=== PATIENT | male | born 1950 | race Caucasian/White ===

== ENCOUNTER → 2019-01-21 | Outpatient (CLI) | payer MEDICARE, BC ==
[~2019-01-21] MED LIST: IBP200T PO; MECL-124 PO; ONDAN4ODT PO; SCOP1PAT TD
--- NOTE | 2019-01-21 10:17 | Diagnostic Imaging Report ---
PROCEDURE: CT chest, abdomen, and pelvis without contrast. TECHNIQUE: Multiple contiguous axial images were obtained through the chest, abdomen, and pelvis without the use of intravenous contrast. Auto Exposure Controls were utilized during the CT exam to meet ALARA standards for radiation dose reduction. INDICATION: Right-sided thoracic pain extending into the right buttock and leg. COMPARISON: Correlation is made with prior CT abdomen and pelvis study from 06/15/2018. No prior CT chest is available for comparison. CT CHEST: No axillary lymphadenopathy is detected. No mediastinal or hilar lymphadenopathy is seen. There are coronary arterial calcifications detected. No pericardial or pleural fluid is detected. There is biapical pleural parenchymal scarring. Left upper lobe does contain a 10 mm slightly irregular density, image #17. No other parenchymal abnormalities are identified. Bony structures appear nonacute. IMPRESSION: 1. Irregular semisolid 10 mm density in the left upper lobe, as described. This is indeterminate. This could represent a small area of scarring or atelectasis but small neoplasm cannot be entirely excluded. Close followup with repeat CT of the chest in 4-6 months recommended to confirm stability. No other significant abnormality in the chest is identified. CT ABDOMEN AND PELVIS: Small low densities within the liver appear to be stable when compared with prior CT and likely cysts. The gallbladder is unremarkable. No biliary duct dilatation is seen. The pancreas and spleen are unremarkable. No adrenal mass is identified. Kidneys contain cortical low densities, similar to prior exam and most consistent with cysts. No calculi are seen. There is no hydronephrosis. The aorta shows some tortuosity but is non-aneurysmal. The small and large bowel loops are normal in caliber. No obstruction is seen. The appendix is visualized in the right lower quadrant and appears unremarkable. There is no ascites. Bladder is unremarkable. Prostate demonstrates some calcifications. Degenerative changes in the lumbar spine are noted. No acute bony abnormality is detected. IMPRESSION: 1. Hepatic and renal cysts. 2. No acute abnormality in the abdomen or pelvis is identified. Dictated by: Dictated on workstation # [id number]
== END ==
LOC: RAD 08:16
PROVIDERS: ATTEND Family Medicine
DX: J98.4 Other disorders of lung (principal); K76.89 Other specified diseases of liver; N28.1 Cyst of kidney, acquired
CPT/HCPCS: 71250; 74176

== ENCOUNTER → 2019-03-12 | Outpatient (CLI) | payer MEDICARE, BC ==
--- NOTE | 2019-03-12 13:15 | Diagnostic Imaging Report ---
INDICATION: Mid back pain. COMPARISON: No prior studies are available for comparison. FINDINGS: There is right convexity scoliotic curvature. There is normal kyphotic curvature. Vertebral body heights are maintained. The marrow signal intensity is unremarkable. No acute compression fracture is detected. No geographic marrow lesion is seen. There is generalized degenerative disc disease with variable disc space narrowing and desiccation. The thoracic cord demonstrates normal signal intensity. No focal disc protrusion is seen. Center canal is patent at all levels. Paraspinous tissues demonstrate a probable cyst in the left kidney measuring 3.0 cm. No other significant abnormality is seen. IMPRESSION: 1. Thoracic scoliosis and spondylosis. No acute compression fracture is detected. No central canal stenosis is identified. 2. Left renal cyst. Dictated by: Dictated on workstation # [id number]
== END ==
LOC: RAD 07:29
PROVIDERS: ATTEND Family Medicine
DX: M41.84 Other forms of scoliosis, thoracic region (principal); M47.814 Spondylosis without myelopathy or radiculopathy, thoracic region; N28.1 Cyst of kidney, acquired
CPT/HCPCS: 72146

== ENCOUNTER → 2021-04-11 | Outpatient (CLI) | payer MEDICARE, OTHER ==
--- NOTE | 2021-04-11 08:47 | Diagnostic Imaging Report ---
PROCEDURE: CT abdomen and pelvis without contrast. TECHNIQUE: Multiple contiguous axial images were obtained through the abdomen and pelvis without the use of intravenous contrast. Auto Exposure Controls were utilized during the CT exam to meet ALARA standards for radiation dose reduction. INDICATION: Hematuria. Comparison is made with prior CT from 01/21/2019. The lung bases are clear. Small low density in the periphery of the right lobe of liver appears stable. There is no biliary duct dilatation. Gallbladder is unremarkable. Pancreas and spleen are unremarkable. No adrenal mass is detected. Cortical low-attenuation lesions in the kidneys bilaterally appear to be fairly stable. There is some questionable increased density in the region of the collecting system of the lower pole of the right kidney, greater density than expected. Possibility of a mass at this location cannot be entirely excluded and correlation with retrograde pyelography or postcontrast CT with delayed imaging would be recommended. No calculi are seen. No hydronephrosis. Aorta is nonaneurysmal. Bowel loops are normal caliber. There is no free fluid or fluid collection. Bladder is unremarkable. Prostate is unremarkable. IMPRESSION: 1. Bilateral renal cysts and hepatic cysts. 2. There is some increased density to the right lower pole calyces and infundibuli, suspicious for a urothelial mass. Correlation with retrograde pyelography or postcontrast delayed imaging would be recommended. No other significant abnormality is detected. Dictated by: Dictated on workstation # [id number]
== END ==
LOC: RAD 08:15
PROVIDERS: ATTEND Urology
DX: N28.1 Cyst of kidney, acquired (principal); K76.89 Other specified diseases of liver
CPT/HCPCS: 74176

== ENCOUNTER 2021-04-25 06:11 | Outpatient (CLI) | payer MEDICARE, OTHER ==
[~2021-04-25] VITALS: Ht 175.3 cm; Wt 75.0 kg
== END 2021-04-25 15:07 | disposition home or self-care (01) ==
LOC: PREOP 06:11
PROVIDERS: ATTEND Urology
DX: Z01.818 Encounter for other preprocedural examination (principal)

== ENCOUNTER 2021-05-02 08:30 | Day surgery (SDC) | payer MEDICARE, OTHER ==
[2021-05-02] VITALS (12 sets, daily range): BP systolic 14–184; BP diastolic 55–105
[~2021-05-02] VITALS: Ht 175 cm; Wt 75.0 kg
--- NOTE | 2021-05-02 07:03 | Progress Note-Pre Operative ---
Pre-Operative Progress Note H&P Reviewed The H&P was reviewed, patient examined and no changes noted. Date Seen by Provider: May 02, 2021 Time Seen by Provider: : Date H&P Reviewed: May 02, 2021 Time H&P Reviewed: : Pre-Operative Diagnosis: GROSS HEMATURIA, RT LOWER CALYCEAL DEFECT AND POSSIBLE BLADDER TUMOR MINI WELLER MD May 02, 2021 07:03
--- NOTE | 2021-05-02 07:03 | Progress Note-Post Operative ---
Post-Operative Progess Note Surgeon (s)/Electrical Integrator (s) Surgeon MINI WELLER MD Electrical Integrator: NONE Pre-Operative Diagnosis GROSS HEMATURIA, RT LOWER CALYCEAL DEFECT AND POSSIBLE BLADDER TUMOR Post-Operative Diagnosis SAME Procedure & Operative Findings Date of Procedure 05/02/21 Procedure Performed/Findings CYSTOSCOPY, RT RETROGRADE UROGRAM AND BARBOTAGE CYTOLOGY Anesthesia Type GENERAL Estimated Blood Loss Estimated blood loss (mL): NONE Specimens/Packing Specimens Removed NONE Packing: NONE MINI WELLER MD May 02, 2021 07:03
--- NOTE | 2021-05-02 07:04 | Discharge Inst-Urology ---
Discharge Inst-Urology Reconcile Patient Problems Problems Reviewed?: Yes Final Diagnosis GROSS HEMATURIA AND RT CALYCEAL FILLING DEFECT ?TCC Patient Instructions/Follow Up Plan/Assessment/Instructions Please make appointment to been seen in office in 2 weeks. Increase oral fluids for 48 hours and then as needed. Diet and Activity as tolerated. If questions or concerns contact your physician Or seek help at emergency department. MINI WELLER MD May 02, 2021 07:04
[2021-05-02] MEDS ORDERED: cefTRIAXone 1,000 MG in WATER (STERILE) FOR INJECTION 10 ML IV ONE (08:45)
[2021-05-02] MEDS: LACTATED RINGERS 1,000 ML IV PRN ×2 (09:08→10:53)
[2021-05-02] MEDS ORDERED: LIDOCAINE PF 2% 5 ML (XYLOCAINE) VIAL ONE (09:45)
[2021-05-02] MEDS ORDERED: MIDAZOLAM 2 MG/2 ML (VERSED) VIAL ONE (09:45)
[2021-05-02] MEDS ORDERED: SEVOFLURANE (ULTANE) 15 ML INHAL SOLN ONE ×2 (09:45→10:59)
[2021-05-02] MEDS ORDERED: proPOfol 200 MG/20 ML (DIPRIVAN) VIAL IV ONE (09:45)
[2021-05-02] MEDS ORDERED: fentaNYL INJ 100 MCG/2 ML AMP ONE (09:45)
[2021-05-02] MEDS ORDERED: ONDANSETRON 4 MG/2 ML (SDV) Z0FRAN ONE (09:46)
[2021-05-02] MEDS ORDERED: GLYCOPYRROLATE 0.2 MG/ML (ROBINUL) 2 ML VIAL ONE (10:48)
[2021-05-02] MEDS ORDERED: ONDANSETRON 4 MG/2 ML (SDV) Z0FRAN IVP PRN (11:15)
[2021-05-02] MEDS ORDERED: morphine INJ 10 MG/ML 1ML (SYR OR VIAL) IVP ONE (11:15)
[2021-05-02] MEDS ORDERED: NITR-65 PO (11:46)
[2021-05-02] MEDS ORDERED: KETOROLAC 30 MG/ML VIAL ONE (12:53)
[2021-05-02] MEDS ORDERED: KETOROLAC 30 MG/ML VIAL IVP ONE (13:00)
--- NOTE | 2021-05-02 13:00 | Diagnostic Imaging Report ---
6 fluoroscopic images were provided for Dr. Hatch. Impression: Fluoroscopic time 41 seconds Dictated by: Dictated on workstation # [id number]
--- NOTE | 2021-05-02 14:36 | Anesthesia-General Post-Op ---
General Patient Condition Mental Status/LOC: Same as Preop Cardiovascular: Satisfactory Nausea/Vomiting: Absent Respiratory: Satisfactory Pain: Controlled Complications: Absent Post Op Complications Complications None Follow Up Care/Instructions Patient Instructions None needed. Anesthesia/Patient Condition Patient Condition Patient was seen after the procedure and he was doing well, no complaints, stable vital signs, no apparent adverse anesthesia problems. FANNY KERN DO May 02, 2021 14:36
--- NOTE | 2021-05-02 17:50 | OPERATIVE REPORT ---
DATE OF SERVICE: 05/02/2021 PREOPERATIVE DIAGNOSES: 1. Gross hematuria. 2. Possible bladder tumor. 3. Right lower calyceal defect, possible transitional cell carcinoma. POSTOPERATIVE DIAGNOSES: 1. Gross hematuria. 2. No bladder tumor. 3. Right lower calyceal defect, possible transitional cell carcinoma. OPERATION PERFORMED: Cystoscopy, right retrograde barbotage cytology and urogram. SURGEON: Jv Weller MD ANESTHESIA: General. COMPLICATIONS: None. DESCRIPTION OF PROCEDURE: Under satisfactory general anesthesia, the patient in lithotomy position, genitalia were prepped and draped in the usual sterile fashion. Storz cystoscope was introduced under vision. The anterior urethra was normal. The prostate revealed some enlargement of the lateral lobe, which was a median bar causing some obstruction. Bladder was entered, revealed some trabeculations. Ureteric orifices normal in shape, size and configuration with clear efflux equal bilaterally. There was no bladder tumor at all also with the right angle lens. Using the foroblique lens, I passed a 6-Maldivian ureteral catheter all the way up to the right renal pelvis guided fluoroscopically. I obtained some barbotage cytology and sent it for cytology examination. Then, I injected contrast and I could see that there was no complete filling of the lower pole bianca with what looks like a filling defect with likelihood of transitional cell carcinoma. The bladder was evacuated and the cystoscope was removed. The patient tolerated the procedure and anesthesia well and was sent to recovery room in stable condition. PLAN: I will await the cytology. I will see him back in 2 weeks, probably send him to for a flexible ureteral pyeloscopy both hopefully a diagnostic as well as therapeutic. Job ID: [id number] DocumentID: [id number] Dictated Date: 05/02/2021 11:33:12 Drill Sharpener Operator Date: 05/02/2021 17:49:38 Dictated By: JV WELLER MD
== END 2021-05-02 13:40 | disposition home or self-care (01) ==
LOC: SDC 08:30
PROVIDERS: ATTEND Urology
DX: N28.89 Other specified disorders of kidney and ureter (principal); R31.0 Gross hematuria; M19.90 Unspecified osteoarthritis, unspecified site; Z87.891 Personal history of nicotine dependence
CPT/HCPCS: 76000; 87081

== ENCOUNTER 2021-05-07 17:26 | Observation (INO) | payer MEDICARE, OTHER ==
[~2021-05-07] VITALS: Ht 175 cm; Wt 65.3 kg
[~2021-05-07 17:26] MED LIST changes: +NITR-65 PO
--- NOTE | 2021-05-07 17:44 | ED Abdominal Pain ---
General Chief Complaint: Back Problems Stated Complaint: ABD / BACK PAIN Nursing Triage Note: ARRIVED VIA AMB TO ROOM 02 WITH COMPLAINTS OF RIGHT FLANK PAIN STARTING THIS AFTERNOON. STATES HE HAS NOT TAKEN ANYTHING FOR PAIN. Source of Information: Patient Exam Limitations: No Limitations (TOÑA FRAZIER MD) History of Present Illness Date Seen by Provider: May 07, 2021 Time Seen by Provider: 17:38 Initial Comments Patient is a 70-year-old male who presents to the emergency department today with a chief complaint of right flank pain and back pain. Onset today. He describes darker than normal urine. He states that he saw Dr. Parikh last week and was told that he had some type of a "gross" on his right kidney. He had a dye study a week ago Friday. He is supposed to follow-up with Dr. Parikh in another week. Patient did have to have a catheter for 24 hours after his dye study secondary to inability to urinate. He is not on any blood thinners. He has never had any abdominal surgeries. He does complain of a little nausea today. Last bowel movement was 2 days ago he thinks. No fevers or chills. No other complaints of illness. All other review of systems reviewed and negative except as stated above. Timing/Duration: 4-6 Hours Severity/Quality: Moderate Location: RUQ, RLQ Radiation: Back Associated Symptoms: Nausea/Vomiting (TOÑA FRAZIER MD) Allergies and Home Medications Allergies Coded Allergies: No Known Drug Allergies (Unverified , 08/18/13) Home Medications No Active Prescriptions or Reported Meds Patient Home Medication List Home Medication List Reviewed: Yes (TOÑA FRAZIER MD) Review of Systems Review of Systems Constitutional: see HPI EENTM: No Symptoms Reported Respiratory: No Symptoms Reported Cardiovascular: No Symptoms Reported Gastrointestinal: Abdominal Pain, Nausea Genitourinary: Hematuria Musculoskeletal: no symptoms reported Skin: no symptoms reported (TOÑA FRAZIER MD) All Other Systems Reviewed Negative Unless Noted: Yes (TOÑA FRAZIER MD) Past Cqzfvjh-Pqbran-Tcodmj Hx Patient Social History Smoking Status: Former Smoker Substance use?: No Alcohol Use?: No (TOÑA FRAZIER MD) Immunizations Up To Date Second COVID19 Vaccination [place]: 02/07 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 (TOÑA FRAZIER MD) Seasonal Allergies Seasonal Allergies: No (TOÑA FRAZIER MD) Past Medical History Surgeries: No (back surgery) Orthopedic Respiratory: No Currently Using CPAP: No Currently Using BIPAP: No Cardiac: No Neurological: No Genitourinary: Yes ("tumor on kidney") Gastrointestinal: No Musculoskeletal: No Endocrine: No HEENT: No Cancer: No Psychosocial: No Integumentary: No Blood Disorders: No (TOÑA FRAZIER MD) Physical Exam Vital Signs Vital Signs - First Documented 05/07/21 17:28 Temp 36.5 Pulse 80 Resp 16 B/P (MAP) 149/94 (112) Pulse Ox 96 O2 Delivery Room Air (ARACELI GALLOWAY MD) Vital Signs Capillary Refill : Less Than 3 Seconds (TOÑA FRAZIER MD) Height/Weight/BMI Height: '" Weight: 170lbs. oz. 77.967702jq; 24.00 BMI Method: General Appearance: WD/WN, no apparent distress Respiratory: lungs clear, normal breath sounds, no respiratory distress, no accessory muscle use Cardiovascular: regular rate, rhythm Gastrointestinal: non tender, soft Extremities: non-tender, normal inspection Back: CVA tenderness (R), CVA tenderness (L) Neurologic/Psychiatric: alert, normal mood/affect, oriented x 3 Skin: normal color, warm/dry (TOÑA FRAZIER MD) Progress/Results/Core Measures Results/Orders Lab Results Laboratory Tests Test 05/07/21 17:35 05/07/21 17:51 Range/Units White Blood Count 8.2 4.3-11.0 10^3/uL Red Blood Count 4.09 L 4.30-5.52 10^6/uL Hemoglobin 13.6 13.3-17.7 g/dL Hematocrit 40 40-54 % Mean Corpuscular Volume 99 80-99 fL Mean Corpuscular Hemoglobin 33 25-34 pg Mean Corpuscular Hemoglobin Concent 34 32-36 g/dL Red Cell Distribution Width 11.9 10.0-14.5 % Platelet Count 190 130-400 10^3/uL Mean Platelet Volume 10.6 9.0-12.2 fL Immature Granulocyte % (Auto) 0 % Neutrophils (%) (Auto) 71 42-75 % Lymphocytes (%) (Auto) 21 12-44 % Monocytes (%) (Auto) 7 0-12 % Eosinophils (%) (Auto) 1 0-10 % Basophils (%) (Auto) 0 0-10 % Neutrophils # (Auto) 5.8 1.8-7.8 10^3/uL Lymphocytes # (Auto) 1.7 1.0-4.0 10^3/uL Monocytes # (Auto) 0.5 0.0-1.0 10^3/uL Eosinophils # (Auto) 0.1 0.0-0.3 10^3/uL Basophils # (Auto) 0.0 0.0-0.1 10^3/uL Immature Granulocyte # (Auto) 0.0 0.0-0.1 10^3/uL Sodium Level 144 135-145 MMOL/L Potassium Level 4.0 3.6-5.0 MMOL/L Chloride Level 105 98-107 MMOL/L Carbon Dioxide Level 26 21-32 MMOL/L Anion Gap 13 5-14 MMOL/L Blood Urea Nitrogen 14 7-18 MG/DL Creatinine 0.96 0.60-1.30 MG/DL Estimat Glomerular Filtration Rate > 60 BUN/Creatinine Ratio 15 Glucose Level 108 H 70-105 MG/DL Calcium Level 9.3 8.5-10.1 MG/DL Corrected Calcium 9.2 8.5-10.1 MG/DL Total Bilirubin 1.3 H 0.1-1.0 MG/DL Aspartate Amino Transf (AST/SGOT) 17 5-34 U/L Alanine Aminotransferase (ALT/SGPT) 18 0-55 U/L Alkaline Phosphatase 56 40-136 U/L Total Protein 7.0 6.4-8.2 GM/DL Albumin 4.1 3.2-4.5 GM/DL Lipase 34 8-78 U/L Urine Color ELLYN H Urine Clarity SL CLOUDY Urine pH 6.0 5-9 Urine Specific [place] >=1.030 1.016-1.022 Urine Protein 2+ H NEGATIVE Urine Glucose (UA) NEGATIVE NEGATIVE Urine Ketones NEGATIVE NEGATIVE Urine Nitrite NEGATIVE NEGATIVE Urine Bilirubin 1+ H NEGATIVE Urine Urobilinogen 0.2 < = 1.0 MG/DL Urine Leukocyte Esterase NEGATIVE NEGATIVE Urine RBC (Auto) 3+ H NEGATIVE Urine RBC >100 H /HPF Urine WBC 5-10 H /HPF Urine Crystals PRESENT H /LPF Urine Amorphous Sediment MOD ALEXIS URATES H /LPF Urine Bacteria TRACE /HPF Urine Casts NONE /LPF Urine Mucus SMALL H /LPF Urine Culture Indicated NO (ARACELI GALLOWAY MD) My Orders Orders - ARACELI GALLOWAY MD Promethazine Injection (Phenergan Injec (05/07/21 18:45) Fentanyl Inj (Sublimaze Injection) (05/07/21 18:45) Bladder Scan (05/07/21 19:24) Ct Abdomen/Pelvis Wo (05/07/21 19:38) Ondansetron Injection (Zofran Injectio (05/07/21 21:00) Protime With Inr (05/07/21 21:10) Partial Thromboplastin Time (05/07/21 21:10) Ceftriaxone (Rocephin) (05/07/21 21:15) Ns Iv 500 Ml (Sodium Chloride 0.9%) (05/07/21 21:15) Hyoscyamine Sl Tablet (Levsin Sl Tablet) (05/07/21 21:15) (ARACELI GALLOWAY MD) Medications Given in ED Current Medications Medications Dose Ordered Sig/Steve Route Start Time Stop Time Status Last Admin Dose Admin Ceftriaxone Sodium 1000 mg/ Sterile Water 10 ml @ 200 mls/hr ONCE ONCE IV 05/07/21 21:15 05/07/21 21:17 DC 05/07/21 21:26 200 MLS/HR Hyoscyamine Sulfate 0.25 mg ONCE ONCE SL 05/07/21 21:15 05/07/21 21:16 DC 05/07/21 21:26 0.25 MG Ondansetron HCl 4 mg ONCE ONCE IVP 05/07/21 21:00 05/07/21 21:01 DC 05/07/21 21:03 4 MG Sodium Chloride 500 ml @ 0 mls/hr Q0M ONCE IV 05/07/21 21:15 05/07/21 21:16 DC 05/07/21 21:26 999 MLS/HR (ARACELI GALLOWAY MD) Vital Signs/I&O 05/07/21 17:28 Temp 36.5 Pulse 80 Resp 16 B/P (MAP) 149/94 (112) Pulse Ox 96 O2 Delivery Room Air (ARACELI GALLOWAY MD) Blood Pressure Mean: 112 Progress Progress Note #1: Time: 19:51 Progress Note I assumed care of this patient from Dr. Frazier at shift change. Patient reported residual nausea and persistent pain. Fentanyl and Phenergan were added to the Zofran already administered. A liter of IV normal saline was infused. I have discussed the situation with Dr. Parikh. He recommended a bladder scan which showed no significant residual urine. Since bladder scan was normal, he suggested repeating a CT abdomen and pelvis without contrast. CT is pending at this time. On repeat examination he had no significant tenderness to palpation in the abdomen. He was feeling groggy from medication effects. Pathology from the urine specimen was reviewed. It showed no high-grade urothelial carcinoma. Low-grade urothelial carcinoma was not excluded. Progress Note #2: Progress Note CT demonstrated ureteral obstruction. Dr. Hatch recommends a dose of Rocephin and aggressive hydration. Patient received 1500 mL in boluses in the ER. IV fluids will be continued on the floor. (ARACELI GALLOWAY MD) Diagnostic Imaging Diagonstic Imaging: CT Plain Films/CT/US/NM/MRI: abdomen, pelvis Comments NAME: [facility] SMITH [facility] REC#: [id number] PT STATUS: REG ER : 1950 PHYSICIAN: ARACELI GALLOWAY MD ADMIT DATE: 05/07/21/ER Draft Date of Exam:05/07/21 CT ABDOMEN/PELVIS WO PROCEDURE: CT abdomen and pelvis without contrast. TECHNIQUE: Multiple contiguous axial images were obtained through the abdomen and pelvis without the use of intravenous contrast. Auto Exposure Controls were utilized during the CT exam to meet ALARA standards for radiation dose reduction. INDICATION: Hematuria COMPARISON: 04/11/2021. FINDINGS: There is new moderate right-sided hydronephrosis. There is an increased density in the lower pole calyx on the right kidney. Benign cysts bilaterally are stable. There is trace hydroureter. No kidney stones are identified. The urinary bladder is unremarkable. There is slight prostate enlargement. The lung bases are clear. The gallbladder, additional solid organs, and bowel are unremarkable. There is no free air or free fluid. Osseous structures are age-appropriate. IMPRESSION: 1. New right-sided hydronephrosis with some increased density in the lower pole calyx of the right kidney. There are subtle areas of increased density in the right ureter, likely hemorrhage. The urinary bladder is unremarkable. Urology consultation recommended. The increased density could be neoplasm. 2. Slight prostate enlargement. 3. Stable benign renal cysts. Dictated on workstation # [id number] Dict: 05/07/212025 Trans: 05/07/212034 [facility] [id number] Interpreted by: HELDER LYNN (ARACELI GALLOWAY MD) Departure Communication (Admissions) Time/Spoke to Admitting Phy: 21:30 Dr. Purvis Time/Spoke to Consulting Phy: 21:10 Dr. Hatch (ARACELI GALLOWAY MD) Impression Primary Impression: Ureteral obstruction, right Additional Impression: Right flank pain Disposition: ADMITTED INPATIENT Condition: Improved Admissions Decision to Admit Reason: Admit from ER (General) Decision to Admit/Date: May 07, 2021 Time/Decision to Admit Time: 21:00 (ARACELI GALLOWAY MD) Departure-Patient Inst. Referrals: NO,LOCAL PHYSICIAN (PCP/Family) Primary Care Physician Scripts No Active Prescriptions or Reported Meds TOÑA FRAZIER MD May 07, 2021 17:44 ARACELI GALLOWAY MD May 07, 2021 19:51
[2021-05-07] MEDS ORDERED: ONDANSETRON 4 MG (ZOFRAN) ORAL DISSOLVE TAB PO ONE (17:45)
[2021-05-07] MEDS ORDERED: NS IV 1000 ML 1,000 ML IV SCH (17:45)
[2021-05-07 17:52] LABS: BASOPHILS % (AUTO) 0 % (0-10); EOSINOPHILS # (AUTO) 0.1 10^3/uL (0.0-0.3); EOSINOPHILS % (AUTO) 1 % (0-10); HEMATOCRIT 40 % (40-54); HEMOGLOBIN 13.6 g/dL (13.3-17.7); LYMPHOCYTES # (AUTO) 1.7 10^3/uL (1.0-4.0); LYMPHOCYTES % (AUTO) 21 % (12-44); MEAN CORPUSCULAR HEMOGLOBIN 33 pg (25-34); MEAN CORPUSCULAR HGB CONC 34 g/dL (32-36); MEAN CORPUSCULAR VOLUME 99 fL (80-99); MEAN PLATELET VOLUME 10.6 fL (9.0-12.2); MONOCYTES # (AUTO) 0.5 10^3/uL (0.0-1.0); MONOCYTES % (AUTO) 7 % (0-12); NEUTROPHILS # (AUTO) 5.8 10^3/uL (1.8-7.8); NEUTROPHILS % (AUTO) 71 % (42-75); PLATELET COUNT 190 10^3/uL (130-400); WHITE BLOOD COUNT 8.2 10^3/uL (4.3-11.0)
[2021-05-07 17:58] LABS: CLARITY,URINE SL CLOUDY; COLOR,URINE AMBER; GLUCOSE, URINE (UA) NEGATIVE (NEGATIVE); KETONES,URINE NEGATIVE (NEGATIVE); LEUKOCYTE ESTERASE ,URINE NEGATIVE (NEGATIVE); NITRITE,URINE NEGATIVE (NEGATIVE); PROTEIN,URINE 2+ (NEGATIVE)
[2021-05-07 18:02] LABS: CHLORIDE 105 MMOL/L (98-107); SODIUM 144 MMOL/L (135-145)
[2021-05-07 18:03] LABS: CALCIUM 9.3 MG/DL (8.5-10.1); GLUCOSE 108 MG/DL (70-105)
[2021-05-07 18:05] LABS: CARBON DIOXIDE 26 MMOL/L (21-32)
[2021-05-07 18:07] LABS: CREATININE SERUM 0.96 MG/DL (0.60-1.30); GFR ESTIMATED > 60
[2021-05-07 18:08] LABS: BUN/CREATININE RATIO 15
[2021-05-07 18:22] LABS: ALBUMIN 4.1 GM/DL (3.2-4.5)
[2021-05-07 18:26] LABS: BILIRUBIN,URINE 1+ (NEGATIVE); RBC,URINE >100 /HPF
[2021-05-07 18:27] LABS: BILIRUBIN,TOTAL 1.3 MG/DL (0.1-1.0)
[2021-05-07 18:28] LABS: ALKALINE PHOSPHATASE 56 U/L (40-136)
[2021-05-07 18:28] LABS: AMORPHOUS SEDIMENT,UR MOD AMOR URATES /LPF; BACTERIA,URINE TRACE /HPF
[2021-05-07 18:31] LABS: ALANINE AMINOTRANSFERASE 18 U/L (0-55); LIPASE 34 U/L (8-78)
[2021-05-07] MEDS ORDERED: PROMETHAZINE INJ 25 MG/ML (PHENERGAN) AMP IVP ONE (18:45)
[2021-05-07] MEDS ORDERED: fentaNYL INJ 100 MCG/2 ML AMP IVP ONE (18:45)
--- NOTE | 2021-05-07 20:36 | Diagnostic Imaging Report ---
PROCEDURE: CT abdomen and pelvis without contrast. TECHNIQUE: Multiple contiguous axial images were obtained through the abdomen and pelvis without the use of intravenous contrast. Auto Exposure Controls were utilized during the CT exam to meet ALARA standards for radiation dose reduction. INDICATION: Hematuria COMPARISON: 04/11/2021. FINDINGS: There is new moderate right-sided hydronephrosis. There is an increased density in the lower pole calyx on the right kidney. Benign cysts bilaterally are stable. There is trace hydroureter. No kidney stones are identified. The urinary bladder is unremarkable. There is slight prostate enlargement. The lung bases are clear. The gallbladder, additional solid organs, and bowel are unremarkable. There is no free air or free fluid. Osseous structures are age-appropriate. IMPRESSION: 1. New right-sided hydronephrosis with some increased density in the lower pole calyx of the right kidney. There are subtle areas of increased density in the right ureter, likely hemorrhage. The urinary bladder is unremarkable. Urology consultation recommended. The increased density could be neoplasm. 2. Slight prostate enlargement. 3. Stable benign renal cysts. Dictated by: Dictated on workstation # [id number]
[2021-05-07] MEDS ORDERED: ONDANSETRON 4 MG/2 ML (SDV) Z0FRAN IVP ONE (21:00)
[2021-05-07] MEDS ORDERED: NS IV 500 ML 500 ML IV ONE (21:15)
[2021-05-07] MEDS ORDERED: cefTRIAXone 1,000 MG in WATER (STERILE) FOR INJECTION 10 ML IV ONE (21:15)
[2021-05-07] MEDS ORDERED: HYOSCYAMINE 0.125 MG (LEVSIN) TAB SL ONE (21:15)
[2021-05-07 22:30] VITALS: BP 179/90
[2021-05-07] MEDS ORDERED: ONDANSETRON 4 MG/2 ML (SDV) Z0FRAN IVP PRN (22:45)
[2021-05-07] MEDS ORDERED: fentaNYL INJ 100 MCG/2 ML AMP IVP PRN (22:45)
[2021-05-07] MEDS ORDERED: PROMETHAZINE INJ 25 MG/ML (PHENERGAN) AMP IVP PRN (22:45)
[2021-05-07] MEDS ORDERED: HYOSCYAMINE 0.125 MG (LEVSIN) TAB SL PRN (22:45)
[2021-05-07] MEDS: LACTATED RINGERS 1,000 ML IV SCH (22:57)
[2021-05-07 23:34] LABS: INR 1.1 (0.8-1.4); PROTHROMBIN TIME PATIENT 14.1 SEC (12.2-14.7)
[2021-05-08 00:25] VITALS: BP 119/69
[2021-05-08 04:34] VITALS: BP 148/71
[2021-05-08 05:25] LABS: BASOPHILS % (AUTO) 0 % (0-10); EOSINOPHILS # (AUTO) 0.1 10^3/uL (0.0-0.3); EOSINOPHILS % (AUTO) 1 % (0-10); HEMATOCRIT 37 % (40-54); HEMOGLOBIN 12.1 g/dL (13.3-17.7); LYMPHOCYTES # (AUTO) 1.4 10^3/uL (1.0-4.0); LYMPHOCYTES % (AUTO) 21 % (12-44); MEAN CORPUSCULAR HEMOGLOBIN 33 pg (25-34); MEAN CORPUSCULAR HGB CONC 33 g/dL (32-36); MEAN CORPUSCULAR VOLUME 100 fL (80-99); MEAN PLATELET VOLUME 11.1 fL (9.0-12.2); MONOCYTES # (AUTO) 0.5 10^3/uL (0.0-1.0); MONOCYTES % (AUTO) 8 % (0-12); NEUTROPHILS # (AUTO) 4.4 10^3/uL (1.8-7.8); NEUTROPHILS % (AUTO) 69 % (42-75); PLATELET COUNT 161 10^3/uL (130-400); WHITE BLOOD COUNT 6.4 10^3/uL (4.3-11.0)
[2021-05-08 05:36] LABS: CHLORIDE 109 MMOL/L (98-107); POTASSIUM 3.7 MMOL/L (3.6-5.0); SODIUM 144 MMOL/L (135-145)
[2021-05-08 05:37] LABS: CALCIUM 8.1 MG/DL (8.5-10.1)
[2021-05-08 05:38] LABS: GLUCOSE 95 MG/DL (70-105)
[2021-05-08 05:39] LABS: CARBON DIOXIDE 27 MMOL/L (21-32)
[2021-05-08 05:42] LABS: CREATININE SERUM 0.81 MG/DL (0.60-1.30); GFR ESTIMATED > 60
[2021-05-08 05:43] LABS: BUN/CREATININE RATIO 12
[2021-05-08] MEDS: LACTATED RINGERS 1,000 ML IV SCH (05:54)
[2021-05-08 08:00] VITALS: BP 161/76
--- NOTE | 2021-05-08 09:49 | CONSULTATION REPORT ---
DATE OF SERVICE: 05/08/2021 ATTENDING PHYSICIAN: Dr. Purvis and Dr. Figueroa. SUMMARY: A 70-year-old white man with a known filling defect in the lower pole bianca of the right kidney, high possibility of transitional cell carcinoma who had a right retrograde urogram and cystoscopy on Friday the . He presented to the emergency room with some discomfort and nausea and vomiting and bladder discomfort. His postvoid residual by bladder scan was negative. I told Dr. Figueroa to go ahead and obtain a noncontrast CT scan of the abdomen and that showed some sloughing of tissues or blood clot into the right ureter causing some blockage. Explaining the problem, I told him to go ahead and admit him for hydration and antibiotic. I saw him this morning and he is totally asymptomatic, no more pain. No more nausea, vomiting, probably washed everything with the IV fluid we gave him overnight. He is hungry and wished to have the food. We will give him regular diet and it is okay from the standpoint to let him go home. Follow up at the office as planned next Friday and we will refer him to [facility] for definitive management of his right kidney. Plan was fully explained to the patient as previously. Job ID: [id number] DocumentID: [id number] Dictated Date: 05/08/2021 09:07:57 Military Cook Date: 05/08/2021 09:47:56 Dictated By: MINI WELLER MD
[2021-05-08 10:32] VITALS: BP 161/76
--- NOTE | 2021-05-08 11:51 | Short Stay Summary ---
Discharge Summary Hospital Course Problems/Dx: (1) Ureteral obstruction, right Status: Acute Final Diagnosis: Right ureteral obstruction Hospital Course Date of Admission: May 07, 2021 at 21:30 Admission Diagnosis : Right ureteral obstruction Family Physician/Provider: [facility] Physician Date of Discharge: 05/08/21 Discharge Diagnosis: Right ureteral obstruction Hospital Course: Miguel Cedillo is a 70-year-old male who presented with suprapubic abdominal pain and right flank pain. He has a known right ureteral lesion. He has been following with Dr. Hatch and had a cystoscopy last week. His urinalysis was negative for UTI. He was given IV fluids. His symptoms improved. He was discharged home in stable condition. He has a follow-up scheduled with Dr. Hatch who plans to refer him to [facility] for further evaluation. Labs and Pending Lab Test: Laboratory Tests 05/07/21 17:35: White Blood Count 8.2, Red Blood Count 4.09L, Hemoglobin 13.6, Hematocrit 40, Mean Corpuscular Volume 99, Mean Corpuscular Hemoglobin 33, Mean Corpuscular Hemoglobin Concent 34, Red Cell Distribution Width 11.9, Platelet Count 190, Mean Platelet Volume 10.6, Immature Granulocyte % (Auto) 0, Neutrophils (%) (Auto) 71, Lymphocytes (%) (Auto) 21, Monocytes (%) (Auto) 7, Eosinophils (%) (Auto) 1, Basophils (%) (Auto) 0, Neutrophils # (Auto) 5.8, Lymphocytes # (Auto) 1.7, Monocytes # (Auto) 0.5, Eosinophils # (Auto) 0.1, Basophils # (Auto) 0.0, Immature Granulocyte # (Auto) 0.0, Sodium Level 144, Potassium Level 4.0, Chloride Level 105, Carbon Dioxide Level 26, Anion Gap 13, Blood Urea Nitrogen 14, Creatinine 0.96, Estimat Glomerular Filtration Rate > 60, BUN/Creatinine Ratio 15, Glucose Level 108H, Calcium Level 9.3, Corrected Calcium 9.2, Total Bilirubin 1.3H, Aspartate Amino Transf (AST/SGOT) 17, Alanine Aminotransferase (ALT/SGPT) 18, Alkaline Phosphatase 56, Total Protein 7.0, Albumin 4.1, Lipase 34 05/07/21 17:51: Urine Color AMBERH, Urine Clarity SL CLOUDY, Urine pH 6.0, Urine Specific [place] >=1.030, Urine Protein 2+H, Urine Glucose (UA) NEGATIVE, Urine Ketones NEGATIVE, Urine Nitrite NEGATIVE, Urine Bilirubin 1+H, Urine Urobilinogen 0.2, Urine Leukocyte Esterase NEGATIVE, Urine RBC (Auto) 3+H, Urine RBC >100H, Urine WBC 5-10H, Urine Crystals PRESENTH, Urine Amorphous Sediment MOD ALEXIS URATESH, Urine Bacteria TRACE, Urine Casts NONE, Urine Mucus SMALLH, Urine Culture Indicated NO 05/07/21 23:15: Prothrombin Time 14.1, INR Comment 1.1, Activated Partial Thromboplast Time 29 05/08/21 05:00: White Blood Count 6.4, Red Blood Count 3.67L, Hemoglobin 12.1L, Hematocrit 37L, Mean Corpuscular Volume 100H, Mean Corpuscular Hemoglobin 33, Mean Corpuscular Hemoglobin Concent 33, Red Cell Distribution Width 11.9, Platelet Count 161, Mean Platelet Volume 11.1, Immature Granulocyte % (Auto) 0, Neutrophils (%) (Auto) 69, Lymphocytes (%) (Auto) 21, Monocytes (%) (Auto) 8, Eosinophils (%) (Auto) 1, Basophils (%) (Auto) 0, Neutrophils # (Auto) 4.4, Lymphocytes # (Auto) 1.4, Monocytes # (Auto) 0.5, Eosinophils # (Auto) 0.1, Basophils # (Auto) 0.0, Immature Granulocyte # (Auto) 0.0, Sodium Level 144, Potassium Level 3.7, Chloride Level 109H, Carbon Dioxide Level 27, Anion Gap 8, Blood Urea Nitrogen 10, Creatinine 0.81, Estimat Glomerular Filtration Rate > 60, BUN/Creatinine Ratio 12, Glucose Level 95, Calcium Level 8.1L Home Meds Active No Active Prescriptions or Reported Medications Assessment/Pt Instructions Take medications as prescribed. Follow-up with urology. Return with worsening symptoms. Discharge Instructions Discharge Diet: No Restrictions Activity as Tolerated: Yes Consultations Urology Discharge Physical Examination General Appearance: Alert, Oriented X3, Cooperative, No Acute Distress HEENT: Atraumatic, EOMI, Mucous Memb Moist/[place] Respiratory: Clear to Auscultation, Normal Air Movement Cardiovascular: Regular Rate, Normal S1, Normal S2, No Murmurs Abdominal: Normal Bowel Sounds, Soft, No Tenderness Extremities: No Edema, No Tenderness/Swelling Skin: No Rashes, No Significant Lesion Neuro: Normal Speech, Normal Tone Psych/Mental Status: Mental Status NL, Mood NL Allergies: Coded Allergies: No Known Drug Allergies (Unverified , 08/18/13) Discharge Summary Date of Admission May 07, 2021 at 21:30 Date of Discharge May 08, 2021 at 10:30 Discharge Date: May 08, 2021 Discharge Time: 10:30 Admission Diagnosis Right ureteral obstruction Consults/Procedures Consulations Urology Discharge Diagnosis (1) Ureteral obstruction, right Status: Acute CHULA LOFTON MD May 08, 2021 11:50
== END 2021-05-08 10:32 | disposition home or self-care (01) ==
LOC: EDUNIT# 17:26 → ER 17:28 → 4TH 21:30 → UNDOADMOB 21:30 → 4TH 22:30 → UNDODISOB 05-08 10:30
PROVIDERS: ADMIT Internal Medicine; ATTEND Internal Medicine
DX: N13.5 Crossing vessel and stricture of ureter without hydronephrosis (principal); Z87.891 Personal history of nicotine dependence
CPT/HCPCS: 74176; 80048; 80053; 81000; 83690; 85025 ×2; 85610; 85730; 99284; G0378; 36415

== ENCOUNTER → 2021-06-22 | Outpatient (CLI) | payer MEDICARE, OTHER | LOC: LABNPT 09:09 | DX: Z20.822 Contact with and (suspected) exposure to COVID-19 (principal) | CPT/HCPCS: 87635 ==

== ENCOUNTER → 2021-07-05 | Outpatient (CLI) | payer MEDICARE, OTHER ==
[~2021-07-05] MED LIST changes: +CATHETER FLUSH 10 ML SYR IV PRN; +HOLD METFORMIN - RECEIVED CONTRAST 20 ML VIAL IV SCH; +IOHEXOL 350 MG/ML 100 ML (OMNIPAQUE 350) VIAL IV ONE; +NS 100 ML (IVPB) BAG IV ONE
[2021-07-05 08:31] LABS: CREATININE SERUM 0.91 MG/DL (0.60-1.30)
--- NOTE | 2021-07-05 10:18 | Diagnostic Imaging Report ---
PROCEDURE: CT abdomen and pelvis with and without contrast. TECHNIQUE: Precontrast acquisitions were acquired through the abdomen and pelvis. Multiple contiguous axial images were obtained through the abdomen and pelvis after the administration of intravenous contrast. Auto Exposure Controls were utilized during the CT exam to meet ALARA standards for radiation dose reduction. INDICATION: A right ureteral carcinoma. Comparison is made with prior CT from 05/07/2021. The lung bases are clear. There are several small low-attenuation lesions within the liver, too small to characterize but most consistent with cysts. Gallbladder is unremarkable. No biliary ductal dilatation. The pancreas and spleen are unremarkable. No adrenal masses detected. There are bilateral renal cysts. A right-sided nephroureteral stent has been placed since prior CT. This extends from the right renal pelvis into the urinary bladder. No definite calculi along the course of the stent are identified. Delayed images demonstrate contrast within both renal collecting systems and ureters. There is contrast in the urinary bladder. No discrete mass is identified. Prostate is mildly enlarged. Aorta is tortuous and calcified but nonaneurysmal. Bowel loops are normal in caliber. No obstruction. No free fluid or fluid collection is detected. No definite abdominal or pelvic lymphadenopathy is identified. Bony structures are nonacute. There is right convexity lumbar scoliotic curvature. IMPRESSION: 1. Hepatic and renal cysts. 2. Placement of right-sided double-J nephroureteral stent. No urinary tract calculi or masses detected. Mild upper pole hydronephrosis on the right is noted, similar to prior study. No other significant abnormality is seen. Dictated by: Dictated on workstation # [id number]
--- NOTE | 2021-07-05 11:08 | Diagnostic Imaging Report ---
PROCEDURE: CT chest with contrast only. TECHNIQUE: Multiple contiguous axial images were obtained through the chest after administration of intravenous contrast. Auto Exposure Controls were utilized during the CT exam to meet ALARA standards for radiation dose reduction. INDICATION: Urethral carcinoma COMPARISON: 01/21/2019 There is mild background centrilobular emphysema. Pleural parenchymal scarring is again noted in the lung apices. 1 cm irregular focus in the left upper lobe at the level of the aortic arch has not appreciably changed. Chronic nature suggests probable fibrosis. Otherwise there is no evidence of new mass or infiltrate in either lung. There is no significant pleural or pericardial fluid. Focal defects within the diaphragm posteriorly are present without evidence of significant hernia. Dominant cyst is seen in the upper pole of left kidney. IMPRESSION: Stable overall appearance of the thorax with areas of presumed fibrosis in the upper lobes. Otherwise, no acute abnormality or convincing evidence of metastatic disease is identified. Dictated by: Dictated on workstation # [id number]
== END ==
LOC: RAD 08:45
PROVIDERS: ATTEND Urology
DX: C66.1 Malignant neoplasm of right ureter (principal); K76.89 Other specified diseases of liver; N28.1 Cyst of kidney, acquired; Z96.0 Presence of urogenital implants
CPT/HCPCS: 36415; 71260; 74178; 82565; 84520

== ENCOUNTER → 2021-11-30 | Outpatient (CLI) | payer MEDICARE, OTHER ==
[~2021-11-30] MED LIST changes: -CATHETER FLUSH 10 ML SYR IV PRN
[2021-11-30 09:42] LABS: BILIRUBIN,TOTAL 1.5 MG/DL (0.1-1.0); CALCIUM 9.1 MG/DL (8.5-10.1); CREATININE SERUM 1.26 MG/DL (0.60-1.30); POTASSIUM 4.1 MMOL/L (3.6-5.0); TOTAL PROTEIN 7.1 GM/DL (6.4-8.2)
--- NOTE | 2021-11-30 11:33 | Diagnostic Imaging Report ---
PROCEDURE: CT abdomen and pelvis with and without contrast. TECHNIQUE: Precontrast acquisitions were acquired through the abdomen and pelvis. Multiple contiguous axial images were obtained through the abdomen and pelvis after the administration of intravenous contrast. Auto Exposure Controls were utilized during the CT exam to meet ALARA standards for radiation dose reduction. DATE: November 30, 2021. COMPARISON: CT abdomen pelvis July 05, 2021. INDICATION: 71-year-old male, history of ureteral malignancy, status post right nephrectomy. FINDINGS: The visualized portions of the lungs are clear. The heart is not enlarged. There is no pericardial effusion. The liver is unremarkable in size and contour. There is a 6 mm low-attenuation lesion in the right lobe of liver on axial image 20 which is too small to characterize. There is a 7 mm low-attenuation lesion in the dome of liver on axial image 10 to small to characterize. These lesions are unchanged since 2020. The main, right, and left portal veins are patent. The gallbladder is unremarkable. There is no intrahepatic or extrahepatic bile duct dilation. The main pancreatic duct is not abnormally dilated. Unremarkable appearance of the pancreatic parenchyma. The spleen is normal in size. The adrenal glands are unremarkable. The right kidney is absent. There is no identified mass in the region of the right renal fossa. There is a low-attenuation left renal lesion measuring 3.6 cm in size with internal attenuation diagnostic for a benign cyst. There is a 5 mm low-attenuation left renal lesion too small to characterize on axial image 30. This is unchanged since the comparison exam. The urinary collecting system is not distended. There is no identified renal or ureteral stone. There are pelvic calcifications compatible with phleboliths. Urinary bladder is unremarkable in appearance. There are no delayed images acquired for assessment of urothelial filling defect. There is a large volume colonic stool. There is no evidence of acute appendicitis. There is no free intraperineal air. There is no drainable fluid collection. There is no free pelvic fluid. There is no identified abnormally enlarged lymph node in the abdomen or pelvis meeting CT size criteria for adenopathy. There are multilevel degenerative changes of the spine. There is no identified acute bony abnormality. There is no identified bone lesion suspicious for a bone metastasis. IMPRESSION: CT ABDOMEN AND PELVIS. 1. No evidence of residual or recurrent malignancy or metastatic disease in the abdomen or pelvis. Dictated by: Dictated on workstation # [id number]
== END ==
LOC: RAD 08:45
PROVIDERS: ATTEND Urology
DX: C66.1 Malignant neoplasm of right ureter (principal); Z90.5 Acquired absence of kidney
CPT/HCPCS: 36415; 74178; 80053

== ENCOUNTER 2022-02-13 05:38 | Outpatient (CLI) | payer MEDICARE, OTHER ==
[~2022-02-13] VITALS: Ht 172 cm; Wt 63.0 kg
[~2022-02-13 05:38] MED LIST changes: -HOLD METFORMIN - RECEIVED CONTRAST 20 ML VIAL IV SCH; -IOHEXOL 350 MG/ML 100 ML (OMNIPAQUE 350) VIAL IV ONE; -NS 100 ML (IVPB) BAG IV ONE
== END 2022-02-27 16:55 | disposition home or self-care (01) ==
LOC: PREOP 05:38
PROVIDERS: ATTEND Specialist
DX: Z01.818 Encounter for other preprocedural examination (principal)

== ENCOUNTER 2022-02-22 07:33 | Day surgery (SDC) | payer MEDICARE, OTHER ==
[~2022-02-22] VITALS: Ht 172 cm; Wt 63.0 kg
--- NOTE | 2022-02-22 07:42 | Ophthalmologist Pre-Op Note ---
Pre-Operative Progress Note H&P Reviewed The H&P was reviewed, patient examined and no changes noted. Date H&P Reviewed: February 22, 2022 Time H&P Reviewed: 07:42 Pre-Op Dx Cataract, Left Eye VONDA ALEGRE MD February 22, 2022 07:42
[2022-02-22] MEDS ORDERED: acetaZOLAMIDE ER 500 MG CAP (DIAMOX SEQUELS) PO ONE (07:45)
[2022-02-22] MEDS ORDERED: MOXIFLOXACIN OPHTH SOLN 5 MG/ML 0.3 ML SYRINGE OP ONE (07:45)
[2022-02-22] MEDS ORDERED: LIDOCAINE PF 1% 2 ML VIAL IR PRN (07:45)
[2022-02-22] MEDS ORDERED: POVIDONE (BETADINE) OPHTH SOLN 5% 30 ML OP ONE (07:45)
[2022-02-22] MEDS ORDERED: TIMOLOL MALEATE 0.5% 5 ML (TIMOPTIC) BTL OU PRN (07:45)
[2022-02-22] MEDS: TETRACAINE 0.5% OPHTH SOLN 4 ML BTL (SINGLE DOSE ONLY) OU PRN ×4 (07:52→08:11)
[2022-02-22] MEDS: TROPICAMIDE 1% OPH SOLN (MYDRIACYL) 15 ML BTL OP SCH ×3 (08:01→08:12)
[2022-02-22] MEDS: PHENYLEPHRINE 10% OPHTH (NEO-SYN) 5 ML BTL OU SCH ×3 (08:01→08:12)
[2022-02-22 08:03] VITALS: BP 186/88
[2022-02-22] MEDS ORDERED: MIDAZOLAM 2 MG/2 ML (VERSED) VIAL ONE (08:37)
--- NOTE | 2022-02-22 08:58 | Ophthalmology Operative Report ---
Cataract removal/placement IOL PREOPERATIVE DIAGNOSIS: Cataract Left Eye POSTOPERATIVE DIAGNOSIS: Cataract Left Eye PROCEDURE: Cataract removal and placement of posterior chamber implant, left eye SURGEON: Nolan Alegre ANESTHESIA: Topical with sedation COMPLICATIONS: None ESTIMATED BLOOD LOSS: Minimal DESCRIPTION OF PROCEDURE: After proper informed consent was obtained, the patient, a 71 male, was taken to the Operating Room and the left eye was anesthetized with tetracaine. The left eye was then prepped and draped in the usual manner. A wire lid speculum was placed. A paracentesis was made at the left hand position. Preservative free lidocaine was injected into the anterior chamber followed by viscoelastic. A clear corneal incision was made in the temporal position. A capsulorrhexis was preformed and the central nuclear and cortical material were removed. The posterior capsule was polished and an Brien 18.5 AU00T0 was placed into the capsular bag. The residual viscoelastic was aspirated and balanced saline solution was injected into the anterior chamber. Moxifloxacin was injected into the anterior chamber. The wound was checked and found to be water tight. The patient tolerated the procedure well without complications. NOLAN ALEGRE MD February 22, 2022 08:58
[2022-02-22 09:10] VITALS: BP 152/67
--- NOTE | 2022-02-22 14:27 | Anesthesia-General Post-Op ---
MAC Patient Condition Mental Status/LOC: Same as Preop Cardiovascular: Satisfactory Nausea/Vomiting: Absent Respiratory: Satisfactory Pain: Controlled Complications: Absent Post Op Complications Complications None Follow Up Care/Instructions Patient Instructions None needed. Anesthesiology Discharge Order Discharge Order Patient is doing well, no complaints, stable vital signs, no apparent adverse anesthesia problems. No complications reported per nursing. KRISTIE LYONS CRNA February 22, 2022 14:27
== END 2022-02-22 09:15 | disposition home or self-care (01) ==
LOC: SDC 07:33
PROVIDERS: ATTEND Specialist
DX: H25.9 Unspecified age-related cataract (principal); Z87.891 Personal history of nicotine dependence
CPT/HCPCS: 66984; V2632

== ENCOUNTER 2022-03-04 06:30 | Day surgery (SDC) | payer MEDICARE, OTHER ==
[~2022-03-04] VITALS: Ht 172 cm; Wt 63.0 kg
[2022-03-04 06:41] VITALS: BP 172/84
[2022-03-04] MEDS ORDERED: MIDAZOLAM 2 MG/2 ML (VERSED) VIAL ONE (06:43)
[2022-03-04] MEDS ORDERED: TIMOLOL MALEATE 0.5% 5 ML (TIMOPTIC) BTL OU PRN (06:45)
[2022-03-04] MEDS ORDERED: POVIDONE (BETADINE) OPHTH SOLN 5% 30 ML OP ONE (06:45)
[2022-03-04] MEDS ORDERED: MOXIFLOXACIN OPHTH SOLN 5 MG/ML 0.3 ML SYRINGE OP ONE (06:45)
[2022-03-04] MEDS ORDERED: LIDOCAINE PF 1% 2 ML VIAL IR PRN (06:45)
--- NOTE | 2022-03-04 07:22 | Ophthalmologist Pre-Op Note ---
Pre-Operative Progress Note H&P Reviewed The H&P was reviewed, patient examined and no changes noted. Date H&P Reviewed: March 04, 2022 Time H&P Reviewed: 07:22 Pre-Op Dx Cataract, Right Eye VONDA ALEGRE MD March 04, 2022 07:22
[2022-03-04] MEDS: TETRACAINE 0.5% OPHTH SOLN 4 ML BTL (SINGLE DOSE ONLY) OU PRN ×4 (07:36→07:52)
[2022-03-04] MEDS: PHENYLEPHRINE 10% OPHTH (NEO-SYN) 5 ML BTL OU SCH ×3 (07:42→07:52)
[2022-03-04] MEDS: TROPICAMIDE 1% OPH SOLN (MYDRIACYL) 15 ML BTL OP SCH ×3 (07:42→07:52)
--- NOTE | 2022-03-04 08:37 | Ophthalmology Operative Report ---
Cataract removal/placement IOL PREOPERATIVE DIAGNOSIS: Cataract Right Eye POSTOPERATIVE DIAGNOSIS: Cataract Right Eye PROCEDURE: Cataract removal and placement of posterior chamber implant, right eye SURGEON: Nolan Alegre ANESTHESIA: Topical with sedation COMPLICATIONS: None ESTIMATED BLOOD LOSS: Minimal DESCRIPTION OF PROCEDURE: After proper informed consent was obtained, the patient, a 71 male, was taken to the Operating Room and the right eye was anesthetized with tetracaine. The right eye was then prepped and draped in the usual manner. A wire lid speculum was placed. A paracentesis was made at the left hand position. Preservative free lidocaine was injected into the anterior chamber followed by viscoelastic. A clear corneal incision was made in the temporal position. A capsulorrhexis was preformed and the central nuclear and cortical material were removed. The posterior capsule was polished and Brien 19.0 AU00T0 IOL was placed into the capsular bag. The residual viscoelastic was aspirated and balanced saline solution was injected into the anterior chamber. Moxifloxacin was injected into the anterior chamber. The wound was checked and found to be water tight. The patient tolerated the procedure well without complications. NOLAN ALEGRE MD March 04, 2022 08:37
[2022-03-04 08:46] VITALS: BP 134/84
[2022-03-04] MEDS ORDERED: acetaZOLAMIDE ER 500 MG CAP (DIAMOX SEQUELS) PO ONE (09:30)
--- NOTE | 2022-03-04 13:36 | Anesthesia-General Post-Op ---
MAC Patient Condition Mental Status/LOC: Same as Preop Cardiovascular: Satisfactory Nausea/Vomiting: Absent Respiratory: Satisfactory Pain: Controlled Complications: Absent Post Op Complications Complications None Follow Up Care/Instructions Patient Instructions None needed. Anesthesiology Discharge Order Discharge Order Patient is doing well, no complaints, stable vital signs, no apparent adverse anesthesia problems. No complications reported per nursing. GAYLE KAUR CRNA March 04, 2022 13:36
== END 2022-03-04 08:49 | disposition home or self-care (01) ==
LOC: SDC 06:30
PROVIDERS: ATTEND Specialist
DX: H25.9 Unspecified age-related cataract (principal); Z87.891 Personal history of nicotine dependence
CPT/HCPCS: 66984; V2632

== ENCOUNTER → 2022-10-31 | Outpatient (CLI) | payer MEDICARE, OTHER ==
[~2022-10-31] MED LIST changes: +HOLD METFORMIN - RECEIVED CONTRAST 20 ML VIAL IV SCH; +IOHEXOL 350 MG/ML 100 ML (OMNIPAQUE 350) VIAL IV ONE; +NS 100 ML (IVPB) BAG IV ONE
[2022-10-31 08:18] LABS: ALANINE AMINOTRANSFERASE 19 U/L (0-55); ALBUMIN 4.6 GM/DL (3.2-4.5); ALKALINE PHOSPHATASE 83 U/L (40-136); BILIRUBIN,TOTAL 1.5 MG/DL (0.1-1.0); BUN/CREATININE RATIO 19; CALCIUM 9.7 MG/DL (8.5-10.1); CARBON DIOXIDE 31 MMOL/L (21-32); CHLORIDE 98 MMOL/L (98-107); CREATININE SERUM 1.29 MG/DL (0.60-1.30); GFR ESTIMATED 58; GLUCOSE 104 MG/DL (70-105); POTASSIUM 3.7 MMOL/L (3.6-5.0); SODIUM 142 MMOL/L (135-145); TOTAL PROTEIN 8.1 GM/DL (6.4-8.2)
--- NOTE | 2022-10-31 10:50 | Diagnostic Imaging Report ---
PROCEDURE: CT abdomen and pelvis with and without contrast. TECHNIQUE: Precontrast acquisitions were acquired through the abdomen and pelvis. Multiple contiguous axial images were obtained through the abdomen and pelvis after the administration of intravenous contrast. Auto Exposure Controls were utilized during the CT exam to meet ALARA standards for radiation dose reduction. INDICATION: History of ureteral malignancy, status post right nephroureterectomy. Correlation is made with prior CT from 11/30/2021. Small semisolid density left lower lobe, 5 mm in size appears stable. Tiny low-attenuation lesion right lobe of the liver is stable. The gallbladder is unremarkable. There is no biliary ductal dilatation. The pancreas and spleen are unremarkable. No adrenal mass is detected. Right kidney surgically absent. Right renal fossa is unremarkable. Left kidney again demonstrates a stable cyst in the upper pole. The left renal collecting system and left ureter are unremarkable. Bladder is grossly unremarkable. Aorta is calcified but nonaneurysmal. There is a large amount of stool throughout the colon. Bowel loops are nonobstructed. There is no ascites. No definite lymphadenopathy is detected. Prostate is unremarkable. IMPRESSION: Stable CT of the abdomen and pelvis with and without contrast when compared with exam from 11/30/2021. Patient is status post right nephrectomy. No residual or recurrent malignancy or evidence of lymphadenopathy is detected. Dictated by: Dictated on workstation # [id number]
== END ==
LOC: RAD 07:44
PROVIDERS: ATTEND Urology
DX: Z90.5 Acquired absence of kidney (principal); Z85.54 Personal history of malignant neoplasm of ureter
CPT/HCPCS: 36415; 74178; 80053

== ENCOUNTER 2022-12-13 10:10 | Inpatient (IN) | payer MEDICARE ==
[~2022-12-13] VITALS: Ht 175.3 cm; Wt 51.2 kg
[~2022-12-13 10:10] MED LIST changes: -HOLD METFORMIN - RECEIVED CONTRAST 20 ML VIAL IV SCH; -IOHEXOL 350 MG/ML 100 ML (OMNIPAQUE 350) VIAL IV ONE; -NS 100 ML (IVPB) BAG IV ONE
--- NOTE | 2022-12-13 10:19 | ED Headache ---
General Chief Complaint: Head/Cervical Problems Stated Complaint: HIGH BLOOD PRESSURE History of Present Illness Date Seen by Provider: Dec 13, 2022 Time Seen by Provider: 10:19 Initial Comments 72-year-old male presents with high blood pressure and pressure in his head. He reports for about 2 weeks he has had what he feels like his pressure in his head. He reports that he only has 1 kidney. That in the past he was told he had high blood pressure but nobody is ever dieting about it or started him on any medications. He denies any chest pain. He does have just some generalized malaise. He denies any fevers chills nausea or vomiting. Allergies and Home Medications Allergies Coded Allergies: No Known Drug Allergies (Unverified , 08/18/13) Patient Home Medication List Home Medication List Reviewed: Yes Review of Systems Review of Systems Constitutional: No chills, No fever Eyes: No Symptoms Reported Ears, Nose, Mouth, Throat: no symptoms reported Respiratory: no symptoms reported Cardiovascular: no symptoms reported Gastrointestinal: no symptoms reported Genitourinary: no symptoms reported Musculoskeletal: no symptoms reported Psychiatric/Neurological: See HPI, Headache Past Relglki-Krrzlc-Hubqlf Hx Seasonal Allergies Seasonal Allergies: No Past Medical History Surgeries: No (back surgery) Orthopedic Respiratory: No Currently Using CPAP: No Currently Using BIPAP: No Cardiac: No Neurological: No Genitourinary: Yes ("tumor on kidney") Gastrointestinal: No Musculoskeletal: No Endocrine: No HEENT: No Cancer: No Psychosocial: No Integumentary: No Blood Disorders: No Physical Exam Vital Signs Vital Signs - First Documented 12/13/22 10:15 Temp 36.6 Pulse 100 Resp 18 B/P (MAP) 193/161 (172) Pulse Ox 99 Capillary Refill : Height, Weight, BMI Height: '" Weight: 170lbs. oz. 77.418685zi; 21.32 BMI Method: General Appearance: WD/WN, no apparent distress Neck: non-tender, full range of motion Cardiovascular: normal peripheral pulses, regular rate, rhythm, no edema Respiratory: lungs clear, normal breath sounds Gastrointestinal: non tender, soft Psychiatric: alert, oriented x 3 Coordination/Gait: normal gait Motor/Sensory: no motor deficit, no sensory deficit, no pronator drift Skin: normal color, warm/dry Progress/Results/Core Measures Results/Orders Lab Results Laboratory Tests Test 12/13/22 10:25 12/13/22 10:53 Range/Units White Blood Count 7.8 4.3-11.0 10^3/uL Red Blood Count 4.43 4.30-5.52 10^6/uL Hemoglobin 14.4 13.3-17.7 g/dL Hematocrit 42 40-54 % Mean Corpuscular Volume 95 80-99 fL Mean Corpuscular Hemoglobin 33 25-34 pg Mean Corpuscular Hemoglobin Concent 34 32-36 g/dL Red Cell Distribution Width 12.9 10.0-14.5 % Platelet Count 228 130-400 10^3/uL Mean Platelet Volume 10.2 9.0-12.2 fL Immature Granulocyte % (Auto) 0 % Neutrophils (%) (Auto) 73 42-75 % Lymphocytes (%) (Auto) 21 12-44 % Monocytes (%) (Auto) 5 0-12 % Eosinophils (%) (Auto) 0 0-10 % Basophils (%) (Auto) 0 0-10 % Neutrophils # (Auto) 5.7 1.8-7.8 10^3/uL Lymphocytes # (Auto) 1.6 1.0-4.0 10^3/uL Monocytes # (Auto) 0.4 0.0-1.0 10^3/uL Eosinophils # (Auto) 0.0 0.0-0.3 10^3/uL Basophils # (Auto) 0.0 0.0-0.1 10^3/uL Immature Granulocyte # (Auto) 0.0 0.0-0.1 10^3/uL Sodium Level 139 135-145 MMOL/L Potassium Level 3.8 3.6-5.0 MMOL/L Chloride Level 97 L 98-107 MMOL/L Carbon Dioxide Level 30 21-32 MMOL/L Anion Gap 12 5-14 MMOL/L Blood Urea Nitrogen 21 H 7-18 MG/DL Creatinine 1.16 0.60-1.30 MG/DL Estimat Glomerular Filtration Rate 66 BUN/Creatinine Ratio 18 Glucose Level 101 70-105 MG/DL Calcium Level 9.3 8.5-10.1 MG/DL Corrected Calcium 9.1 8.5-10.1 MG/DL Magnesium Level 2.3 1.6-2.4 MG/DL Total Bilirubin 1.5 H 0.1-1.0 MG/DL Aspartate Amino Transf (AST/SGOT) 24 5-34 U/L Alanine Aminotransferase (ALT/SGPT) 16 0-55 U/L Alkaline Phosphatase 100 40-136 U/L C-Reactive Protein High Sensitivity 0.21 0.00-0.50 MG/DL Total Protein 8.0 6.4-8.2 GM/DL Albumin 4.2 3.2-4.5 GM/DL Urine Color YELLOW Urine Clarity CLEAR Urine pH 8.0 5-9 Urine Specific [place] 1.020 1.016-1.022 Urine Protein 3+ H NEGATIVE Urine Glucose (UA) NEGATIVE NEGATIVE Urine Ketones NEGATIVE NEGATIVE Urine Nitrite NEGATIVE NEGATIVE Urine Bilirubin NEGATIVE NEGATIVE Urine Urobilinogen 0.2 < = 1.0 MG/DL Urine Leukocyte Esterase NEGATIVE NEGATIVE Urine RBC (Auto) 1+ H NEGATIVE Urine RBC 5-10 H /HPF Urine WBC NONE /HPF Urine Squamous Epithelial Cells NONE /HPF Urine Crystals NONE /LPF Urine Bacteria TRACE /HPF Urine Casts NONE /LPF Urine Mucus NEGATIVE /LPF Urine Culture Indicated NO My Orders Orders - WENDY CELESTE L DO Ct Head Wo (12/13/22 10:19) Cbc With Automated Diff (12/13/22 10:19) Comprehensive Metabolic Panel (12/13/22 10:19) Hs C Reactive Protein (12/13/22 10:19) Magnesium (12/13/22 10:19) Ua Culture If Indicated (12/13/22 10:19) Labetalol Injection (Normodyne Injection (12/13/22 10:45) Ns (Ivpb) (Sodium C... W/Nicardipine Iv (12/13/22 11:15) Ed Admission (Communication) (12/13/22 12:42) Medications Given in ED Current Medications Medications Dose Ordered Sig/Steve Route Start Time Stop Time Status Last Admin Dose Admin Labetalol HCl 20 mg ONCE ONCE IV 12/13/22 10:45 12/13/22 10:46 DC 12/13/22 10:40 20 MG Vital Signs/I&O 12/13/22 12/13/22 10:15 11:32 Temp 36.6 Pulse 100 63 Resp 18 B/P (MAP) 193/161 (172) 207/119 Pulse Ox 99 Progress Progress Note : Progress Note Patient's blood pressure was extremely elevated in the 230s to 240s. We initially treated him with labetalol which she had minimal to no response as far as elevation his blood pressures however he did have a slight reduction in his headache. Upon approximately 30 minutes of no further change start him on a nicardipine drip. Patient had appropriate decrease in his blood pressures into the 170s. He reports that the head pressure got significantly better following that treatment. Patient's head CT was reviewed and shows no acute abnormalities. Patient's labs were reviewed and shows no acute abnormalities. I did discuss with Dr. Valiente. We will admit him for further inpatient management and transition to p.o. medications. Patient was significantly improved upon admission. Initial ECG Impression Date: Dec 13, 2022 Initial ECG Impression Time: 10:27 Initial ECG Rate: 80 Initial ECG Rhythm: Normal Sinus Initial ECG Impression: Nonspecific Changes Comment pvc's, qtc [id number] Diagnostic Imaging Diagonstic Imaging: CT Plain Films/CT/US/NM/MRI: head Comments ate of Exam:12/13/22 CT HEAD WO PROCEDURE: CT head without contrast. TECHNIQUE: Multiple contiguous axial images were obtained through the brain without the use of intravenous contrast. Auto Exposure Controls were utilized during the CT exam to meet ALARA standards for radiation dose reduction. INDICATION: Hypertension, head pressure. CORRELATION: 08/18/2013 FINDINGS: There are diffuse atrophic changes with prominence of the ventricles and sulci. There are scattered areas of decreased attenuation, nonspecific but likely changes of chronic small vessel ischemic disease. There is otherwise normal brunson-white differentiation. No abnormal areas of attenuation to suggest edema from ischemia. There is no midline shift or mass effect. A few faint basal ganglia calcifications. No evidence for acute intracranial hemorrhage or abnormal extra-axial fluid collection. Lucencies within the bony calvarium, unchanged and likely of no significance. Bilateral lens replacement. Paranasal sinuses are clear. Mastoid air cells also appear clear. IMPRESSION: 1. No CT evidence for acute intracranial abnormality. Departure Impression Primary Impression: Severe uncontrolled hypertension Additional Impression: Headache Qualified Codes: R51.9 - Headache, unspecified Disposition: ADMITTED INPATIENT Condition: Stable Admissions Decision to Admit Reason: Admit from ER (General) Decision to Admit/Date: Dec 13, 2022 Time/Decision to Admit Time: 11:42 Departure-Patient Inst. Referrals: NORRIS VALIENTE DO (PCP/Family) Primary Care Physician WENDY CELESTE DO Dec 13, 2022 10:19
[2022-12-13 10:37] LABS: BASOPHILS % (AUTO) 0 % (0-10); EOSINOPHILS % (AUTO) 0 % (0-10); HEMATOCRIT 42 % (40-54); HEMOGLOBIN 14.4 g/dL (13.3-17.7); LYMPHOCYTES # (AUTO) 1.6 10^3/uL (1.0-4.0); LYMPHOCYTES % (AUTO) 21 % (12-44); MEAN CORPUSCULAR HEMOGLOBIN 33 pg (25-34); MEAN CORPUSCULAR HGB CONC 34 g/dL (32-36); MEAN CORPUSCULAR VOLUME 95 fL (80-99); MEAN PLATELET VOLUME 10.2 fL (9.0-12.2); MONOCYTES # (AUTO) 0.4 10^3/uL (0.0-1.0); MONOCYTES % (AUTO) 5 % (0-12); NEUTROPHILS # (AUTO) 5.7 10^3/uL (1.8-7.8); NEUTROPHILS % (AUTO) 73 % (42-75); PLATELET COUNT 228 10^3/uL (130-400); WHITE BLOOD COUNT 7.8 10^3/uL (4.3-11.0)
[2022-12-13] MEDS ORDERED: LABETALOL HCL 20 MG/4 ML VIAL IV ONE (10:45)
[2022-12-13 10:47] LABS: ALBUMIN 4.2 GM/DL (3.2-4.5); POTASSIUM 3.8 MMOL/L (3.6-5.0)
[2022-12-13 10:48] LABS: CALCIUM 9.3 MG/DL (8.5-10.1)
[2022-12-13 10:51] LABS: BILIRUBIN,TOTAL 1.5 MG/DL (0.1-1.0)
[2022-12-13 10:53] LABS: CREATININE SERUM 1.16 MG/DL (0.60-1.30)
[2022-12-13 10:56] LABS: MAGNESIUM 2.3 MG/DL (1.6-2.4)
[2022-12-13 10:59] LABS: BILIRUBIN,URINE NEGATIVE (NEGATIVE); CLARITY,URINE CLEAR; COLOR,URINE YELLOW; GLUCOSE, URINE (UA) NEGATIVE (NEGATIVE); KETONES,URINE NEGATIVE (NEGATIVE); LEUKOCYTE ESTERASE ,URINE NEGATIVE (NEGATIVE); NITRITE,URINE NEGATIVE (NEGATIVE); PROTEIN,URINE 3+ (NEGATIVE)
[2022-12-13 11:06] LABS: BACTERIA,URINE TRACE /HPF
[2022-12-13] MEDS ORDERED: niCARdipine IV (Pyxis drip kit 50 MG in NS (IVPB) 230 ML IV SCH (11:15)
--- NOTE | 2022-12-13 11:31 | Diagnostic Imaging Report ---
PROCEDURE: CT head without contrast. TECHNIQUE: Multiple contiguous axial images were obtained through the brain without the use of intravenous contrast. Auto Exposure Controls were utilized during the CT exam to meet ALARA standards for radiation dose reduction. INDICATION: Hypertension, head pressure. CORRELATION: 08/18/2013 FINDINGS: There are diffuse atrophic changes with prominence of the ventricles and sulci. There are scattered areas of decreased attenuation, nonspecific but likely changes of chronic small vessel ischemic disease. There is otherwise normal brunson-white differentiation. No abnormal areas of attenuation to suggest edema from ischemia. There is no midline shift or mass effect. A few faint basal ganglia calcifications. No evidence for acute intracranial hemorrhage or abnormal extra-axial fluid collection. Lucencies within the bony calvarium, unchanged and likely of no significance. Bilateral lens replacement. Paranasal sinuses are clear. Mastoid air cells also appear clear. IMPRESSION: 1. No CT evidence for acute intracranial abnormality. Dictated by: Dictated on workstation # [id number]
[2022-12-13] MEDS ORDERED: HYDROmorphone 2 MG/ML VIAL (DILAUDID) IV PRN (14:15)
[2022-12-13] MEDS ORDERED: diphenhydrAMINE 50 MG/ML INJ (BENADRYL) IVP PRN (14:15)
[2022-12-13] MEDS ORDERED: BISACODYL 10 MG SUPP (DULCOLAX) PR PRN (14:15)
[2022-12-13] MEDS ORDERED: ANTACID SUSP 30 ML UDC (MYLANTA) PO PRN (14:15)
[2022-12-13] MEDS ORDERED: MILK OF MAGNESIA 400 MG/5 ML 30 ML UDC PO PRN (14:15)
[2022-12-13] MEDS ORDERED: ONDANSETRON 4 MG (ZOFRAN) ORAL DISSOLVE TAB PO PRN (14:15)
[2022-12-13] MEDS ORDERED: polyethylene glycoL POWDER 17 GM (MIRALAX) PACK PO PRN (14:15)
[2022-12-13] MEDS ORDERED: NS IV 500 ML 500 ML IV PRN (14:15)
[2022-12-13] MEDS ORDERED: ONDANSETRON 4 MG/2 ML (SDV) Z0FRAN IV PRN (14:15)
[2022-12-13] MEDS ORDERED: CALCIUM CARBONATE 500 MG (TUMS) TAB.CHEW PO PRN (14:15)
[2022-12-13] MEDS ORDERED: diphenhydrAMINE 25 MG TAB (BENADRYL) PO PRN (14:15)
[2022-12-13] MEDS ORDERED: MELATONIN 3 MG TABLET PO PRN (14:15)
[2022-12-13] MEDS ORDERED: LACTULOSE SYRUP 10GM/15ML (ENULOSE) 30ML UDC PO PRN (14:15)
[2022-12-13] MEDS ORDERED: CYAN500T8 PO (15:01)
[2022-12-13] MEDS ORDERED: ASPI325T32 PO (15:01)
--- NOTE | 2022-12-13 15:27 | Tele-ICU Consult ---
History of Present Illness History of Present Illness Date Seen by Provider: Dec 13, 2022 Time Seen by Provider: 15:22 Date of Admission 12/13/22 History of Present Illness (Tele-ICU Physician , consultation) Available chart/ vitals / labs / Images reviewed H&P is from ER notes Patient's information available about PMH, allergy reviewed in EMR. ROS as per chart and RN report Video assessment done using teleICU camera, rest of exam as per RN Discussed with RN. He is a 72-year-old male with past medical history of right kidney cancer status post right nephro ureterectomy sometime in the last 1 year or so. Reportedly at some point he was told that he had a high blood pressure but he was not on any medications for some reason. Today he presented to the emergency room with a complaint of fall headache which has been labile and increasing for the last 2 weeks. No history of vomiting blurring of vision present. In the emergency room his systolic blood pressure was found to be in the range of 230- 240 mmHg. Initially he was given labetalol but it did not work for him however he had a slight relief in the headache. Subsequently he is started on nicardi pine drip and admitted to the intensive care unit where I have evaluated via video and discussed with the patient and COMMUNITY ADMINISTRATOR. I have reviewed his previous medical records to some extent. He had a CT of the head done which did not show any acute changes. Impression 1. Hypertensive emergency 2. Mild renal insufficiency it is not clear whether it is acute or chronic. Recommendations 1. We will continue nicardipine and wean as tolerated 2. We will start on Coreg and try to wean off IV medications 3. We will get left renal artery duplex to rule out any renal arterial stenosis. Care coordination with bedside consultants and primary care physician Critical care time spent 25 minutes. Allergies and Home Medications Allergies Coded Allergies: No Known Drug Allergies (Unverified , 08/18/13) Home Medications Aspirin 325 Mg Tablet.dr, 325-650 MG PO Q8H PRN for PAIN-MILD (1-4), (Reported) Cyanocobalamin (Vitamin B-12) 500 Mcg Tablet, 500 MCG PO DAILY, (Reported) Past Medical/Social/Family Hx Patient Social History Tobacco Use?: No Smoking Status: Former Smoker Smokeless Tobacco Frequency: Never a User Use of E-Cig and/or Vaping dev: No Substance use?: No Alcohol Use?: No Pt stated abuse/neglect: No Immunizations Up To Date Influenza Vaccine Up-to-Date: Yes; Up-to-Date First/Initial COVID19 Vaccinat: 02/07 Second COVID19 Vaccination [place]: 02/07 Tetanus Booster (TDap): More Than 5 Years Current Status Advance Directives: No Communicates: Verbally Primary Language: Moroccan Preferred Spoken Language: Moroccan Is interpretation needed?: No Sensory deficits: Vision impairment Implanted or Applied Medical D: None Review of Systems Constitutional: see HPI, other (headache) Focused Exam Height, Weight, BMI Height: '" Weight: 170lbs. oz. 77.265506wa; 17.21 BMI Method: Exam Exam Patient acknowledged, consented, and participated in this virtual visit which was conducted using real time audio/video Vital Signs Date Time Temp Pulse Resp B/P (MAP) Pulse Ox O2 Delivery O2 Flow Rate FiO2 12/13/22 15:00 75 153/90 (111) 98 Room Air 12/13/22 14:45 72 159/94 (115) 99 Room Air 12/13/22 14:30 71 170/109 (129) 98 Room Air 12/13/22 14:15 77 6 183/106 (131) 99 Room Air 12/13/22 14:00 69 15 141/80 (100) 97 Room Air 12/13/22 13:48 67 12/13/22 13:45 47 15 119/76 (90) 97 Room Air 12/13/22 12:52 67 16 137/80 97 12/13/22 11:32 63 207/119 12/13/22 10:15 36.6 100 18 193/161 (172) 99 Height & Weight Height: '" Weight: 170lbs. oz. 77.601983jp; 17.21 BMI Method: General Appearance: Anxious Capillary Refill: Less Than 3 Seconds Gastrointestinal: non tender, soft Other comments PE PER RN Results Lab Laboratory Tests 12/13/22 10:25 Assessment/Plan Assessment/Plan ABOVE Critical Care: Critically Ill Patient Time spent with patient (mins): 25 LEXIE JOHNSON MD Dec 13, 2022 15:27
[2022-12-13] MEDS: niCARdipine IV (Pyxis drip kit 50 MG in NS (IVPB) 230 ML IV SCH (15:38)
[2022-12-13] MEDS: ENOXAPARIN INJECTION 30 MG/0.3 ML SYR SC SCH (15:59)
--- NOTE | 2022-12-13 16:00 | Short Stay Summary ---
History of Present Illness History of Present Illness Reason for visit/HPI CC: HTN urgency HPI: This is a 72yoWM clinic patient of mine who has a h/o nephrectomy in remote past from renal cell carcinoma who presented to the ER sent over from for headache and "not feeling well" and was found to have SBP 220 range prompting the initiation of Cardene drip and ICU admit. He feels much better now and his labs were stable and creat stable. Date of Admission Dec 13, 2022 at 13:31 Date of Discharge NA Time Seen by Provider: 13:30 Attending Physician Amber Valiente DO Admitting Physician Admitting Physician: Amber Valiente DO Attending Physician: Amber Valiente DO Consult Allergies and Home Medications Allergies Coded Allergies: No Known Drug Allergies (Unverified , 08/18/13) Patient Home Medication List Home Medication List Reviewed: Yes Aspirin (Aspirin EC) 325 Mg Tablet.dr, 325-650 MG PO Q8H PRN for PAIN-MILD (1- 4), (Reported) Entered as Reported by: ORACIO MORGAN on 12/13/22 1501 Last Action: Reviewed Cyanocobalamin (Vitamin B-12) (Vitamin B-12) 500 Mcg Tablet, 500 MCG PO DAILY, (Reported) Entered as Reported by: ORACIO MORGAN on 12/13/22 1501 Last Action: Reviewed Past Xyfliva-Lonqps-Ruzifc Hx Patient Social History Marrital Status: single Employed/Student: retired Smoking Status: Former Smoker Former Smoker, Quit: Oct 20, 2008 2nd Hand Smoke Exposure: No Recent Hopitalizations: No Have you traveled recently?: No Alcohol Use?: No Pt feels they are or have been: No Immunizations Up To Date Date of Influenza Vaccine: Sep 12, 2022 Seasonal Allergies Seasonal Allergies: No Surgeries No (back surgery) Orthopedic Respiratory No Currently Using CPAP: No Currently Using BIPAP: No Cardiovascular No Neurological No Genitourinary Yes ("tumor on kidney") Gastrointestinal No Musculoskeletal No Endocrine History of Endocrine Disorders: No HEENT History of HEENT Disorders: No Cancer Yes Kidney Type of Treatment: Surgical Intervention Psychosocial History of Psychiatric Problem: No Integumentary History of Skin or Integumenta: No Blood Transfusions History of Blood Disorders: No Review of Systems Constitutional: see HPI, malaise, weakness Psychiatric/Neurological: Headache Physical Exam Vital Signs Vital Signs - First Documented 12/13/22 12/13/22 10:15 13:45 Temp 36.6 Pulse 100 Resp 18 B/P (MAP) 193/161 (172) Pulse Ox 99 O2 Delivery Room Air Capillary Refill : Less Than 3 Seconds Height, Weight, BMI Height: '" Weight: 170lbs. oz. 77.286193fk; 17.21 BMI Method: General Appearance: No Apparent Distress, WD/WN Eyes: Bilateral Eye Normal Inspection, Bilateral Eye PERRL, Bilateral Eye EOMI HEENT: PERRL/EOMI, TMs Normal, Normal ENT Inspection, Pharynx Normal Neck: Full Range of Motion, Normal Inspection, Non Tender, Supple, Carotid Bruit Respiratory: Chest Non Tender, Lungs Clear, Normal Breath Sounds, No Accessory Muscle Use, No Respiratory Distress Cardiovascular: Regular Rate, Rhythm, No Edema, No Gallop, No JVD, No Murmur, Normal Peripheral Pulses Gastrointestinal: Normal Bowel Sounds, No Organomegaly, No Pulsatile Mass, Non Tender, Soft Back: Normal Inspection, No CVA Tenderness, No Vertebral Tenderness Extremity: Normal Capillary Refill, Normal Inspection, Normal Range of Motion, Non Tender, No Calf Tenderness, No Pedal Edema Neurologic/Psychiatric: Alert, Oriented x3, No Motor/Sensory Deficits, Normal Mood/Affect Skin: Normal Color, Warm/Dry Lymphatic: No Adenopathy Clinical Quality Measures AMI/AHF: ASA po Prior to arrival: No Short Stay Diagnosis Discharge Diagnosis-Short Stay Admission Diagnosis: HTN urgency h/o nephrectomy Final Discharge Diagnosis: HTN urgency h/o nephrectomy from renal cell carcinoma Conclusion Labs Laboratory Tests 12/13/22 10:25: White Blood Count 7.8, Red Blood Count 4.43, Hemoglobin 14.4, Hematocrit 42, Mean Corpuscular Volume 95, Mean Corpuscular Hemoglobin 33, Mean Corpuscular Hemoglobin Concent 34, Red Cell Distribution Width 12.9, Platelet Count 228, Mean Platelet Volume 10.2, Immature Granulocyte % (Auto) 0, Neutrophils (%) (Auto) 73, Lymphocytes (%) (Auto) 21, Monocytes (%) (Auto) 5, Eosinophils (%) (Auto) 0, Basophils (%) (Auto) 0, Neutrophils # (Auto) 5.7, Lymphocytes # (Auto) 1.6, Monocytes # (Auto) 0.4, Eosinophils # (Auto) 0.0, Basophils # (Auto) 0.0, Immature Granulocyte # (Auto) 0.0, Sodium Level 139, Potassium Level 3.8, Chloride Level 97L, Carbon Dioxide Level 30, Anion Gap 12, Blood Urea Nitrogen 21H, Creatinine 1.16, Estimat Glomerular Filtration Rate 66, BUN/Creatinine Ratio 18, Glucose Level 101, Calcium Level 9.3, Corrected Calcium 9.1, Magnesium Level 2.3, Total Bilirubin 1.5H, Aspartate Amino Transf (AST/SGOT) 24, Alanine Aminotransferase (ALT/SGPT) 16, Alkaline Phosphatase 100, C-Reactive Protein High Sensitivity 0.21, Total Protein 8.0, Albumin 4.2 12/13/22 10:53: Urine Color YELLOW, Urine Clarity CLEAR, Urine pH 8.0, Urine Specific [place] 1.020, Urine Protein 3+H, Urine Glucose (UA) NEGATIVE, Urine Ketones NEGATIVE, Urine Nitrite NEGATIVE, Urine Bilirubin NEGATIVE, Urine Urobilinogen 0.2, Urine Leukocyte Esterase NEGATIVE, Urine RBC (Auto) 1+H, Urine RBC 5-10H, Urine WBC NONE, Urine Squamous Epithelial Cells NONE, Urine Crystals NONE, Urine Bacteria TRACE, Urine Casts NONE, Urine Mucus NEGATIVE, Urine Culture Indicated NO Conclusion/Plan Monitor [facility] AMBER VALIENTE DO Dec 13, 2022 16:00
[2022-12-13] MEDS: ACETAMINOPHEN 325 MG TABLET PO PRN ×2 (16:52→22:37)
--- NOTE | 2022-12-13 17:04 | Diagnostic Imaging Report ---
PROCEDURE: US Renal/Bladder. TECHNIQUE: Multiple real-time grayscale images were obtained over the kidneys in various projections bilaterally. INDICATION: Uncontrolled hypertension. History of right-sided nephrectomy. COMPARISON: 10/31/2022. FINDINGS: The right kidney is surgically absent. Left: The left kidney measures 11.8 cm in length. Renal cortical thickness and echogenicity are within normal limits. A cyst is seen in the left kidney measuring 3.5 x 3.0 x 3.3 cm. There is no evidence of calculi, solid focal mass or hydronephrosis. No perinephric fluid collections are identified. The peak systolic velocity within the left renal artery measures 86 cm/s. The left renal artery to aorta ratio measures 0.93. The resistive indices within the arcuate arteries on the left range from 0.57 to 0.68. There is no abdominal ascites. The peak systolic velocity within the abdominal aorta measures 92 cm/s. IMPRESSION: 1. No sonographic evidence of renal artery stenosis on the left. 2. No acute sonographic abnormalities in the left kidney. Simple-appearing cortical cyst is seen in the left kidney. 3. Surgically absent right kidney. Dictated by: Dictated on workstation # [id number]
[2022-12-13] MEDS: DOCUSATE SODIUM 100 MG (COLACE) CAP PO SCH (20:37)
[2022-12-13] MEDS: SENNOSIDES 8.6 MG (SENOKOT) TAB PO SCH (20:37)
[2022-12-14] MEDS: niCARdipine IV (Pyxis drip kit 50 MG in NS (IVPB) 230 ML IV SCH ×3 (00:33→20:07)
[2022-12-14 05:28] LABS: BASOPHILS % (AUTO) 1 % (0-10); EOSINOPHILS # (AUTO) 0.1 10^3/uL (0.0-0.3); EOSINOPHILS % (AUTO) 1 % (0-10); HEMATOCRIT 40 % (40-54); HEMOGLOBIN 13.4 g/dL (13.3-17.7); LYMPHOCYTES # (AUTO) 1.3 10^3/uL (1.0-4.0); LYMPHOCYTES % (AUTO) 20 % (12-44); MEAN CORPUSCULAR HEMOGLOBIN 32 pg (25-34); MEAN CORPUSCULAR HGB CONC 34 g/dL (32-36); MEAN CORPUSCULAR VOLUME 95 fL (80-99); MEAN PLATELET VOLUME 10.5 fL (9.0-12.2); MONOCYTES # (AUTO) 0.4 10^3/uL (0.0-1.0); MONOCYTES % (AUTO) 6 % (0-12); NEUTROPHILS # (AUTO) 4.7 10^3/uL (1.8-7.8); NEUTROPHILS % (AUTO) 72 % (42-75); PLATELET COUNT 216 10^3/uL (130-400); WHITE BLOOD COUNT 6.6 10^3/uL (4.3-11.0)
[2022-12-14 05:55] LABS: ALBUMIN 3.8 GM/DL (3.2-4.5); BILIRUBIN,TOTAL 1.8 MG/DL (0.1-1.0); CALCIUM 9.3 MG/DL (8.5-10.1); CREATININE SERUM 1.1 MG/DL (0.60-1.30); MAGNESIUM 2.3 MG/DL (1.6-2.4); PHOSPHORUS 3.1 MG/DL (2.3-4.7); TOTAL PROTEIN 7.3 GM/DL (6.4-8.2)
[2022-12-14] MEDS: MAGNESIUM 1 GM/100 ML IVPB 100 ML IV SCH (06:04)
[2022-12-14] MEDS: POTASSIUM CL 10MEQ/50ML IVPB 50 ML IV SCH ×5 (06:05→13:09)
[2022-12-14] MEDS: KCL 20 MEQ TAB (K-DUR) PO SCH (06:06)
[2022-12-14] MEDS: DOCUSATE SODIUM 100 MG (COLACE) CAP PO SCH ×2 (08:47→20:09)
[2022-12-14] MEDS: SENNOSIDES 8.6 MG (SENOKOT) TAB PO SCH ×2 (08:47→20:09)
[2022-12-14] MEDS ORDERED: amLODIPine 5 MG (NORVASC) TAB PO NR ×2 (11:00→13:15)
--- NOTE | 2022-12-14 12:25 | Consultation-Cardiology ---
HPI-Cardiology Cardiology Consultation: Date of Consultation 12/14/22 Time Seen by a Provider: 11:50 Date of Admission Attending Physician Amber Valiente DO Admitting Physician Admitting Physician: Amber Valiente DO Attending Physician: Amber Valiente DO Consulting Physician LUCY CARRION MD, MA, FACP, FACC, [facility] [place], CCDS Physician requesting consult: Dr Valiente HPI: Chief Complaint: Reason for Card consult: Severe hypertension 72 yo [address] admitted to Dr Valiente on 12/13/[address] Valiente has asked us to see today for uncontrolled hypertension. He says he had gone to Urgent Care for a headache and was found to have a markedly elevated bp and was sent to the ER at this hosp from where he was admitted. He denies any cp or palp or syncope or shortness of breath or swelling. Has chronic, intermittent headaches that are moderate in intensity and responsive to aspirin or Tylenol. He denies any focal weakness or recent vision loss Review of Systems-Cardiology Review of Systems Constitutional: No malaise, No tiredness, No weight loss, No weight gain Eyes: No vision change Ears/Nose/Throat: No ear discharge, No nasal drainage, No recent hearing loss Respiratory: As described under HPI Cardiovascular: As described under HPI Gastrointestinal: No diarrhea, No nausea, No vomiting Genitourinary: No dysuria, No hematuria, No urine frequency changes Musculoskeletal: No back pain, No joint pain Skin: No rash, No ulcerations Psychiatric/Neurological: No seizure, No focal weakness, No syncope Hematologic: No bleeding abnormalities OHR-[id number]-Miiutf Hx Patient Social History Marrital Status: single Employed/Student: retired Smoking Status: Former Smoker 2nd Hand Smoke Exposure: No Have you traveled recently?: No Alcohol Use?: No Pt feels they are or have been: No Immunizations Up To Date Date of Influenza Vaccine: Sep 12, 2022 Past Medical History PMH As described under Assessment. Family Medical History Family Medical History: He reports a h/o heart disease in his mother but is not able to provide any details Allergies and Home Medications Allergies Coded Allergies: No Known Drug Allergies (Unverified , 08/18/13) Patient Home Medication List Home Medication List Reviewed: Yes Aspirin (Aspirin EC) 325 Mg Tablet., 325-650 MG PO Q8H PRN for PAIN-MILD (1- 4), (Reported) Entered as Reported by: ORACIO MORGAN on 12/13/22 1501 Last Action: Reviewed Cyanocobalamin (Vitamin B-12) (Vitamin B-12) 500 Mcg Tablet, 500 MCG PO DAILY, (Reported) Entered as Reported by: ORACIO MORGAN on 12/13/22 1501 Last Action: Reviewed Physical Exam-Cardiology Physical Exam Vital Signs/I&O 12/14/22 12/14/22 12/14/22 12/14/22 00:30 00:33 01:00 01:00 Pulse 63 52 60 B/P (MAP) 97/67 181/100 (127) Pulse Ox 97 98 O2 Delivery Room Air Room Air 12/14/22 12/14/22 12/14/22 12/14/22 02:00 02:54 03:00 03:05 Temp 36.7 Pulse 57 60 72 B/P (MAP) 197/105 (135) 207/114 (145) 203/113 Pulse Ox 98 99 O2 Delivery Room Air Room Air Room Air 12/14/22 12/14/22 12/14/22 12/14/22 04:00 04:02 05:00 06:00 Pulse 70 68 65 B/P (MAP) 139/81 (100) 174/100 (124) 187/92 (123) Pulse Ox 99 96 99 98 O2 Delivery Room Air Room Air Room Air Room Air 12/14/22 12/14/22 12/14/22 12/14/22 07:00 07:00 07:43 08:00 Temp 36.7 Pulse 73 76 74 B/P (MAP) 144/93 (99) 149/81 (112) Pulse Ox 98 99 O2 Delivery Room Air Room Air 12/14/22 12/14/22 12/14/22 12/14/22 08:00 09:00 10:00 11:00 Pulse 72 73 B/P (MAP) 151/88 (108) 152/88 (114) 187/102 (143) Pulse Ox 96 98 99 93 O2 Delivery Room Air Room Air Room Air Room Air 12/14/22 12/14/22 11:38 12:00 Temp 37.2 Pulse 68 B/P (MAP) 180/106 (127) Pulse Ox 98 O2 Delivery Room Air 12/14/22 00:00 Intake Total 240 ml Output Total 850 ml Balance -610 ml Capillary Refill : Less Than 3 Seconds Constitutional: AAO x 3, well-developed, well-nourished, other (thin-appearing) HEENT: PERRL, hearing is well preserved, oral hygience is good Neck: carotid pulses are 2 + bilaterally, with good upstrokes Respiratory: No accessory muscle use; chest expansion is symmetric, chest is bilaterally symmetric, other (good, bilateral air entry) Cardiovascular: regular rate-rhythm, S1 and S2, systolic murmur (soft RAFI at card base) Gastrointestinal: No tender; soft; No guarding, No rebound; audible bowel sounds Extremities: No clubbing, No cyanosis, No significant edema Neurologic/Psychiatric: oriented x 3, other (moves all limbs equally) Skin: normal color, warm/dry; No rash on exposed areas, No ulcerations on exposed areas Data Review Labs Laboratory Tests 12/13/22 17:56: Glucometer 96 12/14/22 05:01: White Blood Count 6.6, Red Blood Count 4.20L, Hemoglobin 13.4, Hematocrit 40, Mean Corpuscular Volume 95, Mean Corpuscular Hemoglobin 32, Mean Corpuscular Hemoglobin Concent 34, Red Cell Distribution Width 12.9, Platelet Count 216, Mean Platelet Volume 10.5, Immature Granulocyte % (Auto) 0, Neutrophils (%) (Auto) 72, Lymphocytes (%) (Auto) 20, Monocytes (%) (Auto) 6, Eosinophils (%) (Auto) 1, Basophils (%) (Auto) 1, Neutrophils # (Auto) 4.7, Lymphocytes # (Auto) 1.3, Monocytes # (Auto) 0.4, Eosinophils # (Auto) 0.1, Basophils # (Auto) 0.0, Immature Granulocyte # (Auto) 0.0, Sodium Level 141, Potassium Level 3.0L, Chloride Level 100, Carbon Dioxide Level 27, Anion Gap 14, Blood Urea Nitrogen 21H, Creatinine 1.10, Estimat Glomerular Filtration Rate 70, BUN/Creatinine Ratio 19, Glucose Level 93, Calcium Level 9.3, Corrected Calcium 9.5, Phosphorus Level 3.1, Magnesium Level 2.3, Total Bilirubin 1.8H, Aspartate Amino Transf (AST/SGOT) 19, Alanine Aminotransferase (ALT/SGPT) 15, Alkaline Phosphatase 86, Total Protein 7.3, Albumin 3.8, Triglycerides Level 65, Cholesterol Level 219H, LDL Cholesterol Direct 152H, VLDL Cholesterol 13, HDL Cholesterol 62H, Thyroid Stimulating Hormone (TSH) 1.86 Laboratory Tests 12/13/22 10:25 12/14/22 05:01 A/P-Cardiology Assessment/Admission Diagnosis Severe hypertension Headache of undetermined etiology - managed by Dr Valiente Quit tobacco in early R nephrectomy in 2020 for renal CA - details unknown to patient - managed by his oncologist at [facility] Discussion and Recomendations * Amlodipine 10 mg daily * Toprol XL 100 mg daily * Cardura 6 mg daily in divided doses (titrate to bp) * Echo * ECG * Replenish lytes. Renal and headache issues managed by the Hospitalist galo Clinical Quality Measures AMI/AHF: ASA po Prior to arrival: LUCY Flores MD FACP [facility] CCDS Dec 14, 2022 12:25
--- NOTE | 2022-12-14 12:31 | Tele-ICU Progress Note ---
Subjective Date Seen by a Provider: Dec 14, 2022 Time Seen by a Provider: 12:25 Subjective/Events-last exam Tele-ICU Physician , consultation) Available chart/ vitals / labs / Images reviewed H&P is from ER notes Patient's information available about PMH, allergy reviewed in EMR. ROS as per chart and RN report Video assessment done using teleICU camera, rest of exam as per RN Discussed with RN. He is a 72-year-old male with past medical history of right kidney cancer status post right nephro ureterectomy sometime in the last 1 year or so. Reportedly at some point he was told that he had a high blood pressure but he was not on any medications for some reason. Today he presented to the emergency room with a complaint of fall headache which has been labile and increasing for the last 2 weeks. No history of vomiting blurring of vision present. In the emergency room his systolic blood pressure was found to be in the range of 230- 240 mmHg. Initially he was given labetalol but it did not work for him however he had a slight relief in the headache. Subsequently he is started on aoplinar rdipine drip and admitted to the intensive care unit where I have evaluated via video and discussed with the patient and [employer] [employer]. I have reviewed his previous medical records to some extent. 12/14/22 .today tolerating pausing nicardapine drip. walked to bath room with out any problems. He had a CT of the head done which did not show any acute changes. Impression 1. Hypertensive emergency 2. Mild renal insufficiency it is not clear whether it is acute or chronic. Recommendations 1. We will continue to wean nicardipine . 2. We will start on amlodipine and see the response 3. Renal artery duplex showed no significant abnormalities. Care coordination with bedside consultants and primary care physician Critical care time spent 15 minutes. Sepsis Event Evaluation Height, Weight, BMI Height: '" Weight: 170lbs. oz. 77.571909vu; 17.05 BMI Method: Exam Exam Patient acknowledged, consented, and participated in this virtual visit which was conducted using real time audio/video Vital Signs Date Time Temp Pulse Resp B/P (MAP) Pulse Ox O2 Delivery O2 Flow Rate FiO2 12/14/22 12:00 68 180/106 (127) 98 Room Air 12/14/22 11:38 37.2 12/14/22 11:00 187/102 (143) 93 Room Air 12/14/22 10:00 73 152/88 (114) 99 Room Air 12/14/22 09:00 72 151/88 (108) 98 Room Air 12/14/22 08:00 96 Room Air 12/14/22 08:00 74 149/81 (112) 99 Room Air 12/14/22 07:43 36.7 12/14/22 07:00 76 12/14/22 07:00 73 144/93 (99) 98 Room Air 12/14/22 06:00 65 187/92 (123) 98 Room Air 12/14/22 05:00 68 174/100 (124) 99 Room Air 12/14/22 04:02 96 Room Air 12/14/22 04:00 70 139/81 (100) 99 Room Air 12/14/22 03:05 72 203/113 12/14/22 03:00 60 207/114 (145) 99 Room Air 12/14/22 02:54 36.7 Room Air 12/14/22 02:00 57 197/105 (135) 98 Room Air 12/14/22 01:00 60 12/14/22 01:00 52 181/100 (127) 98 Room Air 12/14/22 00:33 63 97/67 12/14/22 00:30 97 Room Air 12/14/22 00:00 57 127/90 (102) 97 Room Air 12/13/22 23:10 37.0 Room Air 12/13/22 23:00 63 139/91 (107) 98 Room Air 12/13/22 22:00 65 158/97 (117) 98 Room Air 12/13/22 21:00 64 175/94 (121) 99 Room Air 12/13/22 20:00 99 Room Air 12/13/22 20:00 61 144/89 (107) 98 Room Air 12/13/22 19:35 36.7 12/13/22 19:00 63 12/13/22 19:00 62 132/88 (103) 98 Room Air 12/13/22 19:00 36.6 Room Air 12/13/22 18:00 68 132/81 (98) 96 Room Air 12/13/22 17:00 70 179/103 (128) 98 Room Air 12/13/22 16:30 75 160/98 (118) 99 Room Air 12/13/22 16:15 98 Room Air 12/13/22 16:15 70 115/80 (92) 100 Room Air 12/13/22 16:00 73 97/67 12/13/22 15:18 36.5 12/13/22 15:00 75 153/90 (111) 98 Room Air 12/13/22 14:45 72 159/94 (115) 99 Room Air 12/13/22 14:30 71 170/109 (129) 98 Room Air 12/13/22 14:15 77 6 183/106 (131) 99 Room Air 12/13/22 14:00 69 15 141/80 (100) 97 Room Air 12/13/22 14:00 99 Room Air 12/13/22 13:48 67 12/13/22 13:45 47 15 119/76 (90) 97 Room Air 12/13/22 12:52 67 16 137/80 97 I & O 12/14/22 07:00 Intake Total 480 ml Output Total 1400 ml Balance -920 ml Height & Weight Height: '" Weight: 170lbs. oz. 77.732635yf; 17.05 BMI Method: General Appearance: No Apparent Distress, WD/WN HEENT: PERRL/EOMI, TMs Normal, Normal ENT Inspection, Pharynx Normal Neck: Full Range of Motion, Normal Inspection, Non Tender, Supple, Carotid Bruit Respiratory: Chest Non Tender, Lungs Clear, Normal Breath Sounds, No Accessory Muscle Use, No Respiratory Distress Cardiovascular: Regular Rate, Rhythm, No Edema, No Gallop, No JVD, No Murmur, Normal Peripheral Pulses Capillary Refill: Less Than 3 Seconds Gastrointestinal: non tender, soft Extremity: Normal Capillary Refill, Normal Inspection, Normal Range of Motion, Non Tender, No Calf Tenderness, No Pedal Edema Neurologic/Psychiatric: Alert, Oriented x3, No Motor/Sensory Deficits, Normal Mood/Affect Skin: Normal Color, Warm/Dry Lymphatic: No Adenopathy Results Lab Laboratory Tests 12/13/22 10:25 12/14/22 05:01 Assessment/Plan Assessment/Plan as above Critical Care: Critically Ill Patient Time spent with patient (mins): 15 LEXIE JOHNSON MD Dec 14, 2022 12:31
[2022-12-14] MEDS ORDERED: meTOprolol SUCCINATE 100 MG (TOPROL XL) TAB PO NR (13:15)
[2022-12-14] MEDS ORDERED: doxAzosin 4 MG (CARDURA) TAB PO SCH (14:00)
[2022-12-14] MEDS: doxAzosin 2 MG (CARDURA) TAB PO SCH ×2 (15:39→21:30)
[2022-12-14] MEDS: ENOXAPARIN INJECTION 30 MG/0.3 ML SYR SC SCH (15:44)
[2022-12-15 03:52] LABS: BASOPHILS % (AUTO) 0 % (0-10); EOSINOPHILS # (AUTO) 0.1 10^3/uL (0.0-0.3); EOSINOPHILS % (AUTO) 1 % (0-10); HEMATOCRIT 39 % (40-54); HEMOGLOBIN 12.9 g/dL (13.3-17.7); LYMPHOCYTES # (AUTO) 1.2 10^3/uL (1.0-4.0); LYMPHOCYTES % (AUTO) 15 % (12-44); MEAN CORPUSCULAR HEMOGLOBIN 32 pg (25-34); MEAN CORPUSCULAR HGB CONC 33 g/dL (32-36); MEAN CORPUSCULAR VOLUME 95 fL (80-99); MEAN PLATELET VOLUME 10.6 fL (9.0-12.2); MONOCYTES # (AUTO) 0.4 10^3/uL (0.0-1.0); MONOCYTES % (AUTO) 5 % (0-12); NEUTROPHILS # (AUTO) 6.4 10^3/uL (1.8-7.8); NEUTROPHILS % (AUTO) 79 % (42-75); PLATELET COUNT 197 10^3/uL (130-400); WHITE BLOOD COUNT 8.1 10^3/uL (4.3-11.0)
[2022-12-15 03:57] LABS: ALBUMIN 3.7 GM/DL (3.2-4.5); POTASSIUM 3.7 MMOL/L (3.6-5.0)
[2022-12-15 03:58] LABS: CALCIUM 8.8 MG/DL (8.5-10.1)
[2022-12-15 04:01] LABS: BILIRUBIN,TOTAL 1.3 MG/DL (0.1-1.0)
[2022-12-15 04:03] LABS: CREATININE SERUM 1.03 MG/DL (0.60-1.30); PHOSPHORUS 2.8 MG/DL (2.3-4.7)
[2022-12-15 04:06] LABS: MAGNESIUM 2.3 MG/DL (1.6-2.4)
[2022-12-15] MEDS: POTASSIUM CL 10MEQ/50ML IVPB 50 ML IV SCH (04:51)
[2022-12-15] MEDS: MAGNESIUM 1 GM/100 ML IVPB 100 ML IV SCH (04:51)
[2022-12-15] MEDS: KCL 20 MEQ TAB (K-DUR) PO SCH (04:52)
[2022-12-15] MEDS ORDERED: KCL 20 MEQ TAB (K-DUR) PO ONE (05:00)
[2022-12-15] MEDS: doxAzosin 2 MG (CARDURA) TAB PO SCH ×2 (05:59→14:45)
[2022-12-15] MEDS: niCARdipine IV (Pyxis drip kit 50 MG in NS (IVPB) 230 ML IV SCH (05:59)
--- NOTE | 2022-12-15 06:22 | Progress Note ---
Subjective Date Seen by a Provider: Dec 15, 2022 Time Seen by a Provider: 11:30 Subjective/Events-last exam Improved BP No Cardene has been restarted No pain reported Sister at bedside Review of Systems General: Fatigue, Malaise Objective Exam Last Set of Vital Signs Vital Signs Date Time Temp Pulse Resp B/P (MAP) Pulse Ox O2 Delivery O2 Flow Rate FiO2 12/15/22 05:00 50 6 176/98 (124) 99 Room Air 12/15/22 03:09 36.8 Capillary Refill : Less Than 3 Seconds I&O Intake and Output 12/15/22 00:00 Intake Total 1676 ml Output Total 1625 ml Balance 51 ml Intake Oral 1276 ml IV Total 400 ml Output Urine Total 1625 ml # Voids 1 # Bowel Movements 1 General: Alert, Oriented X3, Cooperative, No Acute Distress Lungs: Clear to Auscultation, Normal Air Movement Heart: Regular Rate, Normal S1, Normal S2, No Murmurs Psych/Mental Status: Mental Status NL, Mood NL Results Lab Laboratory Tests 12/15/22 03:17: White Blood Count 8.1, Red Blood Count 4.08L, Hemoglobin 12.9L, Hematocrit 39L, Mean Corpuscular Volume 95, Mean Corpuscular Hemoglobin 32, Mean Corpuscular Hemoglobin Concent 33, Red Cell Distribution Width 12.9, Platelet Count 197, Mean Platelet Volume 10.6, Immature Granulocyte % (Auto) 0, Neutrophils (%) (Auto) 79H, Lymphocytes (%) (Auto) 15, Monocytes (%) (Auto) 5, Eosinophils (%) (Auto) 1, Basophils (%) (Auto) 0, Neutrophils # (Auto) 6.4, Lymphocytes # (Auto) 1.2, Monocytes # (Auto) 0.4, Eosinophils # (Auto) 0.1, Basophils # (Auto) 0.0, Immature Granulocyte # (Auto) 0.0, Sodium Level 138, Potassium Level 3.7, Chloride Level 102, Carbon Dioxide Level 25, Anion Gap 11, Blood Urea Nitrogen 24H, Creatinine 1.03, Estimat Glomerular Filtration Rate 76, BUN/Creatinine Ratio 23, Glucose Level 95, Calcium Level 8.8, Corrected Calcium 9.0, Phosphorus Level 2.8, Magnesium Level 2.3, Total Bilirubin 1.3H, Aspartate Amino Transf (AST/SGOT) 21, Alanine Aminotransferase (ALT/SGPT) 14, Alkaline Phosphatase 88, Total Protein 7.0, Albumin 3.7 Microbiology 12/13/22 MRSA Screen - Final, Complete MRSA not isolated Assessment/Plan Assessment/Plan Assess & Plan/Chief Complaint Assessment: HTN urgency h/o nephrectomy from renal cell carcinoma Plan: Move to floor Ambulate Add Aldactone Clinical Quality Measures AMI/AHF: ASA po Prior to arrival: NORRIS Okeefe DO Dec 15, 2022 06:22
--- NOTE | 2022-12-15 08:01 | Tele-ICU Progress Note ---
Progress Note video rounds completed 72 y/o male admitted [facility] HOYT and hypertensive urgency Started on cardene drip with improvement Now on PO amlodipine 10mg Cardura 2mg and Metoprolol 100 mg PE: appears comfortable, eating breakfast, sitting up in bed Hr: 60 NSR BP: 162/95 IMP: uncontrolled HTN Improved PLAN: no additional Rx needed Needs buttermaker continuous churn f/u for BP control Dietary modification Time spent in evaulation 10 minutes Focused Exam Height, Weight, BMI Height: '" Weight: 170lbs. oz. 77.950065yy; 17.73 BMI Method: Labs Laboratory Tests 12/15/22 03:17 Results Results/Procedures Labs Laboratory Tests 12/13/22 10:25 12/14/22 05:01 12/15/22 03:17 Patient resulted labs reviewed. Results Labs Labs Laboratory Tests 12/15/22 03:17: White Blood Count 8.1, Red Blood Count 4.08L, Hemoglobin 12.9L, Hematocrit 39L, Mean Corpuscular Volume 95, Mean Corpuscular Hemoglobin 32, Mean Corpuscular Hemoglobin Concent 33, Red Cell Distribution Width 12.9, Platelet Count 197, Mean Platelet Volume 10.6, Immature Granulocyte % (Auto) 0, Neutrophils (%) (Auto) 79H, Lymphocytes (%) (Auto) 15, Monocytes (%) (Auto) 5, Eosinophils (%) (Auto) 1, Basophils (%) (Auto) 0, Neutrophils # (Auto) 6.4, Lymphocytes # (Auto) 1.2, Monocytes # (Auto) 0.4, Eosinophils # (Auto) 0.1, Basophils # (Auto) 0.0, Immature Granulocyte # (Auto) 0.0, Sodium Level 138, Potassium Level 3.7, Chloride Level 102, Carbon Dioxide Level 25, Anion Gap 11, Blood Urea Nitrogen 24H, Creatinine 1.03, Estimat Glomerular Filtration Rate 76, BUN/Creatinine Ratio 23, Glucose Level 95, Calcium Level 8.8, Corrected Calcium 9.0, Phosphorus Level 2.8, Magnesium Level 2.3, Total Bilirubin 1.3H, Aspartate Amino Transf (AST/SGOT) 21, Alanine Aminotransferase (ALT/SGPT) 14, Alkaline Phosphatase 88, Total Protein 7.0, Albumin 3.7 12/15/22 06:44: Microbiology 12/13/22 MRSA Screen - Final, Complete MRSA not isolated JULES GARCIA MD Dec 15, 2022 08:01
[2022-12-15] MEDS: amLODIPine 10 MG (NORVASC) TAB PO SCH (08:34)
[2022-12-15] MEDS: DOCUSATE SODIUM 100 MG (COLACE) CAP PO SCH ×2 (08:37→21:14)
[2022-12-15] MEDS: SENNOSIDES 8.6 MG (SENOKOT) TAB PO SCH ×2 (08:40→21:14)
[2022-12-15] MEDS ORDERED: meTOprolol SUCCINATE 100 MG (TOPROL XL) TAB PO SCH (09:00)
[2022-12-15] MEDS ORDERED: amLODIPine 5 MG (NORVASC) TAB PO SCH ×2 (09:00)
[2022-12-15] MEDS ORDERED: SPIRONOLACTONE 25 MG (ALDACTONE) TAB PO NR (12:00)
[2022-12-15] MEDS ORDERED: ASPIRIN PO PRN (12:00)
[2022-12-15] MEDS ORDERED: ASPIRIN E.C. 81 MG (ECOTRIN) TAB PO PRN (12:30)
[2022-12-15 13:30] VITALS: BP 173/82
[2022-12-15] MEDS: ENOXAPARIN INJECTION 30 MG/0.3 ML SYR SC SCH (14:45)
--- NOTE | 2022-12-15 15:04 | Progress Note - Cardiology ---
Cardiology SOAP Progress Note Subjective: No cp or palp or syncope No headache No n/v/d Gen weakness No focal weakness No shortness of breath Objective: I&O/Vital Signs 12/15/22 12/15/22 12/15/22 12/15/22 03:09 04:00 04:00 05:00 Temp 36.8 Pulse 51 50 Resp 5 6 B/P (MAP) 167/93 (117) 176/98 (124) Pulse Ox 99 98 99 O2 Delivery Room Air Room Air Room Air 12/15/22 12/15/22 12/15/22 12/15/22 06:00 07:00 07:00 07:47 Temp 36.3 Pulse 65 64 60 B/P (MAP) 164/100 (125) 182/94 (128) Pulse Ox 94 98 O2 Delivery Room Air Room Air 12/15/22 12/15/22 12/15/22 12/15/22 08:00 08:00 09:00 10:00 Pulse 58 52 56 B/P (MAP) 148/82 (116) 156/83 (110) 169/95 (135) Pulse Ox 99 99 100 98 O2 Delivery Room Air Room Air Room Air Room Air 12/15/22 12/15/22 12/15/22 12/15/22 11:00 11:14 12:00 12:00 Temp 36.6 Pulse 61 B/P (MAP) 169/91 (103) 141/89 (106) Pulse Ox 99 99 99 O2 Delivery Room Air Room Air Room Air 12/15/22 12/15/22 13:30 13:30 Temp 36.8 36.8 Pulse 51 51 Resp 19 19 B/P (MAP) 173/82 (112) 173/82 (112) Pulse Ox 97 97 O2 Delivery Room Air Room Air 12/15/22 00:00 Intake Total 1086 ml Output Total 1075 ml Balance 11 ml Weight (Pounds): 170 Weight (Calculated Kilograms): 77.193271 Constitutional: AAO x 3, well-developed, well-nourished, other (thin-appearing) Respiratory: No accessory muscle use; chest expansion is symmetric, chest is bilaterally symmetric, other (good, bilateral air entry) Cardiovascular: regular rate-rhythm, S1 and S2, systolic murmur (soft RAFI at card base) Gastrointestional: No tender; soft; No guarding, No rebound; audible bowel sounds Extremities: No clubbing, No cyanosis, No significant edema Neurologic/Psychiatric: oriented x 3, other (moves all limbs equally) Skin: normal color, warm/dry; No rash on exposed areas, No ulcerations on exposed areas Results/Procedures: Labs Laboratory Tests 12/15/22 03:17: White Blood Count 8.1, Red Blood Count 4.08L, Hemoglobin 12.9L, Hematocrit 39L, Mean Corpuscular Volume 95, Mean Corpuscular Hemoglobin 32, Mean Corpuscular Hemoglobin Concent 33, Red Cell Distribution Width 12.9, Platelet Count 197, Mean Platelet Volume 10.6, Immature Granulocyte % (Auto) 0, Neutrophils (%) (Auto) 79H, Lymphocytes (%) (Auto) 15, Monocytes (%) (Auto) 5, Eosinophils (%) (Auto) 1, Basophils (%) (Auto) 0, Neutrophils # (Auto) 6.4, Lymphocytes # (Auto) 1.2, Monocytes # (Auto) 0.4, Eosinophils # (Auto) 0.1, Basophils # (Auto) 0.0, Immature Granulocyte # (Auto) 0.0, Sodium Level 138, Potassium Level 3.7, Chloride Level 102, Carbon Dioxide Level 25, Anion Gap 11, Blood Urea Nitrogen 24H, Creatinine 1.03, Estimat Glomerular Filtration Rate 76, BUN/Creatinine Ratio 23, Glucose Level 95, Calcium Level 8.8, Corrected Calcium 9.0, Phosphorus Level 2.8, Magnesium Level 2.3, Total Bilirubin 1.3H, Aspartate Amino Transf (AST/SGOT) 21, Alanine Aminotransferase (ALT/SGPT) 14, Alkaline Phosphatase 88, Total Protein 7.0, Albumin 3.7 12/15/22 06:44: Microbiology 12/13/22 MRSA Screen - Final, Complete MRSA not isolated Laboratory Tests 12/14/22 05:01 12/15/22 03:17 A/P: Assessment: Severe hypertension - echo of 12/14/22: LVEF 55-60% Headache of undetermined etiology - managed by Dr Valiente Quit tobacco in early R nephrectomy in 2020 for renal CA - details unknown to patient - managed by his oncologist at [facility] Plan: * Continue amlodipine 10 mg daily * Continue Toprol XL 100 mg daily * Increase Cardura to 8 mg daily (in divided doses) * Monitor labs Clinical Quality Measures AMI/AHF: ASA po Prior to arrival: LUCY Flores MD FACP [facility] CCDS Dec 15, 2022 15:04
[2022-12-15 15:47] VITALS: BP 142/65
[2022-12-15 19:15] VITALS: BP 148/53
[2022-12-15] MEDS: doxAzosin 4 MG (CARDURA) TAB PO SCH (21:13)
[2022-12-15 23:41] VITALS: BP 165/95
[2022-12-16] VITALS (7 sets, daily range): BP systolic 75–166; BP diastolic 41–96
[2022-12-16 05:58] LABS: BASOPHILS % (AUTO) 0 % (0-10); EOSINOPHILS # (AUTO) 0.1 10^3/uL (0.0-0.3); EOSINOPHILS % (AUTO) 1 % (0-10); HEMATOCRIT 39 % (40-54); HEMOGLOBIN 13.6 g/dL (13.3-17.7); LYMPHOCYTES # (AUTO) 1.2 10^3/uL (1.0-4.0); LYMPHOCYTES % (AUTO) 16 % (12-44); MEAN CORPUSCULAR HEMOGLOBIN 33 pg (25-34); MEAN CORPUSCULAR HGB CONC 35 g/dL (32-36); MEAN CORPUSCULAR VOLUME 94 fL (80-99); MEAN PLATELET VOLUME 10.8 fL (9.0-12.2); MONOCYTES # (AUTO) 0.4 10^3/uL (0.0-1.0); MONOCYTES % (AUTO) 5 % (0-12); NEUTROPHILS # (AUTO) 5.9 10^3/uL (1.8-7.8); NEUTROPHILS % (AUTO) 78 % (42-75); PLATELET COUNT 202 10^3/uL (130-400); WHITE BLOOD COUNT 7.6 10^3/uL (4.3-11.0)
[2022-12-16] MEDS: CYANOCOBALAMIN 1,000 MCG (VITAMIN B-12) TABLET PO SCH (06:05)
[2022-12-16 06:24] LABS: ALBUMIN 3.5 GM/DL (3.2-4.5); BILIRUBIN,TOTAL 1.3 MG/DL (0.1-1.0); CALCIUM 9.1 MG/DL (8.5-10.1); CREATININE SERUM 0.9 MG/DL (0.60-1.30); POTASSIUM 3.6 MMOL/L (3.6-5.0); TOTAL PROTEIN 6.8 GM/DL (6.4-8.2)
[2022-12-16] MEDS: SENNOSIDES 8.6 MG (SENOKOT) TAB PO SCH ×2 (08:34→20:37)
[2022-12-16] MEDS: doxAzosin 4 MG (CARDURA) TAB PO SCH (08:34)
[2022-12-16] MEDS: DOCUSATE SODIUM 100 MG (COLACE) CAP PO SCH ×2 (08:34→20:37)
[2022-12-16] MEDS: amLODIPine 10 MG (NORVASC) TAB PO SCH (08:34)
[2022-12-16] MEDS ORDERED: NON-FORMULARY MEDICATION 1 EA EA (Cyanocobalamin (Vitamin B-12) (Vitamin B-12) 500 MCG) PO SCH (09:00)
--- NOTE | 2022-12-16 10:39 | Progress Note - Cardiology ---
Cardiology SOAP Progress Note Subjective: Sitting up in recliner at the bedside No c/o CP, palpitations, dyspnea, syncope or near syncope Does reports some dizziness with position changes No c/o n/v/d Objective: I&O/Vital Signs 12/16/22 12/16/22 12/16/22 12/16/22 03:34 07:46 08:00 11:00 Temp 36.2 36.7 Pulse 68 51 53 64 67 Resp 16 18 B/P (MAP) 165/95 (118) 127/80 (96) 134/62 (86) 99/55 (70) 75/41 (52) Supine Pulse Ox 97 98 O2 Delivery Room Air Room Air Room Air 12/16/22 11:46 Temp 36.3 Pulse 59 Resp 18 B/P (MAP) 134/62 (86) Pulse Ox 99 O2 Delivery Room Air 12/15/22 23:59 Intake Total 440 ml Output Total 525 ml Balance -85 ml Weight (Pounds): 170 Weight (Calculated Kilograms): 77.105195 Constitutional: AAO x 3, well-developed, well-nourished, other (thin-appearing) Respiratory: No accessory muscle use; chest expansion is symmetric, chest is bilaterally symmetric, other (good, bilateral air entry) Cardiovascular: regular rate-rhythm, S1 and S2, systolic murmur (soft RAFI at card base) Gastrointestional: No tender; soft; No guarding, No rebound; audible bowel sounds Extremities: No clubbing, No cyanosis, No significant edema Neurologic/Psychiatric: oriented x 3, other (moves all limbs equally) Skin: normal color, warm/dry; No rash on exposed areas, No ulcerations on expo sed areas Results/Procedures: Labs Laboratory Tests 12/16/22 05:17: White Blood Count 7.6, Red Blood Count 4.18L, Hemoglobin 13.6, Hematocrit 39L, Mean Corpuscular Volume 94, Mean Corpuscular Hemoglobin 33, Mean Corpuscular Hemoglobin Concent 35, Red Cell Distribution Width 12.9, Platelet Count 202, Mean Platelet Volume 10.8, Immature Granulocyte % (Auto) 0, Neutrophils (%) (Auto) 78H, Lymphocytes (%) (Auto) 16, Monocytes (%) (Auto) 5, Eosinophils (%) (Auto) 1, Basophils (%) (Auto) 0, Neutrophils # (Auto) 5.9, Lymphocytes # (Auto) 1.2, Monocytes # (Auto) 0.4, Eosinophils # (Auto) 0.1, Basophils # (Auto) 0.0, Immature Granulocyte # (Auto) 0.0, Sodium Level 139, Potassium Level 3.6, Chloride Level 103, Carbon Dioxide Level 26, Anion Gap 10, Blood Urea Nitrogen 19H, Creatinine 0.90, Estimat Glomerular Filtration Rate 90, BUN/Creatinine Ratio 21, Glucose Level 94, Calcium Level 9.1, Corrected Calcium 9.5, Total Bilirubin 1.3H, Aspartate Amino Transf (AST/SGOT) 19, Alanine Aminotransferase (ALT/SGPT) 14, Alkaline Phosphatase 82, Total Protein 6.8, Albumin 3.5 Microbiology 12/13/22 MRSA Screen - Final, Complete MRSA not isolated A/P: Assessment: Severe hypertension - echo of 12/14/22: LVEF 55-60% Headache of undetermined etiology - managed by Dr Valiente Quit tobacco in early R nephrectomy in 2020 for renal CA - details unknown to patient - managed by his oncologist at [facility] Plan: * Orthostatic hypotension * lying 134/62 * sitting 99/55 * standing 75/41 - Reduce antihypertensive regimen * Monitor labs Clinical Quality Measures AMI/AHF: ASA po Prior to arrival: JENNIFER Kwon Dec 16, 2022 10:39
--- NOTE | 2022-12-16 12:39 | Progress Note ---
JORGE CANTRELL 12/16/22 1239: Subjective Date Seen by a Provider: Dec 16, 2022 Time Seen by a Provider: 10:10 Subjective/Events-last exam Mr Rivera is seen at bedside this morning. Denies chest pain, shortness of breath, or headache. Tolerating normal diet and voiding urine and stool without issue. No issues overnight. Patient does complain of some dizziness and feeling "funny" when he stands up to get out of bed. Has been instructed to use call light when getting up due to fall risk, is hesitant to ask for help. Blood pressures are still elevated but improved overall. Hospital course Mamadou Rivera is a 72 M who presented to the ED on 12/13 after going to the urgent care and having significantly elevated pressures. He was advised to go to the ER. HPI from ER "72-year-old male presents with high blood pressure and pressure in his head. He reports for about 2 weeks he has had what he feels like his pressure in his head. He reports that he only has 1 kidney. That in the past he was told he had high blood pressure but nobody is ever dieting about it or started him on any medications. He denies any chest pain. He does have just some generalized malaise. He denies any fevers chills nausea or vomiting." In the ER given labetalol. Minimal response. Nicardipine drip with better response in pressures. EKGs showed some PVCs with no ST changes. Admitted to Dr Atkinson with cardiology consulted. Head CT and Renal Artery US were negative Pressures improved with oral meds. Drip DCed and moved to 4th floor. Renin, Aldosterone, and Renin/aldosterone ratio pending Pt developed orthostasis on 12/16, cardiology will change hypertensive regiment to less aggressive measures. Doxazosin and amlodipine. Metoprolol also if heart rate is high enough. Borderline bradycardia at times throughout hospitalization. Will stay overnight at least until 12/17 to monitor pressures in response to changes in oral medications Can discharge with outpatient follow up when patient is no longer having orthostatic issues. He has likely had elevated pressures for a significant time, antihypertensive treatment makes him prone to orthostasis. Review of Systems General: No Chills, No Night Sweats HEENT: No Head Aches Pulmonary: No Dyspnea, No Cough Cardiovascular: No: Chest Pain, Palpitations, Lt Headedness Gastrointestinal: No: Nausea, Vomiting, Abdominal Pain Genitourinary: No Dysuria, No Hematuria Neurological: No: Confusion Objective Exam Last Set of Vital Signs Vital Signs Date Time Temp Pulse Resp B/P (MAP) Pulse Ox O2 Delivery O2 Flow Rate FiO2 12/16/22 11:46 36.3 59 18 134/62 (86) 99 Room Air Capillary Refill : Less Than 3 Seconds I&O Intake and Output 12/16/22 00:00 Intake Total 1240 ml Output Total 1375 ml Balance -135 ml Intake Oral 1240 ml Output Urine Total 1375 ml General: Alert, Oriented X3, Cooperative HEENT: Atraumatic, EOMI Neck: Supple Lungs: Clear to Auscultation, Normal Air Movement Heart: Regular Rate (borderline bradycardia throughout the day), Normal S1, Normal S2 Abdomen: Soft, No Tenderness Extremities: No Cyanosis, No Edema, Normal Pulses Neuro: Normal Speech Psych/Mental Status: Mental Status NL, Mood NL Results Lab Laboratory Tests 12/16/22 05:17: White Blood Count 7.6, Red Blood Count 4.18L, Hemoglobin 13.6, Hematocrit 39L, Mean Corpuscular Volume 94, Mean Corpuscular Hemoglobin 33, Mean Corpuscular Hemoglobin Concent 35, Red Cell Distribution Width 12.9, Platelet Count 202, Mean Platelet Volume 10.8, Immature Granulocyte % (Auto) 0, Neutrophils (%) (Auto) 78H, Lymphocytes (%) (Auto) 16, Monocytes (%) (Auto) 5, Eosinophils (%) (Auto) 1, Basophils (%) (Auto) 0, Neutrophils # (Auto) 5.9, Lymphocytes # (Auto) 1.2, Monocytes # (Auto) 0.4, Eosinophils # (Auto) 0.1, Basophils # (Auto) 0.0, Immature Granulocyte # (Auto) 0.0, Sodium Level 139, Potassium Level 3.6, Chloride Level 103, Carbon Dioxide Level 26, Anion Gap 10, Blood Urea Nitrogen 19H, Creatinine 0.90, Estimat Glomerular Filtration Rate 90, BUN/Creatinine Ratio 21, Glucose Level 94, Calcium Level 9.1, Corrected Calcium 9.5, Total Bilirubin 1.3H, Aspartate Amino Transf (AST/SGOT) 19, Alanine Aminotransferase (ALT/SGPT) 14, Alkaline Phosphatase 82, Total Protein 6.8, Albumin 3.5 Microbiology 12/13/22 MRSA Screen - Final, Complete MRSA not isolated Assessment/Plan Assessment/Plan Assess & Plan/Chief Complaint Hypertensive Urgency Very elevated blood pressures on admission, systolic readings over 200 and diastolic readings over 120 165/95 this morning Cardiology consulted Continue doxazosin, amlodipine, and metoprolol as tolerated Doses and meds adjusted by cardiology due to orthostasis Renin, aldosterone, and renin/aldosterone ratio pending Orthostatic Hypotension after initiation of HTN treatment 134/62 supine 99/55 sitting 75/41 standing Cardiology adjusting meds continue to monitor vitals patient has likely been hypertensive for quite some time and will require adjustment to new medication regiment Hyperlipidemia elevated total cholesterol and LDL would likely benefit from statin, consider with outpatient follow up S/P nephrectomy Clinical Quality Measures AMI/AHF: ASA po Prior to arrival: AMBER Okeefe DO 12/17/22 0446: Supervisory-Addendum Brief Verification & Attestation Participated in pt care: history, MDM, physical Personally performed: exam, history, MDM, supervision of care Care discussed with: Medical Student Procedures: n/a Results interpretation: Verified all documentation Verification and Attestation of Medical Student E/M Service A medical student performed and documented this service in my presence. I reviewed and verified all information documented by the medical student and made modifications to such information, when appropriate. I personally performed the physical exam and medical decision making. Amber Atkinson, Dec 17, 2022,04:46 JORGE CANTRELL Dec 16, 2022 12:39 AMBER ATKINSON DO Dec 17, 2022 04:46
--- NOTE | 2022-12-16 13:08 | Progress Note - Cardiology ---
Cardiology SOAP Progress Note Subjective: No cp or palp or syncope No shortness of breath at rest Dizziness with posture changes Gen weakness and malaise No focal weakness No n/v/d Objective: I&O/Vital Signs 12/16/22 12/16/22 12/16/22 12/16/22 03:34 07:46 08:00 11:00 Temp 36.2 36.7 Pulse 68 51 53 64 67 Resp 16 18 B/P (MAP) 165/95 (118) 127/80 (96) 134/62 (86) 99/55 (70) 75/41 (52) Supine Pulse Ox 97 98 O2 Delivery Room Air Room Air Room Air 12/16/22 11:46 Temp 36.3 Pulse 59 Resp 18 B/P (MAP) 134/62 (86) Pulse Ox 99 O2 Delivery Room Air 12/15/22 23:59 Intake Total 440 ml Output Total 525 ml Balance -85 ml Weight (Pounds): 170 Weight (Calculated Kilograms): 77.131279 Constitutional: AAO x 3, well-developed, well-nourished, other Respiratory: chest expansion is symmetric, chest is bilaterally symmetric, other Cardiovascular: regular rate-rhythm, S1 and S2, systolic murmur Gastrointestional: soft, audible bowel sounds Extremities: No clubbing, No cyanosis, No significant edema Neurologic/Psychiatric: oriented x 3, other Skin: normal color, warm/dry Results/Procedures: Labs Laboratory Tests 12/16/22 05:17: White Blood Count 7.6, Red Blood Count 4.18L, Hemoglobin 13.6, Hematocrit 39L, Mean Corpuscular Volume 94, Mean Corpuscular Hemoglobin 33, Mean Corpuscular Hemoglobin Concent 35, Red Cell Distribution Width 12.9, Platelet Count 202, Mean Platelet Volume 10.8, Immature Granulocyte % (Auto) 0, Neutrophils (%) (Auto) 78H, Lymphocytes (%) (Auto) 16, Monocytes (%) (Auto) 5, Eosinophils (%) (Auto) 1, Basophils (%) (Auto) 0, Neutrophils # (Auto) 5.9, Lymphocytes # (Auto) 1.2, Monocytes # (Auto) 0.4, Eosinophils # (Auto) 0.1, Basophils # (Auto) 0.0, Immature Granulocyte # (Auto) 0.0, Sodium Level 139, Potassium Level 3.6, Chloride Level 103, Carbon Dioxide Level 26, Anion Gap 10, Blood Urea Nitrogen 19H, Creatinine 0.90, Estimat Glomerular Filtration Rate 90, BUN/Creatinine Ratio 21, Glucose Level 94, Calcium Level 9.1, Corrected Calcium 9.5, Total Bilirubin 1.3H, Aspartate Amino Transf (AST/SGOT) 19, Alanine Aminotransferase (ALT/SGPT) 14, Alkaline Phosphatase 82, Total Protein 6.8, Albumin 3.5 Microbiology 12/13/22 MRSA Screen - Final, Complete MRSA not isolated A/P: Assessment: Severe hypertension - echo of 12/14/22: LVEF 55-60% Dizziness due to postural hypotension on 12/16/22 Headache of undetermined etiology - managed by Dr Valiente Quit tobacco in early R nephrectomy in 2020 for renal CA - details unknown to patient - managed by his oncologist at [facility] Plan: * Orthostatic hypotension * lying 134/62 * sitting 99/55 * standing 75/41 - Reduce antihypertensive regimen * Monitor labs Clinical Quality Measures AMI/AHF: ASA po Prior to arrival: LUCY Flores MD FACP FAC CCDS Dec 16, 2022 13:08
[2022-12-16] MEDS: ACETAMINOPHEN 325 MG TABLET PO PRN (13:55)
[2022-12-16] MEDS: ENOXAPARIN INJECTION 30 MG/0.3 ML SYR SC SCH (13:55)
[2022-12-16] MEDS ORDERED: NS IV 1000 ML 1,000 ML IV SCH (15:45)
[2022-12-16] MEDS ORDERED: NS IV 500 ML 500 ML IV ONE (16:00)
[2022-12-16] MEDS: NS IV 1000 ML 1,000 ML IV SCH (16:05)
[2022-12-16] MEDS: doxAzosin 2 MG (CARDURA) TAB PO SCH (20:37)
[2022-12-17 04:21] VITALS: BP 187/98
[2022-12-17] MEDS: amLODIPine 10 MG (NORVASC) TAB PO SCH (04:35)
[2022-12-17 05:14] LABS: BASOPHILS % (AUTO) 0 % (0-10); EOSINOPHILS # (AUTO) 0.1 10^3/uL (0.0-0.3); EOSINOPHILS % (AUTO) 1 % (0-10); HEMATOCRIT 36 % (40-54); HEMOGLOBIN 12.2 g/dL (13.3-17.7); LYMPHOCYTES # (AUTO) 1.1 10^3/uL (1.0-4.0); LYMPHOCYTES % (AUTO) 16 % (12-44); MEAN CORPUSCULAR HEMOGLOBIN 32 pg (25-34); MEAN CORPUSCULAR HGB CONC 34 g/dL (32-36); MEAN CORPUSCULAR VOLUME 95 fL (80-99); MEAN PLATELET VOLUME 10.6 fL (9.0-12.2); MONOCYTES # (AUTO) 0.4 10^3/uL (0.0-1.0); MONOCYTES % (AUTO) 6 % (0-12); NEUTROPHILS # (AUTO) 5.4 10^3/uL (1.8-7.8); NEUTROPHILS % (AUTO) 77 % (42-75); PLATELET COUNT 178 10^3/uL (130-400); WHITE BLOOD COUNT 7.1 10^3/uL (4.3-11.0)
[2022-12-17 05:31] LABS: ALBUMIN 3.3 GM/DL (3.2-4.5); BILIRUBIN,TOTAL 1.2 MG/DL (0.1-1.0); CALCIUM 8.5 MG/DL (8.5-10.1); CREATININE SERUM 0.87 MG/DL (0.60-1.30); POTASSIUM 3.3 MMOL/L (3.6-5.0); TOTAL PROTEIN 6.4 GM/DL (6.4-8.2)
[2022-12-17] MEDS: CYANOCOBALAMIN 1,000 MCG (VITAMIN B-12) TABLET PO SCH (06:06)
[2022-12-17] MEDS: NS IV 1000 ML 1,000 ML IV SCH (06:06)
[2022-12-17 08:27] VITALS: BP 122/71
[2022-12-17] MEDS ORDERED: meTOproloL SUCCINATE 50 MG (TOPROL XL) TAB PO SCH (09:00)
[2022-12-17] MEDS ORDERED: KCL 20 MEQ TAB (K-DUR) PO NR (10:00)
[2022-12-17] MEDS: DOCUSATE SODIUM 100 MG (COLACE) CAP PO SCH ×2 (10:38→20:53)
[2022-12-17] MEDS: doxAzosin 2 MG (CARDURA) TAB PO SCH ×2 (10:38→20:53)
[2022-12-17] MEDS: SENNOSIDES 8.6 MG (SENOKOT) TAB PO SCH ×2 (10:39→20:53)
[2022-12-17] MEDS: ACETAMINOPHEN 325 MG TABLET PO PRN (10:48)
--- NOTE | 2022-12-17 11:37 | Progress Note - Cardiology ---
Cardiology SOAP Progress Note Subjective: Dizziness has improved No c/o CP, SOB, palpitations, syncope or near syncope No c/o n/v/d Objective: I&O/Vital Signs Weight (Pounds): 170 Weight (Calculated Kilograms): 77.243060 Constitutional: AAO x 3, well-developed, other (thin ) Respiratory: chest expansion is symmetric, chest is bilaterally symmetric Cardiovascular: regular rate-rhythm, S1 and S2, systolic murmur Gastrointestional: soft, audible bowel sounds Extremities: No clubbing, No cyanosis; no lower extremity edema bilateral; No significant edema Neurologic/Psychiatric: oriented x 3, grossly intact (moves all extremities) Skin: normal color, warm/dry; No rash on exposed areas, No ulcerations on exposed areas Results/Procedures: Labs Microbiology 12/13/22 MRSA Screen - Final, Complete MRSA not isolated A/P: Assessment: Severe hypertension - echo of 12/14/22: LVEF 55-60% Dizziness due to postural hypotension on 12/16/22 - resolved Headache of undetermined etiology - managed by Dr Valiente Quit tobacco in early R nephrectomy in 2020 for renal CA - details unknown to patient - managed by his oncologist at [facility] Plan: * Orthostatic hypotension on 12-16-22 - Improved following reduction in antihypertensive regimen and IVF - stop IVF * Monitor labs * Hypokalemia - replace Clinical Quality Measures AMI/AHF: ASA po Prior to arrival: JENNIFER Kwon Dec 17, 2022 11:37
--- NOTE | 2022-12-17 11:59 | Progress Note ---
JORGE CANTRELL 12/17/22 1159: Subjective Date Seen by a Provider: Dec 17, 2022 Time Seen by a Provider: 10:00 Subjective/Events-last exam Mr Cedillo was seen at bedside this morning resting comfortably eating his breakfast. He reports feeling better than he did yesterday. No chest pain or palpitations. Pt experienced orthostatic hypotension yesterday after getting up with nursing staff. Has not had this complain today but has not attempted to get out of bed yet. Cardiology adjusted his hypertension medications and gave fluids. Patient feels fine otherwise. Tolerating normal diet. Voiding urine without issue. Has no BM since Friday but does not complain of abdominal pain. Pt received morning amlodipine early due to elevated BP overnight. Hospital course Mmaadou Rivera is a 72 M who presented to the ED on 12/13 after going to the urgent care and having significantly elevated pressures. He was advised to go to the ER. HPI from ER "72-year-old male presents with high blood pressure and pressure in his head. He reports for about 2 weeks he has had what he feels like his pressure in his head. He reports that he only has 1 kidney. That in the past he was told he had high blood pressure but nobody is ever dieting about it or started him on any medications. He denies any chest pain. He does have just some generalized malaise. He denies any fevers chills nausea or vomiting." In the ER given labetalol. Minimal response. Nicardipine drip with better response in pressures. EKGs showed some PVCs with no ST changes. Admitted to Dr Atkinson with cardiology consulted. Head CT and Renal Artery US were negative Pressures improved with oral meds. Drip DCed and moved to 4th floor. Renin, Aldosterone, and Renin/aldosterone ratio pending Pt developed orthostasis on 12/16, cardiology will change hypertensive regiment to less aggressive measures. Doxazosin and amlodipine. Metoprolol also if heart rate is high enough. Borderline bradycardia at times throughout hospitalization. Will stay overnight at least until 12/17 to monitor pressures in response to changes in oral medications On 12/17 patient feels better with no more episodes of hypotension or near syncope. Received morning amlodipine early due to elevated pressure. Stable pressures throughout the day. Can discharge with outpatient follow up when patient is no longer having ort hostatic issues. He has likely had elevated pressures for a significant time, antihypertensive treatment makes him prone to orthostasis. Review of Systems General: No Chills, No Night Sweats HEENT: No Head Aches Pulmonary: No Dyspnea, No Cough Cardiovascular: No: Chest Pain, Palpitations, Lt Headedness Gastrointestinal: No: Nausea, Vomiting, Abdominal Pain Genitourinary: No Dysuria, No Hematuria Neurological: No: Weakness, Confusion Objective Exam Last Set of Vital Signs Vital Signs Date Time Temp Pulse Resp B/P (MAP) Pulse Ox O2 Delivery O2 Flow Rate FiO2 12/17/22 08:27 36.5 71 18 122/71 (88) 99 Room Air Capillary Refill : Less Than 3 Seconds I&O Intake and Output 12/16/22 23:59 Intake Total 1790 ml Output Total 1950 ml Balance -160 ml Intake Oral 1290 ml IV Total 500 ml Output Urine Total 1950 ml General: Alert, Oriented X3, Cooperative HEENT: Atraumatic, EOMI Neck: Supple Lungs: Clear to Auscultation, Normal Air Movement Heart: Regular Rate, Normal S1, Normal S2 Abdomen: Soft, No Tenderness Extremities: No Cyanosis, No Edema Psych/Mental Status: Mental Status NL, Mood NL Results Lab Laboratory Tests 12/17/22 04:55: White Blood Count 7.1, Red Blood Count 3.81L, Hemoglobin 12.2L, Hematocrit 36L, Mean Corpuscular Volume 95, Mean Corpuscular Hemoglobin 32, Mean Corpuscular Hemoglobin Concent 34, Red Cell Distribution Width 12.9, Platelet Count 178, Mean Platelet Volume 10.6, Immature Granulocyte % (Auto) 0, Neutrophils (%) (Auto) 77H, Lymphocytes (%) (Auto) 16, Monocytes (%) (Auto) 6, Eosinophils (%) (Auto) 1, Basophils (%) (Auto) 0, Neutrophils # (Auto) 5.4, Lymphocytes # (Auto) 1.1, Monocytes # (Auto) 0.4, Eosinophils # (Auto) 0.1, Basophils # (Auto) 0.0, Immature Granulocyte # (Auto) 0.0, Sodium Level 139, Potassium Level 3.3L, Chloride Level 104, Carbon Dioxide Level 25, Anion Gap 10, Blood Urea Nitrogen 17, Creatinine 0.87, Estimat Glomerular Filtration Rate 91, BUN/Creatinine Ratio 20, Glucose Level 103, Calcium Level 8.5, Corrected Calcium 9.1, Total Bilirubin 1.2H, Aspartate Amino Transf (AST/SGOT) 20, Alanine Aminotransferase (ALT/SGPT) 16, Alkaline Phosphatase 73, Total Protein 6.4, Albumin 3.3 Microbiology 12/13/22 MRSA Screen - Final, Complete MRSA not isolated Assessment/Plan Assessment/Plan Assess & Plan/Chief Complaint Hypertensive Urgency Very elevated blood pressures on admission, systolic readings over 200 and diastolic readings over 120 122/71 at last check Cardiology consulted Continue doxazosin, amlodipine Doses and meds adjusted by cardiology due to orthostasis, no more symptoms today, pressures stable Renin, aldosterone, and renin/aldosterone ratio pending Orthostatic Hypotension after initiation of HTN treatment 134/62 supine 99/55 sitting 75/41 standing Cardiology adjusting meds continue to monitor vitals patient has likely been hypertensive for quite some time and will require ad justment to new medication regiment Hyperlipidemia elevated total cholesterol and LDL would likely benefit from statin, consider with outpatient follow up S/P nephrectomy Stable for discharge with outpatient follow up for management of his HTN Clinical Quality Measures AMI/AHF: ASA po Prior to arrival: No AMBER ATKINSON DO 12/18/22 0440: Supervisory-Addendum Brief Verification & Attestation Participated in pt care: history, MDM, physical Personally performed: exam, history, MDM, supervision of care Care discussed with: Medical Student Procedures: n/a Results interpretation: Verified all documentation Verification and Attestation of Medical Student E/M Service A medical student performed and documented this service in my presence. I reviewed and verified all information documented by the medical student and made modifications to such information, when appropriate. I personally performed the physical exam and medical decision making. Amber Atkinson Dec 18, 2022,04:40 JORGE CANTRELL Dec 17, 2022 11:59 AMBER ATKINSON DO Dec 18, 2022 04:40
[2022-12-17 12:43] VITALS: BP 103/63
[2022-12-17 15:42] VITALS: BP 128/73
[2022-12-17] MEDS: ENOXAPARIN INJECTION 30 MG/0.3 ML SYR SC SCH (16:03)
--- NOTE | 2022-12-17 16:32 | Progress Note - Cardiology ---
Cardiology SOAP Progress Note Subjective: No cp or palp or syncope or shortness of breath No n/v/d Dizziness has resolved No focal weakness Objective: I&O/Vital Signs 12/17/22 12/17/22 12/17/22 12/17/22 08:00 08:27 12:43 15:42 Temp 36.5 36.7 36.6 Pulse 71 76 70 Resp 18 18 20 B/P (MAP) 122/71 (88) 103/63 (76) 128/73 (91) Pulse Ox 99 99 99 98 O2 Delivery Room Air Room Air Room Air Room Air 12/17/22 00:00 Intake Total 1590 ml Output Total 1325 ml Balance 265 ml Weight (Pounds): 170 Weight (Calculated Kilograms): 77.874806 Constitutional: AAO x 3, well-developed, other (thin ) Respiratory: chest expansion is symmetric, chest is bilaterally symmetric Cardiovascular: regular rate-rhythm, S1 and S2, systolic murmur Gastrointestional: soft, audible bowel sounds Extremities: No clubbing, No cyanosis; no lower extremity edema bilateral; No significant edema Neurologic/Psychiatric: oriented x 3, other (moves all limbs equally) Skin: normal color, warm/dry; No rash on exposed areas, No ulcerations on exposed areas Results/Procedures: Labs Laboratory Tests 12/17/22 04:55: White Blood Count 7.1, Red Blood Count 3.81L, Hemoglobin 12.2L, Hematocrit 36L, Mean Corpuscular Volume 95, Mean Corpuscular Hemoglobin 32, Mean Corpuscular Hemoglobin Concent 34, Red Cell Distribution Width 12.9, Platelet Count 178, Mean Platelet Volume 10.6, Immature Granulocyte % (Auto) 0, Neutrophils (%) (Auto) 77H, Lymphocytes (%) (Auto) 16, Monocytes (%) (Auto) 6, Eosinophils (%) (Auto) 1, Basophils (%) (Auto) 0, Neutrophils # (Auto) 5.4, Lymphocytes # (Auto) 1.1, Monocytes # (Auto) 0.4, Eosinophils # (Auto) 0.1, Basophils # (Auto) 0.0, Immature Granulocyte # (Auto) 0.0, Sodium Level 139, Potassium Level 3.3L, Chloride Level 104, Carbon Dioxide Level 25, Anion Gap 10, Blood Urea Nitrogen 17, Creatinine 0.87, Estimat Glomerular Filtration Rate 91, BUN/Creatinine Ratio 20, Glucose Level 103, Calcium Level 8.5, Corrected Calcium 9.1, Total Bilirubin 1.2H, Aspartate Amino Transf (AST/SGOT) 20, Alanine Aminotransferase (ALT/SGPT) 16, Alkaline Phosphatase 73, Total Protein 6.4, Albumin 3.3 Microbiology 12/13/22 MRSA Screen - Final, Complete MRSA not isolated Laboratory Tests 12/16/22 05:17 12/17/22 04:55 A/P: Assessment: Severe hypertension - echo of 12/14/22: LVEF 55-60% Dizziness due to postural hypotension on 12/16/22 - resolved Headache of undetermined etiology - managed by Dr Valiente Quit tobacco in early R nephrectomy in 2020 for renal CA - details unknown to patient - managed by his oncologist at [facility] Plan: * Orthostatic hypotension on 12-16-22 - Improved following reduction in antihypertensive regimen and IVF - stop IVF * Monitor labs * Hypokalemia - replace * Ok for d/c tomorrow if bp stable Clinical Quality Measures AMI/AHF: ASA po Prior to arrival: LUCY Flores MD FACP [facility] CCDS Dec 17, 2022 16:32
[2022-12-17 19:47] VITALS: BP 166/85
[2022-12-17] MEDS ORDERED: cloNIDine 0.1 MG (CATAPRES) TAB PO PRN (20:45)
[2022-12-18 00:03] VITALS: BP 182/96
[2022-12-18 03:13] VITALS: BP 143/84
[2022-12-18 05:32] LABS: BASOPHILS % (AUTO) 0 % (0-10); EOSINOPHILS # (AUTO) 0.1 10^3/uL (0.0-0.3); EOSINOPHILS % (AUTO) 1 % (0-10); HEMATOCRIT 34 % (40-54); HEMOGLOBIN 11.7 g/dL (13.3-17.7); LYMPHOCYTES # (AUTO) 1.1 10^3/uL (1.0-4.0); LYMPHOCYTES % (AUTO) 14 % (12-44); MEAN CORPUSCULAR HEMOGLOBIN 32 pg (25-34); MEAN CORPUSCULAR HGB CONC 34 g/dL (32-36); MEAN CORPUSCULAR VOLUME 93 fL (80-99); MEAN PLATELET VOLUME 10.6 fL (9.0-12.2); MONOCYTES # (AUTO) 0.5 10^3/uL (0.0-1.0); MONOCYTES % (AUTO) 6 % (0-12); NEUTROPHILS # (AUTO) 6.2 10^3/uL (1.8-7.8); NEUTROPHILS % (AUTO) 78 % (42-75); PLATELET COUNT 185 10^3/uL (130-400)
[2022-12-18 05:51] LABS: ALBUMIN 3.4 GM/DL (3.2-4.5); BILIRUBIN,TOTAL 1.1 MG/DL (0.1-1.0); CALCIUM 8.8 MG/DL (8.5-10.1); CREATININE SERUM 0.8 MG/DL (0.60-1.30); POTASSIUM 3.2 MMOL/L (3.6-5.0); TOTAL PROTEIN 6.4 GM/DL (6.4-8.2)
[2022-12-18] MEDS: CYANOCOBALAMIN 1,000 MCG (VITAMIN B-12) TABLET PO SCH (05:51)
[2022-12-18 07:35] VITALS: BP 176/89
[2022-12-18] MEDS: SENNOSIDES 8.6 MG (SENOKOT) TAB PO SCH (08:46)
[2022-12-18] MEDS: amLODIPine 10 MG (NORVASC) TAB PO SCH (08:47)
[2022-12-18] MEDS: DOCUSATE SODIUM 100 MG (COLACE) CAP PO SCH (08:47)
[2022-12-18] MEDS: doxAzosin 2 MG (CARDURA) TAB PO SCH (08:50)
--- NOTE | 2022-12-18 09:35 | Progress Note ---
HALIMITA Kaelyn 12/18/22 0935: Progress Note HPI: Patient seen at bedside this AM. He is doing well this morning. He's been eating, drinking, and using the restroom without difficulty and having BMs. He said when he got up around 3 am he felt dizzy while going to the bathroom and around that time his BP was found to be elevated and he was given a PRN by clary melendez. He is hopeful to discharge this afternoon and wondering what medicines he will have after leaving. Hospital course Mamadou Rivera is a 72 M who presented to the ED on 12/13 after going to the urgent care and having significantly elevated pressures. He was advised to go to the ER. HPI from ER "72-year-old male presents with high blood pressure and pressure in his head. He reports for about 2 weeks he has had what he feels like his pressure in his head. He reports that he only has 1 kidney. That in the past he was told he had high blood pressure but nobody is ever dieting about it or started him on any medications. He denies any chest pain. He does have just some generalized malaise. He denies any fevers chills nausea or vomiting." In the ER given labetalol. Minimal response. Nicardipine drip with better response in pressures. EKGs showed some PVCs with no ST changes. Admitted to Dr Atkinson with cardiology consulted. Head CT and Renal Artery US were negative Pressures improved with oral meds. Drip DCed and moved to 4th floor. Renin, Aldosterone, and Renin/aldosterone ratio pending Pt developed orthostasis on 12/16, cardiology will change hypertensive regiment to less aggressive measures. Doxazosin and amlodipine. Metoprolol also if heart rate is high enough. Borderline bradycardia at times throughout hospitalization. Will stay overnight at least until 12/17 to monitor pressures in response to changes in oral medications On 12/17 patient feels better with no more episodes of hypotension or near syncope. Received morning amlodipine early due to elevated pressure. Stable pressures throughout the day. He has likely had elevated pressures for a sign ificant time, antihypertensive treatment makes him prone to orthostasis. On 12/18 patient is feeling better. Brief dizziness overnight when going to restroom and BP was found to be elevated, was given PRNs which improved his BP and he has had no problems since. Pressures somewhat elevated this morning but likely still acclimating to new treatment regimen. Still stable for DC with outpatient FU and management of BP. Review of Systems General: No Chills, No Night Sweats HEENT: No Head Aches Pulmonary: No Dyspnea, No Cough Cardiovascular: No: Chest Pain, Palpitations, Lt Headedness Gastrointestinal: No: Nausea, Vomiting, Abdominal Pain Genitourinary: No Dysuria, No Hematuria Neurological: No: Weakness, Confusion Exam Vitals: T: 36.7, P-76, RR- 18, BP: 176/89, 99% on Room air General: Alert, Oriented X3, Cooperative HEENT: Atraumatic, EOMI Neck: Supple Lungs: Clear to Auscultation, Normal Air Movement Heart: Regular Rate, Normal S1, Normal S2 Abdomen: Soft, No Tenderness Extremities: No Cyanosis, No Edema Psych/Mental Status: Mental Status NL, Mood NL Vital Signs Date Time Temp Pulse Resp B/P (MAP) Pulse Ox O2 Delivery O2 Flow Rate FiO2 12/18/22 07:35 37.0 66 18 176/89 (118) 99 Room Air 12/18/22 03:13 37.1 71 18 143/84 (103) 97 Room Air 12/18/22 00:03 37.2 81 20 182/96 (124) 98 Room Air 12/17/22 20:55 Room Air 12/17/22 19:47 36.7 67 20 166/85 (112) 97 Room Air 12/17/22 15:42 36.6 70 20 128/73 (91) 98 Room Air 12/17/22 12:43 36.7 76 18 103/63 (76) 99 Room Air I & O 12/18/22 07:00 Intake Total 2030 ml Output Total 300 ml Balance 1730 ml Labs: Laboratory Tests 12/18/22 05:18 Assessment and Plan: Mr Cedillo is a 72 y/o male who presented with hypertensive urgency, now on hospital day 4 1) Hypertensive Urgency Orthostatic Hypotension after initiation of HTN treatment Very elevated blood pressures on admission, systolic readings over 200 and diastolic readings over 120; orthostatic after therapy initiation and then somew hat elevated overnight to 170s/80s (12/17). Cardiology consulted; adjusting medications; appreciate recs Continuing doxazosin, amlodipine at this time. Renin, aldosterone, and renin/aldosterone ratio pending 2) Hyperlipidemia elevated total cholesterol and LDL would likely benefit from statin, consider with outpatient follow up 3) S/P nephrectomy for RCC. - Routine follow-up Stable for discharge with outpatient follow up for management of his HTN/HLD NORRIS ATKINSON DO 12/19/22 0436: Supervisory-Addendum Brief Verification & Attestation Participated in pt care: history, MDM, physical Personally performed: exam, history, MDM, supervision of care Care discussed with: Medical Student Procedures: n/a Results interpretation: Verified all documentation Verification and Attestation of Medical Student E/M Service A medical student performed and documented this service in my presence. I reviewed and verified all information documented by the medical student and made modifications to such information, when appropriate. I personally performed the physical exam and medical decision making. Norris Atkinson, Dec 19, 2022,04:36 MITA LAL Dec 18, 2022 09:35 NORRIS ATKINSON DO Dec 19, 2022 04:36
[2022-12-18] MEDS ORDERED: DOXA2TAB2 PO (09:45)
[2022-12-18] MEDS ORDERED: AMLO-251 PO (09:45)
[2022-12-18 11:20] VITALS: BP 135/65
--- NOTE | 2022-12-18 12:36 | Progress Note - Cardiology ---
Cardiology SOAP Progress Note Subjective: Feels better Wishes to go home No n/v/d Dizziness has resolved No cp or pal or syncope or shortness of breath No swelling Objective: I&O/Vital Signs 12/18/22 12/18/22 12/18/22 12/18/22 03:13 07:35 08:00 11:20 Temp 37.1 37.0 36.8 Pulse 71 66 63 Resp 18 18 18 B/P (MAP) 143/84 (103) 176/89 (118) 135/65 (88) Pulse Ox 97 99 98 O2 Delivery Room Air Room Air Room Air Room Air 12/18/22 00:00 Intake Total 1680 ml Balance 1680 ml Weight (Pounds): 170 Weight (Calculated Kilograms): 77.805107 Constitutional: AAO x 3, well-developed, other (thin ) Respiratory: chest expansion is symmetric, chest is bilaterally symmetric Cardiovascular: regular rate-rhythm, S1 and S2, systolic murmur Gastrointestional: soft, audible bowel sounds Extremities: No clubbing, No cyanosis; no lower extremity edema bilateral; No significant edema Neurologic/Psychiatric: oriented x 3, other (moves all limbs equally) Skin: normal color, warm/dry; No rash on exposed areas, No ulcerations on exposed areas Results/Procedures: Labs Laboratory Tests 12/18/22 05:18: White Blood Count 8.0, Red Blood Count 3.66L, Hemoglobin 11.7L, Hematocrit 34L, Mean Corpuscular Volume 93, Mean Corpuscular Hemoglobin 32, Mean Corpuscular Hemoglobin Concent 34, Red Cell Distribution Width 12.9, Platelet Count 185, Mean Platelet Volume 10.6, Immature Granulocyte % (Auto) 0, Neutrophils (%) (Auto) 78H, Lymphocytes (%) (Auto) 14, Monocytes (%) (Auto) 6, Eosinophils (%) (Auto) 1, Basophils (%) (Auto) 0, Neutrophils # (Auto) 6.2, Lymphocytes # (Auto) 1.1, Monocytes # (Auto) 0.5, Eosinophils # (Auto) 0.1, Basophils # (Auto) 0.0, Immature Granulocyte # (Auto) 0.0, Sodium Level 139, Potassium Level 3.2L, Chloride Level 104, Carbon Dioxide Level 26, Anion Gap 9, Blood Urea Nitrogen 18, Creatinine 0.80, Estimat Glomerular Filtration Rate 93, BUN/Creatinine Ratio 23, Glucose Level 90, Calcium Level 8.8, Corrected Calcium 9.3, Total Bilirubin 1.1H, Aspartate Amino Transf (AST/SGOT) 21, Alanine Aminotransferase (ALT/SGPT) 15, Alkaline Phosphatase 81, Total Protein 6.4, Albumin 3.4 Microbiology 12/13/22 MRSA Screen - Final, Complete MRSA not isolated A/P: Assessment: Severe hypertension - echo of 12/14/22: LVEF 55-60% Dizziness due to postural hypotension on 12/16/22 - resolved Headache of undetermined etiology - managed by Dr Valiente Quit tobacco in early R nephrectomy in 2020 for renal CA - details unknown to patient - managed by his oncologist at [facility] Plan: * Replenish K * Continue amlodipine and doxazosin * Advised outpt cardiac f/u * Ok to d/c from cardiac standpoint Clinical Quality Measures AMI/AHF: ASA po Prior to arrival: LUCY Flores MD FACP [facility] CCDS Dec 18, 2022 12:36
[2022-12-18] MEDS ORDERED: KCL 20 MEQ TAB (K-DUR) PO NR (13:00)
[2022-12-18] MEDS ORDERED: CLN.1T PO (13:30)
--- NOTE | 2022-12-18 13:31 | Discharge Summary ---
Diagnosis/Chief Complaint Date of Admission Dec 14, 2022 at 11:10 Date of Discharge Discharge Date: Dec 18, 2022 Discharge Diagnosis HTN urgency h/o nephrectomy due to renal cell cancer Reason Hospital Visit CC: HTN urgency HPI: This is a 72yoWM clinic patient of mine who has a h/o nephrectomy in remote past from renal cell carcinoma who presented to the ER sent over from for headache and "not feeling well" and was found to have SBP 220 range prompting the initiation of Cardene drip and ICU admit. He feels much better now and his labs were stable and creat stable. Discharge Summary Discharge Physical Examination Allergies: Coded Allergies: No Known Drug Allergies (Unverified , 08/18/13) Vitals & I&Os Vital Signs Date Time Temp Pulse Resp B/P (MAP) Pulse Ox O2 Delivery O2 Flow Rate FiO2 12/18/22 13:58 12/18/22 11:20 36.8 63 18 98 Room Air General Appearance: Alert, Oriented X3, Cooperative Respiratory: Clear to Auscultation Cardiovascular: Regular Rate Psych/Mental Status: Mental Status NL Hospital Course Was the Problem List Reviewed?: Yes Hospital course Mamadou Rivera is a 72 M who presented to the ED on 12/13 after going to the urgent care and having significantly elevated pressures. He was advised to go to the ER. HPI from ER "72-year-old male presents with high blood pressure and pressure in his head. He reports for about 2 weeks he has had what he feels like his pressure in his head. He reports that he only has 1 kidney. That in the past he was told he had high blood pressure but nobody is ever dieting about it or started him on any medications. He denies any chest pain. He does have just some generalized malaise. He denies any fevers chills nausea or vomiting." In the ER given labetalol. Minimal response. Nicardipine drip with better response in pressures. EKGs showed some PVCs with no ST changes. Admitted to Dr Valiente with cardiology consulted. Head CT and Renal Artery US were negative Pressures improved with oral meds. Drip DCed and moved to 4th floor. Renin, Aldosterone, and Renin/aldosterone ratio pending Pt developed orthostasis on 12/16, cardiology will change hypertensive regiment to less aggressive measures. Doxazosin and amlodipine. Metoprolol also if heart rate is high enough. Borderline bradycardia at times throughout hospitalization. Will stay overnight at least until 12/17 to monitor pressures in response to changes in oral medications On 12/17 patient feels better with no more episodes of hypotension or near syncope. Received morning amlodipine early due to elevated pressure. Stable pressures throughout the day. He has likely had elevated pressures for a significant time, antihypertensive treatment makes him prone to orthostasis. On 12/18 patient is feeling better. Brief dizziness overnight when going to restroom and BP was found to be elevated, was given PRNs which improved his BP and he has had no problems since. Pressures somewhat elevated this morning but likely still acclimating to new treatment regimen. Still stable for DC with outpatient FU and management of BP. Labs (last 24 hrs) Laboratory Tests 12/13/22 10:25: White Blood Count 7.8, Red Blood Count 4.43, Hemoglobin 14.4, Hematocrit 42, Mean Corpuscular Volume 95, Mean Corpuscular Hemoglobin 33, Mean Corpuscular Hemoglobin Concent 34, Red Cell Distribution Width 12.9, Platelet Count 228, Mean Platelet Volume 10.2, Immature Granulocyte % (Auto) 0, Neutrophils (%) (Auto) 73, Lymphocytes (%) (Auto) 21, Monocytes (%) (Auto) 5, Eosinophils (%) (Auto) 0, Basophils (%) (Auto) 0, Neutrophils # (Auto) 5.7, Lymphocytes # (Auto) 1.6, Monocytes # (Auto) 0.4, Eosinophils # (Auto) 0.0, Basophils # (Auto) 0.0, Immature Granulocyte # (Auto) 0.0, Sodium Level 139, Potassium Level 3.8, Chloride Level 97L, Carbon Dioxide Level 30, Anion Gap 12, Blood Urea Nitrogen 21H, Creatinine 1.16, Estimat Glomerular Filtration Rate 66, BUN/Creatinine Ratio 18, Glucose Level 101, Calcium Level 9.3, Corrected Calcium 9.1, Magnesium Level 2.3, Total Bilirubin 1.5H, Aspartate Amino Transf (AST/SGOT) 24, Alanine Aminotransferase (ALT/SGPT) 16, Alkaline Phosphatase 100, C-Reactive Protein High Sensitivity 0.21, Total Protein 8.0, Albumin 4.2 12/13/22 10:53: Urine Color YELLOW, Urine Clarity CLEAR, Urine pH 8.0, Urine Specific [place] 1.020, Urine Protein 3+H, Urine Glucose (UA) NEGATIVE, Urine Ketones NEGATIVE, Urine Nitrite NEGATIVE, Urine Bilirubin NEGATIVE, Urine Urobilinogen 0.2, Urine Leukocyte Esterase NEGATIVE, Urine RBC (Auto) 1+H, Urine RBC 5-10H, Urine WBC NONE, Urine Squamous Epithelial Cells NONE, Urine Crystals NONE, Urine Bacteria TRACE, Urine Casts NONE, Urine Mucus NEGATIVE, Urine Culture Indicated NO 12/13/22 17:56: Glucometer 96 12/14/22 05:01: White Blood Count 6.6, Red Blood Count 4.20L, Hemoglobin 13.4, Hematocrit 40, Mean Corpuscular Volume 95, Mean Corpuscular Hemoglobin 32, Mean Corpuscular Hemoglobin Concent 34, Red Cell Distribution Width 12.9, Platelet Count 216, Mean Platelet Volume 10.5, Immature Granulocyte % (Auto) 0, Neutrophils (%) (Auto) 72, Lymphocytes (%) (Auto) 20, Monocytes (%) (Auto) 6, Eosinophils (%) (Auto) 1, Basophils (%) (Auto) 1, Neutrophils # (Auto) 4.7, Lymphocytes # (Auto) 1.3, Monocytes # (Auto) 0.4, Eosinophils # (Auto) 0.1, Basophils # (Auto) 0.0, Immature Granulocyte # (Auto) 0.0, Sodium Level 141, Potassium Level 3.0L, Chloride Level 100, Carbon Dioxide Level 27, Anion Gap 14, Blood Urea Nitrogen 21H, Creatinine 1.10, Estimat Glomerular Filtration Rate 70, BUN/Creatinine Ratio 19, Glucose Level 93, Calcium Level 9.3, Corrected Calcium 9.5, Magnesium Level 2.3, Total Bilirubin 1.8H, Aspartate Amino Transf (AST/SGOT) 19, Alanine Aminotransferase (ALT/SGPT) 15, Alkaline Phosphatase 86, Total Protein 7.3, Albumin 3.8, Phosphorus Level 3.1, Triglycerides Level 65, Cholesterol Level 219H, LDL Cholesterol Direct 152H, VLDL Cholesterol 13, HDL Cholesterol 62H, Thyroid Stimulating Hormone (TSH) 1.86 12/15/22 03:17: White Blood Count 8.1, Red Blood Count 4.08L, Hemoglobin 12.9L, Hematocrit 39L, Mean Corpuscular Volume 95, Mean Corpuscular Hemoglobin 32, Mean Corpuscular Hemoglobin Concent 33, Red Cell Distribution Width 12.9, Platelet Count 197, Mean Platelet Volume 10.6, Immature Granulocyte % (Auto) 0, Neutrophils (%) (Auto) 79H, Lymphocytes (%) (Auto) 15, Monocytes (%) (Auto) 5, Eosinophils (%) (Auto) 1, Basophils (%) (Auto) 0, Neutrophils # (Auto) 6.4, Lymphocytes # (Auto) 1.2, Monocytes # (Auto) 0.4, Eosinophils # (Auto) 0.1, Basophils # (Auto) 0.0, Immature Granulocyte # (Auto) 0.0, Sodium Level 138, Potassium Level 3.7, Chloride Level 102, Carbon Dioxide Level 25, Anion Gap 11, Blood Urea Nitrogen 24H, Creatinine 1.03, Estimat Glomerular Filtration Rate 76, BUN/Creatinine Ratio 23, Glucose Level 95, Calcium Level 8.8, Corrected Calcium 9.0, Phosphorus Level 2.8, Magnesium Level 2.3, Total Bilirubin 1.3H, Aspartate Amino Transf (AST/SGOT) 21, Alanine Aminotransferase (ALT/SGPT) 14, Alkaline Phosphatase 88, Total Protein 7.0, Albumin 3.7 12/15/22 06:44: 12/16/22 05:17: White Blood Count 7.6, Red Blood Count 4.18L, Hemoglobin 13.6, Hematocrit 39L, Mean Corpuscular Volume 94, Mean Corpuscular Hemoglobin 33, Mean Corpuscular Hemoglobin Concent 35, Red Cell Distribution Width 12.9, Platelet Count 202, Mean Platelet Volume 10.8, Immature Granulocyte % (Auto) 0, Neutrophils (%) (Auto) 78H, Lymphocytes (%) (Auto) 16, Monocytes (%) (Auto) 5, Eosinophils (%) (Auto) 1, Basophils (%) (Auto) 0, Neutrophils # (Auto) 5.9, Lymphocytes # (Auto) 1.2, Monocytes # (Auto) 0.4, Eosinophils # (Auto) 0.1, Basophils # (Auto) 0.0, Immature Granulocyte # (Auto) 0.0, Sodium Level 139, Potassium Level 3.6, Chloride Level 103, Carbon Dioxide Level 26, Anion Gap 10, Blood Urea Nitrogen 19H, Creatinine 0.90, Estimat Glomerular Filtration Rate 90, BUN/Creatinine Ratio 21, Glucose Level 94, Calcium Level 9.1, Corrected Calcium 9.5, Total Bilirubin 1.3H, Aspartate Amino Transf (AST/SGOT) 19, Alanine Aminotransferase (ALT/SGPT) 14, Alkaline Phosphatase 82, Total Protein 6.8, Albumin 3.5 12/17/22 04:55: White Blood Count 7.1, Red Blood Count 3.81L, Hemoglobin 12.2L, Hematocrit 36L, Mean Corpuscular Volume 95, Mean Corpuscular Hemoglobin 32, Mean Corpuscular Hemoglobin Concent 34, Red Cell Distribution Width 12.9, Platelet Count 178, Mean Platelet Volume 10.6, Immature Granulocyte % (Auto) 0, Neutrophils (%) (Auto) 77H, Lymphocytes (%) (Auto) 16, Monocytes (%) (Auto) 6, Eosinophils (%) (Auto) 1, Basophils (%) (Auto) 0, Neutrophils # (Auto) 5.4, Lymphocytes # (Auto) 1.1, Monocytes # (Auto) 0.4, Eosinophils # (Auto) 0.1, Basophils # (Auto) 0.0, Immature Granulocyte # (Auto) 0.0, Sodium Level 139, Potassium Level 3.3L, Chloride Level 104, Carbon Dioxide Level 25, Anion Gap 10, Blood Urea Nitrogen 17, Creatinine 0.87, Estimat Glomerular Filtration Rate 91, BUN/Creatinine Ratio 20, Glucose Level 103, Calcium Level 8.5, Corrected Calcium 9.1, Total Bilirubin 1.2H, Aspartate Amino Transf (AST/SGOT) 20, Alanine Aminotransferase (ALT/SGPT) 16, Alkaline Phosphatase 73, Total Protein 6.4, Albumin 3.3 12/18/22 05:18: White Blood Count 8.0, Red Blood Count 3.66L, Hemoglobin 11.7L, Hematocrit 34L, Mean Corpuscular Volume 93, Mean Corpuscular Hemoglobin 32, Mean Corpuscular Hemoglobin Concent 34, Red Cell Distribution Width 12.9, Platelet Count 185, Mean Platelet Volume 10.6, Immature Granulocyte % (Auto) 0, Neutrophils (%) (Auto) 78H, Lymphocytes (%) (Auto) 14, Monocytes (%) (Auto) 6, Eosinophils (%) (Auto) 1, Basophils (%) (Auto) 0, Neutrophils # (Auto) 6.2, Lymphocytes # (Auto) 1.1, Monocytes # (Auto) 0.5, Eosinophils # (Auto) 0.1, Basophils # (Auto) 0.0, Immature Granulocyte # (Auto) 0.0, Sodium Level 139, Potassium Level 3.2L, Chloride Level 104, Carbon Dioxide Level 26, Anion Gap 9, Blood Urea Nitrogen 18, Creatinine 0.80, Estimat Glomerular Filtration Rate 93, BUN/Creatinine Ratio 23, Glucose Level 90, Calcium Level 8.8, Corrected Calcium 9.3, Total Bilirubin 1.1H, Aspartate Amino Transf (AST/SGOT) 21, Alanine Aminotransferase (ALT/SGPT) 15, Alkaline Phosphatase 81, Total Protein 6.4, Albumin 3.4 Microbiology 12/13/22 MRSA Screen - Final, Complete MRSA not isolated Pending Labs Microbiology Date/Time Source Procedure Growth Status 12/13/22 17:15 Other MRSA Screen - Final MRSA not isolated Complete Laboratory Tests 12/13/22 10:25: White Blood Count 7.8, Red Blood Count 4.43, Hemoglobin 14.4, Hematocrit 42, Mean Corpuscular Volume 95, Mean Corpuscular Hemoglobin 33, Mean Corpuscular Hemoglobin Concent 34, Red Cell Distribution Width 12.9, Platelet Count 228, Mean Platelet Volume 10.2, Immature Granulocyte % (Auto) 0, Neutrophils (%) (Auto) 73, Lymphocytes (%) (Auto) 21, Monocytes (%) (Auto) 5, Eosinophils (%) (Auto) 0, Basophils (%) (Auto) 0, Neutrophils # (Auto) 5.7, Lymphocytes # (Auto) 1.6, Monocytes # (Auto) 0.4, Eosinophils # (Auto) 0.0, Basophils # (Auto) 0.0, Immature Granulocyte # (Auto) 0.0, Sodium Level 139, Potassium Level 3.8, Chloride Level 97, Carbon Dioxide Level 30, Anion Gap 12, Blood Urea Nitrogen 21, Creatinine 1.16, Estimat Glomerular Filtration Rate 66, BUN/Creatinine Ratio 18, Glucose Level 101, Calcium Level 9.3, Corrected Calcium 9.1, Magnesium Level 2.3, Total Bilirubin 1.5, Aspartate Amino Transf (AST/SGOT) 24, Alanine Aminotransferase (ALT/SGPT) 16, Alkaline Phosphatase 100, C-Reactive Protein High Sensitivity 0.21, Total Protein 8.0, Albumin 4.2 12/13/22 10:53: Urine Color YELLOW, Urine Clarity CLEAR, Urine pH 8.0, Urine Specific [place] 1.020, Urine Protein 3+, Urine Glucose (UA) NEGATIVE, Urine Ketones NEGATIVE, Urine Nitrite NEGATIVE, Urine Bilirubin NEGATIVE, Urine Urobilinogen 0.2, Urine Leukocyte Esterase NEGATIVE, Urine RBC (Auto) 1+, Urine RBC 5-10, Urine WBC NONE, Urine Squamous Epithelial Cells NONE, Urine Crystals NONE, Urine Bacteria TRACE, Urine Casts NONE, Urine Mucus NEGATIVE, Urine Culture Indicated NO 12/13/22 17:56: Glucometer 96 12/14/22 05:01: White Blood Count 6.6, Red Blood Count 4.20, Hemoglobin 13.4, Hematocrit 40, Mean Corpuscular Volume 95, Mean Corpuscular Hemoglobin 32, Mean Corpuscular Hemoglobin Concent 34, Red Cell Distribution Width 12.9, Platelet Count 216, Mean Platelet Volume 10.5, Immature Granulocyte % (Auto) 0, Neutrophils (%) (Auto) 72, Lymphocytes (%) (Auto) 20, Monocytes (%) (Auto) 6, Eosinophils (%) (A uto) 1, Basophils (%) (Auto) 1, Neutrophils # (Auto) 4.7, Lymphocytes # (Auto) 1.3, Monocytes # (Auto) 0.4, Eosinophils # (Auto) 0.1, Basophils # (Auto) 0.0, Immature Granulocyte # (Auto) 0.0, Sodium Level 141, Potassium Level 3.0, Chloride Level 100, Carbon Dioxide Level 27, Anion Gap 14, Blood Urea Nitrogen 21, Creatinine 1.10, Estimat Glomerular Filtration Rate 70, BUN/Creatinine Ratio 19, Glucose Level 93, Calcium Level 9.3, Corrected Calcium 9.5, Magnesium Level 2.3, Total Bilirubin 1.8, Aspartate Amino Transf (AST/SGOT) 19, Alanine Aminotransferase (ALT/SGPT) 15, Alkaline Phosphatase 86, Total Protein 7.3, Albumin 3.8, Phosphorus Level 3.1, Triglycerides Level 65, Cholesterol Level 219, LDL Cholesterol Direct 152, VLDL Cholesterol 13, HDL Cholesterol 62, Thyroid Stimulating Hormone (TSH) 1.86 12/15/22 03:17: White Blood Count 8.1, Red Blood Count 4.08, Hemoglobin 12.9, Hematocrit 39, Mean Corpuscular Volume 95, Mean Corpuscular Hemoglobin 32, Mean Corpuscular Hemoglobin Concent 33, Red Cell Distribution Width 12.9, Platelet Count 197, Mean Platelet Volume 10.6, Immature Granulocyte % (Auto) 0, Neutrophils (%) (Auto) 79, Lymphocytes (%) (Auto) 15, Monocytes (%) (Auto) 5, Eosinophils (%) (Auto) 1, Basophils (%) (Auto) 0, Neutrophils # (Auto) 6.4, Lymphocytes # (Auto) 1.2, Monocytes # (Auto) 0.4, Eosinophils # (Auto) 0.1, Basophils # (Auto) 0.0, Immature Granulocyte # (Auto) 0.0, Sodium Level 138, Potassium Level 3.7, Chloride Level 102, Carbon Dioxide Level 25, Anion Gap 11, Blood Urea Nitrogen 24, Creatinine 1.03, Estimat Glomerular Filtration Rate 76, BUN/Creatinine Ratio 23, Glucose Level 95, Calcium Level 8.8, Corrected Calcium 9.0, Phosphorus Level 2.8, Magnesium Level 2.3, Total Bilirubin 1.3, Aspartate Amino Transf (AST/SGOT) 21, Alanine Aminotransferase (ALT/SGPT) 14, Alkaline Phosphatase 88, Total Protein 7.0, Albumin 3.7 12/15/22 06:44: Renin Activity [Pending], Aldosterone [Pending], Aldosterone/Renin Ratio [Pending] 12/16/22 05:17: White Blood Count 7.6, Red Blood Count 4.18, Hemoglobin 13.6, Hematocrit 39, Mean Corpuscular Volume 94, Mean Corpuscular Hemoglobin 33, Mean Corpuscular Hemoglobin Concent 35, Red Cell Distribution Width 12.9, Platelet Count 202, Mean Platelet Volume 10.8, Immature Granulocyte % (Auto) 0, Neutrophils (%) (Auto) 78, Lymphocytes (%) (Auto) 16, Monocytes (%) (Auto) 5, Eosinophils (%) (A uto) 1, Basophils (%) (Auto) 0, Neutrophils # (Auto) 5.9, Lymphocytes # (Auto) 1.2, Monocytes # (Auto) 0.4, Eosinophils # (Auto) 0.1, Basophils # (Auto) 0.0, Immature Granulocyte # (Auto) 0.0, Sodium Level 139, Potassium Level 3.6, Chloride Level 103, Carbon Dioxide Level 26, Anion Gap 10, Blood Urea Nitrogen 19, Creatinine 0.90, Estimat Glomerular Filtration Rate 90, BUN/Creatinine Ratio 21, Glucose Level 94, Calcium Level 9.1, Corrected Calcium 9.5, Total Bilirubin 1.3, Aspartate Amino Transf (AST/SGOT) 19, Alanine Aminotransferase (ALT/SGPT) 14, Alkaline Phosphatase 82, Total Protein 6.8, Albumin 3.5 12/17/22 04:55: White Blood Count 7.1, Red Blood Count 3.81, Hemoglobin 12.2, Hematocrit 36, Mean Corpuscular Volume 95, Mean Corpuscular Hemoglobin 32, Mean Corpuscular Hemoglobin Concent 34, Red Cell Distribution Width 12.9, Platelet Count 178, Mean Platelet Volume 10.6, Immature Granulocyte % (Auto) 0, Neutrophils (%) (Auto) 77, Lymphocytes (%) (Auto) 16, Monocytes (%) (Auto) 6, Eosinophils (%) (Auto) 1, Basophils (%) (Auto) 0, Neutrophils # (Auto) 5.4, Lymphocytes # (Auto) 1.1, Monocytes # (Auto) 0.4, Eosinophils # (Auto) 0.1, Basophils # (Auto) 0.0, Immature Granulocyte # (Auto) 0.0, Sodium Level 139, Potassium Level 3.3, Chloride Level 104, Carbon Dioxide Level 25, Anion Gap 10, Blood Urea Nitrogen 17, Creatinine 0.87, Estimat Glomerular Filtration Rate 91, BUN/Creatinine Ratio 20, Glucose Level 103, Calcium Level 8.5, Corrected Calcium 9.1, Total Bilirubin 1.2, Aspartate Amino Transf (AST/SGOT) 20, Alanine Aminotransferase (ALT/SGPT) 16, Alkaline Phosphatase 73, Total Protein 6.4, Albumin 3.3 12/18/22 05:18: White Blood Count 8.0, Red Blood Count 3.66, Hemoglobin 11.7, Hematocrit 34, Mean Corpuscular Volume 93, Mean Corpuscular Hemoglobin 32, Mean Corpuscular Hemoglobin Concent 34, Red Cell Distribution Width 12.9, Platelet Count 185, Mean Platelet Volume 10.6, Immature Granulocyte % (Auto) 0, Neutrophils (%) (Auto) 78, Lymphocytes (%) (Auto) 14, Monocytes (%) (Auto) 6, Eosinophils (%) (Auto) 1, Basophils (%) (Auto) 0, Neutrophils # (Auto) 6.2, Lymphocytes # (Auto) 1.1, Monocytes # (Auto) 0.5, Eosinophils # (Auto) 0.1, Basophils # (Auto) 0.0, Immature Granulocyte # (Auto) 0.0, Sodium Level 139, Potassium Level 3.2, Ch loride Level 104, Carbon Dioxide Level 26, Anion Gap 9, Blood Urea Nitrogen 18, Creatinine 0.80, Estimat Glomerular Filtration Rate 93, BUN/Creatinine Ratio 23, Glucose Level 90, Calcium Level 8.8, Corrected Calcium 9.3, Total Bilirubin 1.1, Aspartate Amino Transf (AST/SGOT) 21, Alanine Aminotransferase (ALT/SGPT) 15, Alkaline Phosphatase 81, Total Protein 6.4, Albumin 3.4 Discharge Home Medications: Active Scripts Active Clonidine HCl 0.1 Mg Tablet 0.1 Mg PO Q4H PRN Amlodipine Besylate 10 Mg Tablet 10 Mg PO DAILY Doxazosin Mesylate 2 Mg Tablet 2 Mg PO BID Reported Aspirin EC (Aspirin) 325 Mg Tablet.dr 325-650 Mg PO Q8H PRN Vitamin B-12 (Cyanocobalamin (Vitamin B-12)) 500 Mcg Tablet 500 Mcg PO DAILY Instructions to patient/family Please see electronic discharge instructions given to patient. Clinical Quality Measures AMI/AHF: ASA po Prior to arrival: NORRIS Okeefe DO Dec 18, 2022 13:31
== END 2022-12-18 13:59 | disposition home or self-care (01) | DRG 305 ==
LOC: EDUNIT# 10:10 → ER 10:12 → ICU 13:31 → OBSVTOIN 12-14 11:10 → 4TH 12-15 12:56
PROVIDERS: ADMIT Internal Medicine; ATTEND Internal Medicine
DX: I16.0 Hypertensive urgency (principal); Z90.5 Acquired absence of kidney; Z85.528 Personal history of other malignant neoplasm of kidney; I95.1 Orthostatic hypotension; E78.5 Hyperlipidemia, unspecified; N28.9 Disorder of kidney and ureter, unspecified; Z87.891 Personal history of nicotine dependence; E87.6 Hypokalemia; Z79.82 Long term (current) use of aspirin; Z79.899 Other long term (current) drug therapy
CPT/HCPCS: 36415; 70450; 76775; 80053; 80061; 81000; 82088; 82947; 83735; 84100; 84244; 84443; 85025; 86141; 87081; 93005; 93306; 93976; 99282; G0378

== ENCOUNTER 2023-01-04 09:08 | Inpatient (IN) | payer MEDICARE, OTHER ==
[~2023-01-04] VITALS: Ht 175.3 cm; Wt 56.6 kg
[~2023-01-04 09:08] MED LIST changes: +AMLO-251 PO; +ASPI325T32 PO; +CLN.1T PO; +CYAN500T8 PO; +DOXA2TAB2 PO
--- NOTE | 2023-01-04 09:39 | ED Syncope ---
General Chief Complaint: Trauma-Non Activation Stated Complaint: FALL/DIZZY Source of Information: Patient History of Present Illness Date Seen by Provider: Jan 04, 2023 Time Seen by Provider: 09:22 Initial Comments PT ARRIVES VIA POV FROM HOME WITH PT STATES AROUND 0630 THIS AM, HE WAS IN THE KITCHEN AND BECAME DIZZY AND PASSED OUT AND WOKE UP ON THE FLOOR HIT HIS HEAD / LEFT BROW AREA STATES HE FEELS FINE NOW NO VISION CHANGES NO HEADACHE NO NECK OR NEW BACK PAIN ( HAS CHRONIC BACK PAIN) NO CHEST PAIN NO PALPITATIONS NO SHORTNESS OF BREATH NO SWEATS NO NAUSEA/VOMITING/DIARRHEA NO ABDOMINAL PAIN NO PARESTHESIAS OR MOTOR DEFICITS NO FEVER OR RECENT ILLNESS STATES HE HAS FEEL "WOOZY" THE LAST FEW DAYS, ESPECIALLY ON STANDING. STATES HE FEELS BETTER WHEN HE LAYS OR SITS DOWN. NO HISTORY OF SIMILAR PT HAS HISTORY OF HTN, RENAL CANCER--S/P RIGHT NEPHRECTOMY 2 YEARS AGO. HE DID NOT RECEIVE CHEMO OR RADIATION. HE HAD A ROUTINE FOLLOW UP AT IN OCTOBER HE IS ON ASPIRIN, BUT NO OTHER BLOOD THINNERS. HIS ONLY ROUTINE MEDICATION IS FOR HIGH BLOOD PRESSURE HE DENIES ANY HISTORY OF HEART PROBLEMS OR STROKE. HE WAS ADMITTED 12/13/22-12/18/22 FOR HEADACHE AND SEVERE HTN--BP WAS 220'S SYSTOLIC AND WAS PLACED IN ICU ON CARDENE DRIP HE HAD NOT BEEN ON BLOOD PRESSURE MEDICATION PRIOR TO THAT HE IS NOW ON: CLONIDINE PRN, AMLODIPINE DAILY, DOXAZOSIN BID. HE HAS NOT TAKEN HIS MORNING MEDICATIONS YET HE STATES HIS BLOOD PRESSURES HAVE BEEN LOW AT HOME, IN THE LOW 100'S LAST TETANUS--YEARS AGO PCP: DR. ATKINSON LEAD COATER: DR. CARRION--PT STATES HE DOES NOT KNOW WHY HE SEES HIM, DENIES HEART PROBLEMS GOES TO FOR RENAL CANCER Allergies and Home Medications Allergies Coded Allergies: No Known Drug Allergies (Unverified , 08/18/13) Patient Home Medication List Home Medication List Reviewed: Yes Amlodipine Besylate (Amlodipine Besylate) 10 Mg Tablet, 10 MG PO DAILY Prescribed by: JENNIFER CHAUDHRY on 12/18/22 0945 Aspirin (Aspirin EC) 325 Mg Tablet.dr 325-650 MG PO Q8H PRN for PAIN-MILD (1- 4), (Reported) Entered as Reported by: ORACIO MORGAN on 12/13/22 1501 Clonidine HCl (Clonidine HCl) 0.1 Mg Tablet, 0.1 MG PO Q4H PRN for sbp>180 Prescribed by: NORRIS ATKINSON on 12/18/22 1330 Cyanocobalamin (Vitamin B-12) (Vitamin B-12) 500 Mcg Tablet, 500 MCG PO DAILY, (Reported) Entered as Reported by: ORACIO MORGAN on 12/13/22 1501 Doxazosin Mesylate (Doxazosin Mesylate) 2 Mg Tablet, 2 MG PO BID Prescribed by: JENNIFER CHAUDHRY on 12/18/22 0945 Review of Systems Constitutional: see HPI; No chills, No diaphoresis; dizziness; No fever, No malaise, No weakness EENTM: no symptoms reported Respiratory: no symptoms reported Cardiovascular: see HPI; No chest pain, No edema, No palpitations; syncope; No vascular heart diseas Gastrointestinal: no symptoms reported; No abdominal pain, No diarrhea, No nausea, No vomiting Genitourinary: no symptoms reported Musculoskeletal: no symptoms reported; No neck pain Skin: no symptoms reported Psychiatric/Neurological: See HPI; Denies Headache, Denies Numbness, Denies Paresthesia, Denies Seizure, Denies Tingling, Denies Weakness Past Rotugrh-Csohso-Bsbljm Hx Patient Social History Tobacco Use?: Yes Tobacco type used: Cigarettes Smoking Status: Former Smoker Use of E-Cig and/or Vaping dev: No Substance use?: Yes Substance type: Marijuana Alcohol Use?: Yes Alcohol type: Beer Pt feels they are or have been: No Immunizations Up To Date First/Initial COVID19 Vaccinat: 02/07 Second COVID19 Vaccination [place]: 02/07 Third COVID19 Vaccination Date: 02/07 Seasonal Allergies Seasonal Allergies: No Past Medical History Surgery/Hospitalization HX: R KIDNEY REMOVED, BACK SURGERY, Surgeries: Yes Eye Surgery, Nephrectomy, Orthopedic, Renal Respiratory: No Currently Using CPAP: No Currently Using BIPAP: No Cardiac: Yes Hypertension Neurological: No Genitourinary: Yes (RENAL CANCER, S/P RIGHT NEPHRECTOMY) Gastrointestinal: No Musculoskeletal: Yes (BACK SURGERY) Chronic Back Pain Endocrine: No HEENT: No Cancer: Yes Kidney Did You Recieve Any Treatments: Yes What Type of Treatment Did You: Surgical Intervention RIGHT NEPHRECTOMY 2020 NO CHEMO OR RADIATION Psychosocial: No Integumentary: No Blood Disorders: No Family Medical History SOCIAL HISTORY: -SMOKED 1 PPD, QUIT 2008 -ETOH --HISTORY OF ABUSE/HEAVY USE--OVER A 6 PACK/DAY--WILL NOT ELABORATE ON HOW MUCH HE USED TO DRINK. STATES HE NO LONGER DRINKS, PER PT ON 01/04/23 -DRUGS--THC IN PAST PAST SURGICAL HISTORY: -RIGHT NEPHRECTOMY 2000 FOR RENAL CANCER -CYSTOSCOPIES -BACK SURGERY -BILATERAL CATARACTS 02/2022 Physical Exam Vital Signs Vital Signs - First Documented 01/04/23 09:21 Temp 35.4 Pulse 63 Resp 17 B/P (MAP) 172/98 (122) Pulse Ox 98 O2 Delivery Room Air Capillary Refill : Height, Weight, BMI Height: '" Weight: 170lbs. oz. 77.265595dk; 16.66 BMI Method: General Appearance: No Apparent Distress, WD/WN, Cachetic, Other (DOES NTO APPEAR TO BE IN ANY DISCOMFORT OR DISTRESS) HEENT: PERRL/EOMI, TMs Normal, Normal ENT Inspection, Pharynx Normal, Other (KS NOR ABRASION, SLIGHT HEMATOMA TO LEFT LATERAL BROW AREA) Neck: Full Range of Motion, Normal Inspection, Non Tender, Supple Cardiovascular: No Edema, No Gallop, No JVD, No Murmur, Normal Peripheral Pulses, Irregularly Irregular Respiratory: Chest Non Tender, Normal Breath Sounds, No Accessory Muscle Use, No Respiratory Distress Gastrointestinal: Normal Bowel Sounds, No Organomegaly, No Pulsatile Mass, Non Tender, Soft Back: Normal Inspection, No CVA Tenderness, No Vertebral Tenderness Extremities: Normal Capillary Refill, Normal Inspection, Normal Range of Motion, Non Tender, No Calf Tenderness, No Pedal Edema Neurologic/Psychiatric: Alert, Oriented x3, No Motor/Sensory Deficits, Normal Mood/Affect, paedodontist II-XII Norm as Tested Cranial Nerves: Normal Hearing, Normal Speech, PERRL Coordination/Gait: Normal Gait Motor/Sensory: No Motor Deficit, No Sensory Deficit Skin: Normal Color, Warm/Dry Progress/Results/Core Measures Results/Orders Lab Results Laboratory Tests Test 01/04/23 09:40 Range/Units White Blood Count 7.1 4.3-11.0 10^3/uL Red Blood Count 4.03 L 4.30-5.52 10^6/uL Hemoglobin 13.1 L 13.3-17.7 g/dL Hematocrit 38 L 40-54 % Mean Corpuscular Volume 93 80-99 fL Mean Corpuscular Hemoglobin 33 25-34 pg Mean Corpuscular Hemoglobin Concent 35 32-36 g/dL Red Cell Distribution Width 12.5 10.0-14.5 % Platelet Count 236 130-400 10^3/uL Mean Platelet Volume 10.0 9.0-12.2 fL Immature Granulocyte % (Auto) 0 % Neutrophils (%) (Auto) 80 H 42-75 % Lymphocytes (%) (Auto) 14 12-44 % Monocytes (%) (Auto) 5 0-12 % Eosinophils (%) (Auto) 0 0-10 % Basophils (%) (Auto) 0 0-10 % Neutrophils # (Auto) 5.6 1.8-7.8 10^3/uL Lymphocytes # (Auto) 1.0 1.0-4.0 10^3/uL Monocytes # (Auto) 0.4 0.0-1.0 10^3/uL Eosinophils # (Auto) 0.0 0.0-0.3 10^3/uL Basophils # (Auto) 0.0 0.0-0.1 10^3/uL Immature Granulocyte # (Auto) 0.0 0.0-0.1 10^3/uL Prothrombin Time 13.6 12.2-14.7 SEC INR Comment 1.0 0.8-1.4 Activated Partial Thromboplast Time 30 24-35 SEC Sodium Level 139 135-145 MMOL/L Potassium Level 3.7 3.6-5.0 MMOL/L Chloride Level 97 L 98-107 MMOL/L Carbon Dioxide Level 28 21-32 MMOL/L Anion Gap 14 5-14 MMOL/L Blood Urea Nitrogen 18 7-18 MG/DL Creatinine 1.35 H 0.60-1.30 MG/DL Estimat Glomerular Filtration Rate 55 BUN/Creatinine Ratio 13 Glucose Level 96 70-105 MG/DL Calcium Level 9.3 8.5-10.1 MG/DL Corrected Calcium 9.2 8.5-10.1 MG/DL Magnesium Level 2.1 1.6-2.4 MG/DL Total Bilirubin 1.8 H 0.1-1.0 MG/DL Aspartate Amino Transf (AST/SGOT) 15 5-34 U/L Alanine Aminotransferase (ALT/SGPT) 16 0-55 U/L Alkaline Phosphatase 88 40-136 U/L Total Creatine Kinase 53 30-200 U/L Creatine Kinase MB 1.0 <6.6 NG/ML Myoglobin 94.3 H 10.0-92.0 NG/ML Troponin I < 0.028 <0.028 NG/ML Total Protein 7.5 6.4-8.2 GM/DL Albumin 4.1 3.2-4.5 GM/DL My Orders Orders - GERRY GRANT DO Ed Iv/Invasive Line Start (01/04/23 09:21) Ekg Tracing (01/04/23:21) Monitor-Rhythm Ecg Trace Only (01/04/23:21) Cbc With Automated Diff (01/04/23:) Comprehensive Metabolic Panel (01/04/23:) Creatine Kinase (01/04/23:21) Creatine Kinase Mb (01/04/23:) Magnesium (01/04/23:21) Protime With Inr (01/04/23:) Partial Thromboplastin Time (01/04/23:21) Troponin I [place] (01/04/23 09:21) Ua Culture If Indicated (01/04/23 09:21) Myoglobin Serum (01/04/23 09:21) Chest 1 View, Ap/Pa Only (01/04/23 09:21) Ct Head/Face/Cervical Wo (01/04/23 09:32) Dipht,Pertuss(Acell),Tet Adult (Boostrix (01/04/23 09:45) Orthostatic Vital Signs (Adult (01/04/23 09:51) Ed Iv/Invasive Line Start (01/04/23 10:33) Lactated Ringers (Lr 1000 Ml Iv Solution (01/04/23 10:45) Ed Admission (Communication) (01/04/23 10:41) Medications Given in ED Current Medications Medications Dose Ordered Sig/Steve Route Start Time Stop Time Status Last Admin Dose Admin Diphtheria/ Tetanus/Acell Pertussis 0.5 ml ONCE ONCE IM 01/04/23 09:45 01/04/23 09:46 DC 01/04/23 10:46 0.5 ML Lactated Ringer's 1,000 ml @ 0 mls/hr Q0M ONCE IV 01/04/23 10:45 01/04/23 10:46 DC 01/04/23 10:47 0 MLS/HR Vital Signs/I&O 01/04/23 01/04/23 09:21 10:21 Temp 35.4 Pulse 63 56 64 70 Resp 17 B/P (MAP) 172/98 (122) 167/103 (124) 164/87 (112) 89/49 (62) Pulse Ox 98 O2 Delivery Room Air Progress Progress Note : Progress Note PLACED ON MONITOR. HEART RATE IS UNDERLYING SINUS RHYTHM, WITH VERY FREQUENT PVC'S. BP IS 178/90, HR IN 60'S. O2 SAT 98% ON ROOM AIR. BP UP TO 180'S/90'S, HR IN 60'S WHILE LYING DOWN ORTHOSTATICS--BP DROPS TO 80'S/60'S, HR UP TO 90 ON STANDING. PT IS VERY SYMPTOMATIC ON STANDING BP DOES QUICKLY RECOVER WHEN HE LAYS BACK DOWN, AND QUICKLY TRENDS BACK UP TO THE 180'S-190'S'S/90'S, HR BACK DOWN TO 57-60'S GIVEN IV FLUIDS DISCUSSED TEST RESULTS, NEED FOR ADMIT, AND PT AGREES WITH PLAN OF CARE REVIEWED PRIOR RECORDS INCLUDING ER VISITS, ADMITS, H&P'S, CONSULTS, TESTS/PROCEDURES AND DISCHARGE SUMMARIES. Initial ECG Impression Date: Jan 04, 2023 Initial ECG Impression Time: 09:34 Initial ECG Rate: 66 Initial ECG Rhythm: Normal Sinus (WITH PVC'S) Initial ECG Intervals [place] 148 QRS 89 QT/QTC 408/421 P-R-T AXES -11/02/- Comment INTERPRETED BY ME Diagnostic Imaging Comments CXR--PER RADIOLOGIST REPORT AT 1007 FINDINGS: The heart size, mediastinal configuration, and pulmonary vascularity are within normal limits. There is no pleural effusion, pneumothorax, or pneumonia. The osseous structures are unremarkable. IMPRESSION: No acute cardiopulmonary abnormality. CT HEAD/MAXILLOFACIALS/CERVICAL SPINE--PER RADIOLOGIST REPORT AT 1013 COMPARISON: CT from 12/13/2022 FINDINGS: CT HEAD: The ventricles and cortical sulci are mildly prominent, likely from generalized parenchymal volume loss. There is no midline shift or mass effect. No acute intracranial hemorrhage is seen. There is no CT evidence of acute territorial ischemia. The calvarium appears intact. CT FACE: The pterygoid plates are intact. The zygomatic arches are intact. The mandible is normal in alignment and appears intact. The maxilla appears intact. There is mild deformity of the nasal bones which is favored to be chronic. The orbits appear intact. The globes are intact. Lens implants are noted bilaterally. There are soft tissue calcifications noted on the skin. There are multiple dental caries. CT CERVICAL SPINE: Alignment of the cervical spine appears to have trace anterolisthesis at C2-C3 but is otherwise normal. There are mild degenerative changes at C2-C3, C3-C4 and C4-C5. There is facet arthropathy bilaterally. No acute fracture is seen. No bony fragments or hyperdense fluid collections are seen in the spinal canal. Surrounding soft tissues demonstrate no acute abnormality. There is scarring in the lung apices. IMPRESSION: 1. No acute intracranial hemorrhage or calvarium fracture. 2. 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 Otherwise, no acute fracture is seen in the face. 3. Degenerative changes in the cervical spine with no acute fracture seen. Reviewed: Reviewed by Ut Departure Communication (Admissions) 1034--SPOKE WITH DR. LOFTON, HOSPITALIST, ACCEPTS PT FOR ADMIT. HE WILL DO ADMIT ORDERS Impression Primary Impression: Episode of syncope Additional Impressions: HEAD/FACIAL CONTUSION AND ABRASION HTN (hypertension) Orthostatic hypotension Eebbxffbwe-lfpecfkfj-dcjnfhn (DPT) vaccination administered at current visit HX OF RENAL CANCER Disposition: ADMITTED INPATIENT Condition: Stable Admissions Decision to Admit Reason: Admit from ER (General) Decision to Admit/Date: Jan 04, 2023 Time/Decision to Admit Time: 10:35 Departure-Patient Inst. Referrals: NORRIS ATKINSON DO (PCP/Family) Primary Care Physician GERRY GRANT DO Jan 04, 2023 09:39
[2023-01-04] MEDS ORDERED: TETANUS,DIPTH,PERTUSS P/F (BOOSTRIX) 0.5 ML VIAL IM ONE (09:45)
[2023-01-04 09:47] LABS: BASOPHILS % (AUTO) 0 % (0-10); EOSINOPHILS % (AUTO) 0 % (0-10); HEMATOCRIT 38 % (40-54); HEMOGLOBIN 13.1 g/dL (13.3-17.7); LYMPHOCYTES % (AUTO) 14 % (12-44); MEAN CORPUSCULAR HEMOGLOBIN 33 pg (25-34); MEAN CORPUSCULAR HGB CONC 35 g/dL (32-36); MEAN CORPUSCULAR VOLUME 93 fL (80-99); MONOCYTES # (AUTO) 0.4 10^3/uL (0.0-1.0); MONOCYTES % (AUTO) 5 % (0-12); NEUTROPHILS # (AUTO) 5.6 10^3/uL (1.8-7.8); NEUTROPHILS % (AUTO) 80 % (42-75); PLATELET COUNT 236 10^3/uL (130-400); WHITE BLOOD COUNT 7.1 10^3/uL (4.3-11.0)
--- NOTE | 2023-01-04 09:59 | Diagnostic Imaging Report ---
INDICATION: Dizziness. COMPARISON is made with prior exam of 08/18/2013. FINDINGS: The heart size, mediastinal configuration, and pulmonary vascularity are within normal limits. There is no pleural effusion, pneumothorax, or pneumonia. The osseous structures are unremarkable. IMPRESSION: No acute cardiopulmonary abnormality. Dictated by: Dictated on workstation # [id number]
--- NOTE | 2023-01-04 10:09 | Diagnostic Imaging Report ---
PROCEDURE: CT head, face, and cervical spine without contrast. TECHNIQUE: Multiple contiguous axial images were obtained through the head, neck, and facial bones without the use of intravenous contrast. Sagittal and coronal reformations through the cervical spine and facial bones were also performed. Auto Exposure Controls were utilized during the CT exam to meet ALARA standards for radiation dose reduction. INDICATION: Injury, head, face, and neck pain. COMPARISON: CT from 12/13/2022 FINDINGS: CT HEAD: The ventricles and cortical sulci are mildly prominent, likely from generalized parenchymal volume loss. There is no midline shift or mass effect. No acute intracranial hemorrhage is seen. There is no CT evidence of acute territorial ischemia. The calvarium appears intact. CT FACE: The pterygoid plates are intact. The zygomatic arches are intact. The mandible is normal in alignment and appears intact. The maxilla appears intact. There is mild deformity of the nasal bones which is favored to be chronic. The orbits appear intact. The globes are intact. Lens implants are noted bilaterally. There are soft tissue calcifications noted on the skin. There are multiple dental caries. CT CERVICAL SPINE: Alignment of the cervical spine appears to have trace anterolisthesis at C2-C3 but is otherwise normal. There are mild degenerative changes at C2-C3, C3-C4 and C4-C5. There is facet arthropathy bilaterally. No acute fracture is seen. No bony fragments or hyperdense fluid collections are seen in the spinal canal. Surrounding soft tissues demonstrate no acute abnormality. There is scarring in the lung apices. IMPRESSION: 1. No acute intracranial hemorrhage or calvarium fracture. 2. 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 Otherwise, no acute fracture is seen in the face. 3. Degenerative changes in the cervical spine with no acute fracture seen. Dictated by: Dictated on workstation # [id number]
[2023-01-04 10:10] LABS: ALBUMIN 4.1 GM/DL (3.2-4.5)
[2023-01-04 10:11] LABS: CHLORIDE 97 MMOL/L (98-107); POTASSIUM 3.7 MMOL/L (3.6-5.0); SODIUM 139 MMOL/L (135-145)
[2023-01-04 10:12] LABS: CALCIUM 9.3 MG/DL (8.5-10.1)
[2023-01-04 10:13] LABS: GLUCOSE 96 MG/DL (70-105); TOTAL PROTEIN 7.5 GM/DL (6.4-8.2)
[2023-01-04 10:14] LABS: CARBON DIOXIDE 28 MMOL/L (21-32)
[2023-01-04 10:15] LABS: BILIRUBIN,TOTAL 1.8 MG/DL (0.1-1.0)
[2023-01-04 10:16] LABS: ALKALINE PHOSPHATASE 88 U/L (40-136); CREATININE SERUM 1.35 MG/DL (0.60-1.30); GFR ESTIMATED 55
[2023-01-04 10:17] LABS: BUN/CREATININE RATIO 13
[2023-01-04 10:19] LABS: ALANINE AMINOTRANSFERASE 16 U/L (0-55); MAGNESIUM 2.1 MG/DL (1.6-2.4)
[2023-01-04 10:20] LABS: CREATINE KINASE 53 U/L (30-200); PROTHROMBIN TIME PATIENT 13.6 SEC (12.2-14.7)
[2023-01-04 10:21] VITALS: BP_SYST 164; BP_SYST 167; BP_SYST 89; BP_DIAS 103; BP_DIAS 49; BP_DIAS 87
[2023-01-04] MEDS ORDERED: LACTATED RINGERS 1,000 ML IV ONE (10:45)
[2023-01-04 11:17] LABS: BILIRUBIN,URINE NEGATIVE (NEGATIVE); CLARITY,URINE CLEAR; COLOR,URINE YELLOW; GLUCOSE, URINE (UA) NEGATIVE (NEGATIVE); KETONES,URINE NEGATIVE (NEGATIVE); LEUKOCYTE ESTERASE ,URINE NEGATIVE (NEGATIVE); NITRITE,URINE NEGATIVE (NEGATIVE); PH,URINE 6.5 (5-9); PROTEIN,URINE 1+ (NEGATIVE)
[2023-01-04 11:45] VITALS: BP 192/89
[2023-01-04 11:51] LABS: BACTERIA,URINE NEGATIVE /HPF; SQUAMOUS EPITHELIAL CELL,UR RARE /HPF
[2023-01-04] MEDS ORDERED: ONDANSETRON 4 MG/2 ML (SDV) Z0FRAN IV PRN (12:00)
[2023-01-04] MEDS ORDERED: CALCIUM CARBONATE 500 MG (TUMS) TAB.CHEW PO PRN (12:00)
[2023-01-04] MEDS ORDERED: polyethylene glycoL POWDER 17 GM (MIRALAX) PACK PO PRN (12:00)
[2023-01-04] MEDS ORDERED: BISACODYL 10 MG SUPP (DULCOLAX) PR PRN (12:00)
[2023-01-04] MEDS ORDERED: ANTACID SUSP 30 ML UDC (MYLANTA) PO PRN (12:00)
[2023-01-04] MEDS ORDERED: MELATONIN 3 MG TABLET PO PRN (12:00)
[2023-01-04] MEDS ORDERED: MILK OF MAGNESIA 400 MG/5 ML 30 ML UDC PO PRN (12:00)
[2023-01-04] MEDS ORDERED: LACTULOSE SYRUP 10GM/15ML (ENULOSE) 30ML UDC PO PRN (12:00)
[2023-01-04] MEDS ORDERED: ONDANSETRON 4 MG (ZOFRAN) ORAL DISSOLVE TAB PO PRN (12:00)
[2023-01-04] MEDS: ENOXAPARIN 40 MG/0.4 ML (LOVENOX) SYR SC SCH (12:40)
[2023-01-04] MEDS: hydrALAZINE (APESOLINE) 20 MG/ML VIAL IV PRN (12:53)
[2023-01-04 15:21] VITALS: BP 123/70
[2023-01-04] MEDS ORDERED: NS IV 500 ML 500 ML IV PRN (18:45)
--- NOTE | 2023-01-04 18:45 | History & Physical-Hospitalist ---
History of Present Illness HPI/Chief Complaint Miguel Cedillo is a 72 year old male with PMH HTN, renal cell carcinoma s/p nephrectomy, who presented after a fall. He has been lightheaded and dizzy. He is unable to stand up without feeling dizzy. He denies chest pain. He denies shortness of breath. He has otherwise been in his normal state of health. Source: patient Exam Limitations: no limitations Date Seen 01/04/23 Time Seen by a Provider: 11:40 Attending Physician Amber Valiente DO PCP Admitting Physician: Chula Henderson MD Attending Physician: Chula Henderson MD Referring Physician Date of Admission Jan 04, 2023 at 11:09 Home Medications & Allergies Home Medications Reviewed patient Home Medication Reconciliation performed by pharmacy medication reconciliations animal technician and/or nursing. Patients Allergies have been reviewed. Allergies Allergies Coded Allergies No Known Drug Allergies (Rgvrgdowvw76/30/13) Past Hfsgxrw-Ybkiqq-Txwmif Hx Patient Social History Tobacco Use?: No Tobacco type used: Cigarettes Smoking Status: Former Smoker Use of E-Cig and/or Vaping dev: No Substance use?: No Substance type: Marijuana Alcohol Use?: No Alcohol type: Beer Pt feels they are or have been: No Immunizations Up To Date Date of Influenza Vaccine: Sep 12, 2022 First/Initial COVID19 Vaccinat: 02/07 Second COVID19 Vaccination [place]: 02/07 Tetanus Booster (TDap): More Than 5 Years Hepatitis A: No Hepatitis B: No Seasonal Allergies Seasonal Allergies: No Current Status Advance Directives: No Communicates: Verbally Primary Language: [place]ican Preferred Spoken Language: [place]ican Is interpretation needed?: No Sensory deficits: Vision impairment Implanted or Applied Medical D: None Past Medical History Surgeries: Eye Surgery, Nephrectomy, Orthopedic, Renal Currently Using CPAP: No Currently Using BIPAP: No Hypertension Chronic Back Pain Kidney Did You Recieve Any Treatments: Yes What Type of Treatment Did You: Surgical Intervention RIGHT NEPHRECTOMY 2020 NO CHEMO OR RADIATION Blood Disorders: No Family Medical History No Pertinent Family Hx SOCIAL HISTORY: -SMOKED 1 PPD, QUIT 2008 -ETOH --HISTORY OF ABUSE/HEAVY USE--OVER A 6 PACK/DAY--WILL NOT ELABORATE ON HOW MUCH HE USED TO DRINK. STATES HE NO LONGER DRINKS, PER PT ON 01/04/23 -DRUGS--THC IN PAST PAST SURGICAL HISTORY: -RIGHT NEPHRECTOMY 2000 FOR RENAL CANCER -CYSTOSCOPIES -BACK SURGERY -BILATERAL CATARACTS 02/2022 Review of Systems Constitutional: dizziness, weakness Respiratory: no symptoms reported Cardiovascular: no symptoms reported Gastrointestinal: no symptoms reported Genitourinary: no symptoms reported Physical Exam Physical Exam Vital Signs Vital Signs - First Documented 01/04/23 09:21 Temp 35.4 Pulse 63 Resp 17 B/P (MAP) 172/98 (122) Pulse Ox 98 O2 Delivery Room Air Capillary Refill : Less Than 3 Seconds Height, Weight, BMI Height: '" Weight: 170lbs. oz. 77.206014wn; 18.41 BMI Method: General Appearance: No Apparent Distress, Thin HEENT: PERRL/EOMI, Pharynx Normal Neck: Normal Inspection, Supple Respiratory: Lungs Clear, No Respiratory Distress Cardiovascular: Regular Rate, Rhythm, No Murmur Gastrointestinal: Normal Bowel Sounds, Soft Extremity: Normal Inspection, No Pedal Edema Neurologic/Psychiatric: Alert, Oriented x3, No Motor/Sensory Deficits Skin: Normal Color, Warm/Dry Results Results/Procedures Labs Laboratory Tests 01/04/23 09:40 Patient resulted labs reviewed. Imaging: Reviewed Imaging Report Assessment/Plan Admission Diagnosis Orthostatic hypotension Admission Status: Observation Assessment and Plan Orthostatic hypotension HTN LAUREN Hold Doxazosin Continue Amlodipine Hydralazine as needed IV fluids Diagnosis/Problems Diagnosis/Problems (1) Orthostatic hypotension Status: Acute (2) HTN (hypertension) Status: Acute (3) LAUREN (acute kidney injury) Status: Acute (4) History of renal cell carcinoma Status: Chronic (5) S/p nephrectomy Status: Chronic (6) Low BMI Status: Chronic CHULA HENDERSON MD Jan 04, 2023 18:45
[2023-01-04 19:30] VITALS: BP 137/73
[2023-01-04] MEDS: SENNOSIDES 8.6 MG (SENOKOT) TAB PO SCH (19:37)
[2023-01-04] MEDS: DOCUSATE SODIUM 100 MG (COLACE) CAP PO SCH (19:37)
[2023-01-04] MEDS: LACTATED RINGERS 1,000 ML IV SCH (19:38)
[2023-01-04] MEDS: ACETAMINOPHEN 325 MG TABLET PO PRN (23:18)
[2023-01-04 23:33] VITALS: BP_SYST 169; BP_SYST 180; BP_DIAS 89; BP_DIAS 90
[2023-01-05] VITALS (8 sets, daily range): BP systolic 87–191; BP diastolic 50–92
[2023-01-05] MEDS: hydrALAZINE (APESOLINE) 20 MG/ML VIAL IV PRN (03:50)
[2023-01-05] MEDS: LACTATED RINGERS 1,000 ML IV SCH ×2 (05:56→16:20)
[2023-01-05 06:09] LABS: BASOPHILS % (AUTO) 0 % (0-10); EOSINOPHILS # (AUTO) 0.1 10^3/uL (0.0-0.3); EOSINOPHILS % (AUTO) 1 % (0-10); HEMATOCRIT 36 % (40-54); HEMOGLOBIN 12.6 g/dL (13.3-17.7); LYMPHOCYTES # (AUTO) 1.3 10^3/uL (1.0-4.0); LYMPHOCYTES % (AUTO) 20 % (12-44); MEAN CORPUSCULAR HEMOGLOBIN 33 pg (25-34); MEAN CORPUSCULAR HGB CONC 35 g/dL (32-36); MEAN CORPUSCULAR VOLUME 93 fL (80-99); MEAN PLATELET VOLUME 10.6 fL (9.0-12.2); MONOCYTES # (AUTO) 0.4 10^3/uL (0.0-1.0); MONOCYTES % (AUTO) 5 % (0-12); NEUTROPHILS # (AUTO) 4.9 10^3/uL (1.8-7.8); NEUTROPHILS % (AUTO) 73 % (42-75); PLATELET COUNT 229 10^3/uL (130-400); WHITE BLOOD COUNT 6.7 10^3/uL (4.3-11.0)
[2023-01-05 06:36] LABS: CALCIUM 9.1 MG/DL (8.5-10.1); CREATININE SERUM 1.01 MG/DL (0.60-1.30); MAGNESIUM 1.9 MG/DL (1.6-2.4); POTASSIUM 2.8 MMOL/L (3.6-5.0)
[2023-01-05] MEDS: KCL 20 MEQ TAB (K-DUR) PO SCH (06:39)
[2023-01-05] MEDS: MAGNESIUM 1 GM/100 ML IVPB 100 ML IV SCH ×3 (06:40→08:08)
[2023-01-05] MEDS: POTASSIUM BICARB 20 MEQ (EFFER-K) TABLET PO SCH (06:40)
[2023-01-05] MEDS: POTASSIUM CL 10MEQ/50ML IVPB 50 ML IV SCH ×4 (06:41→11:17)
[2023-01-05] MEDS: amLODIPine 10 MG (NORVASC) TAB PO SCH (08:04)
[2023-01-05] MEDS: ACETAMINOPHEN 325 MG TABLET PO PRN (08:05)
[2023-01-05] MEDS: SENNOSIDES 8.6 MG (SENOKOT) TAB PO SCH ×2 (08:05→19:37)
[2023-01-05] MEDS: DOCUSATE SODIUM 100 MG (COLACE) CAP PO SCH ×2 (08:05→19:37)
[2023-01-05] MEDS ORDERED: POTASSIUM CL 10MEQ/50ML IVPB 50 ML IV ONE ×7 (08:30→14:30)
[2023-01-05] MEDS ORDERED: KCL 20 MEQ TAB (K-DUR) PO ONE ×2 (10:45→13:00)
[2023-01-05] MEDS: ENOXAPARIN 40 MG/0.4 ML (LOVENOX) SYR SC SCH (11:18)
--- NOTE | 2023-01-05 15:21 | Progress Note - Hospitalist ---
Subjective HPI/CC On Admission Date Seen by Provider: Jan 05, 2023 Time Seen by Provider: 10:15 Miguel Cedillo is a 72 year old male with PMH HTN, renal cell carcinoma s/p nephrectomy, who presented after a fall. He has been lightheaded and dizzy. He is unable to stand up without feeling dizzy. He denies chest pain. He denies shortness of breath. He has otherwise been in his normal state of health. Subjective/Events-last exam He is feeling better. He was not lightheaded when he stood up today. He has been able to eat and drink. He has no complaints. Objective Exam Vital Signs Vital Signs Date Time Temp Pulse Resp B/P (MAP) Pulse Ox O2 Delivery O2 Flow Rate FiO2 01/05/23 12:52 60 01/05/23 11:36 37.0 18 153/74 (100) 100 Room Air Capillary Refill : Less Than 3 Seconds General Appearance: No Apparent Distress, Thin Respiratory: Lungs Clear, No Respiratory Distress Cardiovascular: Regular Rate, Rhythm, No Murmur Gastrointestinal: Normal Bowel Sounds, Soft Extremity: Normal Inspection, No Pedal Edema Neurologic/Psychiatric: Alert, No Motor/Sensory Deficits, Normal Mood/Affect Skin: Normal Color, Warm/Dry Results/Procedures Lab Laboratory Tests 01/05/23 05:20 Patient resulted labs reviewed. Imaging: Reviewed Imaging Report Assessment/Plan Assessment and Plan Assess & Plan/Chief Complaint Orthostatic hypotension HTN LAUREN Remains orthostatic, SBP dropped >100 from laying to standing Holding Doxazosin Continue Amlodipine Hydralazine as needed Continue IV fluids Renal function improving Monitor orthostatic vitals May need fludrocortisone Diagnosis/Problems Diagnosis/Problems (1) Orthostatic hypotension Status: Acute (2) HTN (hypertension) Status: Acute (3) LAUREN (acute kidney injury) Status: Acute (4) History of renal cell carcinoma Status: Chronic (5) S/p nephrectomy Status: Chronic (6) Low BMI Status: Chronic CHULA LOFTON MD Jan 05, 2023 15:21
[2023-01-06] MEDS: hydrALAZINE (APESOLINE) 20 MG/ML VIAL IV PRN (03:19)
[2023-01-06 03:36] VITALS: BP 188/89
[2023-01-06] MEDS: LACTATED RINGERS 1,000 ML IV SCH ×2 (05:37→18:18)
[2023-01-06 06:01] LABS: BASOPHILS % (AUTO) 0 % (0-10); EOSINOPHILS # (AUTO) 0.1 10^3/uL (0.0-0.3); EOSINOPHILS % (AUTO) 1 % (0-10); HEMATOCRIT 38 % (40-54); LYMPHOCYTES # (AUTO) 1.2 10^3/uL (1.0-4.0); LYMPHOCYTES % (AUTO) 17 % (12-44); MEAN CORPUSCULAR HEMOGLOBIN 32 pg (25-34); MEAN CORPUSCULAR HGB CONC 34 g/dL (32-36); MEAN CORPUSCULAR VOLUME 94 fL (80-99); MEAN PLATELET VOLUME 10.3 fL (9.0-12.2); MONOCYTES # (AUTO) 0.4 10^3/uL (0.0-1.0); MONOCYTES % (AUTO) 5 % (0-12); NEUTROPHILS # (AUTO) 5.5 10^3/uL (1.8-7.8); NEUTROPHILS % (AUTO) 76 % (42-75); PLATELET COUNT 231 10^3/uL (130-400); WHITE BLOOD COUNT 7.2 10^3/uL (4.3-11.0)
[2023-01-06] MEDS: POTASSIUM CL 10MEQ/50ML IVPB 50 ML IV SCH (06:03)
[2023-01-06] MEDS: POTASSIUM BICARB 20 MEQ (EFFER-K) TABLET PO SCH (06:03)
[2023-01-06 06:18] LABS: ALBUMIN 3.7 GM/DL (3.2-4.5); BILIRUBIN,TOTAL 1.5 MG/DL (0.1-1.0); CALCIUM 9.1 MG/DL (8.5-10.1); CREATININE SERUM 0.88 MG/DL (0.60-1.30); POTASSIUM 3.3 MMOL/L (3.6-5.0); TOTAL PROTEIN 7.2 GM/DL (6.4-8.2)
[2023-01-06] MEDS: MAGNESIUM 1 GM/100 ML IVPB 100 ML IV SCH (06:23)
[2023-01-06] MEDS: KCL 20 MEQ TAB (K-DUR) PO SCH (06:26)
[2023-01-06] MEDS: ACETAMINOPHEN 325 MG TABLET PO PRN (06:40)
[2023-01-06 08:00] VITALS: BP_SYST 100; BP_SYST 118; BP_SYST 135; BP_DIAS 54; BP_DIAS 65; BP_DIAS 75
[2023-01-06 08:14] VITALS: BP 135/75
[2023-01-06] MEDS ORDERED: CLN.1T PO (08:33)
[2023-01-06] MEDS ORDERED: DOXA2TAB2 PO (08:33)
[2023-01-06] MEDS ORDERED: ACET325T38 PO (08:33)
[2023-01-06] MEDS ORDERED: AMLO-251 PO (08:33)
[2023-01-06] MEDS: DOCUSATE SODIUM 100 MG (COLACE) CAP PO SCH ×2 (08:56→19:58)
[2023-01-06] MEDS: SENNOSIDES 8.6 MG (SENOKOT) TAB PO SCH ×2 (08:56→19:58)
[2023-01-06] MEDS ORDERED: KCL 20 MEQ TAB (K-DUR) PO ONE ×2 (09:00→13:00)
[2023-01-06] MEDS: amLODIPine 10 MG (NORVASC) TAB PO SCH (09:14)
--- NOTE | 2023-01-06 09:26 | Consultation-Cardiology ---
HPI-Cardiology Cardiology Consultation: Date of Consultation 01/06/23 Time Seen by a Provider: 09:24 Date of Admission 01-04-23 Attending Physician Amber Atkinson DO Admitting Physician Admitting Physician: Arleen Henderson MD Attending Physician: Amber Atkinson DO Consulting Physician Bruce Anderson MD HPI: Chief Complaint: Syncope Mr. Smith is a 72 yr old male admitted to 414 from the ED with a report of syncope. He states on Friday morning he was up in the kitchen at his home. He states he began to feel very dizzy and lightheaded. He reports he began to see black spots in his vision and he remembers falling. He states he cam to when he hit the floor/wall. He reports he feels dizzy most mornings, but typically it passes. He states this morning when standing up at the bedside he began to feel dizzy. He denies any c/o CP, palpitations. No c/o LE swelling. He reports poor appetite. He reports occ feeling of nausea, but no emesis or diarrhea. Review of Systems-Cardiology Review of Systems Constitutional: As described under HPI; No chills, No fever Eyes: As described under HPI; No vision change Ears/Nose/Throat: No epistaxis, No recent hearing loss Respiratory: As described under HPI Cardiovascular: As described under HPI Gastrointestinal: As described under HPI Genitourinary: No dysuria, No hematuria Musculoskeletal: no symptoms reported Skin: No rash on exposed areas, No ulcerations on exposed areas Psychiatric/Neurological: As described under HPI; No anxiety, No depression, No seizure Hematologic: No bleeding abnormalities HSE-Zclpms-Qksdfr Hx Patient Social History Smoking Status: Former Smoker 2nd Hand Smoke Exposure: No Have you traveled recently?: No Alcohol Use?: No Substance type: Marijuana Pt feels they are or have been: No Tobacco type used: Cigarettes Immunizations Up To Date Date of Influenza Vaccine: Sep 12, 2022 Past Medical History PMH As described under Assessment. Family Medical History Family Medical History: He reports a h/o heart disease in his mother but is not able to provide any details Allergies and Home Medications Allergies Coded Allergies: No Known Drug Allergies (Unverified , 08/18/13) Patient Home Medication List Acetaminophen (Tylenol) 325 Mg Tablet, 650 MG PO Q6H PRN for PAIN-MILD (1-4), (Reported) Entered as Reported by: JEMAL NICHOLAS on 01/06/23832 Last Action: Reviewed Amlodipine Besylate (Amlodipine Besylate) 10 Mg Tablet, 5 MG PO DAILY, (Reported) Entered as Reported by: JEMAL NICHOLAS on 01/06/23832 Last Action: Reviewed Cyanocobalamin (Vitamin B-12) (Vitamin B-12) 500 Mcg Tablet, 500 MCG PO DAILY, (Reported) Entered as Reported by: ORACIO MORGAN on 12/13/22 150 Last Action: Reviewed Doxazosin Mesylate (Doxazosin Mesylate) 2 Mg Tablet, 2 MG PO BID, (Reported) Entered as Reported by: JEMAL NICHOLAS on 01/06/23832 Last Action: Reviewed Discontinued Medications Amlodipine Besylate (Amlodipine Besylate) 10 Mg Tablet, 10 MG PO DAILY Discontinued Reason: Duplicate Order Prescribed by: JENNIFER CHAUDHRY on 12/18/22944 Last Action: Discontinued Aspirin (Aspirin EC) 325 Mg Tablet.dr, 325-650 MG PO Q8H PRN for PAIN-MILD (1- 4), (Reported) Discontinued Reason: Duplicate Order Entered as Reported by: ORACIO MORGAN on 12/13/22 150 Last Action: Discontinued Clonidine HCl (Clonidine HCl) 0.1 Mg Tablet, 0.1 MG PO Q4H PRN for sbp>180 Discontinued Reason: Duplicate Order Prescribed by: AMBER ATKINSON on 12/18/22 1330 Last Action: Discontinued Clonidine HCl (Clonidine HCl) 0.1 Mg Tablet, 0.1 MG PO BID PRN for BLOOD PRESS URE, (Reported) Discontinued Reason: No Longer Taking Entered as Reported by: JEMAL NICHOLAS on 01/06/23832 Last Action: Discontinued Doxazosin Mesylate (Doxazosin Mesylate) 2 Mg Tablet, 2 MG PO BID Discontinued Reason: Duplicate Order Prescribed by: JENNIFER CHAUDHRY on 12/18/22944 Last Action: Discontinued Physical Exam-Cardiology Physical Exam Vital Signs/I&O 01/06/23 01/06/23 01/06/23 01/06/23 07:00 08:00 08:00 08:14 Temp 36.7 Pulse 72 74 74 84 72 Resp 18 B/P (MAP) 135/75 (95) 135/75 (95) 118/65 (82) 100/54 (69) Pulse Ox 97 97 O2 Delivery Room Air Room Air 01/06/23 01/06/23 12:01 12:35 Temp 37.4 Pulse 62 59 Resp 18 B/P (MAP) 159/84 (109) Pulse Ox 99 O2 Delivery Room Air 01/06/23 00:00 Intake Total 1260 ml Output Total 1880 ml Balance -620 ml Capillary Refill : Less Than 3 Seconds Constitutional: AAO x 3, other (thin) HEENT: hearing is well preserved, oral hygience is good Neck: No carotid bruit; carotid pulses are 2 + bilaterally Respiratory: No accessory muscle use, No respiratory distress; chest expansion is symmetric, chest is bilaterally symmetric, lungs clear to auscultation Cardiovascular: regular rate-rhythm; No JVD; S1 and S2 Gastrointestinal: soft; No guarding; audible bowel sounds Extremities: no lower extremity edema bilateral Neurologic/Psychiatric: grossly intact (moves all extremities) Skin: No rash on exposed areas, No ulcerations on exposed areas Data Review Labs Laboratory Tests 01/06/23 05:35: White Blood Count 7.2, Red Blood Count 4.07L, Hemoglobin 13.0L, Hematocrit 38L, Mean Corpuscular Volume 94, Mean Corpuscular Hemoglobin 32, Mean Corpuscular Hemoglobin Concent 34, Red Cell Distribution Width 12.5, Platelet Count 231, Mean Platelet Volume 10.3, Immature Granulocyte % (Auto) 0, Neutrophils (%) (Auto) 76H, Lymphocytes (%) (Auto) 17, Monocytes (%) (Auto) 5, Eosinophils (%) (Auto) 1, Basophils (%) (Auto) 0, Neutrophils # (Auto) 5.5, Lymphocytes # (Auto) 1.2, Monocytes # (Auto) 0.4, Eosinophils # (Auto) 0.1, Basophils # (Auto) 0.0, Immature Granulocyte # (Auto) 0.0, Sodium Level 138, Potassium Level 3.3L, Chloride Level 100, Carbon Dioxide Level 25, Anion Gap 13, Blood Urea Nitrogen 14, Creatinine 0.88, Estimat Glomerular Filtration Rate 90, BUN/Creatinine Ratio 16, Glucose Level 86, Calcium Level 9.1, Corrected Calcium 9.3, Magnesium Level 2.0, Total Bilirubin 1.5H, Aspartate Amino Transf (AST/SGOT) 17, Alanine Aminotransferase (ALT/SGPT) 11, Alkaline Phosphatase 81, Total Protein 7.2, Albumin 3.7 Radiology NAME: BENY SMITH [facility] REC#: [id number] PT STATUS: ADM Gabriele : 1950 PHYSICIAN: GERRY GRANT DO ADMIT DATE: 01/04/23 Signed Date of Exam:01/04/23 CHEST 1 VIEW, AP/PA ONLY INDICATION: Dizziness. COMPARISON is made with prior exam of 08/18/2013. FINDINGS: The heart size, mediastinal configuration, and pulmonary vascularity are within normal limits. There is no pleural effusion, pneumothorax, or pneumonia. The osseous structures are unremarkable. IMPRESSION: No acute cardiopulmonary abnormality. Dictated by: Dictated on workstation # [id number] Dict: 01/04/23 0957 Trans: 01/04/23 1154 [facility] [id number] Interpreted by: KIM FIGUEROA MD Electronically signed by: KIM FIGUEROA MD 01/04/23 1154 NAME: BENY SMITH [facility] REC#: [id number] PT STATUS: ADM Gabriele : 1950 PHYSICIAN: GERRY GRANT DO ADMIT DATE: 01/04/23 Signed Date of Exam:01/04/23 CT HEAD/FACE/CERVICAL WO PROCEDURE: CT head, face, and cervical spine without contrast. TECHNIQUE: Multiple contiguous axial images were obtained through the head, neck, and facial bones without the use of intravenous contrast. Sagittal and coronal reformations through the cervical spine and facial bones were also performed. Auto Exposure Controls were utilized during the CT exam to meet ALARA standards for radiation dose reduction. INDICATION: Injury, head, face, and neck pain. COMPARISON: CT from 12/13/2022 FINDINGS: CT HEAD: The ventricles and cortical sulci are mildly prominent, likely from generalized parenchymal volume loss. There is no midline shift or mass effect. No acute intracranial hemorrhage is seen. There is no CT evidence of acute territorial ischemia. The calvarium appears intact. CT FACE: The pterygoid plates are intact. The zygomatic arches are intact. The mandible is normal in alignment and appears intact. The maxilla appears intact. There is mild deformity of the nasal bones which is favored to be chronic. The orbits appear intact. The globes are intact. Lens implants are noted bilaterally. There are soft tissue calcifications noted on the skin. There are multiple dental caries. CT CERVICAL SPINE: Alignment of the cervical spine appears to have trace anterolisthesis at C2-C3 but is otherwise normal. There are mild degenerative changes at C2-C3, C3-C4 and C4-C5. There is facet arthropathy bilaterally. No acute fracture is seen. No bony fragments or hyperdense fluid collections are seen in the spinal canal. Surrounding soft tissues demonstrate no acute abnormality. There is scarring in the lung apices. IMPRESSION: 1. No acute intracranial hemorrhage or calvarium fracture. 2. 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 Otherwise, no acute fracture is seen in the face. 3. Degenerative changes in the cervical spine with no acute fracture seen. Dictated by: Dictated on workstation # [id number] Dict: 01/04/23 0958 Trans: 01/04/23 1111 [facility] [id number] Interpreted by: NAYANA MORA MD Electronically signed by: NAYANA MORA MD 01/04/23 1111 A/P-Cardiology Assessment/Admission Diagnosis Syncopal episode - likely d/t orthostatic hypotension Orthostatic hypotension - 01-06-23: lying 135/74 sitting 118/65 standing 83/52 Severe hypertension - echo of 12/14/22: LVEF 55-60% - Renal artery duplex on 12-13-22: No sonographic evidence of renal artery stenosis on the left. No acute sonographic abnormalities in the left kidney. Simple-appearing cortical cyst is seen in the left kidney. Surgically absent right kidney. H/O Dizziness due to postural hypotension during hospitalization of 12/16/22 which had resolved following reduction in antihypertensive regimen Headache of undetermined etiology - managed by Dr Atkinson Quit tobacco in early R nephrectomy in 2020 for renal CA - details unknown to patient - managed by his oncologist at [facility] Discussion and Recomendations Syncope - likely d/t postural hypotension - continue tele to eval for possible jose g-arrhythmia Complex management d/t labile hypertension - d/t recurrent orthostatic hypotension we will reduce his antihypertensive regimen - give IVF Hypokalemia - undetermined etiology - replace Monitor lab closely Further recs will be based on his hospital course We would like to thank medical services for this consult JENNIFER CHAUDHRY 20, 2023 09:26
--- NOTE | 2023-01-06 09:52 | Physical Therapy Evaluation ---
PT Evaluation-General Medical Diagnosis Admission Date Jan 05, 2023 at 10:13 Medical Diagnosis: orthostatic hypotension Onset Date: Jan 05, 2023 Therapy Diagnosis Therapy Diagnosis: debility Height/Weight Weight (Pounds): 170 Precautions Precautions/Isolations: Standard Precautions Referral Physician: Santiago Reason for Referral: Evaluation/Treatment Medical History Pertinent Medical History: HTN Additional Medical History renal cancer Current History ER secondary to dizziness resulting in a fall Social History Home: Single Level Current Living Status: Other Family Entry Into Home: Ramp Prior Prior Level of Function SCALE: Activities may be completed with or without assistive devices. 6-Mksqjnsbnp-dtqrxfy completes the activity by him/herself with no assistance from a helper. 5-Set-up or Clean-up Assistance-helper sets up or cleans up; patient completes activity. Sigurd assists only prior to or following the activity. 4-Supervision or Touching Assistance-helper provides verbal cues and/or touching/steadying and/or contact guard assistance as patient completes activity. Assistance may be provided throughout the activity or intermittently. 3-Partial/Moderate Assistance-helper does LESS THAN HALF the effort. Sigurd lifts, holds or supports trunk or limbs, but provides less than half the effort. 2-Substantial/Maximal Assistance-helper does MORE THAN HALF the effort. Sigurd lifts or holds trunk or limbs and provides more than half the effort. 7-Xrnnjomnu-qkijsx does ALL the effort. Patient does none of the effort to complete the activity. Or, the assistance of 2 or more helpers is required for the patient to complete the activity. If activity was not attempted, code reason: 7-Patient Refused. 9-Not Applicable-not attempted and the patient did not perform the activity before the current illness, exacerbation or injury. 10-Not Attempted due to Environmental Limitations-(lack of equipment, weather restraints, etc.). 88-Not Attempted due to Medical Conditions or Safety Concerns. Bed Mobility: 6 Transfers (B,C,W/C): 6 Gait: 6 Indoor Mobility (Ambulation): Independent Prior Devices Use: None PT Evaluation-Current Subjective Patient agrees to PT. Objective Patient Orientation: Normal For Age Attachments: IV ROM/Strength ROM Lower Extremities bilateral LE WFL Strength Lower Extremities 4/5 grossly bilateral LE all planes Integumentary/Posture Integumentary refer to nursing notes Bowel Incontinence: No Bladder Incontinence: No Posture WFL Neuromuscular (Tone, Coordination, Reflexes) grossly intact Sensory Vision: Functional Hearing: Functional Transfers Sit to Lying (QC): 6 Lying to Sitting/Side of Bed(Q: 6 Sit to Stand (QC): 6 Gait Mode of Locomotion: Walk Anticipated Mode of Locomotion: Walk Walk 10 feet (QC): 88 Walk 50 ft with 2 Turns(QC): 88 Walk 150 ft (QC): 88 Comments/Gait Description NT due to low BP taken by RN Balance Sitting Static: Normal Sitting Dynamic: Normal Standing Static: Normal Standing Dynamic: Normal Assessment/Needs Patient will be seen x 1 more session to assess ambulation due to patient had orthostatic hypotension during session in standing position. (refer to nursing assessment for BP details.) Rehab Potential: Fair PT Short Term Goals Short Term Goals Time Frame: Jan 07, 2023 Roll Left & Right: 6 Sit to lyin Lying to sitting on side of be: 6 Sit to stand: 6 Chair/gfd-ry-oidsq transfer: 6 Toilet transfer: 6 Walk 10 feet: 6 Walk 50 feet with two turns: 6 Walk 150 feet: 6 PT Plan Treatment/Plan Treatment Plan: Continue Plan of Care Treatment Plan: Functional Activity Merna, Gait, Safety Treatment Duration: Jan 07, 2023 Frequency: 2 times per week Estimated Hrs Per Day: .25 hour per day Patient and/or Family Agrees t: Yes Time Time In: 830 Time Out: 840 DATE: Jan 06, 2023 Total Billed Treatment Time: 10 Total Billed Treatment 1 visit EVModC 10 min DARA MOHAMUD PT Jan 06, 2023 09:52
[2023-01-06] MEDS: FLUDROCORTISONE 0.1 MG (FLORINEF) TAB PO SCH (11:34)
[2023-01-06] MEDS: ENOXAPARIN INJECTION 30 MG/0.3 ML SYR SC SCH (11:34)
[2023-01-06 12:01] VITALS: BP 159/84
--- NOTE | 2023-01-06 13:07 | Progress Note ---
MITA LAL 01/06/23 1307: Subjective Date Seen by a Provider: Jan 06, 2023 Time Seen by a Provider: 09:10 Subjective/Events-last exam Pt is sitting up in bed. Doing well. Ate breakfast. Urinating without issue, no BM today yet. He says he tried to get out of bed with PT but got very dizzy aga in this morning. He is otherwise asymptomatic and has no complaints. Objective Exam Last Set of Vital Signs Vital Signs Date Time Temp Pulse Resp B/P (MAP) Pulse Ox O2 Delivery O2 Flow Rate FiO2 01/06/23 12:35 59 01/06/23 12:01 37.4 18 159/84 (109) 99 Room Air Capillary Refill : Less Than 3 Seconds I&O Intake and Output 01/06/23 00:00 Intake Total 2360 ml Output Total 2205 ml Balance 155 ml Intake Oral 1360 ml IV Total 1000 ml Output Urine Total 2205 ml # Voids 5 General: Alert, Oriented X3 HEENT: Atraumatic, PERRLA Lungs: Clear to Auscultation, Normal Air Movement Heart: Regular Rate, Normal S1, Normal S2 Abdomen: Normal Bowel Sounds, Soft Extremities: No Edema, Normal Pulses Psych/Mental Status: Mental Status NL, Mood NL Results Lab Laboratory Tests 01/06/23 05:35: White Blood Count 7.2, Red Blood Count 4.07L, Hemoglobin 13.0L, Hematocrit 38L, Mean Corpuscular Volume 94, Mean Corpuscular Hemoglobin 32, Mean Corpuscular Hemoglobin Concent 34, Red Cell Distribution Width 12.5, Platelet Count 231, Mean Platelet Volume 10.3, Immature Granulocyte % (Auto) 0, Neutrophils (%) (Auto) 76H, Lymphocytes (%) (Auto) 17, Monocytes (%) (Auto) 5, Eosinophils (%) (Auto) 1, Basophils (%) (Auto) 0, Neutrophils # (Auto) 5.5, Lymphocytes # (Auto) 1.2, Monocytes # (Auto) 0.4, Eosinophils # (Auto) 0.1, Basophils # (Auto) 0.0, Immature Granulocyte # (Auto) 0.0, Sodium Level 138, Potassium Level 3.3L, Chloride Level 100, Carbon Dioxide Level 25, Anion Gap 13, Blood Urea Nitrogen 14, Creatinine 0.88, Estimat Glomerular Filtration Rate 90, BUN/Creatinine Ratio 16, Glucose Level 86, Calcium Level 9.1, Corrected Calcium 9.3, Magnesium Level 2.0, Total Bilirubin 1.5H, Aspartate Amino Transf (AST/SGOT) 17, Alanine Aminotransferase (ALT/SGPT) 11, Alkaline Phosphatase 81, Total Protein 7.2, Albumin 3.7 Radiology NAME: BENY SMITH REC#: [id number] PT STATUS: ADM Gabriele : 1950 PHYSICIAN: GERRY GRANT DO ADMIT DATE: 01/04/23 Signed Date of Exam:01/04/23 CT HEAD/FACE/CERVICAL WO PROCEDURE: CT head, face, and cervical spine without contrast. TECHNIQUE: Multiple contiguous axial images were obtained through the head, neck, and facial bones without the use of intravenous contrast. Sagittal and coronal reformations through the cervical spine and facial bones were also performed. Auto Exposure Controls were utilized during the CT exam to meet ALARA standards for radiation dose reduction. INDICATION: Injury, head, face, and neck pain. COMPARISON: CT from 12/13/2022 FINDINGS: CT HEAD: The ventricles and cortical sulci are mildly prominent, likely from generalized parenchymal volume loss. There is no midline shift or mass effect. No acute intracranial hemorrhage is seen. There is no CT evidence of acute territorial ischemia. The calvarium appears intact. CT FACE: The pterygoid plates are intact. The zygomatic arches are intact. The mandible is normal in alignment and appears intact. The maxilla appears intact. There is mild deformity of the nasal bones which is favored to be chronic. The orbits appear intact. The globes are intact. Lens implants are noted bilaterally. There are soft tissue calcifications noted on the skin. There are multiple dental caries. CT CERVICAL SPINE: Alignment of the cervical spine appears to have trace anterolisthesis at C2-C3 but is otherwise normal. There are mild degenerative changes at C2-C3, C3-C4 and C4-C5. There is facet arthropathy bilaterally. No acute fracture is seen. No bony fragments or hyperdense fluid collections are seen in the spinal canal. Surrounding soft tissues demonstrate no acute abnormality. There is scarring in the lung apices. IMPRESSION: 1. No acute intracranial hemorrhage or calvarium fracture. 2. 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 Otherwise, no acute fracture is seen in the face. 3. Degenerative changes in the cervical spine with no acute fracture seen. Dictated by: Dictated on workstation # [id number] Dict: 01/04/23 0958 Trans: 01/04/23 1111 [facility] [id number] Interpreted by: NAYANA MORA MD Electronically signed by: NAYANA MORA MD 01/04/23 1111 Assessment/Plan Assessment/Plan Assess & Plan/Chief Complaint Assessment: This is a 72 y/o male who presented after an episode of syncope 2/2 orthostatic hypotension Syncope Orthostasis Hypertension Secondary Hyperaldosteronism -Patient dizzy again this AM, still orthostatic -BPs ranging 140-180s systolic, 70-90s diastolic -Renin elevated at 13.62 from previous visit, aldosterone activity 41 with hypokalemia c/w secondary hyperaldosteronism -Will add fludrocortisone, spironolactone given new findings -LR at 75 ml/hr; pt has good appetite and intake -Continue norvasc 10mg -Consult cardiology to follow -Will continue to monitor inpatient -echo on 12/14/22: LVEF 55-60% Hx RCC s/p right nephrectomy -Cr 0.88, BUN 14 today -Renal artery duplex on 12-13-22: No sonographic evidence of renal artery claudia nosis on the left. No acute sonographic abnormalities in the left kidney. Simple-appearing cortical cyst is seen in the left kidney. Surgically absent right kidney. AMBER ATKINSON DO 01/08/23 0523: Supervisory-Addendum Brief Verification & Attestation Participated in pt care: history, MDM, physical Personally performed: exam, history, MDM, supervision of care Care discussed with: Medical Student Procedures: n/a Results interpretation: Verified all documentation Verification and Attestation of Medical Student E/M Service A medical student performed and documented this service in my presence. I reviewed and verified all information documented by the medical student and made modifications to such information, when appropriate. I personally performed the physical exam and medical decision making. Amber Atkinson Jan 08, 2023,05:23 MITA LAL Jan 06, 2023 13:07 AMBER ATKINSON DO Jan 08, 2023 05:23
--- NOTE | 2023-01-06 15:51 | Occupational Therapy Eval ---
OT Evaluation-General/PLF Medical Diagnosis Admission Date Jan 05, 2023 at 10:13 Medical Diagnosis: orthostatic hypotension Onset Date: Jan 05, 2023 Therapy Diagnosis Therapy Diagnosis: dizziness Height/Weight Weight (Pounds): 170 Precautions Precautions/Isolations: Standard Precautions Referral Physician: Santiago Referral Reason: Evaluation/Treatment Medical History Pertinent Medical History: HTN Current History c/c of dizziness w/ leaning over, standing and loss of balance Social History Home: Single Level Current Living Status: Other Family Entry Into Home: Ramp ADL-Prior Level of Function SCALE: Activities may be completed with or without assistive devices. 3-[id number]-nnjejkd completes the activity by him/herself with no assistance from a helper. 5-Set-up or Clean-up Assistance-helper sets up or cleans up; patient completes activity. Bee assists only prior to or following the activity. 4-Supervision or Touching Assistance-helper provides verbal cues and/or touching/steadying and/or contact guard assistance as patient completes activity. Assistance may be provided throughout the activity or intermittently. 3-Partial/Moderate Assistance-helper does LESS THAN HALF the effort. Bee lifts, holds or supports trunk or limbs, but provides less than half the effort. 2-Substantial/Maximal Assistance-helper does MORE THAN HALF the effort. Bee lifts or holds trunk or limbs and provides more than half the effort. 3-Gvepomqdy-bbmukc does ALL the effort. Patient does none of the effort to complete the activity. Or, the assistance of 2 or more helpers is required for the patient to complete the activity. If activity was not attempted, code reason: 7-Patient Refused. 9-Not Applicable-not attempted and the patient did not perform the activity before the current illness, exacerbation or injury. 10-Not Attempted due to Environmental Limitations-(lack of equipment, weather restraints, etc.). 88-Not Attempted due to Medical Conditions or Safety Concerns. Self Care: Independent Functional Cognition: Independent OT Current Status Subjective Reclined in bed agreeable to OT, clarified w/ RN and will work bedside w/ patient Mental Status/Objective Patient Orientation: Person, Place, Time, Situation Attachments: IV Current Glasses/Contacts: Yes Upper Extremity ROM BUE ROM WFLS Upper Extremity Strength BUE Strength WFLS ADL-Treatment Eating (QC): 6 Oral Hygiene (QC): 6 Shower/Bathe Self (QC): 6 Upper Body Dressing (QC): 6 Lower Body Dressing (QC): 6 On/Off Footwear (QC): 6 Toileting Hygiene (QC): 6 Education OT Patient Education: Energy conservation, Safety issues Teaching Recipient: Patient Teaching Methods: Demonstration, Discussion Response to Teaching: Return Demonstration OT Correction Goals Apartment Locator Goals 1=Demonstrate adherence to instructed precautions during ADL tasks. 2=Patient will verbalize/demonstrate understanding of assistive devices/modifications for ADL. 3=Patient will improve strength/tolerance for activity to enable patient to perform ADL's. OT Education/Plan Problem List/Assessment Assessment: No Skilled OT Needs ID'd Discharge Recommendations Plan/Recommendations: Discontinue OT Treatment Plan/Plan of Care Patient would benefit from OT for education, treatment and training to promote independence in ADL's, mobility, safety and/or upper extremity function for ADL's. Plan of Care: OTHER (EVAL ONLY) Treatment Duration: Jan 06, 2023 Frequency: 1 time per week Estimated Hrs Per Day: .25 hour per day Agreement: Yes Rehab Potential: Good OT report to RN completion of EVAL , no LOB or dizziness Time Start Time: 13:55 Stop Time: 14:05 DATE: Jan 06, 2023 Total Time Billed (hr/min): 10 Billed Treatment Time EVL 10 min JESIKA MCKEON OT Jan 06, 2023 15:51
--- NOTE | 2023-01-06 16:31 | Consultation-Cardiology ---
HPI-Cardiology Cardiology Consultation: Date of Consultation 01/06/23 Time Seen by a Provider: 13:30 Date of Admission Attending Physician Amber Atkinson DO Admitting Physician Admitting Physician: Arleen Henderson MD Attending Physician: Amber Atkinson DO Consulting Physician LUCY CARRINO MD, MA, FACP, FACC, [facility], CCDS HPI: Chief Complaint: Syncope Mr. Cedillo is a 72 yr old male admitted to [facility] from the ED with a report of syncope. He states on Friday morning he was up in the kitchen at his home. He states he began to feel very dizzy and lightheaded. He reports he began to see black spots in his vision and he remembers falling. He states he cam to when he hit the floor/wall. He reports he feels dizzy most mornings, but typically it passes. He states this morning when standing up at the bedside he began to feel dizzy. He denies any c/o CP, palpitations. No c/o LE swelling. He reports poor appetite. He reports occ feeling of nausea, but no emesis or diarrhea. Review of Systems-Cardiology Review of Systems Constitutional: As described under HPI; No chills, No fever Eyes: As described under HPI; No vision change Ears/Nose/Throat: No epistaxis, No recent hearing loss Respiratory: As described under HPI Cardiovascular: As described under HPI Gastrointestinal: As described under HPI Genitourinary: No dysuria, No hematuria Musculoskeletal: no symptoms reported Skin: No rash on exposed areas, No ulcerations on exposed areas Psychiatric/Neurological: As described under HPI; No anxiety, No depression, No seizure Hematologic: No bleeding abnormalities NMJ-Hivnqh-Tciack Hx Patient Social History Smoking Status: Former Smoker 2nd Hand Smoke Exposure: No Have you traveled recently?: No Alcohol Use?: No Substance type: Marijuana Pt feels they are or have been: No Tobacco type used: Cigarettes Immunizations Up To Date Date of Influenza Vaccine: Sep 12, 2022 Past Medical History PMH As described under Assessment. Family Medical History Family Medical History: He reports a h/o heart disease in his mother but is not able to provide any details Allergies and Home Medications Allergies Coded Allergies: No Known Drug Allergies (Unverified , 08/18/13) Patient Home Medication List Home Medication List Reviewed: Yes Acetaminophen (Tylenol) 325 Mg Tablet, 650 MG PO Q6H PRN for PAIN-MILD (1-4), (Reported) Entered as Reported by: JEMAL NICHOLAS on 01/06/23832 Last Action: Reviewed Amlodipine Besylate (Amlodipine Besylate) 10 Mg Tablet, 5 MG PO DAILY, (Reported) Entered as Reported by: JEMAL NICHOLAS on 01/06/23832 Last Action: Reviewed Cyanocobalamin (Vitamin B-12) (Vitamin B-12) 500 Mcg Tablet, 500 MCG PO DAILY, (Reported) Entered as Reported by: ORACIO MORGAN on 12/13/22 150 Last Action: Reviewed Doxazosin Mesylate (Doxazosin Mesylate) 2 Mg Tablet, 2 MG PO BID, (Reported) Entered as Reported by: JEMAL NICHOLAS on 01/06/23832 Last Action: Reviewed Discontinued Medications Amlodipine Besylate (Amlodipine Besylate) 10 Mg Tablet, 10 MG PO DAILY Discontinued Reason: Duplicate Order Prescribed by: JENNIFER CHAUDHRY on 12/18/22944 Last Action: Discontinued Aspirin (Aspirin EC) 325 Mg Tablet.dr, 325-650 MG PO Q8H PRN for PAIN-MILD (1- 4), (Reported) Discontinued Reason: Duplicate Order Entered as Reported by: ORACIO MORGAN on 12/13/221500 Last Action: Discontinued Clonidine HCl (Clonidine HCl) 0.1 Mg Tablet, 0.1 MG PO Q4H PRN for sbp>180 Discontinued Reason: Duplicate Order Prescribed by: AMBER ATKINSON on 12/18/22 1330 Last Action: Discontinued Clonidine HCl (Clonidine HCl) 0.1 Mg Tablet, 0.1 MG PO BID PRN for BLOOD PRESSURE, (Reported) Discontinued Reason: No Longer Taking Entered as Reported by: JEMAL NICHOLAS on 01/06/23832 Last Action: Discontinued Doxazosin Mesylate (Doxazosin Mesylate) 2 Mg Tablet, 2 MG PO BID Discontinued Reason: Duplicate Order Prescribed by: JENNIFER CHAUDHRY on 12/18/22944 Last Action: Discontinued Physical Exam-Cardiology Physical Exam Vital Signs/I&O 01/06/23 01/06/23 01/06/23 01/06/23 07:00 08:00 08:00 08:14 Temp 36.7 Pulse 72 74 74 84 72 Resp 18 B/P (MAP) 135/75 (95) 135/75 (95) 118/65 (82) 100/54 (69) Pulse Ox 97 97 O2 Delivery Room Air Room Air 01/06/23 01/06/23 12:01 12:35 Temp 37.4 Pulse 62 59 Resp 18 B/P (MAP) 159/84 (109) Pulse Ox 99 O2 Delivery Room Air 01/06/23 00:00 Intake Total 1260 ml Output Total 1880 ml Balance -620 ml Capillary Refill : Less Than 3 Seconds Constitutional: AAO x 3, other (thin) HEENT: hearing is well preserved, oral hygience is good Neck: No carotid bruit; carotid pulses are 2 + bilaterally Respiratory: No accessory muscle use, No respiratory distress; chest expansion is symmetric, chest is bilaterally symmetric, lungs clear to auscultation Cardiovascular: regular rate-rhythm; No JVD; S1 and S2 Gastrointestinal: soft; No guarding; audible bowel sounds Extremities: no lower extremity edema bilateral Neurologic/Psychiatric: grossly intact (moves all extremities) Skin: No rash on exposed areas, No ulcerations on exposed areas Data Review Labs Laboratory Tests 01/06/23 05:35: White Blood Count 7.2, Red Blood Count 4.07L, Hemoglobin 13.0L, Hematocrit 38L, Mean Corpuscular Volume 94, Mean Corpuscular Hemoglobin 32, Mean Corpuscular Hemoglobin Concent 34, Red Cell Distribution Width 12.5, Platelet Count 231, Mean Platelet Volume 10.3, Immature Granulocyte % (Auto) 0, Neutrophils (%) (Auto) 76H, Lymphocytes (%) (Auto) 17, Monocytes (%) (Auto) 5, Eosinophils (%) (Auto) 1, Basophils (%) (Auto) 0, Neutrophils # (Auto) 5.5, Lymphocytes # (Auto) 1.2, Monocytes # (Auto) 0.4, Eosinophils # (Auto) 0.1, Basophils # (Auto) 0.0, Immature Granulocyte # (Auto) 0.0, Sodium Level 138, Potassium Level 3.3L, Chloride Level 100, Carbon Dioxide Level 25, Anion Gap 13, Blood Urea Nitrogen 14, Creatinine 0.88, Estimat Glomerular Filtration Rate 90, BUN/Creatinine Ratio 16, Glucose Level 86, Calcium Level 9.1, Corrected Calcium 9.3, Magnesium Level 2.0, Total Bilirubin 1.5H, Aspartate Amino Transf (AST/SGOT) 17, Alanine Aminotransferase (ALT/SGPT) 11, Alkaline Phosphatase 81, Total Protein 7.2, Albumin 3.7 A/P-Cardiology Assessment/Admission Diagnosis Syncopal episode - likely d/t orthostatic hypotension Orthostatic hypotension - H/o dizziness due to postural hypotension during hospitalization of 12/16/22 which had resolved following reduction in antihypertensive regimen - 01-06-23: lying 135/74 sitting 118/65 standing 83/52 Severe hypertension - echo of 12/14/22: LVEF 55-60% - Renal artery duplex on 12-13-22: No sonographic evidence of renal artery stenosis on the left. No acute sonographic abnormalities in the left kidney. Simple-appearing cortical cyst is seen in the left kidney. Surgically absent right kidney. Headache of undetermined etiology - managed by Dr Atkinson Quit tobacco in early R nephrectomy in 2020 for renal CA - details unknown to patient - managed by his oncologist at [facility] Discussion and Recomendations * Syncope is likely d/t postural hypotension, but continue tele to eval for possible jose g-arrhythmia * Complex management d/t labile hypertension and episodes of symptomatic hy potension. Recommend reduction in antihypertensive regimen * Frequent bp checks during the hospitalization leading to frequent admin to antihypertensives that then result in symptomatic hypotension. Change to less frequent bp checks and prn hypotensives only in case of extreme hypertension * Give IVF * Replenish electrolytes and monitor lab closely * We would like to thank Medical services for this consult LUCY CARRION MD FACP FAC CCDS Jan 06, 2023 16:31
[2023-01-06 19:28] VITALS: BP 149/76
[2023-01-07 05:45] LABS: BASOPHILS % (AUTO) 0 % (0-10); EOSINOPHILS # (AUTO) 0.1 10^3/uL (0.0-0.3); EOSINOPHILS % (AUTO) 1 % (0-10); HEMATOCRIT 36 % (40-54); HEMOGLOBIN 12.4 g/dL (13.3-17.7); LYMPHOCYTES # (AUTO) 1.1 10^3/uL (1.0-4.0); LYMPHOCYTES % (AUTO) 16 % (12-44); MEAN CORPUSCULAR HEMOGLOBIN 32 pg (25-34); MEAN CORPUSCULAR HGB CONC 34 g/dL (32-36); MEAN CORPUSCULAR VOLUME 94 fL (80-99); MEAN PLATELET VOLUME 10.5 fL (9.0-12.2); MONOCYTES # (AUTO) 0.4 10^3/uL (0.0-1.0); MONOCYTES % (AUTO) 6 % (0-12); NEUTROPHILS # (AUTO) 5.1 10^3/uL (1.8-7.8); NEUTROPHILS % (AUTO) 76 % (42-75); PLATELET COUNT 223 10^3/uL (130-400); WHITE BLOOD COUNT 6.7 10^3/uL (4.3-11.0)
[2023-01-07 06:02] LABS: ALBUMIN 3.6 GM/DL (3.2-4.5); POTASSIUM 3.2 MMOL/L (3.6-5.0)
[2023-01-07 06:03] LABS: CALCIUM 8.9 MG/DL (8.5-10.1)
[2023-01-07 06:05] LABS: TOTAL PROTEIN 6.8 GM/DL (6.4-8.2)
[2023-01-07 06:07] LABS: BILIRUBIN,TOTAL 1.6 MG/DL (0.1-1.0)
[2023-01-07 06:08] LABS: CREATININE SERUM 0.92 MG/DL (0.60-1.30)
[2023-01-07] MEDS: POTASSIUM CL 10MEQ/50ML IVPB 50 ML IV SCH (06:08)
[2023-01-07] MEDS: POTASSIUM BICARB 20 MEQ (EFFER-K) TABLET PO SCH (06:08)
[2023-01-07 06:11] LABS: MAGNESIUM 1.9 MG/DL (1.6-2.4)
[2023-01-07] MEDS: KCL 20 MEQ TAB (K-DUR) PO SCH (06:16)
[2023-01-07] MEDS: MAGNESIUM 1 GM/100 ML IVPB 100 ML IV SCH ×3 (06:18→07:54)
[2023-01-07] MEDS: LACTATED RINGERS 1,000 ML IV SCH (06:23)
[2023-01-07 07:40] VITALS: BP 200/100
[2023-01-07] MEDS: amLODIPine 5 MG (NORVASC) TAB PO SCH (08:23)
[2023-01-07] MEDS: SENNOSIDES 8.6 MG (SENOKOT) TAB PO SCH ×2 (08:23→20:20)
[2023-01-07] MEDS: FLUDROCORTISONE 0.1 MG (FLORINEF) TAB PO SCH (08:23)
[2023-01-07] MEDS: DOCUSATE SODIUM 100 MG (COLACE) CAP PO SCH ×2 (08:23→20:20)
[2023-01-07 09:00] VITALS: BP 154/74
[2023-01-07] MEDS ORDERED: KCL 20 MEQ TAB (K-DUR) PO ONE ×2 (09:00→13:00)
--- NOTE | 2023-01-07 10:50 | Progress Note - Cardiology ---
Cardiology SOAP Progress Note Subjective: Sitting up on the side of the bed Denies any further dizziness at this time No c/o CP or palpitations No c/o n/v/d Objective: I&O/Vital Signs 01/07/23 01/07/23 01/07/23 01/07/23 07:05 07:40 08:00 09:00 Temp 37.2 Pulse 60 64 61 Resp 20 B/P (MAP) 200/100 (133) 154/74 (100) Pulse Ox 99 96 O2 Delivery Room Air Room Air 01/07/23 01/07/23 01/07/23 12:30 13:07 16:30 Temp 36.5 35.3 Pulse 52 74 59 Resp 18 16 B/P (MAP) 146/68 (94) 186/86 (119) Pulse Ox 98 99 O2 Delivery Room Air Room Air 01/07/23 00:00 Intake Total 2224 ml Output Total 620 ml Balance 1604 ml Weight (Pounds): 170 Weight (Calculated Kilograms): 77.484999 Constitutional: AAO x 3, other (thin) Respiratory: No accessory muscle use, No respiratory distress; chest expansion is symmetric, chest is bilaterally symmetric, lungs clear to auscultation Cardiovascular: regular rate-rhythm; No JVD; S1 and S2 Gastrointestional: soft; No guarding; audible bowel sounds Extremities: no lower extremity edema bilateral Neurologic/Psychiatric: grossly intact (moves all extremities) Skin: No rash on exposed areas, No ulcerations on exposed areas Results/Procedures: Labs Laboratory Tests 01/07/23 05:10: White Blood Count 6.7, Red Blood Count 3.86L, Hemoglobin 12.4L, Hematocrit 36L, Mean Corpuscular Volume 94, Mean Corpuscular Hemoglobin 32, Mean Corpuscular Hemoglobin Concent 34, Red Cell Distribution Width 12.6, Platelet Count 223, Mean Platelet Volume 10.5, Immature Granulocyte % (Auto) 0, Neutrophils (%) (Auto) 76H, Lymphocytes (%) (Auto) 16, Monocytes (%) (Auto) 6, Eosinophils (%) (Auto) 1, Basophils (%) (Auto) 0, Neutrophils # (Auto) 5.1, Lymphocytes # (Auto) 1.1, Monocytes # (Auto) 0.4, Eosinophils # (Auto) 0.1, Basophils # (Auto) 0.0, Immature Granulocyte # (Auto) 0.0, Sodium Level 138, Potassium Level 3.2L, Chloride Level 100, Carbon Dioxide Level 27, Anion Gap 11, Blood Urea Nitrogen 14, Creatinine 0.92, Estimat Glomerular Filtration Rate 87, BUN/Creatinine Ratio 15, Glucose Level 85, Calcium Level 8.9, Corrected Calcium 9.2, Magnesium Level 1.9, Total Bilirubin 1.6H, Aspartate Amino Transf (AST/SGOT) 13, Alanine Aminotransferase (ALT/SGPT) 13, Alkaline Phosphatase 84, Total Protein 6.8, Albumin 3.6 A/P: Assessment: Syncopal episode - likely d/t orthostatic hypotension Orthostatic hypotension - H/o dizziness due to postural hypotension during hospitalization of 12/16/22 which had resolved following reduction in antihypertensive regimen - 01-06-23: lying 135/74 sitting 118/65 standing 83/52 Severe hypertension - echo of 12/14/22: LVEF 55-60% - Renal artery duplex on 12-13-22: No sonographic evidence of renal artery stenosis on the left. No acute sonographic abnormalities in the left kidney. Simple-appearing cortical cyst is seen in the left kidney. Surgically absent right kidney. Hypokalemia - undetermined etiology - management per medical services Headache of undetermined etiology - managed by Dr Valiente Quit tobacco in early R nephrectomy in 2020 for renal CA - details unknown to patient - managed by his oncologist at [facility] Plan: * Syncope is likely d/t postural hypotension, but continue tele to eval for possible jose g-arrhythmia * Complex management d/t labile hypertension and episodes of symptomatic hypotension. * Thus far our treatment strategy seem to bee working for symptomatic postural hypotension. We are going to continue our current treatment plan * Reduce IVF * Replenish electrolytes and monitor lab closely - management of hypokalemia is per medical services * We would like to thank Medical services for this consult JENNIFER CHAUDHRY Jan 07, 2023 10:50
[2023-01-07] MEDS ORDERED: FLDR.1T PO (10:53)
--- NOTE | 2023-01-07 10:56 | Discharge Summary ---
Diagnosis/Chief Complaint Date of Admission Jan 05, 2023 at 10:13 Date of Discharge Discharge Date: Jan 07, 2023 Discharge Summary Discharge Physical Examination Allergies: Coded Allergies: No Known Drug Allergies (Unverified , 08/18/13) Vitals & I&Os Vital Signs Date Time Temp Pulse Resp B/P (MAP) Pulse Ox O2 Delivery O2 Flow Rate FiO2 01/08/23 03:35 36.8 69 18 187/101 (129) 97 Room Air Hospital Course Labs (last 24 hrs) Laboratory Tests 01/04/23 09:40: White Blood Count 7.1, Red Blood Count 4.03L, Hemoglobin 13.1L, Hematocrit 38L, Mean Corpuscular Volume 93, Mean Corpuscular Hemoglobin 33, Mean Corpuscular Hemoglobin Concent 35, Red Cell Distribution Width 12.5, Platelet Count 236, Mean Platelet Volume 10.0, Immature Granulocyte % (Auto) 0, Neutrophils (%) (Auto) 80H, Lymphocytes (%) (Auto) 14, Monocytes (%) (Auto) 5, Eosinophils (%) (Auto) 0, Basophils (%) (Auto) 0, Neutrophils # (Auto) 5.6, Lymphocytes # (Auto) 1.0, Monocytes # (Auto) 0.4, Eosinophils # (Auto) 0.0, Basophils # (Auto) 0.0, Immature Granulocyte # (Auto) 0.0, Prothrombin Time 13.6, INR Comment 1.0, Activated Partial Thromboplast Time 30, Sodium Level 139, Potassium Level 3.7, Chloride Level 97L, Carbon Dioxide Level 28, Anion Gap 14, Blood Urea Nitrogen 18, Creatinine 1.35H, Estimat Glomerular Filtration Rate 55, BUN/Creatinine Ratio 13, Glucose Level 96, Calcium Level 9.3, Corrected Calcium 9.2, Magnesium Level 2.1, Total Bilirubin 1.8H, Aspartate Amino Transf (AST/SGOT) 15, Alanine Aminotransferase (ALT/SGPT) 16, Alkaline Phosphatase 88, Total Creatine Kinase 53, Creatine Kinase MB 1.0, Myoglobin 94.3H, Troponin I < 0.028, Total Protein 7.5, Albumin 4.1 01/04/23 11:11: Urine Color YELLOW, Urine Clarity CLEAR, Urine pH 6.5, Urine Specific [place] 1.015L, Urine Protein 1+H, Urine Glucose (UA) NEGATIVE, Urine Ketones NEGATIVE, Urine Nitrite NEGATIVE, Urine Bilirubin NEGATIVE, Urine Urobilinogen 1.0, Urine Leukocyte Esterase NEGATIVE, Urine RBC (Auto) NEGATIVE, Urine RBC NONE, Urine WBC NONE, Urine Squamous Epithelial Cells RARE, Urine Crystals NONE, Urine Bacteria NEGATIVE, Urine Casts PRESENT, Urine Hyaline Casts 10-25H, Urine Mucus NEGATIVE, Urine Culture Indicated NO 01/05/23 05:20: White Blood Count 6.7, Red Blood Count 3.85L, Hemoglobin 12.6L, Hematocrit 36L, Mean Corpuscular Volume 93, Mean Corpuscular Hemoglobin 33, Mean Corpuscular Hemoglobin Concent 35, Red Cell Distribution Width 12.4, Platelet Count 229, Mean Platelet Volume 10.6, Immature Granulocyte % (Auto) 0, Neutrophils (%) (Auto) 73, Lymphocytes (%) (Auto) 20, Monocytes (%) (Auto) 5, Eosinophils (%) (Auto) 1, Basophils (%) (Auto) 0, Neutrophils # (Auto) 4.9, Lymphocytes # (Auto) 1.3, Monocytes # (Auto) 0.4, Eosinophils # (Auto) 0.1, Basophils # (Auto) 0.0, Immature Granulocyte # (Auto) 0.0, Sodium Level 139, Potassium Level 2.8L, Chloride Level 100, Carbon Dioxide Level 28, Anion Gap 11, Blood Urea Nitrogen 17, Creatinine 1.01, Estimat Glomerular Filtration Rate 78, BUN/Creatinine Ratio 17, Glucose Level 86, Calcium Level 9.1, Magnesium Level 1.9 01/06/23 05:35: White Blood Count 7.2, Red Blood Count 4.07L, Hemoglobin 13.0L, Hematocrit 38L, Mean Corpuscular Volume 94, Mean Corpuscular Hemoglobin 32, Mean Corpuscular Hemoglobin Concent 34, Red Cell Distribution Width 12.5, Platelet Count 231, Mean Platelet Volume 10.3, Immature Granulocyte % (Auto) 0, Neutrophils (%) (Auto) 76H, Lymphocytes (%) (Auto) 17, Monocytes (%) (Auto) 5, Eosinophils (%) (Auto) 1, Basophils (%) (Auto) 0, Neutrophils # (Auto) 5.5, Lymphocytes # (Auto) 1.2, Monocytes # (Auto) 0.4, Eosinophils # (Auto) 0.1, Basophils # (Auto) 0.0, Immature Granulocyte # (Auto) 0.0, Sodium Level 138, Potassium Level 3.3L, Chloride Level 100, Carbon Dioxide Level 25, Anion Gap 13, Blood Urea Nitrogen 14, Creatinine 0.88, Estimat Glomerular Filtration Rate 90, BUN/Creatinine Ratio 16, Glucose Level 86, Calcium Level 9.1, Corrected Calcium 9.3, Magnesium Level 2.0, Total Bilirubin 1.5H, Aspartate Amino Transf (AST/SGOT) 17, Alanine Aminotransferase (ALT/SGPT) 11, Alkaline Phosphatase 81, Total Protein 7.2, Albumin 3.7 01/07/23 05:10: White Blood Count 6.7, Red Blood Count 3.86L, Hemoglobin 12.4L, Hematocrit 36L, Mean Corpuscular Volume 94, Mean Corpuscular Hemoglobin 32, Mean Corpuscular Hemoglobin Concent 34, Red Cell Distribution Width 12.6, Platelet Count 223, Mean Platelet Volume 10.5, Immature Granulocyte % (Auto) 0, Neutrophils (%) (Auto) 76H, Lymphocytes (%) (Auto) 16, Monocytes (%) (Auto) 6, Eosinophils (%) (Auto) 1, Basophils (%) (Auto) 0, Neutrophils # (Auto) 5.1, Lymphocytes # (Auto) 1.1, Monocytes # (Auto) 0.4, Eosinophils # (Auto) 0.1, Basophils # (Auto) 0.0, Immature Granulocyte # (Auto) 0.0, Sodium Level 138, Potassium Level 3.2L, Chloride Level 100, Carbon Dioxide Level 27, Anion Gap 11, Blood Urea Nitrogen 14, Creatinine 0.92, Estimat Glomerular Filtration Rate 87, BUN/Creatinine Ratio 15, Glucose Level 85, Calcium Level 8.9, Corrected Calcium 9.2, Magnesium Level 1.9, Total Bilirubin 1.6H, Aspartate Amino Transf (AST/SGOT) 13, Alanine Aminotransferase (ALT/SGPT) 13, Alkaline Phosphatase 84, Total Protein 6.8, Albumin 3.6 Pending Labs Laboratory Tests 01/04/23 09:40: White Blood Count 7.1, Red Blood Count 4.03, Hemoglobin 13.1, Hematocrit 38, Mean Corpuscular Volume 93, Mean Corpuscular Hemoglobin 33, Mean Corpuscular Hemoglobin Concent 35, Red Cell Distribution Width 12.5, Platelet Count 236, Mean Platelet Volume 10.0, Immature Granulocyte % (Auto) 0, Neutrophils (%) (Auto) 80, Lymphocytes (%) (Auto) 14, Monocytes (%) (Auto) 5, Eosinophils (%) (Auto) 0, Basophils (%) (Auto) 0, Neutrophils # (Auto) 5.6, Lymphocytes # (Auto) 1.0, Monocytes # (Auto) 0.4, Eosinophils # (Auto) 0.0, Basophils # (Auto) 0.0, Immature Granulocyte # (Auto) 0.0, Prothrombin Time 13.6, INR Comment 1.0, Activated Partial Thromboplast Time 30, Sodium Level 139, Potassium Level 3.7, Chloride Level 97, Carbon Dioxide Level 28, Anion Gap 14, Blood Urea Nitrogen 18, Creatinine 1.35, Estimat Glomerular Filtration Rate 55, BUN/Creatinine Ratio 13, Glucose Level 96, Calcium Level 9.3, Corrected Calcium 9.2, Magnesium Level 2.1, Total Bilirubin 1.8, Aspartate Amino Transf (AST/SGOT) 15, Alanine Aminotransferase (ALT/SGPT) 16, Alkaline Phosphatase 88, Total Creatine Kinase 53, Creatine Kinase MB 1.0, Myoglobin 94.3, Troponin I < 0.028, Total Protein 7.5, Albumin 4.1 01/04/23 11:11: Urine Color YELLOW, Urine Clarity CLEAR, Urine pH 6.5, Urine Specific [place] 1.015, Urine Protein 1+, Urine Glucose (UA) NEGATIVE, Urine Ketones NEGATIVE, Urine Nitrite NEGATIVE, Urine Bilirubin NEGATIVE, Urine Urobilinogen 1.0, Urine Leukocyte Esterase NEGATIVE, Urine RBC (Auto) NEGATIVE, Urine RBC NONE, Urine WBC NONE, Urine Squamous Epithelial Cells RARE, Urine Crystals NONE, Urine Bacteria NEGATIVE, Urine Casts PRESENT, Urine Hyaline Casts 10-25, Urine Mucus NEGATIVE, Urine Culture Indicated NO 01/05/23 05:20: White Blood Count 6.7, Red Blood Count 3.85, Hemoglobin 12.6, Hematocrit 36, Mean Corpuscular Volume 93, Mean Corpuscular Hemoglobin 33, Mean Corpuscular Hemoglobin Concent 35, Red Cell Distribution Width 12.4, Platelet Count 229, Mean Platelet Volume 10.6, Immature Granulocyte % (Auto) 0, Neutrophils (%) (Auto) 73, Lymphocytes (%) (Auto) 20, Monocytes (%) (Auto) 5, Eosinophils (%) (Auto) 1, Basophils (%) (Auto) 0, Neutrophils # (Auto) 4.9, Lymphocytes # (Auto) 1.3, Monocytes # (Auto) 0.4, Eosinophils # (Auto) 0.1, Basophils # (Auto) 0.0, Immature Granulocyte # (Auto) 0.0, Sodium Level 139, Potassium Level 2.8, Chloride Level 100, Carbon Dioxide Level 28, Anion Gap 11, Blood Urea Nitrogen 17, Creatinine 1.01, Estimat Glomerular Filtration Rate 78, BUN/Creatinine Ratio 17, Glucose Level 86, Calcium Level 9.1, Magnesium Level 1.9 01/06/23 05:35: White Blood Count 7.2, Red Blood Count 4.07, Hemoglobin 13.0, Hematocrit 38, Mean Corpuscular Volume 94, Mean Corpuscular Hemoglobin 32, Mean Corpuscular Hemoglobin Concent 34, Red Cell Distribution Width 12.5, Platelet Count 231, Mean Platelet Volume 10.3, Immature Granulocyte % (Auto) 0, Neutrophils (%) (Auto) 76, Lymphocytes (%) (Auto) 17, Monocytes (%) (Auto) 5, Eosinophils (%) (Auto) 1, Basophils (%) (Auto) 0, Neutrophils # (Auto) 5.5, Lymphocytes # (Auto) 1.2, Monocytes # (Auto) 0.4, Eosinophils # (Auto) 0.1, Basophils # (Auto) 0.0, Immature Granulocyte # (Auto) 0.0, Sodium Level 138, Potassium Level 3.3, Chloride Level 100, Carbon Dioxide Level 25, Anion Gap 13, Blood Urea Nitrogen 14, Creatinine 0.88, Estimat Glomerular Filtration Rate 90, BUN/Creatinine Ratio 16, Glucose Level 86, Calcium Level 9.1, Corrected Calcium 9.3, Magnesium Level 2.0, Total Bilirubin 1.5, Aspartate Amino Transf (AST/SGOT) 17, Alanine Aminotransferase (ALT/SGPT) 11, Alkaline Phosphatase 81, Total Protein 7.2, Albumin 3.7 01/07/23 05:10: White Blood Count 6.7, Red Blood Count 3.86, Hemoglobin 12.4, Hematocrit 36, Mean Corpuscular Volume 94, Mean Corpuscular Hemoglobin 32, Mean Corpuscular Hemoglobin Concent 34, Red Cell Distribution Width 12.6, Platelet Count 223, Mean Platelet Volume 10.5, Immature Granulocyte % (Auto) 0, Neutrophils (%) (Auto) 76, Lymphocytes (%) (Auto) 16, Monocytes (%) (Auto) 6, Eosinophils (%) (Auto) 1, Basophils (%) (Auto) 0, Neutrophils # (Auto) 5.1, Lymphocytes # (Auto) 1.1, Monocytes # (Auto) 0.4, Eosinophils # (Auto) 0.1, Basophils # (Auto) 0.0, Immature Granulocyte # (Auto) 0.0, Sodium Level 138, Potassium Level 3.2, Chloride Level 100, Carbon Dioxide Level 27, Anion Gap 11, Blood Urea Nitrogen 14, Creatinine 0.92, Estimat Glomerular Filtration Rate 87, BUN/Creatinine Ratio 15, Glucose Level 85, Calcium Level 8.9, Corrected Calcium 9.2, Magnesium Level 1.9, Total Bilirubin 1.6, Aspartate Amino Transf (AST/SGOT) 13, Alanine Aminotransferase (ALT/SGPT) 13, Alkaline Phosphatase 84, Total Protein 6.8, Albumin 3.6 Discharge Home Medications: Active Scripts Active Fludrocortisone Acetate 0.1 Mg Tab 0.1 Mg PO DAILY Reported Tylenol (Acetaminophen) 325 Mg Tablet 650 Mg PO Q6H PRN Doxazosin Mesylate 2 Mg Tablet 2 Mg PO BID Amlodipine Besylate 10 Mg Tablet 5 Mg PO DAILY TAKES OF A (10MG) TABLET Vitamin B-12 (Cyanocobalamin (Vitamin B-12)) 500 Mcg Tablet 500 Mcg PO DAILY Instructions to patient/family Please see electronic discharge instructions given to patient. NORRIS ATKINSON DO Jan 07, 2023 10:56
--- NOTE | 2023-01-07 11:09 | Progress Note ---
MITA LAL 01/07/23 1108: Progress Note Subjective: Hospital Course: This is a 72 y/o male who presented to the ED after a syncopal episode and found to have orthostatic hypotension. He was recently admitted for the same diagnosis. He has a history of RCC with nephrectomy. He takes amlodipine 10mg daily at home and has extremely labile BPs. Upon admission he continued to have orthostatic hypotension and felt dizzy with walking to the restroom. It was noted that Renin and aldosterone labs from previous visit were significantly elevated. Fludrocortisone was added to patient regimen with IV fluids and the patient improved to where he was not dizzy upon standing. Cardiology was also consulted for medication management. His amlodipine was also reduced to 5mg daily as cardiology favored treating PRN severe hypertension vs orthostasis from higher doses. On HD#3 he was feeling well enough and had been without dizziness overnight and desired discharge with close outpatient follow- up. Interval Progress: Pt is sitting up in bed this AM. He feels a bit sick to his stomach but was able to eat without issue. He has been up to the bathroom with some help and did not feel dizzy. He's frustrated that he has to go to the bathroom with assistance due to his fall risk status. He otherwise has no complaints. Passing gas but no BM, though feels like he could go. Has some urinary hesitancy since he has to have assistance in the bathroom while inpatient. Objective: Vital Signs Date Time Temp Pulse Resp B/P (MAP) Pulse Ox O2 Delivery O2 Flow Rate FiO2 01/07/23 09:00 61 154/74 (100) 01/07/23 08:00 96 Room Air 01/07/23 07:40 37.2 64 20 200/100 (133) 99 Room Air 01/07/23 07:05 60 01/07/23 01:00 69 01/06/23 19:55 Room Air 01/06/23 19:28 37.0 60 18 149/76 (100) 97 Room Air 01/06/23 19:00 64 01/06/23 12:35 59 01/06/23 12:01 37.4 62 18 159/84 (109) 99 Room Air I & O 01/07/23 07:00 Intake Total 3424 ml Output Total 1020 ml Balance 2404 ml General: Alert, Oriented X3 HEENT: Atraumatic, PERRLA Lungs: Clear to Auscultation, Normal Air Movement Heart: Regular Rate, Normal S1, Normal S2 Abdomen: Normal Bowel Sounds, Soft Extremities: No Edema, Normal Pulses Psych/Mental Status: Mental Status NL, Mood NL Laboratory Tests 01/06/23 05:35 01/07/23 05:10 Radiology NAME: BENY SMITH REC#: [id number] PT STATUS: ADM Gabriele : 1950 PHYSICIAN: GERRY GRANT DO ADMIT DATE: 01/04/23 Signed Date of Exam:01/04/23 CT HEAD/FACE/CERVICAL WO PROCEDURE: CT head, face, and cervical spine without contrast. TECHNIQUE: Multiple contiguous axial images were obtained through the head, neck, and facial bones without the use of intravenous contrast. Sagittal and coronal reformations through the cervical spine and facial bones were also performed. Auto Exposure Controls were utilized during the CT exam to meet ALARA standards for radiation dose reduction. INDICATION: Injury, head, face, and neck pain. COMPARISON: CT from 12/13/2022 FINDINGS: CT HEAD: The ventricles and cortical sulci are mildly prominent, likely from generalized parenchymal volume loss. There is no midline shift or mass effect. No acute intracranial hemorrhage is seen. There is no CT evidence of acute territorial ischemia. The calvarium appears intact. CT FACE: The pterygoid plates are intact. The zygomatic arches are intact. The mandible is normal in alignment and appears intact. The maxilla appears intact. There is mild deformity of the nasal bones which is favored to be chronic. The orbits appear intact. The globes are intact. Lens implants are noted bilaterally. There are soft tissue calcifications noted on the skin. There are multiple dental caries. CT CERVICAL SPINE: Alignment of the cervical spine appears to have trace anterolisthesis at C2-C3 but is otherwise normal. There are mild degenerative changes at C2-C3, C3-C4 and C4-C5. There is facet arthropathy bilaterally. No acute fracture is seen. No bony fragments or hyperdense fluid collections are seen in the spinal canal. Surrounding soft tissues demonstrate no acute abnormality. There is scarring in the lung apices. IMPRESSION: 1. No acute intracranial hemorrhage or calvarium fracture. 2. 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 Otherwise, no acute fracture is seen in the face. 3. Degenerative changes in the cervical spine with no acute fracture seen. Dictated by: Dictated on workstation # [id number] Dict: 01/04/23 0958 Trans: 01/04/23 1111 [facility] [id number] Interpreted by: NAYANA MORA MD Electronically signed by: NAYANA MORA MD 01/04/23 1111 Assessment/Plan Assessment/Plan Assess & Plan/Chief Complaint Assessment: This is a 72 y/o male who presented after an episode of syncope 2/2 orthostatic hypotension now HD#3 Syncope Orthostasis Hypertension Secondary Hyperaldosteronism -Patient improved this AM, no dizziness since yesterday morning (01/07) -BPs ranging 140-180s systolic, 70-90s diastolic -Renin elevated at 13.62 from previous visit, aldosterone activity 41 with h ypokalemia c/w secondary hyperaldosteronism -Added fludrocortisone, reduced amlodipine to 5mg -LR at 75 ml/hr; pt has good appetite and intake -Continue norvasc 10mg -Consult cardiology to follow; appreciate recs -Will continue to monitor inpatient -echo on 12/14/22: LVEF 55-60% Hx RCC s/p right nephrectomy -Cr 0.92, BUN 14 today -Renal artery duplex on 12-13-22: No sonographic evidence of renal artery stenosis on the left. No acute sonographic abnormalities in the left kidney. Simple-appearing cortical cyst is seen in the left kidney. Surgically absent right kidney. FEN/GI -On 50 ml/hr LR; can DC -Replacing K+ -Regular Diet -Bowel regimen, PPI ordered DVT ppx: Lovenox, SCDs. NORRIS ATKINSON DO 01/08/23 0517: Supervisory-Addendum Brief Verification & Attestation Participated in pt care: history, MDM, physical Personally performed: exam, history, MDM, supervision of care Care discussed with: Medical Student Procedures: n/a Results interpretation: Verified all documentation Verification and Attestation of Medical Student E/M Service A medical student performed and documented this service in my presence. I reviewed and verified all information documented by the medical student and made modifications to such information, when appropriate. I personally performed the physical exam and medical decision making. Kerrie Grissom 22, 2023,05:17 IMTA LAL Jan 07, 2023 11:08 NORRIS ATKINSON DO Jan 08, 2023 05:17
--- NOTE | 2023-01-07 11:49 | Physical Therapy Daily Note ---
PT Daily Note-Current Subjective Patient reports he is feeling better today. Agrees to PT. Pain Section J - Health Conditions 1. Rarely or not at all 2. Occasionally 3. Frequently 4. Almost constantly 8. Unable to answer Pain Effect on Sleep: 1 Pain Interference with Therapy: 1 Pain Interference w/Day-to-Day: 1 Mental Status Patient Orientation: Normal For Age Attachments: IV Transfers SCALE: Activities may be completed with or without assistive devices. 0-Bpihvaxghl-kqlaufe completes the activity by him/herself with no assistance from a helper. 5-Set-up or Clean-up Assistance-helper sets up or cleans up; patient completes activity. [place] assists only prior to or following the activity. 4-Supervision or Touching Assistance-helper provides verbal cues and/or touching/steadying and/or contact guard assistance as patient completes activity. Assistance may be provided throughout the activity or intermittently. 3-Partial/Moderate Assistance-helper does LESS THAN HALF the effort. [place] lifts, holds or supports trunk or limbs, but provides less than half the effort. 2-Substantial/Maximal Assistance-helper does MORE THAN HALF the effort. [place] lifts or holds trunk or limbs and provides more than half the effort. 1-Sreffwfvu-utljlr does ALL the effort. Patient does none of the effort to complete the activity. Or, the assistance of 2 or more helpers is required for the patient to complete the activity. If activity was not attempted, code reason: 7-Patient Refused. 9-Not Applicable-not attempted and the patient did not perform the activity bef ore the current illness, exacerbation or injury. 10-Not Attempted due to Environmental Limitations-(lack of equipment, weather r estraints, etc.). 88-Not Attempted due to Medical Conditions or Safety Concerns. Lying to Sitting/Side of Bed(Q: 6 Sit to Stand (QC): 6 Chair/Edh-hh-Dffey Xfer(QC): 6 Gait Training Distance: 300' Walk 10 feet (QC): 6 Walk 50 ft with 2 Turns(QC): 6 Walk 150 ft (QC): 6 Gait Assistive Device: None safe and functional with no deviation Assessment Patient is currently at independent PLOF with all gross motor skills safely and no longer requires skilled PT. PT to dismiss patient from services at this time. PT Short Term Goals Short Term Goals Time Frame: Jan 07, 2023 Roll Left & Right: 6 Sit to lyin Lying to sitting on side of be: 6 Sit to stand: 6 Chair/htp-dw-syhji transfer: 6 Toilet transfer: 6 Walk 10 feet: 6 Walk 50 feet with two turns: 6 Walk 150 feet: 6 PT Plan Treatment/Plan Treatment Plan: Discontinue PT, goals met Treatment Plan: Functional Activity Merna, Gait, Safety Treatment Duration: Jan 07, 2023 Frequency: 2 times per week Estimated Hrs Per Day: .25 hour per day Patient and/or Family Agrees t: Yes Time Time In: 1101 Time Out: 1109 DATE: Jan 07, 2023 Total Billed Treatment Time: 8 Total Billed Treatment 1 visit FA 8 min DARA MOHAMUD PT Jan 07, 2023 11:49
[2023-01-07 12:30] VITALS: BP 146/68
[2023-01-07] MEDS: ENOXAPARIN INJECTION 30 MG/0.3 ML SYR SC SCH (13:01)
--- NOTE | 2023-01-07 13:29 | Progress Note - Cardiology ---
Cardiology SOAP Progress Note Subjective: No cp or palp or syncope or shortness of breath Gen malaise No n/v/d Objective: I&O/Vital Signs 01/07/23 01/07/23 01/07/23 01/07/23 07:05 07:40 08:00 09:00 Temp 37.2 Pulse 60 64 61 Resp 20 B/P (MAP) 200/100 (133) 154/74 (100) Pulse Ox 99 96 O2 Delivery Room Air Room Air 01/07/23 00:00 Intake Total 2224 ml Output Total 620 ml Balance 1604 ml Weight (Pounds): 170 Weight (Calculated Kilograms): 77.623666 Constitutional: AAO x 3, other (thin) Respiratory: No accessory muscle use, No respiratory distress; chest expansion is symmetric, chest is bilaterally symmetric, lungs clear to auscultation Cardiovascular: regular rate-rhythm; No JVD; S1 and S2 Gastrointestional: soft; No guarding; audible bowel sounds Extremities: no lower extremity edema bilateral Neurologic/Psychiatric: grossly intact (moves all extremities) Skin: No rash on exposed areas, No ulcerations on exposed areas Results/Procedures: Labs Laboratory Tests 01/07/23 05:10: White Blood Count 6.7, Red Blood Count 3.86L, Hemoglobin 12.4L, Hematocrit 36L, Mean Corpuscular Volume 94, Mean Corpuscular Hemoglobin 32, Mean Corpuscular Hemoglobin Concent 34, Red Cell Distribution Width 12.6, Platelet Count 223, Mean Platelet Volume 10.5, Immature Granulocyte % (Auto) 0, Neutrophils (%) (Auto) 76H, Lymphocytes (%) (Auto) 16, Monocytes (%) (Auto) 6, Eosinophils (%) (Auto) 1, Basophils (%) (Auto) 0, Neutrophils # (Auto) 5.1, Lymphocytes # (Auto) 1.1, Monocytes # (Auto) 0.4, Eosinophils # (Auto) 0.1, Basophils # (Auto) 0.0, Immature Granulocyte # (Auto) 0.0, Sodium Level 138, Potassium Level 3.2L, Chloride Level 100, Carbon Dioxide Level 27, Anion Gap 11, Blood Urea Nitrogen 14, Creatinine 0.92, Estimat Glomerular Filtration Rate 87, BUN/Creatinine Ratio 15, Glucose Level 85, Calcium Level 8.9, Corrected Calcium 9.2, Magnesium Level 1.9, Total Bilirubin 1.6H, Aspartate Amino Transf (AST/SGOT) 13, Alanine Aminotransferase (ALT/SGPT) 13, Alkaline Phosphatase 84, Total Protein 6.8, Albumin 3.6 Laboratory Tests 01/06/23 05:35 01/07/23 05:10 A/P: Assessment: Syncopal episode - likely d/t orthostatic hypotension Orthostatic hypotension - H/o dizziness due to postural hypotension during hospitalization of 12/16/22 which had resolved following reduction in antihypertensive regimen - 01-06-23: lying 135/74 sitting 118/65 standing 83/52 Severe hypertension - echo of 12/14/22: LVEF 55-60% - Renal artery duplex on 12-13-22: No sonographic evidence of renal artery stenosis on the left. No acute sonographic abnormalities in the left kidney. Simple-appearing cortical cyst is seen in the left kidney. Surgically absent right kidney. 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 * Thus far our treatment strategy seem to bee working for symptomatic postural hypotension. We are going to continue our current treatment plan * Reduce IVF * Replenish electrolytes and monitor lab closely - management of hypokalemia is per medical services LUCY CARRION MD FACP [facility] Jan 07, 2023 13:29
[2023-01-07 16:30] VITALS: BP 186/86
[2023-01-07 17:53] VITALS: BP 162/80
[2023-01-07 19:51] VITALS: BP 128/66
[2023-01-08] VITALS: BP 181/89
[2023-01-08 03:35] VITALS: BP 187/101
[2023-01-08] MEDS: LACTATED RINGERS 1,000 ML IV SCH (03:35)
[2023-01-08 05:49] LABS: BASOPHILS % (AUTO) 0 % (0-10); EOSINOPHILS # (AUTO) 0.1 10^3/uL (0.0-0.3); EOSINOPHILS % (AUTO) 1 % (0-10); HEMATOCRIT 38 % (40-54); HEMOGLOBIN 13.2 g/dL (13.3-17.7); LYMPHOCYTES # (AUTO) 1.2 10^3/uL (1.0-4.0); LYMPHOCYTES % (AUTO) 17 % (12-44); MEAN CORPUSCULAR HEMOGLOBIN 32 pg (25-34); MEAN CORPUSCULAR HGB CONC 35 g/dL (32-36); MEAN CORPUSCULAR VOLUME 93 fL (80-99); MEAN PLATELET VOLUME 10.5 fL (9.0-12.2); MONOCYTES # (AUTO) 0.4 10^3/uL (0.0-1.0); MONOCYTES % (AUTO) 6 % (0-12); NEUTROPHILS # (AUTO) 5.4 10^3/uL (1.8-7.8); NEUTROPHILS % (AUTO) 76 % (42-75); PLATELET COUNT 224 10^3/uL (130-400); WHITE BLOOD COUNT 7.1 10^3/uL (4.3-11.0)
[2023-01-08 06:01] LABS: ALBUMIN 3.8 GM/DL (3.2-4.5); POTASSIUM 3.3 MMOL/L (3.6-5.0)
[2023-01-08 06:02] LABS: CALCIUM 8.8 MG/DL (8.5-10.1)
[2023-01-08] MEDS: POTASSIUM BICARB 20 MEQ (EFFER-K) TABLET PO SCH (06:03)
[2023-01-08] MEDS: POTASSIUM CL 10MEQ/50ML IVPB 50 ML IV SCH (06:03)
[2023-01-08 06:04] LABS: TOTAL PROTEIN 7.1 GM/DL (6.4-8.2)
[2023-01-08] MEDS: KCL 20 MEQ TAB (K-DUR) PO SCH (06:04)
[2023-01-08 06:05] LABS: BILIRUBIN,TOTAL 1.4 MG/DL (0.1-1.0)
[2023-01-08 06:07] LABS: CREATININE SERUM 0.96 MG/DL (0.60-1.30)
[2023-01-08 06:10] LABS: MAGNESIUM 2.1 MG/DL (1.6-2.4)
[2023-01-08] MEDS: MAGNESIUM 1 GM/100 ML IVPB 100 ML IV SCH (06:19)
[2023-01-08 08:02] VITALS: BP 120/75
[2023-01-08] MEDS: amLODIPine 5 MG (NORVASC) TAB PO SCH (08:37)
[2023-01-08] MEDS: SENNOSIDES 8.6 MG (SENOKOT) TAB PO SCH (08:37)
[2023-01-08] MEDS: DOCUSATE SODIUM 100 MG (COLACE) CAP PO SCH (08:38)
[2023-01-08] MEDS: FLUDROCORTISONE 0.1 MG (FLORINEF) TAB PO SCH (08:38)
[2023-01-08] MEDS ORDERED: KCL 20 MEQ TAB (K-DUR) PO ONE ×2 (09:00→13:00)
--- NOTE | 2023-01-08 09:09 | Progress Note - Cardiology ---
Cardiology SOAP Progress Note Subjective: Sitting up in recliner at the bedside No c/o dizziness or lightheadedness No c/o CP, palpitations, dyspnea, syncope or near syncope No c/o n/v/d Objective: I&O/Vital Signs 01/08/23 01/08/23 01/08/23 01/08/23 00:00 01:00 03:35 07:00 Temp 37.0 36.8 Pulse 62 69 69 66 Resp 18 18 B/P (MAP) 181/89 (119) 187/101 (129) Pulse Ox 99 97 O2 Delivery Room Air Room Air 01/08/23 08:02 Temp 36.6 Pulse 79 Resp 16 B/P (MAP) 120/75 (90) Pulse Ox 99 O2 Delivery Room Air 01/08/23 00:00 Intake Total 1310 ml Output Total 700 ml Balance 610 ml Weight (Pounds): 170 Weight (Calculated Kilograms): 77.135968 Constitutional: AAO x 3, other (thin) Respiratory: No accessory muscle use, No respiratory distress; chest expansion is symmetric, chest is bilaterally symmetric, lungs clear to auscultation Cardiovascular: regular rate-rhythm; No JVD; S1 and S2 Gastrointestional: soft; No guarding; audible bowel sounds Extremities: no lower extremity edema bilateral Neurologic/Psychiatric: grossly intact (moves all extremities) Skin: No rash on exposed areas, No ulcerations on exposed areas Results/Procedures: Labs Laboratory Tests 01/08/23 05:12: White Blood Count 7.1, Red Blood Count 4.08L, Hemoglobin 13.2L, Hematocrit 38L, Mean Corpuscular Volume 93, Mean Corpuscular Hemoglobin 32, Mean Corpuscular Hemoglobin Concent 35, Red Cell Distribution Width 12.6, Platelet Count 224, Mean Platelet Volume 10.5, Immature Granulocyte % (Auto) 0, Neutrophils (%) (Auto) 76H, Lymphocytes (%) (Auto) 17, Monocytes (%) (Auto) 6, Eosinophils (%) (Auto) 1, Basophils (%) (Auto) 0, Neutrophils # (Auto) 5.4, Lymphocytes # (Auto) 1.2, Monocytes # (Auto) 0.4, Eosinophils # (Auto) 0.1, Basophils # (Auto) 0.0, Immature Granulocyte # (Auto) 0.0, Sodium Level 140, Potassium Level 3.3L, Chloride Level 101, Carbon Dioxide Level 26, Anion Gap 13, Blood Urea Nitrogen 16, Creatinine 0.96, Estimat Glomerular Filtration Rate 83, BUN/Creatinine Ratio 17, Glucose Level 87, Calcium Level 8.8, Corrected Calcium 9.0, Magnesium Level 2.1, Total Bilirubin 1.4H, Aspartate Amino Transf (AST/SGOT) 17, Alanine Aminotransferase (ALT/SGPT) 17, Alkaline Phosphatase 94, Total Protein 7.1, Albumin 3.8 Laboratory Tests 01/07/23 05:10 01/08/23 05:12 A/P: Assessment: Syncopal episode - likely d/t orthostatic hypotension - no further episodes Orthostatic hypotension - H/o dizziness due to postural hypotension during hospitalization of 12/16/22 which had resolved following reduction in antihypertensive regimen - 01-06-23: lying 135/74 sitting 118/65 standing 83/52 Severe hypertension - echo of 12/14/22: LVEF 55-60% - Renal artery duplex on 12-13-22: No sonographic evidence of renal artery stenosis on the left. No acute sonographic abnormalities in the left kidney. Simple-appearing cortical cyst is seen in the left kidney. Surgically absent right kidney. Hypokalemia - undetermined etiology - management by Dr Valiente Headache of undetermined etiology - managed by Dr Valiente Quit tobacco in early R nephrectomy in 2020 for renal CA - details unknown to patient - managed by his oncologist at [facility] Plan: * Complex management d/t labile hypertension and episodes of symptomatic hypotension. * Thus far our treatment strategy seems to be working for symptomatic postural hypotension. We are going to continue our current treatment plan * Replenish electrolytes and monitor lab closely - management of hypokalemia is per medical services - continued hypokalemia despite replacement JENNIFER CHAUDHRY Jan 08, 2023 09:09
[2023-01-08] MEDS ORDERED: AMLO2.5T2 PO (09:34)
[2023-01-08] MEDS ORDERED: POTA10CA44 PO (09:34)
[2023-01-08] MEDS ORDERED: AMLO5TAB4 PO (09:34)
--- NOTE | 2023-01-08 11:19 | Discharge Summary ---
Diagnosis/Chief Complaint Date of Admission Jan 05, 2023 at 10:13 Date of Discharge Discharge Date: Jan 08, 2023 Discharge Diagnosis Assessment: This is a 72 y/o male who presented after an episode of syncope 2/2 orthostatic hypotension now HD#3 Syncope Orthostasis Hypertension Secondary Hyperaldosteronism -Patient improved this AM, no dizziness since yesterday morning (01/07) -BPs ranging 140-180s systolic, 70-90s diastolic -Renin elevated at 13.62 from previous visit, aldosterone activity 41 with hypokalemia c/w secondary hyperaldosteronism -Added fludrocortisone, reduced amlodipine to 5mg -LR at 75 ml/hr; pt has good appetite and intake -Continue norvasc 10mg -Consult cardiology to follow; appreciate recs -Will continue to monitor inpatient -echo on 12/14/22: LVEF 55-60% Hx RCC s/p right nephrectomy -Cr 0.92, BUN 14 today -Renal artery duplex on 12-13-22: No sonographic evidence of renal artery stenosis on the left. No acute sonographic abnormalities in the left kidney. Simple-appearing cortical cyst is seen in the left kidney. Surgically absent right kidney. FEN/GI -On 50 ml/hr LR; can DC -Replacing K+ -Regular Diet -Bowel regimen, PPI ordered DVT ppx: Lovenox, SCDs. Discharge Summary Discharge Physical Examination Allergies: Coded Allergies: No Known Drug Allergies (Unverified , 08/18/13) Vitals & I&Os Vital Signs Date Time Temp Pulse Resp B/P (MAP) Pulse Ox O2 Delivery O2 Flow Rate FiO2 01/08/23 11:25 36.5 61 18 163/79 100 Room Air General Appearance: Alert Respiratory: Clear to Auscultation Cardiovascular: Regular Rate Psych/Mental Status: Mental Status NL Hospital Course Was the Problem List Reviewed?: Yes Hospital Course: This is a 72 y/o male who presented to the ED after a syncopal episode and found to have orthostatic hypotension. He was recently admitted for the same diagnosis. He has a history of RCC with nephrectomy. He takes amlodip ine 10mg daily at home and has extremely labile BPs. Upon admission he continued to have orthostatic hypotension and felt dizzy with walking to the restroom. It was noted that Renin and aldosterone labs from previous visit were significantly elevated. Fludrocortisone was added to patient regimen with IV fluids and the patient improved to where he was not dizzy upon standing. Cardiology was also consulted for medication management. His amlodipine was also reduced to 5mg daily as cardiology favored treating PRN severe hypertension vs orthostasis from higher doses. On HD#3 he was feeling well enough and had been without dizziness overnight and desired discharge with close outpatient follow-up. Labs (last 24 hrs) Laboratory Tests 01/04/23 09:40: White Blood Count 7.1, Red Blood Count 4.03L, Hemoglobin 13.1L, Hematocrit 38L, Mean Corpuscular Volume 93, Mean Corpuscular Hemoglobin 33, Mean Corpuscular Hemoglobin Concent 35, Red Cell Distribution Width 12.5, Platelet Count 236, Mean Platelet Volume 10.0, Immature Granulocyte % (Auto) 0, Neutrophils (%) (Auto) 80H, Lymphocytes (%) (Auto) 14, Monocytes (%) (Auto) 5, Eosinophils (%) (Auto) 0, Basophils (%) (Auto) 0, Neutrophils # (Auto) 5.6, Lymphocytes # (Auto) 1.0, Monocytes # (Auto) 0.4, Eosinophils # (Auto) 0.0, Basophils # (Auto) 0.0, Immature Granulocyte # (Auto) 0.0, Prothrombin Time 13.6, INR Comment 1.0, Activated Partial Thromboplast Time 30, Sodium Level 139, Potassium Level 3.7, Chloride Level 97L, Carbon Dioxide Level 28, Anion Gap 14, Blood Urea Nitrogen 18, Creatinine 1.35H, Estimat Glomerular Filtration Rate 55, BUN/Creatinine Ratio 13, Glucose Level 96, Calcium Level 9.3, Corrected Calcium 9.2, Magnesium Level 2.1, Total Bilirubin 1.8H, Aspartate Amino Transf (AST/SGOT) 15, Alanine Aminotransferase (ALT/SGPT) 16, Alkaline Phosphatase 88, Total Creatine Kinase 53, Creatine Kinase MB 1.0, Myoglobin 94.3H, Troponin I < 0.028, Total Protein 7.5, Albumin 4.1 01/04/23 11:11: Urine Color YELLOW, Urine Clarity CLEAR, Urine pH 6.5, Urine Specific [place] 1.015L, Urine Protein 1+H, Urine Glucose (UA) NEGATIVE, Urine Ketones NEGATIVE, Urine Nitrite NEGATIVE, Urine Bilirubin NEGATIVE, Urine Urobilinogen 1.0, Urine Leukocyte Esterase NEGATIVE, Urine RBC (Auto) NEGATIVE, Urine RBC NONE, Urine WBC NONE, Urine Squamous Epithelial Cells RARE, Urine Crystals NONE, Urine Bacteria NEGATIVE, Urine Casts PRESENT, Urine Hyaline Casts 10-25H, Urine Mucus NEGATIVE, Urine Culture Indicated NO 01/05/23 05:20: White Blood Count 6.7, Red Blood Count 3.85L, Hemoglobin 12.6L, Hematocrit 36L, Mean Corpuscular Volume 93, Mean Corpuscular Hemoglobin 33, Mean Corpuscular Hemoglobin Concent 35, Red Cell Distribution Width 12.4, Platelet Count 229, Mean Platelet Volume 10.6, Immature Granulocyte % (Auto) 0, Neutrophils (%) (Auto) 73, Lymphocytes (%) (Auto) 20, Monocytes (%) (Auto) 5, Eosinophils (%) (Auto) 1, Basophils (%) (Auto) 0, Neutrophils # (Auto) 4.9, Lymphocytes # (Auto) 1.3, Monocytes # (Auto) 0.4, Eosinophils # (Auto) 0.1, Basophils # (Auto) 0.0, Immature Granulocyte # (Auto) 0.0, Sodium Level 139, Potassium Level 2.8L, Chloride Level 100, Carbon Dioxide Level 28, Anion Gap 11, Blood Urea Nitrogen 17, Creatinine 1.01, Estimat Glomerular Filtration Rate 78, BUN/Creatinine Ratio 17, Glucose Level 86, Calcium Level 9.1, Magnesium Level 1.9 01/06/23 05:35: White Blood Count 7.2, Red Blood Count 4.07L, Hemoglobin 13.0L, Hematocrit 38L, Mean Corpuscular Volume 94, Mean Corpuscular Hemoglobin 32, Mean Corpuscular Hemoglobin Concent 34, Red Cell Distribution Width 12.5, Platelet Count 231, Mean Platelet Volume 10.3, Immature Granulocyte % (Auto) 0, Neutrophils (%) (Auto) 76H, Lymphocytes (%) (Auto) 17, Monocytes (%) (Auto) 5, Eosinophils (%) (Auto) 1, Basophils (%) (Auto) 0, Neutrophils # (Auto) 5.5, Lymphocytes # (Auto) 1.2, Monocytes # (Auto) 0.4, Eosinophils # (Auto) 0.1, Basophils # (Auto) 0.0, Immature Granulocyte # (Auto) 0.0, Sodium Level 138, Potassium Level 3.3L, Chloride Level 100, Carbon Dioxide Level 25, Anion Gap 13, Blood Urea Nitrogen 14, Creatinine 0.88, Estimat Glomerular Filtration Rate 90, BUN/Creatinine Ratio 16, Glucose Level 86, Calcium Level 9.1, Corrected Calcium 9.3, Magnesium Level 2.0, Total Bilirubin 1.5H, Aspartate Amino Transf (AST/SGOT) 17, Alanine Aminotransferase (ALT/SGPT) 11, Alkaline Phosphatase 81, Total Protein 7.2, Albumin 3.7 01/07/23 05:10: White Blood Count 6.7, Red Blood Count 3.86L, Hemoglobin 12.4L, Hematocrit 36L, Mean Corpuscular Volume 94, Mean Corpuscular Hemoglobin 32, Mean Corpuscular Hemoglobin Concent 34, Red Cell Distribution Width 12.6, Platelet Count 223, Mean Platelet Volume 10.5, Immature Granulocyte % (Auto) 0, Neutrophils (%) (Auto) 76H, Lymphocytes (%) (Auto) 16, Monocytes (%) (Auto) 6, Eosinophils (%) (Auto) 1, Basophils (%) (Auto) 0, Neutrophils # (Auto) 5.1, Lymphocytes # (Auto) 1.1, Monocytes # (Auto) 0.4, Eosinophils # (Auto) 0.1, Basophils # (Auto) 0.0, Immature Granulocyte # (Auto) 0.0, Sodium Level 138, Potassium Level 3.2L, Chloride Level 100, Carbon Dioxide Level 27, Anion Gap 11, Blood Urea Nitrogen 14, Creatinine 0.92, Estimat Glomerular Filtration Rate 87, BUN/Creatinine Ratio 15, Glucose Level 85, Calcium Level 8.9, Corrected Calcium 9.2, Magnesium Level 1.9, Total Bilirubin 1.6H, Aspartate Amino Transf (AST/SGOT) 13, Alanine Aminotransferase (ALT/SGPT) 13, Alkaline Phosphatase 84, Total Protein 6.8, Albumin 3.6 01/08/23 05:12: White Blood Count 7.1, Red Blood Count 4.08L, Hemoglobin 13.2L, Hematocrit 38L, Mean Corpuscular Volume 93, Mean Corpuscular Hemoglobin 32, Mean Corpuscular Hemoglobin Concent 35, Red Cell Distribution Width 12.6, Platelet Count 224, Mean Platelet Volume 10.5, Immature Granulocyte % (Auto) 0, Neutrophils (%) (Auto) 76H, Lymphocytes (%) (Auto) 17, Monocytes (%) (Auto) 6, Eosinophils (%) (Auto) 1, Basophils (%) (Auto) 0, Neutrophils # (Auto) 5.4, Lymphocytes # (Auto) 1.2, Monocytes # (Auto) 0.4, Eosinophils # (Auto) 0.1, Basophils # (Auto) 0.0, Immature Granulocyte # (Auto) 0.0, Sodium Level 140, Potassium Level 3.3L, Chloride Level 101, Carbon Dioxide Level 26, Anion Gap 13, Blood Urea Nitrogen 16, Creatinine 0.96, Estimat Glomerular Filtration Rate 83, BUN/Creatinine Ratio 17, Glucose Level 87, Calcium Level 8.8, Corrected Calcium 9.0, Magnesium Level 2.1, Total Bilirubin 1.4H, Aspartate Amino Transf (AST/SGOT) 17, Alanine Aminotransferase (ALT/SGPT) 17, Alkaline Phosphatase 94, Total Protein 7.1, Albumin 3.8 Pending Labs Laboratory Tests 01/04/23 09:40: White Blood Count 7.1, Red Blood Count 4.03, Hemoglobin 13.1, Hematocrit 38, Mean Corpuscular Volume 93, Mean Corpuscular Hemoglobin 33, Mean Corpuscular Hemoglobin Concent 35, Red Cell Distribution Width 12.5, Platelet Count 236, Mean Platelet Volume 10.0, Immature Granulocyte % (Auto) 0, Neutrophils (%) (Auto) 80, Lymphocytes (%) (Auto) 14, Monocytes (%) (Auto) 5, Eosinophils (%) (Auto) 0, Basophils (%) (Auto) 0, Neutrophils # (Auto) 5.6, Lymphocytes # (Auto) 1.0, Monocytes # (Auto) 0.4, Eosinophils # (Auto) 0.0, Basophils # (Auto) 0.0, Immature Granulocyte # (Auto) 0.0, Prothrombin Time 13.6, INR Comment 1.0, Activated Partial Thromboplast Time 30, Sodium Level 139, Potassium Level 3.7, Chloride Level 97, Carbon Dioxide Level 28, Anion Gap 14, Blood Urea Nitrogen 18, Creatinine 1.35, Estimat Glomerular Filtration Rate 55, BUN/Creatinine Ratio 13, Glucose Level 96, Calcium Level 9.3, Corrected Calcium 9.2, Magnesium Level 2.1, Total Bilirubin 1.8, Aspartate Amino Transf (AST/SGOT) 15, Alanine Aminotransferase (ALT/SGPT) 16, Alkaline Phosphatase 88, Total Creatine Kinase 53, Creatine Kinase MB 1.0, Myoglobin 94.3, Troponin I < 0.028, Total Protein 7.5, Albumin 4.1 01/04/23 11:11: Urine Color YELLOW, Urine Clarity CLEAR, Urine pH 6.5, Urine Specific [place] 1.015, Urine Protein 1+, Urine Glucose (UA) NEGATIVE, Urine Ketones NEGATIVE, Urine Nitrite NEGATIVE, Urine Bilirubin NEGATIVE, Urine Urobilinogen 1.0, Urine Leukocyte Esterase NEGATIVE, Urine RBC (Auto) NEGATIVE, Urine RBC NONE, Urine WBC NONE, Urine Squamous Epithelial Cells RARE, Urine Crystals NONE, Urine Bacteria NEGATIVE, Urine Casts PRESENT, Urine Hyaline Casts 10-25, Urine Mucus NEGATIVE, Urine Culture Indicated NO 01/05/23 05:20: White Blood Count 6.7, Red Blood Count 3.85, Hemoglobin 12.6, Hematocrit 36, Mean Corpuscular Volume 93, Mean Corpuscular Hemoglobin 33, Mean Corpuscular Hemoglobin Concent 35, Red Cell Distribution Width 12.4, Platelet Count 229, Mean Platelet Volume 10.6, Immature Granulocyte % (Auto) 0, Neutrophils (%) (Auto) 73, Lymphocytes (%) (Auto) 20, Monocytes (%) (Auto) 5, Eosinophils (%) (Auto) 1, Basophils (%) (Auto) 0, Neutrophils # (Auto) 4.9, Lymphocytes # (Auto) 1.3, Monocytes # (Auto) 0.4, Eosinophils # (Auto) 0.1, Basophils # (Auto) 0.0, Immature Granulocyte # (Auto) 0.0, Sodium Level 139, Potassium Level 2.8, Chloride Level 100, Carbon Dioxide Level 28, Anion Gap 11, Blood Urea Nitrogen 17, Creatinine 1.01, Estimat Glomerular Filtration Rate 78, BUN/Creatinine Ratio 17, Glucose Level 86, Calcium Level 9.1, Magnesium Level 1.9 01/06/23 05:35: White Blood Count 7.2, Red Blood Count 4.07, Hemoglobin 13.0, Hematocrit 38, Mean Corpuscular Volume 94, Mean Corpuscular Hemoglobin 32, Mean Corpuscular Hemoglobin Concent 34, Red Cell Distribution Width 12.5, Platelet Count 231, Mean Platelet Volume 10.3, Immature Granulocyte % (Auto) 0, Neutrophils (%) (Auto) 76, Lymphocytes (%) (Auto) 17, Monocytes (%) (Auto) 5, Eosinophils (%) (Auto) 1, Basophils (%) (Auto) 0, Neutrophils # (Auto) 5.5, Lymphocytes # (Auto) 1.2, Monocytes # (Auto) 0.4, Eosinophils # (Auto) 0.1, Basophils # (Auto) 0.0, Immature Granulocyte # (Auto) 0.0, Sodium Level 138, Potassium Level 3.3, Chlori de Level 100, Carbon Dioxide Level 25, Anion Gap 13, Blood Urea Nitrogen 14, Creatinine 0.88, Estimat Glomerular Filtration Rate 90, BUN/Creatinine Ratio 16, Glucose Level 86, Calcium Level 9.1, Corrected Calcium 9.3, Magnesium Level 2.0, Total Bilirubin 1.5, Aspartate Amino Transf (AST/SGOT) 17, Alanine Aminotransferase (ALT/SGPT) 11, Alkaline Phosphatase 81, Total Protein 7.2, Al bumin 3.7 01/07/23 05:10: White Blood Count 6.7, Red Blood Count 3.86, Hemoglobin 12.4, Hematocrit 36, Mean Corpuscular Volume 94, Mean Corpuscular Hemoglobin 32, Mean Corpuscular Hemoglobin Concent 34, Red Cell Distribution Width 12.6, Platelet Count 223, Mean Platelet Volume 10.5, Immature Granulocyte % (Auto) 0, Neutrophils (%) (Auto) 76, Lymphocytes (%) (Auto) 16, Monocytes (%) (Auto) 6, Eosinophils (%) (Auto) 1, Basophils (%) (Auto) 0, Neutrophils # (Auto) 5.1, Lymphocytes # (Auto) 1.1, Monocytes # (Auto) 0.4, Eosinophils # (Auto) 0.1, Basophils # (Auto) 0.0, Immature Granulocyte # (Auto) 0.0, Sodium Level 138, Potassium Level 3.2, Chloride Level 100, Carbon Dioxide Level 27, Anion Gap 11, Blood Urea Nitrogen 14, Creatinine 0.92, Estimat Glomerular Filtration Rate 87, BUN/Creatinine Ratio 15, Glucose Level 85, Calcium Level 8.9, Corrected Calcium 9.2, Magnesium Level 1.9, Total Bilirubin 1.6, Aspartate Amino Transf (AST/SGOT) 13, Alanine Aminotransferase (ALT/SGPT) 13, Alkaline Phosphatase 84, Total Protein 6.8, Albumin 3.6 01/08/23 05:12: White Blood Count 7.1, Red Blood Count 4.08, Hemoglobin 13.2, Hematocrit 38, Mean Corpuscular Volume 93, Mean Corpuscular Hemoglobin 32, Mean Corpuscular Hemoglobin Concent 35, Red Cell Distribution Width 12.6, Platelet Count 224, Mean Platelet Volume 10.5, Immature Granulocyte % (Auto) 0, Neutrophils (%) (Auto) 76, Lymphocytes (%) (Auto) 17, Monocytes (%) (Auto) 6, Eosinophils (%) (Auto) 1, Basophils (%) (Auto) 0, Neutrophils # (Auto) 5.4, Lymphocytes # (Auto) 1.2, Monocytes # (Auto) 0.4, Eosinophils # (Auto) 0.1, Basophils # (Auto) 0.0, Immature Granulocyte # (Auto) 0.0, Sodium Level 140, Potassium Level 3.3, Chloride Level 101, Carbon Dioxide Level 26, Anion Gap 13, Blood Urea Nitrogen 16, Creatinine 0.96, Estimat Glomerular Filtration Rate 83, BUN/Creatinine Ratio 17, Glucose Level 87, Calcium Level 8.8, Corrected Calcium 9.0, Magnesium Level 2.1, Total Bilirubin 1.4, Aspartate Amino Transf (AST/SGOT) 17, Alanine Aminotransferase (ALT/SGPT) 17, Alkaline Phosphatase 94, Total Protein 7.1, Albumin 3.8 Discharge Home Medications: Active Scripts Active Potassium Chloride 10 Meq Capsule.er 10 Meq PO DAILY Norvasc (Amlodipine Besylate) 2.5 Mg Tablet 2.5 Mg PO HS Norvasc (Amlodipine Besylate) 5 Mg Tablet 5 Mg PO DAILY Fludrocortisone Acetate 0.1 Mg Tab 0.1 Mg PO DAILY Reported Tylenol (Acetaminophen) 325 Mg Tablet 650 Mg PO Q6H PRN Vitamin B-12 (Cyanocobalamin (Vitamin B-12)) 500 Mcg Tablet 500 Mcg PO DAILY Instructions to patient/family Please see electronic discharge instructions given to patient. NORRIS ATKINSON DO Jan 08, 2023 11:19
[2023-01-08 11:23] VITALS: BP 163/79
[2023-01-08 11:25] VITALS: BP 163/79
--- NOTE | 2023-01-08 15:10 | Progress Note - Cardiology ---
Cardiology SOAP Progress Note Subjective: Gen weakness and malaise is improved No postural symptoms at this time No shortness of breath No n/v/d No cp No palp or syncope Objective: I&O/Vital Signs 01/08/23 01/08/23 01/08/23 01/08/23 03:35 07:00 08:00 08:02 Temp 36.8 36.6 Pulse 69 66 79 Resp 18 16 B/P (MAP) 187/101 (129) 120/75 (90) Pulse Ox 97 99 99 O2 Delivery Room Air Room Air Room Air 01/08/23 01/08/23 11:23 11:25 Temp 36.5 36.5 Pulse 61 61 Resp 18 18 B/P (MAP) 163/79 (107) 163/79 Pulse Ox 100 100 O2 Delivery Room Air Room Air 01/07/23 23:59 Intake Total 1310 ml Output Total 700 ml Balance 610 ml Weight (Pounds): 170 Weight (Calculated Kilograms): 77.221214 Constitutional: AAO x 3, other (thin) Respiratory: No accessory muscle use, No respiratory distress; chest expansion is symmetric, chest is bilaterally symmetric, lungs clear to auscultation Cardiovascular: regular rate-rhythm; No JVD; S1 and S2 Gastrointestional: soft; No guarding; audible bowel sounds Extremities: no lower extremity edema bilateral Neurologic/Psychiatric: grossly intact (moves all extremities) Skin: No rash on exposed areas, No ulcerations on exposed areas Results/Procedures: Labs Laboratory Tests 01/08/23 05:12: White Blood Count 7.1, Red Blood Count 4.08L, Hemoglobin 13.2L, Hematocrit 38L, Mean Corpuscular Volume 93, Mean Corpuscular Hemoglobin 32, Mean Corpuscular Hemoglobin Concent 35, Red Cell Distribution Width 12.6, Platelet Count 224, Mean Platelet Volume 10.5, Immature Granulocyte % (Auto) 0, Neutrophils (%) (Auto) 76H, Lymphocytes (%) (Auto) 17, Monocytes (%) (Auto) 6, Eosinophils (%) (Auto) 1, Basophils (%) (Auto) 0, Neutrophils # (Auto) 5.4, Lymphocytes # (Auto) 1.2, Monocytes # (Auto) 0.4, Eosinophils # (Auto) 0.1, Basophils # (Auto) 0.0, Immature Granulocyte # (Auto) 0.0, Sodium Level 140, Potassium Level 3.3L, Chloride Level 101, Carbon Dioxide Level 26, Anion Gap 13, Blood Urea Nitrogen 16, Creatinine 0.96, Estimat Glomerular Filtration Rate 83, BUN/Creatinine Ratio 17, Glucose Level 87, Calcium Level 8.8, Corrected Calcium 9.0, Magnesium Level 2.1, Total Bilirubin 1.4H, Aspartate Amino Transf (AST/SGOT) 17, Alanine Aminotransferase (ALT/SGPT) 17, Alkaline Phosphatase 94, Total Protein 7.1, Albumin 3.8 A/P: Assessment: Syncopal episode - likely d/t orthostatic hypotension - no further episodes Orthostatic hypotension - H/o dizziness due to postural hypotension during hospitalization of 12/16/22 which had resolved following reduction in antihypertensive regimen - 01-06-23: lying 135/74 sitting 118/65 standing 83/52 Severe hypertension - echo of 12/14/22: LVEF 55-60% - Renal artery duplex on 12-13-22: No sonographic evidence of renal artery stenosis on the left. No acute sonographic abnormalities in the left kidney. Simple-appearing cortical cyst is seen in the left kidney. Surgically absent right kidney. Hypokalemia - undetermined etiology - management by Dr Valiente Headache of undetermined etiology - managed by Dr Valiente Quit tobacco in early R nephrectomy in 2020 for renal CA - details unknown to patient - managed by his oncologist at [facility] Plan: * Complex management d/t labile hypertension and episodes of symptomatic hypotension. * Thus far our treatment strategy seems to be working for symptomatic postural hypotension. Ok to d/c on amlodipine 5 mg po q am. Has been needing some nightly med, too. Will add amlodipine 2.5 mg po q pm * Replenish electrolytes and monitor lab closely - management of hypokalemia is per medical services - continued hypokalemia despite replacement. We recommend continuing supple K and pcp to f/u on labs next week * I spoke with the patient and answered his CV-related questions LUCY CARRION MD FACP FAC CCDS Jan 08, 2023 15:10
== END 2023-01-08 12:15 | disposition home or self-care (01) | DRG 312 ==
LOC: EDUNIT# 09:08 → ER 09:09 → 4TH 11:09 → OBSVTOIN 01-05 10:13
PROVIDERS: ADMIT Internal Medicine; ATTEND Internal Medicine
DX: I95.1 Orthostatic hypotension (principal); N17.9 Acute kidney failure, unspecified; Z68.1 Body mass index [BMI] 19.9 or less, adult; E26.1 Secondary hyperaldosteronism; E87.6 Hypokalemia; I10 Essential (primary) hypertension; S00.83XA Contusion of other part of head, initial encounter; I49.3 Ventricular premature depolarization; M54.9 Dorsalgia, unspecified; H54.7 Unspecified visual loss; Z87.891 Personal history of nicotine dependence; Z85.528 Personal history of other malignant neoplasm of kidney; Z90.5 Acquired absence of kidney; Z79.01 Long term (current) use of anticoagulants; Z79.82 Long term (current) use of aspirin; Z23 Encounter for immunization; W18.30XA Fall on same level, unspecified, initial encounter
CPT/HCPCS: 36415; 70450; 70486; 71045; 72125; 80048; 80053; 81000; 82550; 82553; 83735; 83874; 84484; 85025; 85610; 85730; 90715; 93005; 93041; G0378

== ENCOUNTER → 2023-01-21 | Outpatient (CLI) | payer MEDICARE, OTHER ==
[~2023-01-21] VITALS: Ht 175 cm; Wt 68.0 kg
[~2023-01-21] MED LIST changes: +ACET325T38 PO; +AMLO2.5T2 PO; +AMLO5TAB4 PO; +CATHETER FLUSH 10 ML SYR IVP PRN; +FLDR.1T PO; +POTA10CA44 PO; +REGADENOSON 0.4 MG/5 ML SYR (LEXISCAN) IV ONE
[2023-01-21 08:57] VITALS: BP 207/96
--- NOTE | 2023-01-22 13:04 | STRESS TEST ---
DATE OF SERVICE: 01/21/2023 RESTING AND POST REGADENOSON TECHNETIUM-99M TETROFOSMIN SPECT CT IMAGING ORDERING PHYSICIAN: Serina Longo APRN. PRIMARY PHYSICIAN: Dr. Valiente. CLINICAL DIAGNOSIS: Hypertension. Baseline images were carried out after injection of 10.69 mCi of technetium-99m tetrofosmin. This was followed by 0.4 mg regadenoson and 29.9 mCi of technetium-99m tetrofosmin for stress imaging. The electrocardiogram showed sinus rhythm. Isolated premature ventricular contractions were seen during the study. The patient tolerated the procedure well. The electrocardiogram did not change significantly with the regadenoson infusion. Review of images at rest and following stress does not indicate any distinct perfusion defects consistent with significant myocardial ischemia or infarction. Gated images show normal global left ventricular systolic function with normal regional wall motion. Left ventricular ejection fraction is calculated to be 54%. CONCLUSIONS: 1. No evidence of any significant myocardial ischemia or infarction on this study. 2. Normal regional wall motion. 3. Normal global left ventricular systolic function with a calculated ejection fraction of 54%. Job ID: [id number] DocumentID: [id number] Dictated Date: 01/22/2023 10:00:08 Gymnastic Coach Date: 01/22/2023 13:02:00 Dictated By: LUCY CARRION MD; JAZLYN; FACP; FACC;
== END ==
LOC: CARD 07:28
PROVIDERS: ATTEND Nurse Practitioner Family
DX: I10 Essential (primary) hypertension (principal)
CPT/HCPCS: 78452; 93017; A9502

== ENCOUNTER 2023-02-05 11:24 | Observation (INO) | payer MEDICARE, OTHER ==
[~2023-02-05] VITALS: Ht 175 cm; Wt 50.6 kg
[~2023-02-05 11:24] MED LIST changes: -CATHETER FLUSH 10 ML SYR IVP PRN; -REGADENOSON 0.4 MG/5 ML SYR (LEXISCAN) IV ONE
[2023-02-05] MEDS ORDERED: NS IV 1000 ML 1,000 ML IV STA (11:51)
--- NOTE | 2023-02-05 12:04 | ED General ---
General Chief Complaint: Dizziness/Syncope Stated Complaint: LIGHTHEADED | DIZZY | NAUSEA Source of Information: Patient Exam Limitations: No Limitations History of Present Illness Date Seen by Provider: Feb 05, 2023 Time Seen by Provider: 11:54 Initial Comments Patient is a 72-year-old male who presents the ED with dizziness. Dizziness over the past 3 months. Patient states dizziness that typically occurs when he stands. Dizziness has been intermittent more notable over the past few days. States when he gets up he feels lightheaded and dizzy. Improvement when he sits down. Denies the room spinning. He feels nauseous. Patient has a history of right nephrectomy in 2020 secondary to cancer. He is not currently participating in any chemotherapy or radiation at this time. He states he had a stress test performed a few weeks ago which was unremarkable. He states he was seen in the past for this dizziness and thought it was secondary to his blood pressure. He is currently on blood pressure medication that he cannot recall. He does report some lower back pain and pelvis pain that is intermittent. Denies of any fall. States he has decreased appetite and has had notable weight loss. Denies of any chest pain, cough, shortness of breath, visual changes, unilateral muscle weakness or sensory changes, head pain, Allergies and Home Medications Allergies Coded Allergies: No Known Drug Allergies (Unverified , 02/05/23) Patient Home Medication List Home Medication List Reviewed: Yes Acetaminophen (Tylenol) 325 Mg Tablet, 650 MG PO Q6H PRN for PAIN-MILD (1-4), (Reported) Entered as Reported by: JEMAL NICHOLAS on 01/06/23 0833 Amlodipine Besylate (Norvasc) 5 Mg Tablet, 5 MG PO DAILY Prescribed by: JENNIFER CHAUDHRY on 01/08/23 0934 Amlodipine Besylate (Norvasc) 2.5 Mg Tablet, 2.5 MG PO HS Prescribed by: JENNIFER CHAUDHRY on 01/08/23 0934 Cyanocobalamin (Vitamin B-12) (Vitamin B-12) 500 Mcg Tablet, 500 MCG PO DAILY, (Reported) Entered as Reported by: ORACIO MORGAN on 12/13/22 1501 Fludrocortisone Acetate (Fludrocortisone Acetate) 0.1 Mg Tab, 0.1 MG PO DAILY Prescribed by: NORRIS ATKINSON on 01/07/23 1053 Potassium Chloride (Potassium Chloride) 10 Meq Capsule.er, 10 MEQ PO DAILY Prescribed by: JENNIFER CHAUDHRY on 01/08/23 0934 Review of Systems Review of Systems Constitutional: No chills, No diaphoresis, No fever, No malaise, No weakness EENTM: No ear pain, No blurred vision, No double vision, No tearing, No vision loss, No mouth pain, No mouth swelling, No throat swelling Respiratory: No cough, No short of breath Cardiovascular: No chest pain Gastrointestinal: No abdominal pain, No diarrhea; nausea; No vomiting Musculoskeletal: back pain, joint pain Psychiatric/Neurological: Other (Dizziness) All Other Systems Reviewed Negative Unless Noted: Yes Past Pguuzkb-Kbjsmy-Njmiwr Hx Patient Social History Tobacco Use?: No Use of E-Cig and/or Vaping dev: No Substance use?: No Alcohol Use?: No Immunizations Up To Date Influenza Vaccine Up-to-Date: Yes; Up-to-Date First/Initial COVID19 Vaccinat: "2 shots" Second COVID19 Vaccination [place]: 02/07 Third COVID19 Vaccination Date: 02/07 Seasonal Allergies Seasonal Allergies: No Past Medical History Surgery/Hospitalization HX: htn Surgeries: Yes Eye Surgery, Nephrectomy, Orthopedic, Renal Respiratory: No Currently Using CPAP: No Currently Using BIPAP: No Cardiac: Yes Hypertension Neurological: No Genitourinary: Yes (RENAL CANCER, S/P RIGHT NEPHRECTOMY) Gastrointestinal: No Musculoskeletal: Yes (BACK SURGERY) Chronic Back Pain Endocrine: No HEENT: No Cancer: Yes Kidney Did You Recieve Any Treatments: Yes What Type of Treatment Did You: Surgical Intervention Psychosocial: No Integumentary: No Blood Disorders: No Family Medical History No Pertinent Family Hx SOCIAL HISTORY: -SMOKED 1 PPD, QUIT 2008 -ETOH --HISTORY OF ABUSE/HEAVY USE--OVER A 6 PACK/DAY--WILL NOT ELABORATE ON HOW MUCH HE USED TO DRINK. STATES HE NO LONGER DRINKS, PER PT ON 01/04/23 -DRUGS--THC IN PAST PAST SURGICAL HISTORY: -RIGHT NEPHRECTOMY 2000 FOR RENAL CANCER -CYSTOSCOPIES -BACK SURGERY -BILATERAL CATARACTS 02/2022 Physical Exam Vital Signs Vital Signs - First Documented 02/05/23 11:40 Temp 36.0 Pulse 68 Resp 18 B/P (MAP) 141/97 (112) Pulse Ox 99 O2 Delivery Room Air Capillary Refill : Height, Weight, BMI Height: '" Weight: 170lbs. oz. [id number]; 22.20 BMI Method: General Appearance: No Apparent Distress, WD/WN Eyes: Bilateral Eye Normal Inspection, Bilateral Eye PERRL, Bilateral Eye EOMI HEENT: PERRL/EOMI, TMs Normal, Normal ENT Inspection, Pharynx Normal Neck: Full Range of Motion, Normal Inspection, Non Tender, Supple Respiratory: Chest Non Tender, Lungs Clear, Normal Breath Sounds, No Accessory Muscle Use, No Respiratory Distress Cardiovascular: Regular Rate, Rhythm, No Edema, No Gallop, No JVD Gastrointestinal: Normal Bowel Sounds, No Organomegaly, No Pulsatile Mass, Non Tender, Soft Genital/Rectal: Other (Lumbar midline tenderness., Left pelvic tenderness) Extremity: Normal Capillary Refill, Normal Inspection, Normal Range of Motion, Non Tender Neurologic/Psychiatric: Alert, Oriented x3, No Motor/Sensory Deficits, Normal 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/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, 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 Norm as Tested Skin: Normal Color, Warm/Dry Progress/Results/Core Measures Suspected Sepsis SIRS Temperature: Pulse: Respiratory Rate: Laboratory Tests 02/05/23 12:07: White Blood Count 6.8 Blood Pressure / Mean: Laboratory Tests 02/05/23 12:07: Creatinine 1.28, Platelet Count 244, Total Bilirubin 1.3H Results/Orders Lab Results Laboratory Tests Test 02/05/23 12:07 02/05/23 13:22 Range/Units White Blood Count 6.8 4.3-11.0 10^3/uL Red Blood Count 3.99 L 4.30-5.52 10^6/uL Hemoglobin 13.0 L 13.3-17.7 g/dL Hematocrit 37 L 40-54 % Mean Corpuscular Volume 93 80-99 fL Mean Corpuscular Hemoglobin 33 25-34 pg Mean Corpuscular Hemoglobin Concent 35 32-36 g/dL Red Cell Distribution Width 12.1 10.0-14.5 % Platelet Count 244 130-400 10^3/uL Mean Platelet Volume 9.7 9.0-12.2 fL Immature Granulocyte % (Auto) 0 % Neutrophils (%) (Auto) 77 H 42-75 % Lymphocytes (%) (Auto) 17 12-44 % Monocytes (%) (Auto) 5 0-12 % Eosinophils (%) (Auto) 0 0-10 % Basophils (%) (Auto) 0 0-10 % Neutrophils # (Auto) 5.3 1.8-7.8 10^3/uL Lymphocytes # (Auto) 1.1 1.0-4.0 10^3/uL Monocytes # (Auto) 0.4 0.0-1.0 10^3/uL Eosinophils # (Auto) 0.0 0.0-0.3 10^3/uL Basophils # (Auto) 0.0 0.0-0.1 10^3/uL Immature Granulocyte # (Auto) 0.0 0.0-0.1 10^3/uL Sodium Level 135 135-145 MMOL/L Potassium Level 3.9 3.6-5.0 MMOL/L Chloride Level 95 L 98-107 MMOL/L Carbon Dioxide Level 28 21-32 MMOL/L Anion Gap 12 5-14 MMOL/L Blood Urea Nitrogen 19 H 7-18 MG/DL Creatinine 1.28 0.60-1.30 MG/DL Estimat Glomerular Filtration Rate 59 BUN/Creatinine Ratio 15 Glucose Level 102 70-105 MG/DL Calcium Level 9.1 8.5-10.1 MG/DL Corrected Calcium 9.2 8.5-10.1 MG/DL Magnesium Level 2.1 1.6-2.4 MG/DL Total Bilirubin 1.3 H 0.1-1.0 MG/DL Aspartate Amino Transf (AST/SGOT) 13 5-34 U/L Alanine Aminotransferase (ALT/SGPT) 13 0-55 U/L Alkaline Phosphatase 85 40-136 U/L Total Protein 7.1 6.4-8.2 GM/DL Albumin 3.9 3.2-4.5 GM/DL Urine Color YELLOW Urine Clarity CLEAR Urine pH 7.5 5-9 Urine Specific [place] 1.015 L 1.016-1.022 Urine Protein 1+ H NEGATIVE Urine Glucose (UA) NEGATIVE NEGATIVE Urine Ketones NEGATIVE NEGATIVE Urine Nitrite NEGATIVE NEGATIVE Urine Bilirubin NEGATIVE NEGATIVE Urine Urobilinogen 0.2 < = 1.0 MG/DL Urine Leukocyte Esterase NEGATIVE NEGATIVE Urine RBC (Auto) TRACE-I H NEGATIVE Urine RBC NONE /HPF Urine WBC RARE /HPF Urine Crystals NONE /LPF Urine Bacteria NEGATIVE /HPF Urine Casts NONE /LPF Urine Mucus NEGATIVE /LPF Urine Other FEW SPERM H /HPF Urine Culture Indicated NO My Orders Orders - JOHANN MIRANDA Ct Head Wo (02/05/23 11:51) Ct Lumbar Spine Wo (02/05/23 11:51) Cbc With Automated Diff (02/05/23 11:51) Comprehensive Metabolic Panel (02/05/23 11:51) Urinalysis (02/05/23 11:51) Orthostatic Vital Signs (Adult (02/05/23 11:51) Magnesium (02/05/23 11:51) Ns Iv 1000 Ml (Sodium Chloride 0.9%) (02/05/23 11:51) Ekg Tracing (02/05/23 11:51) Ct Pelvis Wo (02/05/23 11:51) Vital Signs/I&O 02/05/23 02/05/23 02/05/23 02/05/23 11:40 13:46 13:48 13:50 Temp 36.0 Pulse 68 66 70 85 Resp 18 B/P (MAP) 141/97 (112) 157/93 (114) 152/95 (114) 102/77 (85) Pulse Ox 99 O2 Delivery Room Air Capillary Refill : ECG Comment Sinus rhythm, 61 bpm, QRS duration 94 MS, QTc 444 MS Departure Communication (PCP) Patient with a history of kidney cancer had a right nephrectomy performed 2020. Patient has had this intermittent dizziness over the past 2 to 3 months. Worse last night specially with standing. Lightheadedness. Denies room spinning. No evidence of nystagmus. No focal neural deficits. Currently asymptomatic while sitting down. He is reports some lower back and bilateral pelvic discomfort over the past few months as well. Decreased appetite. Patient with thin habitus. Not currently in chemotherapy or radiation. Urination normal without pain or discomfort. No chest pain, cough, shortness of breath or abdominal pain, vomiting or diarrhea. Due to current presentation CBC, CMP, orthostatics, CT scan of the head, lumbar spine and pelvis, urinalysis was ordered. CBC and CMP grossly unremarkable besides chloride of 95. Was given a liter of fluid. He states the dizziness improved after the fluid. Was slightly slightly dehydrated. He was not orthostatic hypotensive. CT scan of the head unremarkable. CT scan of the pelvis shows arthritic changes. CT lumbar spine concerning for metastatic cancer with a lytic lesion at L2 vertebra. EKG normal sinus rhythm. Had a cardiac stress test performed January 22 that was unremarkable. Ejection fraction 54%. Patient was discussed with Dr. Atkinson patient's primary care physician regarding the lytic lesion. Dr. Atkinson saw patient here in the ER. Recommends admission observation for dehydration. Likely benefit with a bone scan. Discussed patient with Dr. Pastor radiologist and he states that due to location of this lytic lesion unlikely he would be able to biopsy. Concerning for metastatic cancer Impression Primary Impression: Dehydration Disposition: ADMITTED INPATIENT Condition: Stable Admissions Decision to Admit Reason: Admit from ER (General) Decision to Admit/Date: Feb 05, 2023 Time/Decision to Admit Time: 13:58 Departure-Patient Inst. Referrals: NORRIS ATKINSON DO (PCP/Family) Primary Care Physician JOHANN MIRANDA Feb 05, 2023 12:04
[2023-02-05 12:14] LABS: BASOPHILS % (AUTO) 0 % (0-10); EOSINOPHILS % (AUTO) 0 % (0-10); HEMATOCRIT 37 % (40-54); LYMPHOCYTES # (AUTO) 1.1 10^3/uL (1.0-4.0); LYMPHOCYTES % (AUTO) 17 % (12-44); MEAN CORPUSCULAR HEMOGLOBIN 33 pg (25-34); MEAN CORPUSCULAR HGB CONC 35 g/dL (32-36); MEAN CORPUSCULAR VOLUME 93 fL (80-99); MEAN PLATELET VOLUME 9.7 fL (9.0-12.2); MONOCYTES # (AUTO) 0.4 10^3/uL (0.0-1.0); MONOCYTES % (AUTO) 5 % (0-12); NEUTROPHILS # (AUTO) 5.3 10^3/uL (1.8-7.8); NEUTROPHILS % (AUTO) 77 % (42-75); PLATELET COUNT 244 10^3/uL (130-400); WHITE BLOOD COUNT 6.8 10^3/uL (4.3-11.0)
[2023-02-05 12:24] LABS: ALBUMIN 3.9 GM/DL (3.2-4.5); POTASSIUM 3.9 MMOL/L (3.6-5.0)
[2023-02-05 12:25] LABS: CALCIUM 9.1 MG/DL (8.5-10.1)
[2023-02-05 12:27] LABS: TOTAL PROTEIN 7.1 GM/DL (6.4-8.2)
[2023-02-05 12:28] LABS: BILIRUBIN,TOTAL 1.3 MG/DL (0.1-1.0)
[2023-02-05 12:30] LABS: CREATININE SERUM 1.28 MG/DL (0.60-1.30)
[2023-02-05 12:33] LABS: MAGNESIUM 2.1 MG/DL (1.6-2.4)
--- NOTE | 2023-02-05 12:49 | Diagnostic Imaging Report ---
Clinical indication: Patient with dizziness when patient stands. Exam: Axial CT scan of the brain without IV contrast with coronal and sagittal reformatted images. Auto Exposure Controls were utilized during the CT exam to meet ALARA standards for radiation dose reduction. Comparison: CT scan of the head, face and cervical spine without contrast dated 01/04/2023. Findings: There is no evidence of acute cerebral infarct, intracranial hemorrhage, or gross mass effect. The brain parenchymal volume appears appropriate for patient's age. There are subtle patchy areas of low-attenuation white matter changes involving both cerebral hemispheres, likely representing chronic small vessel ischemic disease. There is normal brunson-white matter distinction. There is no significant midline shift or herniation. There is no evidence of hydrocephalus. The basal cisterns are unremarkable. The skull, extracranial soft tissue, and orbits are unremarkable. The paranasal sinuses are unremarkable. Temporal bones show no significant abnormality. Impression: There is no evidence of acute intracranial process. Dictated by: Dictated on workstation # [id number]
--- NOTE | 2023-02-05 12:53 | Diagnostic Imaging Report ---
PROCEDURE: CT pelvis without contrast. TECHNIQUE: Multiple contiguous axial images were obtained through the pelvis without the use of intravenous contrast. Sagittal and coronal reformations were performed. Auto Exposure Controls were utilized during the CT exam to meet ALARA standards for radiation dose reduction. INDICATION: Left hip pain. COMPARISON: None available. FINDINGS: No acute or healing fracture within the pelvis or proximal femurs. Severe degenerative arthritis of both hips. No features of avascular necrosis in the femoral heads. Degenerative disc disease is noted lumbar spine and detailed on the separate CT lumbar spine report. No free pelvic fluid. No appreciable hip effusion. Musculature about the hip is normal in bulk. IMPRESSION: 1. No acute fracture in the pelvis or proximal femurs. 2. Severe osteoarthritis of both hips. Dictated by: Dictated on workstation # [id number]
--- NOTE | 2023-02-05 13:03 | Diagnostic Imaging Report ---
CLINICAL INDICATIONS: Patient with syncope and chronic low back pain. EXAM: Axial CT scan of the lumbar spine without contrast. Sagittal and coronal reformatted images. Auto Exposure Controls were utilized during the CT exam to meet ALARA standards for radiation dose reduction. COMPARISON: CT scan of the abdomen and pelvis with and without contrast dated 10/31/2022. FINDINGS: There is interval development of a lytic destructive process involving the anterior aspect of the L2 vertebra which measures 1.3 cm x 2.4 cm x 2.6 cm. There are also subtle lucent areas throughout the lumbar spine. There is no acute lumbar spine fracture or dislocation. There are also lucent areas involving the iliac bone. There are hypertrophic spurs throughout the lumbar spine and facet arthropathy. Visualized lower lobes cardoza are clear. There is no significant paraspinal soft tissue abnormality. There is straightening of the lumbar spine posture again noted. L1-L2: There is diffuse as well as bilateral facet arthropathy. There is mild to moderate left neural foramen narrowing. There is no significant bony central canal or right neural foramen narrowing. L2-L3: There is a diffuse disk bulge with bilateral facet arthropathy/hypertrophy. There is no significant right neural foramen narrowing. There is at least mild central canal narrowing. There is grossly moderate left neural foramen narrowing. There is no significant right neural foramen narrowing. L3-L4: There is diffuse disk bulge and mild loss of disk space height. There is bilateral facet arthropathy. There is no significant bony central canal narrowing. There is no significant right bony neural foramen narrowing. There is roughly mild left neural foramen narrowing. L4-L5: There is diffuse disk bulge with hypertrophic far lateral disk spurs. There is mild to moderate bilateral facet arthropathy. There is no significant central canal narrowing. There is moderate to severe right neural foramen narrowing and at least mild left neural foramen narrowing. L5-S1: There is diffuse disk bulge with moderate loss of disk space height. There is severe left facet arthropathy/hypertrophy and moderate right facet arthropathy. There is no significant bony central canal narrowing. There is mild to moderate right neural foramen narrowing and mild left neural foramen narrowing. IMPRESSION: 1: There is interval development of a lytic lesion involving the L2 vertebra concerning for metastatic disease or myeloma. There are other subtle lucent areas involving the visualized axial skeleton which may also be related to metastatic disease or multiple myeloma. MRI of the lumbar spine with and without contrast would better evaluate. If patient has known metastatic disease or myeloma, then nuclear medicine whole-body bone scan may help better evaluate. 2: There is no acute lumbar spine fracture. 3: There is severe multilevel lumbar spine degenerative disease. Dictated by: Dictated on workstation # [id number]
[2023-02-05 13:30] LABS: BILIRUBIN,URINE NEGATIVE (NEGATIVE); CLARITY,URINE CLEAR; COLOR,URINE YELLOW; GLUCOSE, URINE (UA) NEGATIVE (NEGATIVE); KETONES,URINE NEGATIVE (NEGATIVE); LEUKOCYTE ESTERASE ,URINE NEGATIVE (NEGATIVE); NITRITE,URINE NEGATIVE (NEGATIVE); PH,URINE 7.5 (5-9); PROTEIN,URINE 1+ (NEGATIVE)
[2023-02-05 13:45] LABS: BACTERIA,URINE NEGATIVE /HPF; URINE OTHER FEW SPERM /HPF; WBC,URINE RARE /HPF
[2023-02-05 13:46] VITALS: BP 157/93
[2023-02-05 13:48] VITALS: BP 152/95
[2023-02-05 13:50] VITALS: BP 102/77
--- NOTE | 2023-02-05 14:44 | History & Physical ---
History of Present Illness HPI/Chief Complaint CC: Weakness with dehydration and spine lesions HPI: This is a 72yoWM clinic patient of mine who has a PMH of renal cell carcinoma managed at s/p nephrectomy who has a recent onset of HTN malignant type with multiple hospital stays and recent establishment of Cardiology and Nephrology specialty care who presented to the ER with weakness and back pain and found to have osteolytic lesions in his lower spine suspicious for renal cell carcinoma mets. He will be admitted for IVF and pain control and bone scan will be obtained tomorrow. I did update him and his sister on the suspicious lesions and then plan. Weight loss noted since last seen a few weeks ago and his appetite has decreased significantly. Source: patient, family Exam Limitations: no limitations Date Seen 02/05/23 Time Seen by a Provider: 14:00 Attending Physician Amber Valiente DO PCP Admitting Physician: Attending Physician: Referring Physician Date of Admission Home Medications & Allergies Home Medications Reviewed patient Home Medication Reconciliation performed by pharmacy medication reconciliations server support technician and/or nursing. Patients Allergies have been reviewed. Allergies Allergies Coded Allergies No Known Drug Allergies (Unverified02/05/23) Past Neosiwc-Eqteyt-Psrypa Hx Past Med/Social Hx: Reviewed Nursing Past Med/Soc Hx, Reviewed and Corrections made Patient Social History Marrital Status: single Employed/Student: retired Alcohol Use: Denies Use Smoking Status: Never a Smoker Former Smoker, Quit: Oct 20, 2008 Type Used: Cigarettes 2nd Hand Smoke Exposure: No Recent Hopitalizations: No Immunizations Up To Date Date of Influenza Vaccine: Sep 12, 2022 Seasonal Allergies Seasonal Allergies: No Past Medical History Surgeries: Eye Surgery, Nephrectomy, Orthopedic, Renal Currently Using CPAP: No Currently Using BIPAP: No Cardiac: Hypertension Musculoskeletal: Chronic Back Pain Cancer: Kidney Did You Recieve Any Treatments: Yes What Type of Treatment Did You: Surgical Intervention History of Blood Disorders: No Family History No Pertinent Family Hx SOCIAL HISTORY: -SMOKED 1 PPD, QUIT 2008 -ETOH --HISTORY OF ABUSE/HEAVY USE--OVER A 6 PACK/DAY--WILL NOT ELABORATE ON HOW MUCH HE USED TO DRINK. STATES HE NO LONGER DRINKS, PER PT ON 01/04/23 -DRUGS--THC IN PAST PAST SURGICAL HISTORY: -RIGHT NEPHRECTOMY 2000 FOR RENAL CANCER -CYSTOSCOPIES -BACK SURGERY -BILATERAL CATARACTS 02/2022 Review of Systems Constitutional: see HPI, malaise, weakness Physical Exam Physical Exam Vital Signs Vital Signs - First Documented 02/05/23 02/05/23 11:40 15:51 Temp 36.0 Pulse 68 Resp 18 B/P (MAP) 141/97 (112) Pulse Ox 99 O2 Delivery Room Air FiO2 21 Capillary Refill : Less Than 3 Seconds Height, Weight, BMI Height: '" Weight: 170lbs. oz. 77.769595gy; 22.00 BMI Method: General Appearance: No Apparent Distress, WD/WN, Chronically ill, Thin Eyes: Bilateral Eye Normal Inspection, Bilateral Eye PERRL, Bilateral Eye EOMI HEENT: PERRL/EOMI, Normal ENT Inspection, Pharynx Normal Neck: Full Range of Motion, Normal Inspection, Non Tender, Supple Respiratory: Chest Non Tender, Lungs Clear, Normal Breath Sounds, No Accessory Muscle Use, No Respiratory Distress Cardiovascular: Regular Rate, Rhythm, No Edema, No Gallop, No JVD Gastrointestinal: Normal Bowel Sounds, No Organomegaly, No Pulsatile Mass, Non Tender, Soft Genital/Rectal: Other (Lumbar midline tenderness., Left pelvic tenderness) Extremity: Normal Capillary Refill, Normal Inspection, Normal Range of Motion, Non Tender Neurologic/Psychiatric: Alert, Oriented x3, No Motor/Sensory Deficits, Normal Mood/Affect, 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 Assessment/Plan Admission Diagnosis Assessment: Weakness Dehydration Back pain with spine lesions suspicious for renal cell carcinoma mets HTN hx Plan: Bone scan Pain control IVF Admission Status: Observation Diagnosis/Problems Diagnosis/Problems (1) Dehydration Status: Acute (2) History of renal cell carcinoma Status: Chronic AMBER VALIENTE DO Feb 05, 2023 14:44
[2023-02-05] MEDS ORDERED: MELATONIN 3 MG TABLET PO PRN (15:45)
[2023-02-05] MEDS ORDERED: MILK OF MAGNESIA 400 MG/5 ML 30 ML UDC PO PRN (15:45)
[2023-02-05] MEDS ORDERED: ANTACID SUSP 30 ML UDC (MYLANTA) PO PRN (15:45)
[2023-02-05] MEDS ORDERED: CALCIUM CARBONATE 500 MG (TUMS) TAB.CHEW PO PRN (15:45)
[2023-02-05] MEDS ORDERED: LACTULOSE SYRUP 10GM/15ML (ENULOSE) 30ML UDC PO PRN (15:45)
[2023-02-05] MEDS ORDERED: ONDANSETRON 4 MG/2 ML (SDV) Z0FRAN IV PRN (15:45)
[2023-02-05] MEDS ORDERED: polyethylene glycoL POWDER 17 GM (MIRALAX) PACK PO PRN (15:45)
[2023-02-05] MEDS ORDERED: HYDROmorphone 2 MG/ML VIAL (DILAUDID) IV PRN (15:45)
[2023-02-05] MEDS ORDERED: ACETAMINOPHEN 325 MG TABLET PO PRN (15:45)
[2023-02-05] MEDS ORDERED: BISACODYL 10 MG SUPP (DULCOLAX) PR PRN (15:45)
[2023-02-05] MEDS ORDERED: diphenhydrAMINE 50 MG/ML INJ (BENADRYL) IVP PRN (15:45)
[2023-02-05] MEDS ORDERED: ONDANSETRON 4 MG (ZOFRAN) ORAL DISSOLVE TAB PO PRN (15:45)
[2023-02-05] MEDS ORDERED: ENOXAPARIN 40 MG/0.4 ML (LOVENOX) SYR SC SCH (15:45)
[2023-02-05] MEDS ORDERED: diphenhydrAMINE 25 MG TAB (BENADRYL) PO PRN (15:45)
[2023-02-05 15:46] VITALS: BP 130/76
[2023-02-05] MEDS: NS IV 1000 ML 1,000 ML IV SCH (15:48)
[2023-02-05 15:51] VITALS: BP 141/97
[2023-02-05] MEDS ORDERED: ENOXAPARIN INJECTION 30 MG/0.3 ML SYR SC SCH (16:00)
[2023-02-05] MEDS ORDERED: RT-ALBUTEROL/IPRATROPIUM 3 ML (DUONEB) VIAL INH PRN ×2 (16:00→22:45)
[2023-02-05 19:32] VITALS: BP 144/80
[2023-02-05] MEDS ORDERED: RT-ALBUTEROL/IPRATROPIUM 3 ML (DUONEB) VIAL INH SCH (21:00)
[2023-02-05] MEDS: SENNOSIDES 8.6 MG (SENOKOT) TAB PO SCH (21:14)
[2023-02-05] MEDS: DOCUSATE SODIUM 100 MG (COLACE) CAP PO SCH (21:14)
[2023-02-05 21:21] LABS: RETICULOCYTE % 0.94 % (0.50-2.40)
[2023-02-05 21:22] LABS: ABSOLUTE RETIC # 38 10e9/uL (24-90)
[2023-02-05 21:42] LABS: ANISOCYTOSIS SLIGHT; LYMPHOCYTES % (MANUAL) 23 %; MONOCYTES % (MANUAL) 4 %; NEUTROPHILS % (MANUAL) 73 %
[2023-02-06 00:31] VITALS: BP 146/73
[2023-02-06 04:00] VITALS: BP 127/80
[2023-02-06] MEDS: NS IV 1000 ML 1,000 ML IV SCH ×2 (05:14→10:29)
[2023-02-06 05:20] LABS: BASOPHILS % (AUTO) 1 % (0-10); EOSINOPHILS # (AUTO) 0.1 10^3/uL (0.0-0.3); EOSINOPHILS % (AUTO) 1 % (0-10); HEMATOCRIT 38 % (40-54); HEMOGLOBIN 13.2 g/dL (13.3-17.7); LYMPHOCYTES # (AUTO) 1.2 10^3/uL (1.0-4.0); LYMPHOCYTES % (AUTO) 17 % (12-44); MEAN CORPUSCULAR HEMOGLOBIN 32 pg (25-34); MEAN CORPUSCULAR HGB CONC 35 g/dL (32-36); MEAN CORPUSCULAR VOLUME 93 fL (80-99); MONOCYTES # (AUTO) 0.4 10^3/uL (0.0-1.0); MONOCYTES % (AUTO) 6 % (0-12); NEUTROPHILS # (AUTO) 5.6 10^3/uL (1.8-7.8); NEUTROPHILS % (AUTO) 76 % (42-75); PLATELET COUNT 259 10^3/uL (130-400); WHITE BLOOD COUNT 7.3 10^3/uL (4.3-11.0)
[2023-02-06 05:28] LABS: ALBUMIN 3.9 GM/DL (3.2-4.5)
[2023-02-06 05:29] LABS: POTASSIUM 3.3 MMOL/L (3.6-5.0)
[2023-02-06 05:31] LABS: TOTAL PROTEIN 7.2 GM/DL (6.4-8.2)
[2023-02-06 05:33] LABS: BILIRUBIN,TOTAL 1.1 MG/DL (0.1-1.0)
[2023-02-06 05:35] LABS: CREATININE SERUM 0.99 MG/DL (0.60-1.30)
[2023-02-06 07:23] VITALS: BP 153/89
[2023-02-06] MEDS: SENNOSIDES 8.6 MG (SENOKOT) TAB PO SCH (07:48)
[2023-02-06] MEDS: DOCUSATE SODIUM 100 MG (COLACE) CAP PO SCH (07:48)
[2023-02-06] MEDS ORDERED: TRAM50TA3 PO (10:28)
[2023-02-06] MEDS ORDERED: AMLO2.5T4 PO (10:28)
[2023-02-06] MEDS ORDERED: AMLO-250 PO (10:28)
[2023-02-06] MEDS ORDERED: POTA-177 PO (10:28)
[2023-02-06] MEDS ORDERED: FLDR.1T PO (10:28)
[2023-02-06 11:16] VITALS: BP 132/80
--- NOTE | 2023-02-06 11:38 | Diagnostic Imaging Report ---
INDICATION: Renal cell carcinoma. TECHNIQUE: Patient was administered 27.0 mCi technetium-99m MDP intravenously, and whole-body imaging was performed after a three-hour delay. No prior bone scans are available for comparison. FINDINGS: There is normal uptake of activity by the axial and appendicular skeleton. There is uptake by the left kidney with excretion into the urinary bladder. Right kidney is surgically absent. There is abnormal uptake involving approximately L2 vertebral body, corresponding to the lytic lesion noted on a recent CT of the lumbar spine. There is a small focus along the inferior aspect of the sternum, which is indeterminate. No other suspicious foci are identified. IMPRESSION: Abnormal uptake at the level of approximately L2 as well as the inferior sternum. Uptake at L2 corresponds to the lytic destructive lesion noted on recent CT and again remains suspicious for a metastatic lesion. Dictated by: Dictated on workstation # [id number]
--- NOTE | 2023-02-06 11:55 | Progress Note ---
MIHAELA TSAI 02/06/23 1155: Subjective Date Seen by a Provider: Feb 06, 2023 Time Seen by a Provider: 08:15 Subjective/Events-last exam f/u on dehydration and lytic lesion on imaging Today patient reports that his dizziness has improved and that it is only occuring when he moves around. Pt reports that he is still having back pain especially when laying in bed. Pt has bone scan scheduled for today. Denies any CP, SOB, new or worsening sx. Hospital Course: Mr. Cedillo is a 72 yo male who presented to the ED with dizziness and dizziness over the past 3 months. During ED he reported some back pain and pelvis pain that has been intermittent and reported decreased appetite and notable unintentional weight loss. Workup in the ED revealed orthostatic hypotension and CT scan of head was unremarkable. CT scan of pelvis showed arthritic changes. CT lumbar spine was concerning for metastatic cancer with a lytic lesion at L2 vertebra. Patient admitted for observation for dehydration and bone scan. During admission patient reports that he still had back pain but was stable throughout. Patient received fluids for dehydration and bone scan showed abnormal uptake at the level of approximately L2 as well as the inferior sternum. Uptake at L2 corresponds to the lytic destructive lesion noted on recent CT and again remains suspicious for a metastatic lesion. Disposition is home and upon discharge follow up with primary care and referral to oncology. Overall patients course throughout hospital stay was stable. Review of Systems General: No Chills, No Night Sweats, No Fatigue HEENT: No Head Aches Pulmonary: No Dyspnea, No Cough Cardiovascular: No: Chest Pain Gastrointestinal: Nausea; No: Vomiting Musculoskeletal: back pain Neurological: No: Weakness, Numbness Objective Exam Last Set of Vital Signs Vital Signs Date Time Temp Pulse Resp B/P (MAP) Pulse Ox O2 Delivery O2 Flow Rate FiO2 02/06/23 11:16 37.0 65 20 132/80 (97) 98 Room Air 02/06/23 09:01 0.00 02/05/23 15:51 21 Capillary Refill : Less Than 3 Seconds I&O Intake and Output 02/06/23 00:00 Intake Total 1600 ml Balance 1600 ml Intake Oral 600 ml IV Total 1000 ml # Voids 3 Daily Weight Change Yes, Greater than 33 lbs General: Alert, Oriented X3 HEENT: EOMI Lungs: Clear to Auscultation, Normal Air Movement Heart: Regular Rate Extremities: No Edema Neuro: Normal Speech Psych/Mental Status: Mental Status NL Results Lab Laboratory Tests 02/05/23 12:05: 02/05/23 12:07: White Blood Count 6.8, Red Blood Count 3.99L, Hemoglobin 13.0L, Hematocrit 37L, Mean Corpuscular Volume 93, Mean Corpuscular Hemoglobin 33, Mean Corpuscular Hemoglobin Concent 35, Red Cell Distribution Width 12.1, Platelet Count 244, Mean Platelet Volume 9.7, Immature Granulocyte % (Auto) 0, Neutrophils (%) (Auto) 77H, Lymphocytes (%) (Auto) 17, Monocytes (%) (Auto) 5, Eosinophils (%) (Auto) 0, Basophils (%) (Auto) 0, Neutrophils # (Auto) 5.3, Lymphocytes # (Auto) 1.1, Monocytes # (Auto) 0.4, Eosinophils # (Auto) 0.0, Basophils # (Auto) 0.0, Immature Granulocyte # (Auto) 0.0, Neutrophils % (Manual) 73, Lymphocytes % (Manual) 23, Monocytes % (Manual) 4, Band Neutrophils , Percent Immature Platelet Fraction 3.7, Anisocytosis SLIGHT, Absolute Reticulocyte Count 38, Percent Reticulocyte Count 0.94, Sodium Level 135, Potassium Level 3.9, Chloride Level 95L, Carbon Dioxide Level 28, Anion Gap 12, Blood Urea Nitrogen 19H, Crea tinine 1.28, Estimat Glomerular Filtration Rate 59, BUN/Creatinine Ratio 15, Glucose Level 102, Calcium Level 9.1, Corrected Calcium 9.2, Magnesium Level 2.1, Total Bilirubin 1.3H, Aspartate Amino Transf (AST/SGOT) 13, Alanine Aminotransferase (ALT/SGPT) 13, Alkaline Phosphatase 85, Total Protein 7.1, Albumin 3.9 02/05/23 13:22: Urine Color YELLOW, Urine Clarity CLEAR, Urine pH 7.5, Urine Specific [place] 1.015L, Urine Protein 1+H, Urine Glucose (UA) NEGATIVE, Urine Ketones NEGATIVE, Urine Nitrite NEGATIVE, Urine Bilirubin NEGATIVE, Urine Urobilinogen 0.2, Urine Leukocyte Esterase NEGATIVE, Urine RBC (Auto) TRACE-IH, Urine RBC NONE, Urine WBC RARE, Urine Crystals NONE, Urine Bacteria NEGATIVE, Urine Casts NONE, Urine Mucus NEGATIVE, Urine Other FEW SPERMH, Urine Culture Indicated NO 02/06/23 05:00: White Blood Count 7.3, Red Blood Count 4.10L, Hemoglobin 13.2L, Hematocrit 38L, Mean Corpuscular Volume 93, Mean Corpuscular Hemoglobin 32, Mean Corpuscular Hemoglobin Concent 35, Red Cell Distribution Width 12.2, Platelet Count 259, Mean Platelet Volume 10.0, Immature Granulocyte % (Auto) 0, Neutrophils (%) (Auto) 76H, Lymphocytes (%) (Auto) 17, Monocytes (%) (Auto) 6, Eosinophils (%) (Auto) 1, Basophils (%) (Auto) 1, Neutrophils # (Auto) 5.6, Lymphocytes # (Auto) 1.2, Monocytes # (Auto) 0.4, Eosinophils # (Auto) 0.1, Basophils # (Auto) 0.0, Immature Granulocyte # (Auto) 0.0, Sodium Level 138, Potassium Level 3.3L, Chloride Level 98, Carbon Dioxide Level 27, Anion Gap 13, Blood Urea Nitrogen 16, Creatinine 0.99, Estimat Glomerular Filtration Rate 80, BUN/Creatinine Ratio 16, Glucose Level 92, Calcium Level 9.0, Corrected Calcium 9.1, Total Bilirubin 1.1H, Aspartate Amino Transf (AST/SGOT) 16, Alanine Aminotransferase (ALT/SGPT) 15, Alkaline Phosphatase 87, Total Protein 7.2, Albumin 3.9 Assessment/Plan Assessment/Plan Assess & Plan/Chief Complaint Assessment: Weakness Dehydration Back pain with spine lesions suspicious for renal cell carcinoma mets HTN hx Plan: Bone scan Pain control IVF Consult Heme/onc Diet: Regular Code status: DNR DVT Prophylaxis: Lovenox Dispositon: likely home pending status AMBER VALIENTE DO 02/07/23 0444: Supervisory-Addendum Brief Verification & Attestation Participated in pt care: history, MDM, physical Personally performed: exam, history, MDM, supervision of care Care discussed with: Medical Student Procedures: n/a Results interpretation: Verified all documentation Verification and Attestation of Medical Student E/M Service A medical student performed and documented this service in my presence. I reviewed and verified all information documented by the medical student and made modifications to such information, when appropriate. I personally performed the physical exam and medical decision making. Amber Valiente Feb 07, 2023,04:44 MIHAELA TSAI Feb 06, 2023 11:55 AMBER VALIENTE DO Feb 07, 2023 04:44
--- NOTE | 2023-02-06 12:39 | Discharge Summary ---
Diagnosis/Chief Complaint Date of Admission Feb 05, 2023 at 15:09 Date of Discharge Discharge Date: Feb 06, 2023 Discharge Diagnosis Assessment: Weakness Dehydration Back pain with spine lesions suspicious for renal cell carcinoma mets HTN hx Discharge Summary Discharge Physical Examination Allergies: Coded Allergies: No Known Drug Allergies (Unverified , 02/05/23) Vitals & I&Os Vital Signs Date Time Temp Pulse Resp B/P (MAP) Pulse Ox O2 Delivery O2 Flow Rate FiO2 02/06/23 13:31 37.0 65 20 132/80 98 Room Air 0.00 02/05/23 15:51 21 General Appearance: Alert, Oriented X3, Cooperative Respiratory: Clear to Auscultation Cardiovascular: Regular Rate Psych/Mental Status: Mental Status NL Hospital Course Was the Problem List Reviewed?: Yes Hospital Course: Mr. Cedillo is a 72 yo male who presented to the ED with dizziness and dizziness over the past 3 months. During ED he reported some back pain and pelvis pain that has been intermittent and reported decreased appetite and notable unintentional weight loss. Workup in the ED revealed orthostatic hypotension and CT scan of head was unremarkable. CT scan of pelvis showed arthritic changes. CT lumbar spine was concerning for metastatic cancer with a lytic lesion at L2 vertebra. Patient admitted for observation for dehydration and bone scan. During admission patient reports that he still had back pain but was stable throughout. Patient received fluids for dehydration and bone scan showed abnormal uptake at the level of approximately L2 as well as the inferior sternum. Uptake at L2 corresponds to the lytic destructive lesion noted on recent CT and again remains suspicious for a metastatic lesion. Disposition is home and upon discharge follow up with primary care and referral to oncology. Overall patients course throughout hospital stay was stable. Labs (last 24 hrs) Laboratory Tests 02/05/23 12:05: Urine Total Protein Timed 8 02/05/23 12:07: White Blood Count 6.8, Red Blood Count 3.99L, Hemoglobin 13.0L, Hematocrit 37L, Mean Corpuscular Volume 93, Mean Corpuscular Hemoglobin 33, Mean Corpuscular Hemoglobin Concent 35, Red Cell Distribution Width 12.1, Platelet Count 244, Mean Platelet Volume 9.7, Immature Granulocyte % (Auto) 0, Neutrophils (%) (Auto) 77H, Lymphocytes (%) (Auto) 17, Monocytes (%) (Auto) 5, Eosinophils (%) (Auto) 0, Basophils (%) (Auto) 0, Neutrophils # (Auto) 5.3, Lymphocytes # (Auto) 1.1, Monocytes # (Auto) 0.4, Eosinophils # (Auto) 0.0, Basophils # (Auto) 0.0, Immature Granulocyte # (Auto) 0.0, Neutrophils % (Manual) 73, Lymphocytes % (Manual) 23, Monocytes % (Manual) 4, Band Neutrophils , Percent Immature Platelet Fraction 3.7, Anisocytosis SLIGHT, Absolute Reticulocyte Count 38, Percent Reticulocyte Count 0.94, Sodium Level 135, Potassium Level 3.9, Chloride Level 95L, Carbon Dioxide Level 28, Anion Gap 12, Blood Urea Nitrogen 19H, Creatinine 1.28, Estimat Glomerular Filtration Rate 59, BUN/Creatinine Ratio 15, Glucose Level 102, Calcium Level 9.1, Corrected Calcium 9.2, Magnesium Level 2.1, Total Bilirubin 1.3H, Aspartate Amino Transf (AST/SGOT) 13, Alanine Logan otransferase (ALT/SGPT) 13, Alkaline Phosphatase 85, Total Protein 7.1, Albumin 3.9 02/05/23 13:22: Urine Color YELLOW, Urine Clarity CLEAR, Urine pH 7.5, Urine Specific [place] 1.015L, Urine Protein 1+H, Urine Glucose (UA) NEGATIVE, Urine Ketones NEGATIVE, Urine Nitrite NEGATIVE, Urine Bilirubin NEGATIVE, Urine Urobilinogen 0.2, Urine Leukocyte Esterase NEGATIVE, Urine RBC (Auto) TRACE-IH, Urine RBC NONE, Urine WBC RARE, Urine Crystals NONE, Urine Bacteria NEGATIVE, Urine Casts NONE, Urine Mucus NEGATIVE, Urine Other FEW SPERMH, Urine Culture Indicated NO 02/06/23 05:00: White Blood Count 7.3, Red Blood Count 4.10L, Hemoglobin 13.2L, Hematocrit 38L, Mean Corpuscular Volume 93, Mean Corpuscular Hemoglobin 32, Mean Corpuscular Hemoglobin Concent 35, Red Cell Distribution Width 12.2, Platelet Count 259, Mean Platelet Volume 10.0, Immature Granulocyte % (Auto) 0, Neutrophils (%) (Auto) 76H, Lymphocytes (%) (Auto) 17, Monocytes (%) (Auto) 6, Eosinophils (%) (Auto) 1, Basophils (%) (Auto) 1, Neutrophils # (Auto) 5.6, Lymphocytes # (Auto) 1.2, Monocytes # (Auto) 0.4, Eosinophils # (Auto) 0.1, Basophils # (Auto) 0.0, Immature Granulocyte # (Auto) 0.0, Sodium Level 138, Potassium Level 3.3L, Chloride Level 98, Carbon Dioxide Level 27, Anion Gap 13, Blood Urea Nitrogen 16, Creatinine 0.99, Estimat Glomerular Filtration Rate 80, BUN/Creatinine Ratio 16, Glucose Level 92, Calcium Level 9.0, Corrected Calcium 9.1, Total Bilirubin 1.1H, Aspartate Amino Transf (AST/SGOT) 16, Alanine Aminotransferase (ALT/SGPT) 15, Alkaline Phosphatase 87, Total Protein 7.2, Albumin 3.9 Pending Labs Laboratory Tests 02/05/23 12:05: Urine Total Protein Timed 8, Free Laird Light Chains, Quant [Pending], Free Lambda Light Chains, Quant [Pending], Free Laird/Lambda Light Chain Ratio [Pending] 02/05/23 12:07: White Blood Count 6.8, Red Blood Count 3.99, Hemoglobin 13.0, Hematocrit 37, Mean Corpuscular Volume 93, Mean Corpuscular Hemoglobin 33, Mean Corpuscular Hemoglobin Concent 35, Red Cell Distribution Width 12.1, Platelet Count 244, Mean Platelet Volume 9.7, Immature Granulocyte % (Auto) 0, Neutrophils (%) (Auto) 77, Lymphocytes (%) (Auto) 17, Monocytes (%) (Auto) 5, Eosinophils (%) (Auto) 0, Basophils (%) (Auto) 0, Neutrophils # (Auto) 5.3, Lymphocytes # (Auto) 1.1, Monocytes # (Auto) 0.4, Eosinophils # (Auto) 0.0, Basophils # (Auto) 0.0, Immature Granulocyte # (Auto) 0.0, Neutrophils % (Manual) 73, Lymphocytes % (Manual) 23, Monocytes % (Manual) 4, Band Neutrophils , Percent Immature Mimi telet Fraction 3.7, Anisocytosis SLIGHT, Absolute Reticulocyte Count 38, Percent Reticulocyte Count 0.94, Sodium Level 135, Potassium Level 3.9, Chloride Level 95, Carbon Dioxide Level 28, Anion Gap 12, Blood Urea Nitrogen 19, Creatinine 1.28, Estimat Glomerular Filtration Rate 59, BUN/Creatinine Ratio 15, Glucose Level 102, Calcium Level 9.1, Corrected Calcium 9.2, Magnesium Level 2.1, Total Bilirubin 1.3, Aspartate Amino Transf (AST/SGOT) 13, Alanine Aminotransferase (ALT/SGPT) 13, Alkaline Phosphatase 85, Total Protein 7.1, Albumin 3.9 02/05/23 13:22: Urine Color YELLOW, Urine Clarity CLEAR, Urine pH 7.5, Urine Specific [place] 1.015, Urine Protein 1+, Urine Glucose (UA) NEGATIVE, Urine Ketones NEGATIVE, Urine Nitrite NEGATIVE, Urine Bilirubin NEGATIVE, Urine Urobilinogen 0.2, Urine Leukocyte Esterase NEGATIVE, Urine RBC (Auto) TRACE-I, Urine RBC NONE, Urine WBC RARE, Urine Crystals NONE, Urine Bacteria NEGATIVE, Urine Casts NONE, Urine Mucus NEGATIVE, Urine Other FEW SPERM, Urine Culture Indicated NO 02/06/23 05:00: White Blood Count 7.3, Red Blood Count 4.10, Hemoglobin 13.2, Hematocrit 38, Mean Corpuscular Volume 93, Mean Corpuscular Hemoglobin 32, Mean Corpuscular Hemoglobin Concent 35, Red Cell Distribution Width 12.2, Platelet Count 259, Mean Platelet Volume 10.0, Immature Granulocyte % (Auto) 0, Neutrophils (%) (Auto) 76, Lymphocytes (%) (Auto) 17, Monocytes (%) (Auto) 6, Eosinophils (%) (Auto) 1, Basophils (%) (Auto) 1, Neutrophils # (Auto) 5.6, Lymphocytes # (Auto) 1.2, Monocytes # (Auto) 0.4, Eosinophils # (Auto) 0.1, Basophils # (Auto) 0.0, Immature Granulocyte # (Auto) 0.0, Sodium Level 138, Potassium Level 3.3, Chloride Level 98, Carbon Dioxide Level 27, Anion Gap 13, Blood Urea Nitrogen 16, Creatinine 0.99, Estimat Glomerular Filtration Rate 80, BUN/Creatinine Ratio 16, Glucose Level 92, Calcium Level 9.0, Corrected Calcium 9.1, Total Bilirubin 1.1, Aspartate Amino Transf (AST/SGOT) 16, Alanine Aminotransferase (ALT/SGPT) 15, Alkaline Phosphatase 87, Total Protein 7.2, Albumin 3.9 Discharge Home Medications: Active Scripts Active Reported Fludrocortisone Acetate 0.1 Mg Tab 0.1 Mg PO DAILY Amlodipine Besylate 2.5 Mg Tablet 2.5 Mg PO HS Potassium Chloride 10 Meq Tab.er.prt 10 Meq PO DAILY Tramadol HCl 50 Mg Tablet 50 Mg PO BID PRN Tylenol (Acetaminophen) 325 Mg Tablet 650 Mg PO Q6H PRN Vitamin B-12 (Cyanocobalamin (Vitamin B-12)) 500 Mcg Tablet 500 Mcg PO DAILY Instructions to patient/family Please see electronic discharge instructions given to patient. Diagnosis/Problems Diagnosis/Problems (1) Dehydration Status: Acute (2) History of renal cell carcinoma Status: Chronic NORRIS ATKINSON DO Feb 06, 2023 12:39
[2023-02-06 13:31] VITALS: BP 132/80
[2023-02-06] MEDS ORDERED: amLODIPine 2.5MG (NORVASC) TAB PO SCH (21:00)
[2023-02-07] MEDS ORDERED: CYANOCOBALAMIN 1,000 MCG (VITAMIN B-12) TABLET PO SCH (07:00)
[2023-02-07] MEDS ORDERED: FLUDROCORTISONE 0.1 MG (FLORINEF) TAB PO SCH (09:00)
[2023-02-07] MEDS ORDERED: KCL 10 MEQ TAB (MICRO K) PO SCH (09:00)
== END 2023-02-06 13:31 | disposition home or self-care (01) ==
LOC: EDUNIT# 11:24 → ER 11:26 → 4TH 15:09
PROVIDERS: ADMIT Internal Medicine; ATTEND Internal Medicine
DX: R53.1 Weakness (principal); E86.0 Dehydration; M54.9 Dorsalgia, unspecified; M48.8X6 Other specified spondylopathies, lumbar region; I10 Essential (primary) hypertension; Z90.5 Acquired absence of kidney; Z85.528 Personal history of other malignant neoplasm of kidney
CPT/HCPCS: 70450; 72131; 72192; 78306; 80053 ×2; 81000; 83735; 83883; 84166; 85007; 85025 ×2; 85045; 85055; 93005; 94760; 99284; A9503; 36415; 96372

== ENCOUNTER 2023-02-14 09:44 | Outpatient (RCR) | payer MEDICARE, OTHER ==
[~2023-02-14 09:44] MED LIST changes: +AMLO-250 PO; +AMLO2.5T4 PO; +POTA-177 PO; +TRAM50TA3 PO
== END 2023-02-16 ==
LOC: ONC 09:44
PROVIDERS: ATTEND Internal Medicine Hematology & Oncology
DX: C68.0 Malignant neoplasm of urethra (principal); C79.51 Secondary malignant neoplasm of bone; I10 Essential (primary) hypertension; I65.23 Occlusion and stenosis of bilateral carotid arteries

== ENCOUNTER → 2023-02-24 | Outpatient (CLI) | payer MEDICARE, OTHER ==
--- NOTE | 2023-02-24 12:16 | Diagnostic Imaging Report ---
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 After intravenous administration of 10.8 mCi F-18 fluorodeoxyglucose into the left antecubital fossa, patient underwent 1 hour activation. PET/CT imaging performed from head to upper thighs. There are numerous scattered hypermetabolic lesions. There are numerous musculoskeletal foci with involvement of left humerus in both scapula. Activity in right scapular body lesion reaches maximum standard uptake value of 12. Several hypermetabolic lesions involve the right ribs and there is sternal involvement. There is also small nodular focus in the anterior mediastinum with maximum standard uptake value of 7.7. Below the diaphragm, there is hypermetabolism along the superior aspect of right nephrectomy bed. This could represent adrenal gland tissue or residual versus recurrent right renal neoplasm. Maximum standard uptake value reaches approximately 7 at the site. There is also hypermetabolism in the region of the left adrenal gland with maximum standard uptake value of 9. Soft tissue nodule in the retroumbilical region demonstrates maximum standard uptake value of 9.6. There is hypermetabolism within lytic L2 lesion with standard uptake value reaching 16. Additional small hypermetabolic foci are seen elsewhere in the lumbar spine as well as within right iliac bone and left ischium and left greater trochanter. Small hypermetabolic right inguinal lymph node is noted. Activity is excreted from the left kidney with accumulation in the bladder. IMPRESSION: Findings indicate widespread metastatic disease involving musculoskeletal system to greatest extent. Dominant lytic lesion at L2 is markedly hypermetabolic with anterior abdominal adenopathy also demonstrating marked hypermetabolism. Dictated by: Dictated on workstation # [id number]
== END ==
LOC: RAD 09:35
PROVIDERS: ATTEND Internal Medicine Hematology & Oncology
DX: C64.9 Malignant neoplasm of unspecified kidney, except renal pelvis (principal); C79.51 Secondary malignant neoplasm of bone
CPT/HCPCS: 78815; 82947; A9552

== ENCOUNTER 2023-02-28 09:36 | Outpatient (RCR) | payer MEDICARE, OTHER ==
[2023-02-28 09:54] LABS: BASOPHILS % (AUTO) 0 % (0-10); EOSINOPHILS % (AUTO) 0 % (0-10); HEMATOCRIT 41 % (40-54); HEMOGLOBIN 14.2 g/dL (13.3-17.7); LYMPHOCYTES # (AUTO) 1.3 10^3/uL (1.0-4.0); LYMPHOCYTES % (AUTO) 20 % (12-44); MEAN CORPUSCULAR HEMOGLOBIN 32 pg (25-34); MEAN CORPUSCULAR HGB CONC 35 g/dL (32-36); MEAN CORPUSCULAR VOLUME 93 fL (80-99); MEAN PLATELET VOLUME 9.8 fL (9.0-12.2); MONOCYTES # (AUTO) 0.4 10^3/uL (0.0-1.0); MONOCYTES % (AUTO) 6 % (0-12); NEUTROPHILS % (AUTO) 74 % (42-75); PLATELET COUNT 272 10^3/uL (130-400); WHITE BLOOD COUNT 6.8 10^3/uL (4.3-11.0)
[2023-02-28 10:12] LABS: ALBUMIN 4.2 GM/DL (3.2-4.5); BILIRUBIN,TOTAL 1.7 MG/DL (0.1-1.0); CALCIUM 9.5 MG/DL (8.5-10.1); CREATININE SERUM 1.43 MG/DL (0.60-1.30); POTASSIUM 3.9 MMOL/L (3.6-5.0); TOTAL PROTEIN 7.8 GM/DL (6.4-8.2)
[2023-03-19] MEDS ORDERED: FLDR.1T PO ×2 (09:11)
[2023-03-27] MEDS ORDERED: ONDA4TAB11 PO ×2 (05:12)
[2023-03-27] MEDS ORDERED: LACT20SO2 PO ×2 (05:12)
[2023-03-27] MEDS ORDERED: SENN-271 PO ×2 (05:12)
[2023-03-27] MEDS ORDERED: POTA20TA28 PO ×2 (05:12)
[2023-03-27] MEDS ORDERED: TRAM50TA3 PO ×2 (05:12)
[2023-03-27] MEDS ORDERED: HYDR-3922 PO ×2 (05:12)
[2023-03-27] MEDS ORDERED: OXC5T PO ×2 (05:12)
[2023-03-27] MEDS ORDERED: METO5TAB2 PO ×2 (05:12)
== END 2023-03-19 | disposition home or self-care (01) ==
LOC: ONC 09:36
PROVIDERS: ATTEND Internal Medicine Hematology & Oncology
DX: C68.0 Malignant neoplasm of urethra (principal); C79.51 Secondary malignant neoplasm of bone; I10 Essential (primary) hypertension; Z90.5 Acquired absence of kidney
CPT/HCPCS: 36415; 80053; 85025

== ENCOUNTER 2023-03-12 10:02 | Outpatient (CLI) | payer MEDICARE, OTHER ==
[2023-03-12] VITALS (12 sets, daily range): BP systolic 150–206; BP diastolic 112–141
[~2023-03-12] VITALS: Ht 175.3 cm; Wt 47.2 kg
[2023-03-12] MEDS ORDERED: NS IV 1000 ML 1,000 ML IV STA (10:04)
[2023-03-12] MEDS ORDERED: LIDOCAINE 1% INJ 10 ML VIAL INJ ONE (10:15)
[2023-03-12] MEDS ORDERED: fentaNYL INJ 100 MCG/2 ML AMP IVP ONE (10:15)
[2023-03-12] MEDS ORDERED: MIDAZOLAM 2 MG/2 ML (VERSED) VIAL IVP ONE ×2 (10:15→12:18)
[2023-03-12 10:33] LABS: HEMATOCRIT 42 % (40-54); HEMOGLOBIN 15.2 g/dL (13.3-17.7); MEAN CORPUSCULAR HEMOGLOBIN 33 pg (25-34); MEAN CORPUSCULAR HGB CONC 36 g/dL (32-36); MEAN CORPUSCULAR VOLUME 91 fL (80-99); MEAN PLATELET VOLUME 9.9 fL (9.0-12.2); PLATELET COUNT 275 10^3/uL (130-400); WHITE BLOOD COUNT 10.1 10^3/uL (4.3-11.0)
[2023-03-12 10:42] LABS: PROTHROMBIN TIME PATIENT 13.2 SEC (12.2-14.7)
--- NOTE | 2023-03-12 13:01 | Pre-Op Note & Conscious Sedat ---
Pre-Operative Progress Note Date of Available H&P: March 12, 2023 Date H&P Reviewed: March 12, 2023 Time H&P Reviewed: 10:00 Pre-Op Diagnosis: bone lesion Moderate Sedation PreProcedure Time 10:00 ASA Score 2 Airway Lungs Heart ASA score ASA 1: a normal healthy patient ASA 2: a patient with a mild systemic disease (mid diabetes, controlled hypertension, obesity ASA 3: a patient with a severe systemic disease that limits activity (angina, COPD, prior Myocardial infarction) ASA 4: a patient with an incapacitating disease that is a constant threat to life (CHF, renal failure) ASA 5: a moribund patient not expected to survive 24 hrs. (ruptured aneurysm) ASA 6: a declared brain- patient whose organs are being harvested. For emergent operations, add the letter E after the classification Mallampati Classification Grade 2 Sedation Plan Analgesia, Amnesia, Plan communicated to team members, Discussed options with patient/fam, Discussed risks with patient/fam The patient is an appropriate candidate to undergo the planned procedure, sedation, and anesthesia. The patient immediately re-assessed prior to indication. YANY RODRIGUEZ MD March 12, 2023 13:01
--- NOTE | 2023-03-12 13:35 | Diagnostic Imaging Report ---
INDICATION: Right iliac bone lesion. Patient presents for CT-guided biopsy. TECHNIQUE: All CT scans use one or more of the following dose optimizing techniques: Automated exposure control, MA and/or KvP adjustment based on patient size and exam type or iterative reconstruction. The patient was brought to the CT suite and placed on table in the supine position. Axial imaging through the pelvis was performed to evaluate appropriate entry site. The study was performed utilizing conscious sedation with radiology nursing in constant patient monitoring. Patient was given 50 mcg of fentanyl intravenously and 0.5 mg of Versed intravenously. Total procedure time was approximately 12 minutes. Right pelvis was prepped and draped in the usual sterile fashion. A small amount of 1% lidocaine was utilized for local anesthesia. Bone marrow biopsy needle was advanced and placed with its tip along the anterior aspect of the right iliac bone. The needle was advanced through the cortex utilizing the bone marrow drill. Next, bone marrow drill was utilized to obtain a core sample of the right iliac lytic lesion. A total of two passes were made with the bone marrow biopsy kit. Needle was removed, and hemostasis was obtained. Patient tolerated the procedure well and left the department in stable condition. IMPRESSION: Successful CT-guided right iliac lytic bone lesion core biopsy, utilizing conscious sedation. Pathology results are currently pending. Dictated by: Dictated on workstation # [id number]
== END 2023-03-12 15:10 ==
LOC: SDC 10:02
PROVIDERS: ATTEND Internal Medicine Hematology & Oncology
DX: M89.9 Disorder of bone, unspecified (principal); C68.0 Malignant neoplasm of urethra; C79.51 Secondary malignant neoplasm of bone; C61 Malignant neoplasm of prostate
CPT/HCPCS: 36415; 77012; 85027; 85610; 85730; 99156

== ENCOUNTER 2023-03-18 15:09 | Observation (INO) | payer MEDICARE, OTHER ==
[~2023-03-18] VITALS: Ht 175 cm; Wt 45.7 kg
[2023-03-18] MEDS ORDERED: CALCIUM CARBONATE 500 MG (TUMS) TAB.CHEW PO PRN (15:45)
[2023-03-18] MEDS ORDERED: HYDROmorphone 2 MG/ML VIAL (DILAUDID) IV PRN (15:45)
[2023-03-18] MEDS ORDERED: MELATONIN 3 MG TABLET PO PRN (15:45)
[2023-03-18] MEDS ORDERED: ONDANSETRON 4 MG (ZOFRAN) ORAL DISSOLVE TAB PO PRN (15:45)
[2023-03-18] MEDS ORDERED: diphenhydrAMINE 25 MG TAB (BENADRYL) PO PRN (15:45)
[2023-03-18] MEDS ORDERED: MILK OF MAGNESIA 400 MG/5 ML 30 ML UDC PO PRN (15:45)
[2023-03-18] MEDS ORDERED: polyethylene glycoL POWDER 17 GM (MIRALAX) PACK PO PRN (15:45)
[2023-03-18] MEDS ORDERED: diphenhydrAMINE 50 MG/ML INJ (BENADRYL) IVP PRN (15:45)
[2023-03-18] MEDS ORDERED: LACTULOSE SYRUP 10GM/15ML (ENULOSE) 30ML UDC PO PRN (15:45)
[2023-03-18] MEDS ORDERED: BISACODYL 10 MG SUPP (DULCOLAX) PR PRN (15:45)
[2023-03-18] MEDS ORDERED: ANTACID SUSP 30 ML UDC (MYLANTA) PO PRN (15:45)
[2023-03-18] MEDS ORDERED: ONDANSETRON 4 MG/2 ML (SDV) Z0FRAN IV PRN (15:45)
[2023-03-18] MEDS ORDERED: ACETAMINOPHEN 325 MG TABLET PO PRN (15:45)
[2023-03-18] MEDS ORDERED: hydrALAZINE (APESOLINE) 20 MG/ML VIAL IV PRN (15:45)
[2023-03-18] MEDS: NS IV 1000 ML 1,000 ML IV SCH (16:11)
[2023-03-18 16:19] LABS: BASOPHILS % (AUTO) 0 % (0-10); EOSINOPHILS % (AUTO) 0 % (0-10); HEMATOCRIT 38 % (40-54); HEMOGLOBIN 13.5 g/dL (13.3-17.7); LYMPHOCYTES # (AUTO) 0.8 10^3/uL (1.0-4.0); LYMPHOCYTES % (AUTO) 12 % (12-44); MEAN CORPUSCULAR HEMOGLOBIN 32 pg (25-34); MEAN CORPUSCULAR HGB CONC 35 g/dL (32-36); MEAN CORPUSCULAR VOLUME 92 fL (80-99); MEAN PLATELET VOLUME 9.7 fL (9.0-12.2); MONOCYTES # (AUTO) 0.3 10^3/uL (0.0-1.0); MONOCYTES % (AUTO) 5 % (0-12); NEUTROPHILS # (AUTO) 5.8 10^3/uL (1.8-7.8); NEUTROPHILS % (AUTO) 83 % (42-75); PLATELET COUNT 250 10^3/uL (130-400)
[2023-03-18 16:27] LABS: ALBUMIN 3.8 GM/DL (3.2-4.5); POTASSIUM 3.1 MMOL/L (3.6-5.0)
[2023-03-18 16:28] LABS: CALCIUM 9.3 MG/DL (8.5-10.1)
[2023-03-18 16:30] LABS: TOTAL PROTEIN 6.8 GM/DL (6.4-8.2)
[2023-03-18 16:31] LABS: BILIRUBIN,TOTAL 1.8 MG/DL (0.1-1.0)
[2023-03-18 16:33] LABS: CREATININE SERUM 1.5 MG/DL (0.60-1.30)
--- NOTE | 2023-03-18 17:02 | Diagnostic Imaging Report ---
INDICATION: Constipation. TIME OF EXAM: 4:32 p.m. FINDINGS: There is S-shaped thoracolumbar scoliotic curvature. Bowel gas pattern is nonobstructed. No significant stool load is identified. There is some small amount of stool in the right colon. No free air is seen. No pathologic calcifications are identified. IMPRESSION: No acute abnormality is identified. Dictated by: Dictated on workstation # [id number]
[2023-03-18] MEDS ORDERED: ENOXAPARIN INJECTION 30 MG/0.3 ML SYR SC SCH (18:00)
[2023-03-18] MEDS ORDERED: KCL 20 MEQ TAB (K-DUR) PO ONE (18:30)
[2023-03-18 19:33] VITALS: BP 171/88
[2023-03-18] MEDS: SENNOSIDES 8.6 MG (SENOKOT) TAB PO SCH (19:44)
[2023-03-18] MEDS: DOCUSATE SODIUM 100 MG (COLACE) CAP PO SCH (19:44)
[2023-03-18] MEDS: SENNA W/DOCUSATE (SENOKOT S) TABLET PO SCH (19:44)
[2023-03-18] MEDS: LACTULOSE SYRUP 10GM/15ML (ENULOSE) 30ML UDC PO SCH (19:45)
[2023-03-18 20:04] VITALS: BP 171/88
[2023-03-18] MEDS ORDERED: KCL 10 MEQ TAB (MICRO K) PO SCH (21:00)
[2023-03-18 21:01] LABS: BILIRUBIN,URINE NEGATIVE (NEGATIVE); CLARITY,URINE CLEAR; COLOR,URINE YELLOW; GLUCOSE, URINE (UA) NEGATIVE (NEGATIVE); KETONES,URINE NEGATIVE (NEGATIVE); LEUKOCYTE ESTERASE ,URINE NEGATIVE (NEGATIVE); NITRITE,URINE NEGATIVE (NEGATIVE); PH,URINE 6.5 (5-9); PROTEIN,URINE 1+ (NEGATIVE)
[2023-03-18 21:12] LABS: AMORPHOUS SEDIMENT,UR RARE AMOR URATES /LPF; BACTERIA,URINE NEGATIVE /HPF; RBC,URINE 0-2 /HPF; SQUAMOUS EPITHELIAL CELL,UR RARE /HPF
[2023-03-18 23:44] VITALS: BP 169/74
[2023-03-19 03:23] VITALS: BP 163/92
[2023-03-19] MEDS: NS IV 1000 ML 1,000 ML IV SCH (05:07)
--- NOTE | 2023-03-19 05:58 | History & Physical ---
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 His cousin is now his DURABLE POWER OF BAND SPLITTER. She lives in [place]. He has had multiple falls. Bone biopsy was assessed with pathology and that was updated to Dr. 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 Dr. Murphy will confer with him regarding cancer treatment. Patient was found to be dehydrated with acute kidney injury and having labile blood pressure. Source: patient, family Exam Limitations: no limitations Date Seen 03/19/23 Time Seen by a Provider: 11:00 Attending Physician Amber Valiente DO PCP Admitting Physician: Amber Valiente DO Attending Physician: Amber Valiente DO Referring Physician Date of Admission March 18, 2023 at 15:33 Home Medications & Allergies Home Medications Reviewed patient Home Medication Reconciliation performed by pharmacy medication reconciliations distance learning technician and/or nursing. Patients Allergies have been reviewed. Allergies Allergies Coded Allergies No Known Drug Allergies (Unverified02/05/23) Past Zrqtbky-Uflzhw-Ohnlot Hx Past Med/Social Hx: Reviewed Nursing Past Med/Soc Hx, Reviewed and Corrections made Patient Social History Marrital Status: single Employed/Student: retired Alcohol Use: Denies Use Smoking Status: Former Smoker Former Smoker, Quit: Oct 20, 2008 Type Used: Cigarettes 2nd Hand Smoke Exposure: No Recent Hopitalizations: No Immunizations Up To Date Date of Influenza Vaccine: Sep 12, 2022 Seasonal Allergies Seasonal Allergies: No Past Medical History Surgeries: Eye Surgery, Nephrectomy, Orthopedic, Renal Currently Using CPAP: No Currently Using BIPAP: No Cardiac: Hypertension Musculoskeletal: Chronic Back Pain Cancer: Kidney Did You Recieve Any Treatments: Yes What Type of Treatment Did You: Surgical Intervention History of Blood Disorders: No Family History No Pertinent Family Hx SOCIAL HISTORY: -SMOKED 1 PPD, QUIT 2008 -ETOH --HISTORY OF ABUSE/HEAVY USE--OVER A 6 PACK/DAY--WILL NOT ELABORATE ON HOW MUCH HE USED TO DRINK. STATES HE NO LONGER DRINKS, PER PT ON 01/04/23 -DRUGS--THC IN PAST PAST SURGICAL HISTORY: -RIGHT NEPHRECTOMY 2000 FOR RENAL CANCER -CYSTOSCOPIES -BACK SURGERY -BILATERAL CATARACTS 02/2022 Review of Systems Constitutional: see HPI, dizziness, malaise, weakness Physical Exam Physical Exam Vital Signs Vital Signs - First Documented 03/18/23 03/18/23 03/18/23 03/18/23 18:06 19:00 19:33 20:04 Temp 36.4 Pulse 74 Resp 18 B/P (MAP) 171/88 (115) Pulse Ox 99 O2 Delivery Room Air FiO2 21 Capillary Refill : Height, Weight, BMI Height: '" Weight: 170lbs. oz. 77.143796ob; 14.92 BMI Method: General Appearance: WD/WN, Anxious, Chronically ill, Cachetic, Mild Distress, Thin Eyes: Bilateral Eye Normal Inspection, Bilateral Eye PERRL HEENT: PERRL/EOMI, Normal ENT Inspection, Pharynx Normal Neck: Full Range of Motion, Normal Inspection, Non Tender, Supple, Carotid Bruit Respiratory: Chest Non Tender, Lungs Clear, Normal Breath Sounds, No Accessory Muscle Use, No Respiratory Distress Cardiovascular: Regular Rate, Rhythm, No Edema, No Gallop, No JVD, No Murmur, Normal Peripheral Pulses Gastrointestinal: Normal Bowel Sounds, No Organomegaly, No Pulsatile Mass, Non Tender, Soft Back: Normal Inspection, No CVA Tenderness, No Vertebral Tenderness Extremity: Normal Capillary Refill, Normal Inspection, Normal Range of Motion, Non Tender, No Calf Tenderness, No Pedal Edema Neurologic/Psychiatric: Alert, Oriented x3, No Motor/Sensory Deficits, Normal Mood/Affect Skin: Normal Color, Warm/Dry Lymphatic: No Adenopathy Results Results/Procedures Labs Laboratory Tests 03/18/23 16:04 03/19/23 05:13 Patient resulted labs reviewed. Assessment/Plan Admission Diagnosis Assessment: Severe weakness with falls Dehydration causing acute kidney injury 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 Severe constipation Plan: IV fluids Septic work-up Supportive care Pain control Bowel regimen Admission Status: Observation AMBER VALIENTE DO March 19, 2023 05:58
[2023-03-19 06:03] LABS: BASOPHILS % (AUTO) 0 % (0-10); EOSINOPHILS % (AUTO) 0 % (0-10); HEMATOCRIT 37 % (40-54); HEMOGLOBIN 13.1 g/dL (13.3-17.7); LYMPHOCYTES % (AUTO) 13 % (12-44); MEAN CORPUSCULAR HEMOGLOBIN 32 pg (25-34); MEAN CORPUSCULAR HGB CONC 35 g/dL (32-36); MEAN CORPUSCULAR VOLUME 93 fL (80-99); MEAN PLATELET VOLUME 10.2 fL (9.0-12.2); MONOCYTES # (AUTO) 0.4 10^3/uL (0.0-1.0); MONOCYTES % (AUTO) 5 % (0-12); NEUTROPHILS # (AUTO) 6.8 10^3/uL (1.8-7.8); NEUTROPHILS % (AUTO) 82 % (42-75); PLATELET COUNT 252 10^3/uL (130-400); WHITE BLOOD COUNT 8.3 10^3/uL (4.3-11.0)
[2023-03-19 06:14] LABS: ALBUMIN 3.7 GM/DL (3.2-4.5); BILIRUBIN,TOTAL 1.9 MG/DL (0.1-1.0); CALCIUM 8.9 MG/DL (8.5-10.1); CREATININE SERUM 1.12 MG/DL (0.60-1.30); POTASSIUM 2.9 MMOL/L (3.6-5.0); TOTAL PROTEIN 6.7 GM/DL (6.4-8.2)
[2023-03-19 07:24] VITALS: BP 198/119
[2023-03-19] MEDS: DOCUSATE SODIUM 100 MG (COLACE) CAP PO SCH (08:26)
[2023-03-19] MEDS: SENNOSIDES 8.6 MG (SENOKOT) TAB PO SCH (08:26)
[2023-03-19] MEDS: KCL 10 MEQ TAB (MICRO K) PO SCH ×2 (08:26→13:28)
[2023-03-19] MEDS: SENNA W/DOCUSATE (SENOKOT S) TABLET PO SCH (08:26)
[2023-03-19] MEDS: LACTULOSE SYRUP 10GM/15ML (ENULOSE) 30ML UDC PO SCH ×2 (08:27→13:28)
[2023-03-19] MEDS ORDERED: FLDR.1T PO (09:11)
[2023-03-19 09:25] VITALS: BP 147/94
[2023-03-19 11:21] VITALS: BP 191/114
--- NOTE | 2023-03-19 12:15 | Discharge Summary ---
Diagnosis/Chief Complaint Date of Admission March 18, 2023 at 15:33 Date of Discharge Discharge Date: March 19, 2023 Discharge Diagnosis Dehydration Weakness Acute kidney injury Ureteral carcinoma with bony metastasis Profound weight loss Labile and malignant hypertension Discharge Summary Discharge Physical Examination Allergies: Coded Allergies: No Known Drug Allergies (Unverified , 02/05/23) Vitals & I&Os Vital Signs Date Time Temp Pulse Resp B/P (MAP) Pulse Ox O2 Delivery O2 Flow Rate FiO2 03/19/23 13:26 66 03/19/23 11:21 36.3 18 191/114 (139) 97 Room Air 03/18/23 20:04 21 Hospital Course Was the Problem List Reviewed?: Yes Short course after admitted from my office as a direct admission for acute kidney injury with dehydration weakness and multiple falls. I did confirm with pathology Dr. Garcia who evaluated his records from which I sent her and it appears that the slides are consistent with ureteral carcinoma. Patient will be sent to inpatient rehab to [facility]. Labs (last 24 hrs) Laboratory Tests 03/18/23 16:04: White Blood Count 7.0, Red Blood Count 4.17L, Hemoglobin 13.5, Hematocrit 38L, Mean Corpuscular Volume 92, Mean Corpuscular Hemoglobin 32, Mean Corpuscular Hemoglobin Concent 35, Red Cell Distribution Width 13.0, Platelet Count 250, Mean Platelet Volume 9.7, Immature Granulocyte % (Auto) 0, Neutrophils (%) (Auto) 83H, Lymphocytes (%) (Auto) 12, Monocytes (%) (Auto) 5, Eosinophils (%) (Auto) 0, Basophils (%) (Auto) 0, Neutrophils # (Auto) 5.8, Lymphocytes # (Auto) 0.8L, Monocytes # (Auto) 0.3, Eosinophils # (Auto) 0.0, Basophils # (Auto) 0.0, Immature Granulocyte # (Auto) 0.0, Sodium Level 132L, Potassium Level 3.1L, Chloride Level 88L, Carbon Dioxide Level 30, Anion Gap 14, Blood Urea Nitrogen 22H, Creatinine 1.50H, Estimat Glomerular Filtration Rate 49, BUN/Creatinine Ratio 15, Glucose Level 111H, Calcium Level 9.3, Corrected Calcium 9.5, Magnesium Level 2.0, Total Bilirubin 1.8H, Aspartate Amino Transf (AST/SGOT) 16, Alanine Aminotransferase (ALT/SGPT) 12, Alkaline Phosphatase 109, Total Protein 6.8, Albumin 3.8, Thyroid Stimulating Hormone (TSH) 1.86 03/18/23 20:30: Urine Color YELLOW, Urine Clarity CLEAR, Urine pH 6.5, Urine Specific [place] 1.010L, Urine Protein 1+H, Urine Glucose (UA) NEGATIVE, Urine Ketones NEGATIVE, Urine Nitrite NEGATIVE, Urine Bilirubin NEGATIVE, Urine Urobilinogen 2.0, Urine Leukocyte Esterase NEGATIVE, Urine RBC (Auto) TRACE-IH, Urine RBC 0-2, Urine WBC NONE, Urine Squamous Epithelial Cells RARE, Urine Crystals PRESENTH, Urine Amorphous Sediment RARE ALEXIS URATESH, Urine Bacteria NEGATIVE, Urine Casts NONE, Urine Mucus NEGATIVE, Urine Culture Indicated NO 03/19/23 05:13: White Blood Count 8.3, Red Blood Count 4.04L, Hemoglobin 13.1L, Hematocrit 37L, Mean Corpuscular Volume 93, Mean Corpuscular Hemoglobin 32, Mean Corpuscular Hemoglobin Concent 35, Red Cell Distribution Width 12.9, Platelet Count 252, Mean Platelet Volume 10.2, Immature Granulocyte % (Auto) 0, Neutrophils (%) (Auto) 82H, Lymphocytes (%) (Auto) 13, Monocytes (%) (Auto) 5, Eosinophils (%) (Auto) 0, Basophils (%) (Auto) 0, Neutrophils # (Auto) 6.8, Lymphocytes # (Auto) 1.0, Monocytes # (Auto) 0.4, Eosinophils # (Auto) 0.0, Basophils # (Auto) 0.0, Immature Granulocyte # (Auto) 0.0, Sodium Level 136, Potassium Level 2.9L, Chloride Level 94L, Carbon Dioxide Level 30, Anion Gap 12, Blood Urea Nitrogen 17, Creatinine 1.12, Estimat Glomerular Filtration Rate 69, BUN/Creatinine Ratio 15, Glucose Level 83, Calcium Level 8.9, Corrected Calcium 9.1, Total Bilirubin 1.9H, Aspartate Amino Transf (AST/SGOT) 16, Alanine Aminotransferase (ALT/SGPT) 8, Alkaline Phosphatase 115, Total Protein 6.7, Albumin 3.7 Pending Labs Laboratory Tests 03/18/23 16:04: White Blood Count 7.0, Red Blood Count 4.17, Hemoglobin 13.5, Hematocrit 38, Mean Corpuscular Volume 92, Mean Corpuscular Hemoglobin 32, Mean Corpuscular Hemoglobin Concent 35, Red Cell Distribution Width 13.0, Platelet Count 250, Mean Platelet Volume 9.7, Immature Granulocyte % (Auto) 0, Neutrophils (%) (Auto) 83, Lymphocytes (%) (Auto) 12, Monocytes (%) (Auto) 5, Eosinophils (%) (Auto) 0, Basophils (%) (Auto) 0, Neutrophils # (Auto) 5.8, Lymphocytes # (Auto) 0.8, Monocytes # (Auto) 0.3, Eosinophils # (Auto) 0.0, Basophils # (Auto) 0.0, Immature Granulocyte # (Auto) 0.0, Sodium Level 132, Potassium Level 3.1, Chloride Level 88, Carbon Dioxide Level 30, Anion Gap 14, Blood Urea Nitrogen 2 2, Creatinine 1.50, Estimat Glomerular Filtration Rate 49, BUN/Creatinine Ratio 15, Glucose Level 111, Calcium Level 9.3, Corrected Calcium 9.5, Magnesium Level 2.0, Total Bilirubin 1.8, Aspartate Amino Transf (AST/SGOT) 16, Alanine Aminotransferase (ALT/SGPT) 12, Alkaline Phosphatase 109, Total Protein 6.8, Albumin 3.8, Prostate Specific Antigen [Pending], Thyroid Stimulating Hormone (TSH) 1.86 03/18/23 20:30: Urine Color YELLOW, Urine Clarity CLEAR, Urine pH 6.5, Urine Specific [place] 1.010, Urine Protein 1+, Urine Glucose (UA) NEGATIVE, Urine Ketones NEGATIVE, Urine Nitrite NEGATIVE, Urine Bilirubin NEGATIVE, Urine Urobilinogen 2.0, Urine Leukocyte Esterase NEGATIVE, Urine RBC (Auto) TRACE-I, Urine RBC 0-2, Urine WBC NONE, Urine Squamous Epithelial Cells RARE, Urine Crystals PRESENT, Urine Amorphous Sediment RARE ALEXIS URATES, Urine Bacteria NEGATIVE, Urine Casts NONE, Urine Mucus NEGATIVE, Urine Culture Indicated NO 03/19/23 05:13: White Blood Count 8.3, Red Blood Count 4.04, Hemoglobin 13.1, Hematocrit 37, Mean Corpuscular Volume 93, Mean Corpuscular Hemoglobin 32, Mean Corpuscular Hemoglobin Concent 35, Red Cell Distribution Width 12.9, Platelet Count 252, Mean Platelet Volume 10.2, Immature Granulocyte % (Auto) 0, Neutrophils (%) (Auto) 82, Lymphocytes (%) (Auto) 13, Monocytes (%) (Auto) 5, Eosinophils (%) (Auto) 0, Basophils (%) (Auto) 0, Neutrophils # (Auto) 6.8, Lymphocytes # (Auto) 1.0, Monocytes # (Auto) 0.4, Eosinophils # (Auto) 0.0, Basophils # (Auto) 0.0, Immature Granulocyte # (Auto) 0.0, Sodium Level 136, Potassium Level 2.9, Chloride Level 94, Carbon Dioxide Level 30, Anion Gap 12, Blood Urea Nitrogen 17, Creatinine 1.12, Estimat Glomerular Filtration Rate 69, BUN/Creatinine Ratio 15, Glucose Level 83, Calcium Level 8.9, Corrected Calcium 9.1, Total Bilirubin 1.9, Aspartate Amino Transf (AST/SGOT) 16, Alanine Aminotransferase (ALT/SGPT) 8, Alkaline Phosphatase 115, Total Protein 6.7, Albumin 3.7 Discharge Home Medications: Active Scripts Active Reported Fludrocortisone Acetate 0.1 Mg Tab 0.05 Mg PO Q48H ALTERNATES 0.1MG AND 0.05MG DAILY Fludrocortisone Acetate 0.1 Mg Tab 0.1 Mg PO Q48H ALTERNATES 0.1MG AND 0.05MG DAILY Amlodipine Besylate 2.5 Mg Tablet 2.5 Mg PO HS Potassium Chloride 10 Meq Tab.er.prt 10 Meq PO DAILY Tramadol HCl 50 Mg Tablet 50 Mg PO BID PRN Tylenol (Acetaminophen) 325 Mg Tablet 650 Mg PO TID Vitamin B-12 (Cyanocobalamin (Vitamin B-12)) 500 Mcg Tablet 500 Mcg PO DAILY Instructions to patient/family Please see electronic discharge instructions given to patient. NORRIS ATKINSON DO March 19, 2023 12:15
== END 2023-03-19 12:12 ==
LOC: 4TH 15:33 → UNDOADMOB 15:33 → 4TH 16:52 → UNDODISOB 03-19 14:05
PROVIDERS: ADMIT Internal Medicine; ATTEND Internal Medicine
DX: E86.0 Dehydration (principal); N17.9 Acute kidney failure, unspecified; R53.1 Weakness; C66.9 Malignant neoplasm of unspecified ureter; C79.51 Secondary malignant neoplasm of bone; R63.4 Abnormal weight loss; I10 Essential (primary) hypertension; K59.00 Constipation, unspecified; R29.6 Repeated falls; Z87.891 Personal history of nicotine dependence
CPT/HCPCS: 36415; 74018; 80053; 81000; 83735; 84153; 84443; 85025; 96372; 96374; 96375; G0378

== ENCOUNTER 2023-03-19 12:40 | Inpatient (IN) | payer MEDICARE, OTHER ==
[~2023-03-19] VITALS: Ht 175.3 cm; Wt 45.7 kg
[2023-03-19] MEDS ORDERED: MELATONIN 3 MG TABLET PO PRN (12:45)
[2023-03-19] MEDS ORDERED: ALPRAZolam 0.25 MG (XANAX) TAB PO PRN (12:45)
[2023-03-19] MEDS ORDERED: guaiFENesin/CODEINE (ROBITUSSIN AC) 10ML UDC PO PRN (12:45)
[2023-03-19] MEDS ORDERED: CALCIUM CARBONATE 500 MG (TUMS) TAB.CHEW PO PRN (12:45)
[2023-03-19] MEDS ORDERED: LOPERAMIDE 2 MG (IMODIUM) TABLET PO PRN (12:45)
[2023-03-19] MEDS ORDERED: ACETAMINOPHEN 325 MG TABLET PO PRN (12:45)
[2023-03-19] MEDS ORDERED: FLEET ENEMA ADULT 1 EA BTL PR PRN (12:45)
[2023-03-19] MEDS ORDERED: diphenhydrAMINE 25 MG TAB (BENADRYL) PO PRN (12:45)
[2023-03-19] MEDS ORDERED: DOCUSATE SODIUM 100 MG (COLACE) CAP PO PRN (12:45)
--- NOTE | 2023-03-19 12:49 | PM&R Post Admission Assessment ---
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 His cousin is now his DURABLE POWER OF DRUG CLERK. She lives in [place]. He has had multiple falls. Bone biopsy was assessed with pathology and that was updated to Dr. 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 Dr. Murphy will confer with him regarding cancer treatment. Patient was found to be dehydrated with acute kidney injury and having labile blood pressure. Short course after admitted from my office as a direct admission for acute kidn ey injury with dehydration weakness and multiple falls. I did confirm with pathology Dr. Garcia who evaluated his records from which I sent her and it appears that the slides are consistent with ureteral carcinoma. Patient will be sent to inpatient rehab to strengthen. Past Hipfkeh-Jcxifs-Ayqqti Hx Past Med/Social Hx: Reviewed Nursing Past Med/Soc Hx, Reviewed and Corrections made Patient Social History Marrital Status: single Employed/Student: retired Alcohol Use: Denies Use Smoking Status: Former Smoker Former Smoker, Quit: Oct 20, 2008 Type Used: Cigarettes 2nd Hand Smoke Exposure: No Recent Hopitalizations: No Immunizations Up To Date Date of Influenza Vaccine: Sep 12, 2022 Seasonal Allergies Seasonal Allergies: No Past Medical History Surgeries: Eye Surgery, Nephrectomy, Orthopedic, Renal Currently Using CPAP: No Currently Using BIPAP: No Cardiac: Hypertension Musculoskeletal: Chronic Back Pain Cancer: Kidney Did You Recieve Any Treatments: Yes What Type of Treatment Did You: Surgical Intervention History of Blood Disorders: No Family History No Pertinent Family Hx SOCIAL HISTORY: -SMOKED 1 PPD, QUIT 2008 -ETOH --HISTORY OF ABUSE/HEAVY USE--OVER A 6 PACK/DAY--WILL NOT ELABORATE ON HOW MUCH HE USED TO DRINK. STATES HE NO LONGER DRINKS, PER PT ON 01/04/23 -DRUGS--THC IN PAST PAST SURGICAL HISTORY: -RIGHT NEPHRECTOMY 2000 FOR RENAL CANCER -CYSTOSCOPIES -BACK SURGERY -BILATERAL CATARACTS 02/2022 PM&R Allergy/Meds/Data Review Allergies Coded Allergies: No Known Drug Allergies (Unverified , 02/05/23) Home Medications Scheduled Acetaminophen (Tylenol), 650 MG PO TID, (Reported) Amlodipine Besylate (Amlodipine Besylate), 2.5 MG PO HS, (Reported) Cyanocobalamin (Vitamin B-12) (Vitamin B-12), 500 MCG PO DAILY, (Reported) Fludrocortisone Acetate (Fludrocortisone Acetate), 0.1 MG PO Q48H, (Reported) Fludrocortisone Acetate (Fludrocortisone Acetate), 0.05 MG PO Q48H, (Reported) Potassium Chloride (Potassium Chloride), 10 MEQ PO DAILY, (Reported) Scheduled PRN Tramadol HCl (Tramadol HCl), 50 MG PO BID PRN for PAIN-MODERATE (5-7), (Reported) Current Medications Current Medications Reviewed Review of Systems Constitutional: see HPI, dizziness, malaise, weakness, weight loss EENTM: no symptoms reported Respiratory: no symptoms reported Cardiovascular: no symptoms reported Gastrointestinal: constipation Genitourinary: no symptoms reported Musculoskeletal: back pain Skin: no symptoms reported Psychiatric/Neurological: Anxiety, Depressed All Other Systems Reviewed Negative Unless Noted: Yes Physical Exam Physical Exam Vital Signs Capillary Refill : Height, Weight, BMI Height: '" Weight: 170lbs. oz. 77.804520yr; 14.92 BMI Method: General Appearance: No Apparent Distress, WD/WN, Chronically ill, Cachetic, Thin Eyes: Bilateral Eye Normal Inspection, Bilateral Eye PERRL HEENT: PERRL/EOMI, Normal ENT Inspection, Pharynx Normal Neck: Full Range of Motion, Normal Inspection, Non Tender, Supple, Carotid Bruit Respiratory: Chest Non Tender, Lungs Clear, Normal Breath Sounds, No Accessory Muscle Use, No Respiratory Distress Cardiovascular: Regular Rate, Rhythm, No Edema, No Gallop, No JVD, No Murmur, Normal Peripheral Pulses Gastrointestinal: Normal Bowel Sounds, No Organomegaly, No Pulsatile Mass, Non Tender, Soft Back: Normal Inspection, No CVA Tenderness, No Vertebral Tenderness Extremity: Normal Capillary Refill, Normal Inspection, Normal Range of Motion, Non Tender, No Calf Tenderness, No Pedal Edema Neurologic/Psychiatric: Alert, Oriented x3, No Motor/Sensory Deficits, pan shover II- XII Norm as Tested, Abnormal Gait, Depressed Affect, Motor Weakness (generalized) Skin: Normal Color, Warm/Dry Lymphatic: No Adenopathy PM&R Medical Assessment & Plan REHAB/MEDICAL ASSESSMENT AND PLAN: REHAB IMPAIRMENT GROUP: Debility from ureteral carcinoma with bony mets ETIOLOGIC DIAGNOSIS: Debility from ureteral carcinoma with bony mets The comorbidities that impact the patients function and/or functional outcome by: bony mets from ureteral carcinoma, cachexia, falls, labile HTN, hypokalemia REHAB PLAN: The patient is being admitted to our comprehensive inpatient rehabilitation [facility] and can tolerate the intensity of service consisting of at least: 180 minutes of therapy a day, 5 out of 7 days a week Rehab treatment will consist of: PT OT will focus on regaining function with use of AD in order to regain ambulatory stamina and increase independence in ADL's in order to return home to pursue cancer treatment The patient/family has a good understanding of our discharge process and will benefit from an interdisciplinary inpatient rehabilitation program. The patient has potential to make improvement and is in need of at least two of the following multidisciplinary therapies including but not limited to physical, occupational, speech, and prosthetics and orthotics. Additionally the patient will need services from respiratory, nutritional services, wound care, psychology, etc. (Customize this to each patient). Given the patients complex condition and risk of further medical complications, rehabilitation services cannot be safely or effectively provided at a lower level of care such as a fdc facility. BARRIERS TO DISCHARGE: Cancer with mets and cachexia ESTIMATED LOS: 7 days DISPOSITION: Home RELEVANT CHANGES SINCE PREADMISSION SCREENING: I have compared the patients medical and functional status at the time of the preadmission screening and there are: no changes PROGNOSIS: Fair REHABILITATION GOALS: 1. PT OT will focus on regaining function with use of AD in order to regain ambulatory stamina and increase independence in ADL's in order to return home to pursue cancer treatment All the above goals were reviewed with the patient and he/she is in agreement. By signing this document, I acknowledge that I have personally performed a full physical examination on this patient within 24 hours of admission to this inpatient rehabilitation facility and have determined the patient to be able to tolerate the above course of treatment at an intensive level for a reasonable period of time. I will be completing a detailed individualized Plan of Care for this patient by day #4 of the patients stay based upon the Preadmission Screen, the Post-Admission Evaluation, and the therapy evaluations. Admission Dx/Comorbidities: (1) Debility ICD Codes: R53.81 - Other malaise (2) Ureteral carcinoma ICD Codes: C66.9 - Malignant neoplasm of unspecified ureter (3) Metastasis to bone ICD Codes: C79.51 - Secondary malignant neoplasm of bone (4) Cachexia ICD Codes: R64 - Cachexia (5) Orthostatic hypotension Status: Acute ICD Codes: I95.1 - Orthostatic hypotension (6) Hypokalemia ICD Codes: E87.6 - Hypokalemia (7) LAUREN (acute kidney injury) Status: Acute ICD Codes: N17.9 - Acute kidney failure, unspecified (8) S/p nephrectomy Status: Chronic ICD Codes: Z90.5 - Acquired absence of kidney Assessment/Plan Assessment and Plan Assess & Plan/Chief Complaint Assessment: Severe weakness with falls Dehydration causing acute kidney injury 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
[2023-03-19 13:40] VITALS: BP 170/100
--- NOTE | 2023-03-19 13:49 | Occupational Therapy Eval ---
OT Evaluation-General/PLF Medical Diagnosis Admission Date Medical Diagnosis: debility Onset Date: March 18, 2023 Therapy Diagnosis Therapy Diagnosis: decreased ADL status, weakness Height/Weight Weight (Pounds): 170 Referral Physician: Steffanie Referral Reason: Evaluation/Treatment Medical History Pertinent Medical History: HTN Additional Medical History HTN, kidney cancer with R nephrectomy, back sx Current History Admit to acute floor 03/18/23 from PCP. Admit to ARU 03/19/23. Social History Home: Single Level Current Living Status: Other Family (sister, 88 y/o) Entry Into Home: Ramp ADL-Prior Level of Function SCALE: Activities may be completed with or without assistive devices. 6-Xceelnhbts-mhpgbbw completes the activity by him/herself with no assistance from a helper. 5-Set-up or Clean-up Assistance-helper sets up or cleans up; patient completes activity. Wells assists only prior to or following the activity. 4-Supervision or Touching Assistance-helper provides verbal cues and/or touchi ng/steadying and/or contact guard assistance as patient completes activity. Assistance may be provided throughout the activity or intermittently. 3-Partial/Moderate Assistance-helper does LESS THAN HALF the effort. Wells lifts, holds or supports trunk or limbs, but provides less than half the effort. 2-Substantial/Maximal Assistance-helper does MORE THAN HALF the effort. Wells lifts or holds trunk or limbs and provides more than half the effort. 3-Vimlgavmf-xekuby does ALL the effort. Patient does none of the effort to complete the activity. Or, the assistance of 2 or more helpers is required for the patient to complete the activity. If activity was not attempted, code reason: 7-Patient Refused. 9-Not Applicable-not attempted and the patient did not perform the activity before the current illness, exacerbation or injury. 10-Not Attempted due to Environmental Limitations-(lack of equipment, weather restraints, etc.). 88-Not Attempted due to Medical Conditions or Safety Concerns. ADL PLOF Comments Pt was independent with ADLS and functional mobility, no AD. Pt has fallen in the tub last week and has been taking sponge baths since his fall. Self Care: Independent Functional Cognition: Independent DME/Equipment: Tub/Shower (with sliding glass doors) OT Current Status Subjective Pt agreeable to OT evaluation Mental Status/Objective Patient Orientation: Person, Place, Time, Situation Current Glasses/Contacts: Yes (reading) Hearing Aids: No Dentures/Partials: No Hand Dominance: Right Upper Extremity ROM WFL, BUE shoulder flexion to approx 140 degrees. L elbow - unable to fully flex/extend & pronate/supinate due to prior injury as a child, WFL for pt. Upper Extremity Coordination WFL Upper Extremity Sensation "tightness" on posterior aspect of R hand. Upper Extremity Strength Grossly 3+/5 ADL-Treatment Eating (QC): 6 Oral Hygiene (QC): 5 (seated) Shower/Bathe Self (QC): 4 (SBA) Upper Body Dressing (QC): 4 (CGA in stand) Lower Body Dressing (QC): 4 (CGA in stand) On/Off Footwear (QC): 4 (SBA) Toileting Hygiene (QC): 4 (CGA) Other Treatments OT evaluation complete. Pt provided information about PLOF and home set up and participated in UE screen. Pt used FWW to transfer into bathroom and onto toilet, [facility]. Pt completed toileting, then transferred to PR, [facility]. Pt doffed clothes, completed shower, then donned clothes. Increased back pain, 10/10 with activity and no back support during shower. Pt transferred to recliner, [facility], [facility]. After seated rest break in a chair with back support, pt states back pain improved. Pt educated on ARU expectation/process, he indicates no questions/concerns at this time. Pt educated on AROM HEP, completing x10 reps each of the following, BUES: shoulder flexion, bicep curls, ulnar/radial deviation, pronation/supination and finger pumps. Copy of HEP given to pt, 1 copy placed in folder attached to pt's dry erase board, 1 copy placed in pt's paper chart. Post tx, pt in recliner, call light in reach and all needs met. Education OT Patient Education: Correct positioning, Energy conservation, Modified ADL techniques, Progress toward Goal/Update tx plan, Purpose of tx/functional activities, Rehab process Teaching Recipient: Patient Teaching Methods: Discussion Response to Teaching: Verbalize Understanding BIMS CAM BIMS Expression of Ideas and Wants: Without Difficulty Understanding Verbal Content: Understands Brief Interview/Mental Status: Yes IRF NIEVES BIMS: IRF NIEVES BIMS Response (Comments) Value Repitition of Three Words Three 3 Recalls Socks Yes, No Cue Required 2 Recalls Blue Yes, No Cue Required 2 Recalls Bed Yes, No Cue Required 2 Year Correct 3 Month Accurate Within 5 Days 2 Day Correct 1 Total 15 [address] Asses. Mental [address] No CAM Mental Status Change/Baseline: 0 Inattention: 0 Disorganized thinkin Altered level of consciousness: 0 OT Short Term Goals Short Term Goals Time Frame: Mar 26, 2023 Shower/bathe self: 5 Upper body dressin Lower body dressin Putting on/taking off footwear: 5 OT Live Truck Operator Goals Group Home Goals Time Frame: Apr 04, 2023 Altered level of consciousness: 6 Eating (QC): 6 Oral Hygiene (QC): 6 Toileting Hygiene (QC): 6 Shower/Bathe Self (QC): 6 Upper Body Dressing (QC): 6 Lower Body Dressing (QC): 6 On/Off Footwear (QC): 6 Additional Goals: 1-Demonstrate ADL Tasks, 2-Verbalize Understanding, 3-ImproveStrength/Merna 1=Demonstrate adherence to instructed precautions during ADL tasks. 2=Patient will verbalize/demonstrate understanding of assistive devices/modifications for ADL. 3=Patient will improve strength/tolerance for activity to enable patient to perform ADL's. OT Education/Plan Problem List/Assessment Assessment: Decreased Activ Tolerance, Decreased UE Strength, Impaired Funct Balance, Impaired I ADL's, Impaired Self-Care Skills Discharge Recommendations Plan/Recommendations: Continue POC Equpiment Recommendations-D/C: Extended Bath Bench, Bath Chair Comment Pt would benefit from SC vs bath bench at discharge. Bath bench would be prefe rred if pt is able to remove sliding glass doors from tub/shower. Treatment Plan/Plan of Care Patient would benefit from OT for education, treatment and training to promote independence in ADL's, mobility, safety and/or upper extremity function for ADL's. Plan of Care: ADL Retraining, Functional Mobility, Group Exercise/Act as Ind, UE Funct Exercise/Act Treatment Duration: Apr 04, 2023 Frequency: At least 5 of 7 days/Wk (IRF) Estimated Hrs Per Day: 1.5 hours per day Agreement: Yes Rehab Potential: Good Time Start Time: 13:40 Stop Time: 15:10 DATE: March 19, 2023 Total Time Billed (hr/min): 90 Billed Treatment Time 1, EVM (20'), ADL 4 (60'), EX (10') RADHAMES MARROQUIN OT March 19, 2023 13:49
--- OUTSIDE RECORDS SUMMARY | 2023-03-19 14:15 | XMS REPORT | Clinical Summary ---
Author Author [facility] Organization [facility] Address Unknown Phone Unavailable Care Team Providers Care Mottler Operator Name Role Phone Jv Hatch MD Unavailable Lupe Solo MD Unavailable [phone] Amber Valiente DO PCP Source Comments Some departments are not documenting in the electronic medical record. If you d o not see the information that you expected, contact Release of Information in [facility] Information Management department at [phone] for further assistan ce in locating additional records.[facility] Allergies No known active allergies Medications End Date Status Medication Sig Dispensed Refills Start Date Active tamsulosin (FLOMAX) 0.4 Take one 30 capsule 3 mg capsule capsule by 1 mouth daily. Take 30 min after same meal. Do not cut/crush/laurita w. Active acetaminophen (TYLENOL Take two 0 08/08/2 02 EXTRA STRENGTH) 500 mg tablets by 1 tablet mouth every 6 hours as needed for Pain. Max of 4,000 mg of acetaminophen in 24 hours. Active hyoscyamine sulfate Take one 30 tablet 1 (LEVSIN) 0.125 mg tablet by 1 tabletIndications: For mouth every 4 bladder spasms hours as needed for Cramps. Indications: For bladder spasms Active oxybutynin chloride Take one 25 tablet 0 (DITROPAN) 5 mg tablet tablet by 1 mouth three times daily as needed. Bladder spasms Active oxyCODONE (ROXICODONE) 5 Take one 15 tablet 0 1 mg tablet tablet by 1 mouth every 4 hours as needed Max of six tabs per day. Active senna/docusate Take one 90 tablet 0 10/20/202 (SENOKOT-S) 8.6/50 mg tablet by 1 tablet mouth twice daily. Active polyethylene glycol 3350 Take 527 g 0 1 (MIRALAX) 17 gram/dose seventeen g 1 powder by mouth daily. Active bacitracin 500 unit/g Apply 0 08/08/20 2 topical ointment topically to 1 affected area three times daily. Active methocarbamoL (ROBAXIN) Take one 20 tablet 0 750 mg tablet tablet by 1 mouth three times daily as needed for Spasms. Active ciprofloxacin (CIPRO) 500 Take one tab 2 tablet 0 mg tabletIndications: twice daily 3 Ureteral cancer, right for one day (HCC) following procedure. Active Problems Problem Noted Date Diagnosed Date Mass of right kidney 08/07/2021 Renal pelvis transitional cell malignant neoplasm, ri t 06/01/2021 Cancer Staging: Pathologic: Stage Unkno wn (pT3, pNX, cM0) - Signed by Lupe Solo MD on 09/01/2021 Overview: Formatting of this note is di fferent from the original. Mr. Cedillo is a 70 year old gentleman re ferred by Dr. 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 Suspici on for transitional cell carcinoma began in March of [address] scan was ordered for gross hematuria work-up. C T was done without contrast and identified an increased de nsity in the right kidney lower pole calyces and infundibu li suspicious for a urothelial mass. Patient was taken for cystoscopy and right retrograde pyelogram by Dr. Hatch. Ret rograde pyelogram revealed a filling defect in the right kidney lower pole bianca suspicious for carcinoma. The re st of the examination showed no other suspicious masses. Bar botage washings from the right renal pelvis were sent for cy tology and result was negative for high-grade urothelial carc inoma. A few days post-procedure, patient presented back to the emergency department with abdominal pain. A repe at CT scan was run without contrast showing new right side d hydronephrosis, increased density in the lower pole ally ix of the right kidney and what appeared to be blood in the right ureter. Patient is referred by Dr. Hatch for de finitive management of the right kidney, diagnosis and minerva tment. Other medical history includes back pain. Patient is a former smoker. Cytology: 05-02-21 Urine, catheterized - Negative for high-grade urothelial carcinoma; abunda nt urothelial groups, consistent with instrumentation effect. Imagin05-07-21 CT Ab/Pel WO contrast - Impression: 1. New right sided hydronephrosis with savanna e increased density in the lower pole calyx of the right ki dney. There are subtle areas of increased density in th e right ureter, likely hemorrhage. The urinary bladder is unremarkable. Urology consultation recommended. The increased density could be neoplasm. 2. Slight prostate enlargement. 3. Stable benign renal cysts. 04-11-21 CT Ab/Pel WO contrast - Impress ion: 1. Bilateral renal cysts and hepatic cysts. 2. The re is some increased density to the right lower pole calyces and infundibuli, suspicious for a urothelial mass. Bubba elation with retrograde pyelography or postcontrast delayed imaging would be recommended. No other significant a bnormality is detected. Last Assessment & Plan: Formatting of t his note might be different from the original. Mr. Cedillo presents for evaluation of a R sided filling defect associated with hydronephrosis a nd hematuria. He is currently well and asymptomatic without other medical risk factors. We discussed the use of ureter oscopy to better evaluate his collecting system and biop sy his intrarenal mass and better assess his filling defe ct. -To OR for R URS with biopsy and possib le laser ablation Immunizations Name Administration Dates Next Due COVID-19 (MODERNA), mRNA 01/18/2021, 12/22/2020 vacc, 100 mcg/0.5 mL (PF) Surgical History Surgery Date Site/Laterality Comments HX BACK SURGERY CYSTOURETHROSCOPY 06/27/2021 Right CYSTOURETHRO SCOPY WITH URETEROSCOPY - WITH BIOPSY AND FULGURATION URETERAL/ RENAL PELVIC LESION, RIGHT URETERAL STENT PLACEMENT performe d by Jabari Rahman MD at [facility] OR Medical devices from this surgery are i n the Medical Devices section. NEPHRECTOMY 08/07/2021 Abdomen/Right ROBOT ASSISTED LAPAROSCOPIC NEPHRECTOMY WITH TOTAL URETERECTOMY performed by Jabari Rahman MD at [facility] OR Medical devices from this surgery are i n the Medical Devices section. Social History Date Tobacco Use Types Packs/Day Years Used Quit: 2008 Smoking Tobacco: Former Cigarettes Smokeless Tobacco: Former Tobacco Cessation: Counseling Given: Not Answered Comments Alcohol Use Standard Drinks/Week Not Currently 0 (1 standard drink = 0.6 o z pure alcohol) Date Recorded Alcohol Use Answer Alcohol Use No Male: 9+ ounces (15+ Standard Drinks) per week 0 Threshold Female: 4.8+ ounces (8+ Standard Drinks) per week No t on file Threshold Date Recorded Sex and Gender Information Value 06/04/2021 1:13 PM CDT Sex Assigned at Male 06/04/2021 1:13 PM CDT Gender Identity Male Sexual Orientation Not on file Obstetrics History Last Filed Vital Signs Reading Time Taken Comments Vital Sign 174/92 11/15/2022 8:34 AM USER INTERFACE ARTIST Blood Pressure 100 11/15/2022 8:34 AM USER INTERFACE ARTIST Pulse 36.4 C (97.6 F) 11/15/2022 8:34 AM USER INTERFACE ARTIST Temperature 16 11/15/2022 8:34 AM USER INTERFACE ARTIST Respiratory Rate 100% 11/15/2022 8:34 AM USER INTERFACE ARTIST Oxygen Saturation - - Inhaled Oxygen Concentration 62.6 kg (138 lb) 08/17/2021 8:56 AM CDT Weight 172.7 cm (5' 8") 08/17/2021 8:56 AM CDT Height 20.98 08/17/2021 8:56 AM CDT Body Mass Index Plan of Treatment Health Maintenance Due Date Last Done Comments MEDICARE ANNUAL WELLNESS 1950 VISIT DTAP/TDAP VACCINES (1 - 1966 Tdap) HEPATITIS C SCREENING 1966 PHYSICAL (COMPREHENSIVE) 1966 EXAM COLORECTAL CANCER 1993 SCREENING SHINGLES RECOMBINANT 1998 VACCINE (1 of 2) ABDOMINAL AORTIC ANEURYSM 2013 SCREENING PNEUMOCOCCAL VACCINE 65+ 2013 YRS (1 - PCV) ADVANCED CARE PLANNING 10/20/2022 DISCUSSION AND DOCUMENTATION DEPRESSION SCREENING 10/20/2022 COVID-19 VACCINE Completed 09/30/2022, 01/25/2022, 09/21/2021, Additional history exists INFLUENZA VACCINE Completed 09/30/2022 Medical Devices Device Identifier Shelf Expiration Date Model / Serial / L ot Explanted Type Area Manufactur er 04/29/2024 [id number] / GTIN [id number] / [id number] Stent Ureteral 7fr 24cm Pigtail Right: Ureter BOSTO N Curve Taper Tip Bladder Luis - SCI[employer] [facility] [id number] UROLOGY Implanted: Qty: 1 on 06/27/2021 by Jabari Rahman MD at [facility] Explanted: Qty: 1 on 08/07/2021 by Jabari Rahman MD at [facility] Results Not on filefrom Last 3 Months Insurance Type Payer Benefit Subscriber ID Effective Phone Address Plan / Dates Group Medicare MEDICARE MEDICARE [id number] 2013- [phone] AND [address] [place] [address] AETNA AETNA [id number] 2019-P [address] [address] [place] [address] [phone] Advance Directives Date Inactivated Comments Code Status Date Activated 08/08/2021 6:40 PM Full Code 08/07/2021 2:26 PM Comments Question Answer Provider has Yes discussed Code Status w/Patient or Family? Care Teams Start Date End Date Mottler Operator Relationship Specialty 05/24/22 Amber Valiente, PCP - General Internal Medicine [address] [place] [address] 05/26/21 Jv Hatch MD Urology [facility] [place], [place] [id number] 09/03/21 [place] [facility] Lupe Sanz MD Oncology [address] [place], [place] [id number]
[2023-03-19] MEDS ORDERED: FLUDROCORTISONE 0.1 MG (FLORINEF) TAB PO SCH (14:30)
[2023-03-19] MEDS ORDERED: HYDROmorphone 2 MG/ML VIAL (DILAUDID) IVP PRN (14:30)
--- NOTE | 2023-03-19 15:14 | Physical Therapy Evaluation ---
PT Evaluation-General Medical Diagnosis Admission Date March 19, 2023 at 13:40 Medical Diagnosis: Debility Onset Date: March 18, 2023 Therapy Diagnosis Therapy Diagnosis: Weakness, Decreased functional mobility Height/Weight Height (Feet): 5 Height (Inches): 9 Weight (Pounds): 170 Precautions Precautions/Isolations: Fall Prevention, Standard Precautions Weight Bear Status Right Lower Extremity: Right Full Weight Bearing Left Lower Extremity: Left Full Weight Bearing Referral Physician: Steffanie Reason for Referral: Evaluation/Treatment Medical History Pertinent Medical History: HTN Additional Medical History bone cancer Current History Pt reports falling 03/18/2023, as well as f/u with PCP. Pt was not feeling well and just overall weak. PCP recommended ARU and was admitted on 03/19/2023 Reviewed History: Yes Social History Home: Single Level Current Living Status: Other Family (sister, 88 y/o; frail) Entry Into Home: Ramp (B HR) PT Steps Into Home: 0 PT Steps Inside Home: 0 Pt reports living in a single level home with ramp with B HR to enter/exit. Pt lives with his frail sister, who is unable to assist. Tub shower with no SC, grab bars, and tall toilet. Will need transfer bench when going home. Has FWW, but has not used it yet. Prior Prior Level of Function SCALE: Activities may be completed with or without assistive devices. 9-Ufmhbdfzwl-ncqiztk completes the activity by him/herself with no assistance from a helper. 5-Set-up or Clean-up Assistance-helper sets up or cleans up; patient completes activity. [place] assists only prior to or following the activity. 4-Supervision or Touching Assistance-helper provides verbal cues and/or touching/steadying and/or contact guard assistance as patient completes activity. Assistance may be provided throughout the activity or intermittently. 3-Partial/Moderate Assistance-helper does LESS THAN HALF the effort. [place] lifts, holds or supports trunk or limbs, but provides less than half the effort. 2-Substantial/Maximal Assistance-helper does MORE THAN HALF the effort. [place] lifts or holds trunk or limbs and provides more than half the effort. 8-Xpofmpmkb-vzsplc does ALL the effort. Patient does none of the effort to complete the activity. Or, the assistance of 2 or more helpers is required for the patient to complete the activity. If activity was not attempted, code reason: 7-Patient Refused. 9-Not Applicable-not attempted and the patient did not perform the activity b efore the current illness, exacerbation or injury. 10-Not Attempted due to Environmental Limitations-(lack of equipment, weather restraints, etc.). 88-Not Attempted due to Medical Conditions or Safety Concerns. Bed Mobility: 6 Transfers (B,C,W/C): 6 Gait: 6 Stairs: 6 Wheelchair Mobility: 9 Indoor Mobility (Ambulation): Independent Stairs: Independent Prior Devices Use: None Pt reports at [facility], he was Ind with no AD and driving. Pt does report that he has declined recently and has gotten weaker. Pt reports just getting a FWW, but he has not used it yet. PT Evaluation-Current Subjective Pt reports he is doing well today and is agreeable to PT. Pt denies any pain sitting, but reports mid-low back pain at 9/10 after standing/walking for a while. Pain Numeric Pain Scale: 9 Location Body Site: Back Section J - Health Conditions 1. Rarely or not at all 2. Occasionally 3. Frequently 4. Almost constantly 8. Unable to answer Pain Effect on Sleep: 2 Pain Interference with Therapy: 4 Pain Interference w/Day-to-Day: 4 Pt/Family Goals Pt reports that his ultimate goal is to return home, but is scared, because he has no assistance and may be open to GROUP HOME. Objective Patient Orientation: Person, Place, Time, Situation ROM/Strength ROM Upper Extremities WFL ROM Lower Extremities WFL Strength Upper Extremities WFL Strength Lower Extremities B LE MMT = 4-/5 Integumentary/Posture Bowel Incontinence: No Bladder Incontinence: No Sensory Vision: Wears Glasses Hearing: Hearing Aid/Aides Hand Dominance: Right Sensation Right Upper Extremit: Intact Sensation Left Upper Extremity: Intact Sensation Right Lower Extremit: Intact Sensation Left Lower Extremity: Intact Transfers Roll Left & Right (QC): 4 (SBA) Sit to Lying (QC): 4 (SBA) Lying to Sitting/Side of Bed(Q: 4 (SBA) Sit to Stand (QC): 4 (SBA) Chair/Zgr-yn-Kbzrf Xfer(QC): 4 (SBA) Toilet Transfer (QC): 4 (SBA) Car Transfer (QC): 4 (SBA) Gait Does the Patient Walk?: Yes Mode of Locomotion: Walk Anticipated Mode of Locomotion: Walk Walk 10 feet (QC): 4 (CGA ) Walk 50 ft with 2 Turns(QC): 4 (CGA ) Walk 150 ft (QC): 4 (CGA) Walking 10ft/uneven surface-QC: 4 (CGA ) Distance: 150ft Gait Assistive Device: FWW Wheelchair Training Does the Pt Use a Wheelchair?: No Wheel 50 ft with 2 turns (QC): 9 Wheel 150 ft (QC): 9 Type of Wheelchair: N/A Stairs #of Steps: 12 1 Step (curb) (QC): 4 (CGA ) 4 Steps (QC): 4 (CGA ) 12 Steps (QC): 4 (CGA ) B HR Balance Sitting Static: Normal Sitting Dynamic: Normal Standing Static: Good Standing Dynamic: Fair Picking up an Object (QC): 4 (CGA with cloth weaver ) Special Test Comments KU standing balance scale = 4/5; goal = 5/5 Treatment Pt ambulated to/from treatment gym at 150ft x 2 with the FWW and CGA. Pt completed bed mobility tasks with SBA. Pt completed functional transfers with SBA. Pt completed seated B LE Ther Ex x 15 reps each with the red Tband. Pt edu on HEP, with handouts provided. Pt completed 10 min on the nu-step on level 2. Pt left in room with nurse upon completed of PT treatment. Assessment/Needs Pt tolerated PT well, but does require increased rest breaks, secondary to increased mid-low back pain with standing/walking longer distances. Rehab Potential: Good Post Rehab Potential-Barriers: cancer prognosis Equipment Needs transfer bench PT Assisted Goals Assisted Goals PT Digital Marketing Officer Goals Time Frame: Mar 28, 2023 Roll Left to Right (QC): 6 (Pt will be Mod I with all aspects of functional mobility to progress towards PLOF and safe d/c home. ) Sit to Lying (QC): 6 (Pt will be Mod I with all aspects of functional mobility to progress towards PLOF and safe d/c home. ) Lying-Sitting on Side/Bed(QC): 6 (Pt will be Mod I with all aspects of functional mobility to progress towards PLOF and safe d/c home. ) Sit to Stand (QC): 6 (Pt will be Mod I with all aspects of functional mobility to progress towards PLOF and safe d/c home. ) Chair/Jvl-db-Rxohp Xfer(QC): 6 (Pt will be Mod I with all aspects of functional mobility to progress towards PLOF and safe d/c home. ) Toilet/Commode Transfer (QC): 6 (Pt will be Mod I with all aspects of functional mobility to progress towards PLOF and safe d/c home. ) Car Transfer (QC): 6 (Pt will be Mod I with all aspects of functional mobility to progress towards PLOF and safe d/c home. ) Does the Patient Walk: Yes Walk 10 feet (QC): 6 (Pt will be Mod I with all aspects of functional mobility to progress towards PLOF and safe d/c home. ) Walk 10ft-Uneven Surface(QC): 6 (Pt will be Mod I with all aspects of functional mobility to progress towards PLOF and safe d/c home. ) Walk 50ft with 2 Turns (QC): 6 (Pt will be Mod I with all aspects of functional mobility to progress towards PLOF and safe d/c home. ) Walk 150 ft (QC): 6 (Pt will be Mod I with all aspects of functional mobility to progress towards PLOF and safe d/c home. ) Does the Pt use WC or Scooter?: No Wheel 50 feet with 2 turns (QC: 9 Type: N/A Wheel 150 feet: 9 Type: N/A 1 Step (curb) (QC): 6 (Pt will be Mod I with all aspects of functional mobility to progress towards PLOF and safe d/c home. ) 4 Steps (QC): 6 (Pt will be Mod I with all aspects of functional mobility to progress towards PLOF and safe d/c home. ) 12 Steps (QC): 6 (Pt will be Mod I with all aspects of functional mobility to progress towards PLOF and safe d/c home. ) Picking up an Object (QC): 6 (Pt will be Mod I with all aspects of functional mobility to progress towards PLOF and safe d/c home. ) KU standing balance goal = 5/5 PT Plan Problem List Problem List: Activity Tolerance, Functional Strength, Safety, Balance, Gait, Transfer, Bed Mobility Treatment/Plan Treatment Plan: Continue Plan of Care Treatment Plan: Bed Mobility, Concurrent Therapy, Education, Functional Activity Merna, Functional Strength, Group Therapy, Gait, Safety, Therapeutic Exercise, Transfers Treatment Duration: Mar 28, 2023 Frequency: At least 5 of 7 days/Wk (IRF) Estimated Hrs Per Day: 1.5 hours per day Patient and/or Family Agrees t: Yes Safety Risks/Education Patient Education: Gait Training, Transfer Techniques, Steps, Issued Written HEP, Disease Process, Safety Issues Teaching Recipient: Patient Teaching Methods: Demonstration, Discussion Response to Teaching: Verbalize Understanding, Return Demonstration, Reinforcement Needed Discharge Recommendations Therapy Discharge Recommendati: Home & Family Equpiment Recommendations-D/C: Shower Chair Discharge Status/Home Program Cont POC Barriers to Progress cancer prognosis Target Placement home with family vs GROUP HOME Time Time In: 1510 Time Out: 1640 DATE: March 19, 2023 Total Billed Treatment Time: 90 Total Billed Treatment 90 min (3104-2643) EVM (2700-9144) 1 visit (7190-6237) EX x 1 GT x 1 FA x 3 PRABHA VEE PT March 19, 2023 15:14
--- NOTE | 2023-03-19 16:23 | Oncology Consultation ---
Visit Information Visit Information Date of Admission March 19, 2023 at 13:40 Attending Physician Amber Valiente DO Admitting Physician Admitting Physician: Amber Valiente DO Attending Physician: Amber Valiente DO Chief Complaint Called to see the patient about the biopsy result and treatment options. Interval History Mr. Cedillo is 72 old man known to me at the cancer center for h/o urethral cell carcinoma and recently found to have multiple bone lesions and significant weight loss. He had bone lesions biopsy last week. He is admitted this time due to debility and fell at home several times due to weakness. I consulted the patient on: 03/19/23 16:16 Time Seen by Provider: 16:16 Review of Systems Constitutional: see HPI Health Status Allergies Coded Allergies: No Known Drug Allergies (Unverified , 02/05/23) Home Medications Acetaminophen (Tylenol) 325 Mg Tablet, 650 MG PO TID, (Reported) Amlodipine Besylate (Amlodipine Besylate) 2.5 Mg Tablet, 2.5 MG PO HS, (Reported) Cyanocobalamin (Vitamin B-12) (Vitamin B-12) 500 Mcg Tablet, 500 MCG PO DAILY, (Reported) Fludrocortisone Acetate (Fludrocortisone Acetate) 0.1 Mg Tab, 0.1 MG PO Q48H, (Reported) ALTERNATES 0.1MG AND 0.05MG DAILY Fludrocortisone Acetate (Fludrocortisone Acetate) 0.1 Mg Tab, 0.05 MG PO Q48H, (Reported) ALTERNATES 0.1MG AND 0.05MG DAILY Potassium Chloride (Potassium Chloride) 10 Meq Tab.er.prt, 10 MEQ PO DAILY, (Reported) Tramadol HCl (Tramadol HCl) 50 Mg Tablet, 50 MG PO BID PRN for PAIN-MODERATE (5- 7), (Reported) MTZ-Zvbwqe-Adrlhz Hx Patient Social History Type Used: Cigarettes 2nd Hand Smoke Exposure: No Recent Hopitalizations: No Immunizations Up To Date Date of Influenza Vaccine: Sep 12, 2022 Family Medical History Significant Family History: No Pertinent Family Hx Physical Exam Vital Signs Vital Signs - First Documented 03/19/23 13:40 Temp 36.3 Pulse 72 Resp 18 B/P (MAP) 170/100 (123) Pulse Ox 100 O2 Delivery Room Air Capillary Refill : Height, Weight, BMI Height: 5'9" Weight: 170lbs. oz. 77.829814qw; 14.92 BMI Method: General Appearance: No Apparent Distress Impression & Plan Impression & Plan Pathology report from the recent bone lesion biopsy: metastatic urothelial carcinoma IMP: 1. Recurrence and metastatic urothelial carcinoma with multiple bone mets. 2. Significant weight loss and debility 3. Hypokalemia, K2.9 Rec: 1. I discussed with patient of the treatment options: chemo plus immunotherapy. He will need more time to think about it and call me back next week. 2. In the meantime, I will send the tissue for NGS test to see if he is qualify for any targeted therapy. 3. I will also try to get him approved for immunotherapy along alone if he decides not to take chemo part. 4. Dr Valiente to address the low potassium issue. TAYLOR PARRY MD March 19, 2023 16:23
[2023-03-19 16:30] VITALS: BP 184/108
[2023-03-19] MEDS: ENOXAPARIN 40 MG/0.4 ML (LOVENOX) SYR SC SCH (16:34)
[2023-03-19] MEDS: FLUDROCORTISONE 0.1 MG (FLORINEF) TAB PO SCH (17:36)
[2023-03-19] MEDS: amLODIPine 2.5MG (NORVASC) TAB PO SCH ×2 (17:36→20:42)
[2023-03-19 19:12] VITALS: BP 141/86
[2023-03-19] MEDS: SENNA W/DOCUSATE (SENOKOT S) TABLET PO SCH (20:43)
[2023-03-19] MEDS: polyethylene glycoL POWDER 17 GM (MIRALAX) PACK PO SCH (20:43)
[2023-03-19] MEDS: ACETAMINOPHEN 325 MG TABLET PO SCH (20:43)
[2023-03-19] MEDS: DOCUSATE SODIUM 100 MG (COLACE) CAP PO SCH (20:43)
[2023-03-19] MEDS ORDERED: amLODIPine 2.5MG (NORVASC) TAB PO SCH (21:00)
[2023-03-20] MEDS: HYDROcodone/APAP 7.5 MG/325 MG (LORTAB, LORCET PLUS) TABLET PO PRN (03:32)
--- NOTE | 2023-03-20 05:26 | PM&R Progress Note ---
Subjective HPI/CC On Admission Date Seen by Provider: Mar 20, 2023 Time Seen by Provider: 12:00 Subjective/Events-last exam 03/20/2023: Patient doing much better No falls No pain unless he moves Eating a little bit better but not by much Dr. Murphy will talked about options for his cancer treatment Review of Systems General: Fatigue Musculoskeletal: back pain Objective Exam Vital Signs Vital Signs Date Time Temp Pulse Resp B/P (MAP) Pulse Ox O2 Delivery O2 Flow Rate FiO2 03/20/23 20:45 36.3 60 18 166/99 (121) 96 Room Air Capillary Refill : General Appearance: No Apparent Distress, WD/WN, Chronically ill, Cachetic, Thin HEENT: PERRL/EOMI, Normal ENT Inspection, Pharynx Normal Neck: Full Range of Motion, Normal Inspection, Non Tender, Supple, Carotid Bruit Respiratory: Chest Non Tender, Lungs Clear, Normal Breath Sounds, No Accessory Muscle Use, No Respiratory Distress Cardiovascular: Regular Rate, Rhythm, No Edema, No Gallop, No JVD, No Murmur, Normal Peripheral Pulses Gastrointestinal: Normal Bowel Sounds, No Organomegaly, No Pulsatile Mass, Non Tender, Soft Back: Normal Inspection, No CVA Tenderness, No Vertebral Tenderness Extremity: Normal Capillary Refill, Normal Inspection, Normal Range of Motion, Non Tender, No Calf Tenderness, No Pedal Edema Neurologic/Psychiatric: Alert, Oriented x3, No Motor/Sensory Deficits, hide salter II- XII Norm as Tested, Abnormal Gait, Depressed Affect, Motor Weakness (generalized) Skin: Normal Color, Warm/Dry Lymphatic: No Adenopathy Results/Procedures Lab Laboratory Tests 03/20/23 06:12 Patient resulted labs reviewed. FIM Transfers Therapy Code Descriptions/Definitions Functional [place] Measure: 0=Not Assessed/NA 4=Minimal Assistance 1=Total Assistance 5=Supervision or Setup 2=Maximal Assistance 6=Modified [place] 3=Moderate Assistance 7=Complete IndependenceSCALE: Activities may be completed with or without assistive devices. 1-Bckypvvqvh-gtoatuc completes the activity by him/herself with no assistance from a helper. 5-Set-up or Clean-up Assistance-helper sets up or cleans up; patient completes activity. [place] assists only prior to or following the activity. 4-Supervision or Touching Assistance-helper provides verbal cues and/or touching/steadying and/or contact guard assistance as patient completes activity. Assistance may be provided throughout the activity or intermittently. 3-Partial/Moderate Assistance-helper does LESS THAN HALF the effort. [place] lifts, holds or supports trunk or limbs, but provides less than half the effort. 2-Substantial/Maximal Assistance-helper does MORE THAN HALF the effort. [place] lifts or holds trunk or limbs and provides more than half the effort. 9-Lbuewvkjy-ohxkwy does ALL the effort. Patient does none of the effort to complete the activity. Or, the assistance of 2 or more helpers is required for the patient to complete the activity. If activity was not attempted, code reason: 7-Patient Refused. 9-Not Applicable-not attempted and the patient did not perform the activity before the current illness, exacerbation or injury. 10-Not Attempted due to Environmental Limitations-(lack of equipment, weather restraints, etc.). 88-Not Attempted due to Medical Conditions or Safety Concerns. Roll Left to Right (QC): 4 (SBA) Sit to Lying (QC): 4 (SBA) Sit to Stand (QC): 4 (SBA) Chair/Dcr-bm-Pqjzb Xfer(QC): 4 (SBA) Car Transfer (QC): 4 (SBA) Gait Training Does the Patient Walk?: Yes Walk 10 feet (QC): 4 (CGA ) Walk 50 ft with 2 Turns(QC): 4 (CGA ) Walk 150 ft (QC): 4 (CGA) Walking 10ft/uneven surface-QC: 4 (CGA ) Gait Assistive Device: FWW Wheelchair Training Does the Pt Use a Wheelchair?: No Wheel 50 ft with 2 turns (QC): 9 Wheel 150 ft (QC): 9 Type of Wheelchair: N/A Stair Training #of Steps: 12 1 Step (curb) (QC): 4 (CGA ) 4 Steps (QC): 4 (CGA ) 12 Steps (QC): 4 (CGA ) Balance Picking up an Object (QC): 4 (CGA with sales support technician ) ADL-Treatment Eating (QC): 6 Oral Hygiene (QC): 5 (seated) Shower/Bathe Self (QC): 4 (SBA) Upper Body Dressing (QC): 4 (CGA in stand) Lower Body Dressing (QC): 4 (CGA in stand) On/Off Footwear (QC): 4 (SBA) Toileting Hygiene (QC): 4 (CGA) Assessment/Plan Assessment and Plan Assess & Plan/Chief Complaint Assessment: Severe weakness with falls Dehydration causing acute kidney injury 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
--- NOTE | 2023-03-20 05:26 | Individualized Plan of Care ---
Individualized Plan of Care Rehab Nursing IPOC Order Admission Date March 19, 2023 at 13:40 Current Orders Orders Admission Order(Inpt,Obs,Sdc) (03/19/23 12:44) Vital Signs: Per Unit Policy ( 08,16,00 (03/19/23 12:44) Lester Ya 09,21 (03/19/23 12:44) Sequential Compression Device (03/19/23 12:44) Fish Conservationist-Inpt Rehab Con (03/19/23 12:44) Rehab Nursing Orders-Ipoc (03/19/23 12:44) Physical Therapy Rehab Orders (03/19/23 12:44) Occupational Therapy Rehab Ord (03/19/23 12:44) Speech Therapy Rehab Orders (03/19/23 12:44) Cbc With Automated Diff (03/20/23 06:00) Comprehensive Metabolic Panel (03/20/23 06:00) Precautions (Aru) (03/19/23 12:44) Weekly Weight WEEK (03/19/23 12:44) Rehab-Intensity Of Therapy (03/19/23 12:44) Initiate Admission Nursing Pro .admission (03/19/23 12:44) Alprazolam Tablet (Xanax Tablet) (03/19/23 12:45) Calcium Carbonate Chew Tablet (Antacid C (03/19/23 12:45) Diphenhydramine Tablet (Benadryl Tablet) (03/19/23 12:45) Docusate Sodium Capsule (Colace Capsule) (03/19/23 21:00) Docusate Sodium Capsule (Colace Capsule) (03/19/23 12:45) Bisacodyl Suppository (Dulcolax Supposit (03/19/23 12:45) Lactulose Oral Solution (Enulose Oral So (03/19/23 12:45) Na Phos/Na Biphos Enema (Fleet Enema Wilbert (03/19/23 12:45) Guaifenesin/Codeine Syrup (Robitussin Ac (03/19/23 12:45) Loperamide Tablet (Imodium Tablet) (03/19/23 12:45) Enoxaparin Injection (Lovenox Injection) (03/19/23 12:45) Melatonin Tablet (Melatonin Tablet) (03/19/23 12:45) Polyethylene Glycol Powder Pkt (Miralax (03/19/23 21:00) Ondansetron Oral Dissolve Tab (Zofran (03/19/23 12:45) Senna S Tablet (Senokot S Tablet) (03/19/23 21:00) Acetaminophen Tablet/Caplet (Tylenol T (03/19/23 12:45) Initiate Admission Nursing Pro .admission (03/19/23 12:44) Admission Arrival Bed Request (03/19/23 13:57) Acetaminophen Tablet/Caplet (Tylenol T (03/19/23 21:00) Amlodipine Tablet (Norvasc Tablet) (03/19/23 21:00) Fludrocortisone Tablet (Florinef Tablet) (03/19/23 14:30) Fludrocortisone Tablet (Florinef Tablet) (03/19/23 14:30) Cyanocobalamin Tablet (Vitamin B-12 Tabl (03/20/23 07:00) Potassium Chloride (Tablet) (Klor Con Ta (03/20/23 09:00) Hydrocodone/Apap 7.5/325 Tab (Lortab 7. (03/19/23 14:30) Oxycodone Immediate Rel Tablet (Oxyir Ta (03/19/23 14:30) Hydromorphone Injection (Dilaudid Inject (03/19/23 14:30) Iv Convert To Hepl[place] (Order) (03/19/23 14:22) Tramadol Tablet (Ultram Tablet) (03/19/23 15:30) Ensure Plus Vanilla (03/19/23 16:52) General/Regular (03/19/23 Dinner) Amlodipine Tablet (Norvasc Tablet) (03/19/23 17:15) Nursing Communication (Order) (03/19/23 17:03) Hydralazine Tablet (Apresoline Tablet) (03/19/23 17:15) Code/Resuscitation (03/19/23 17:05) Patient Visit (03/20/23 ) Pt Eval Moderate Complexity (03/20/23 ) Patient Visit (03/20/23 ) Exercise Therap, Ea 15 Min (03/20/23 ) Gait Training, Ea 15 Min (03/20/23 ) Functional Activities, Ea 15 (03/20/23 ) Sodium Chloride Flush (Catheter Flush Sy (03/20/23 11:00) Sodium Chloride Flush (Catheter Flush Sy (03/20/23 14:00) Potassium Chloride (Tablet) (K Dur Table (03/21/23 07:00) Potassium Chloride (Tablet) (K Dur Table (03/20/23 12:30) Patient Visit (03/20/23 ) Exercise Therap, Ea 15 Min (03/20/23 ) Gait Training, Ea 15 Min (03/20/23 ) Rehab Nursing Orders: Ongoing Assess. of Cognitive Status, Ongoing Assess. of Function Status, Bladder Management, Bladder Scan, Bladder Training, Bowel Management, Bowel Training, Disease Management & Educaiton, DVT Prophylaxis, Fall Prevention, Fluid/Electrolyte/Nutrition Mgmt, Infection Prevention, Medication Management & Education, Management of Risks & Complications, Management of Skin Intergrity, Nutrition Management, Pain Management, Patient/Family Support, Safety Management, Wound Management Intensity of Therapy to be met Patient to be seen: Min.3h per day/5 of 7d PT IPOC Problem List: Activity Tolerance, Functional Strength, Safety, Balance, Gait, Transfer, Bed Mobility Treatment Plan: Continue Plan of Care Bed Mobility, Concurrent Therapy, Education, Functional Activity Merna, Functional Strength, Group Therapy, Gait, Safety, Therapeutic Exercise, Transfers Treatment Duration: Mar 28, 2023 Frequency: At least 5 of 7 days/Wk (IRF) Estimated Hrs Per Day: 1.5 hours per day OT IPOC Problems: Decreased Activ Tolerance, Decreased UE Strength, Impaired Funct Balance, Impaired I ADL's, Impaired Self-Care Skills OT Treatment, Training and Edu: Yes Plan of Care: ADL Retraining, Functional Mobility, Group Exercise/Act as Ind, UE Funct Exercise/Act Treatment Duration: Apr 04, 2023 Frequency: At least 5 of 7 days/Wk (IRF) Estimated Hrs Per Day: 1.[address] IPOC Speech Therapy Treatment Plan: Discontinue ST Treatment Duration: Mar 20, 2023 Frequency: Modified Program (IRF) Estimated Hrs Per Day: Other Fish Conservationist/Case Mgmt Fish Conservationist/Case Managemen: Discharge Planning Dietitian/Design Engineer Marine Equipment Dietitian/Design Engineer Marine Equipment to monitor nutritional status and make changes and/or recommendations as needed and work with speech pathology on dietary upgrades as the occur. Physician IPOC Medical Issues being managed closely and that require the 24 hour availability of a physician: Recent falls at home with acute kidney injury with poor nutrition and profound weight loss with ureteral carcinoma with bony mets will require close monitoring for increased risk of decompensation Medical Issues: Bowel/Bladder Function, DVT Prophylaxis, Falls Precautions, Fluid/Electrolyte/Nutrition Balance, Infection Protection, Pain Management Brief Synthesis of Preadmission Screen, Post-Admission Evaluation, and Therapy Evaluations: PT and OT will focus on regaining function with use of a walker and help m inimize pain while ambulating but building stamina and helping regain independence in ADLs Medical Prognosis: Fair Anticipated Length of Stay: 7 days NORRIS ATKINSON DO Mar 20, 2023 05:26
[2023-03-20] MEDS: CYANOCOBALAMIN 1,000 MCG (VITAMIN B-12) TABLET PO SCH (06:24)
[2023-03-20 06:32] LABS: BASOPHILS % (AUTO) 0 % (0-10); EOSINOPHILS % (AUTO) 0 % (0-10); HEMATOCRIT 37 % (40-54); HEMOGLOBIN 12.9 g/dL (13.3-17.7); LYMPHOCYTES # (AUTO) 1.2 10^3/uL (1.0-4.0); LYMPHOCYTES % (AUTO) 15 % (12-44); MEAN CORPUSCULAR HEMOGLOBIN 33 pg (25-34); MEAN CORPUSCULAR HGB CONC 35 g/dL (32-36); MEAN CORPUSCULAR VOLUME 93 fL (80-99); MEAN PLATELET VOLUME 9.8 fL (9.0-12.2); MONOCYTES # (AUTO) 0.5 10^3/uL (0.0-1.0); MONOCYTES % (AUTO) 6 % (0-12); NEUTROPHILS # (AUTO) 5.8 10^3/uL (1.8-7.8); NEUTROPHILS % (AUTO) 78 % (42-75); PLATELET COUNT 227 10^3/uL (130-400); WHITE BLOOD COUNT 7.5 10^3/uL (4.3-11.0)
[2023-03-20 06:41] LABS: ALBUMIN 3.7 GM/DL (3.2-4.5); POTASSIUM 2.8 MMOL/L (3.6-5.0)
[2023-03-20 06:43] LABS: CALCIUM 9.1 MG/DL (8.5-10.1)
[2023-03-20 06:44] LABS: TOTAL PROTEIN 6.7 GM/DL (6.4-8.2)
[2023-03-20 06:46] LABS: BILIRUBIN,TOTAL 1.7 MG/DL (0.1-1.0)
[2023-03-20 06:48] LABS: CREATININE SERUM 0.89 MG/DL (0.60-1.30)
[2023-03-20 08:00] VITALS: BP 177/109
[2023-03-20] MEDS: SENNA W/DOCUSATE (SENOKOT S) TABLET PO SCH ×2 (08:27→20:45)
[2023-03-20] MEDS: amLODIPine 2.5MG (NORVASC) TAB PO SCH ×2 (08:27→22:08)
[2023-03-20] MEDS: DOCUSATE SODIUM 100 MG (COLACE) CAP PO SCH ×2 (08:27→20:45)
[2023-03-20] MEDS: ACETAMINOPHEN 325 MG TABLET PO SCH ×3 (08:27→22:08)
[2023-03-20] MEDS ORDERED: KCL 10 MEQ TAB (MICRO K) PO SCH (09:00)
[2023-03-20 09:20] VITALS: BP 174/106
--- NOTE | 2023-03-20 09:31 | Occupational Ther Daily Note ---
OT Current Status-Daily Note Subjective Pt found in chair alert and cooperative. Pt agreed to OT. Pt stated " didn't want to shower today, maybe tomorrow". Mental Status/Objective Attachments: IV ADL-Treatment Pt ambulated to bathroom with FWW, CGA. Pt stood at sink to completed oral care and grooming independently although therapist SBA for safety. Therapy Code Descriptions/Definitions Functional [place] Measure: 0=Not Assessed/NA 4=Minimal Assistance 1=Total Assistance 5=Supervision or Setup 2=Maximal Assistance 6=Modified [place] 3=Moderate Assistance 7=Complete IndependenceSCALE: Activities may be completed with or without assistive devices. 7-Bcufzcuuzq-voisdxs completes the activity by him/herself with no assistance from a helper. 5-Set-up or Clean-up Assistance-helper sets up or cleans up; patient completes activity. [place] assists only prior to or following the activity. 4-Supervision or Touching Assistance-helper provides verbal cues and/or touching/steadying and/or contact guard assistance as patient completes activity. Assistance may be provided throughout the activity or intermittently. 3-Partial/Moderate Assistance-helper does LESS THAN HALF the effort. [place] lift s, holds or supports trunk or limbs, but provides less than half the effort. 2-Substantial/Maximal Assistance-helper does MORE THAN HALF the effort. [place] lifts or holds trunk or limbs and provides more than half the effort. 4-Ltizdtkec-vgzvyw does ALL the effort. Patient does none of the effort to complete the activity. Or, the assistance of 2 or more helpers is required for the patient to complete the activity. If activity was not attempted, code reason: 7-Patient Refused. 9-Not Applicable-not attempted and the patient did not perform the activity before the current illness, exacerbation or injury. 10-Not Attempted due to Environmental Limitations-(lack of equipment, weather restraints, etc.). 88-Not Attempted due to Medical Conditions or Safety Concerns. Oral Hygiene (QC): 4 Other Treatment Pt ambulated with FWW, CGA to therapy gym, with no recovery breaks. Pt sat in chair completed arm bike for 10 min minimum resistance. Pt then completed B UE: flexion, bicep curls,ulnar and radial deviation, pronation/supination, and hand pumps,10 reps once of HEP exercises with 1 # wt only with bicep curls, minimum recovery breaks. Verbal cues and skilled instruction required through out session for correct technique to best benefit pt. Pt also completed theraputty activity to address fine motor, coordination, and dexterity, using medium resistance putty (pink putty). Pt then ambulated back to room with FWW, CGA. Pt sat in chair in room with SBA. Pt was left in chair in room, all needs met, call light and phone within reach. Education Teaching Recipient: Patient Teaching Methods: Demonstration, Handout Response to Teaching: Verbalize Understanding, Return Demonstration OT Short Term Goals Short Term Goals Time Frame: Mar 26, 2023 Shower/bathe self: 5 Upper body dressin Lower body dressin Putting on/taking off footwear: 5 OT Prison Goals Dry Pan Charger Goals Time Frame: Apr 04, 2023 Acute change in mental status: 0 Inattention: 0 Disorganized thinkin Altered level of consciousness: 6 Eating (QC): 6 Oral Hygiene (QC): 6 Toileting Hygiene (QC): 6 Shower/Bathe Self (QC): 6 Upper Body Dressing (QC): 6 Lower Body Dressing (QC): 6 On/Off Footwear (QC): 6 Additional Goals: 1-Demonstrate ADL Tasks, 2-Verbalize Understanding, 3- ImproveStrength/Merna 1=Demonstrate adherence to instructed precautions during ADL tasks. 2=Patient will verbalize/demonstrate understanding of assistive devices/modifications for ADL. 3=Patient will improve strength/tolerance for activity to enable patient to perform ADL's. OT Education/Plan Problem List/Assessment Assessment: Decreased Activ Tolerance, Decreased UE Strength Discharge Recommendations Plan/Recommendations: Continue POC Treatment Plan/Plan of Care Patient would benefit from OT for education, treatment and training to promote independence in ADL's, mobility, safety and/or upper extremity function for ADL's. Plan of Care: ADL Retraining, Functional Mobility, Group Exercise/Act as Ind, UE Funct Exercise/Act Treatment Duration: Apr 04, 2023 Frequency: At least 5 of 7 days/Wk (IRF) Estimated Hrs Per Day: 1.5 hours per day Agreement: Yes Rehab Potential: Good Time Start Time: 09:00 Stop Time: 10:00 DATE: Mar 20, 2023 Total Time Billed (hr/min): 60 Billed Treatment Time 1 visit ADL 3 (45 mins) Ex 1 (15 min) Carey Webber COTA Mar 20, 2023 09:31
[2023-03-20] MEDS: polyethylene glycoL POWDER 17 GM (MIRALAX) PACK PO SCH ×2 (10:32→20:45)
[2023-03-20] MEDS ORDERED: CATHETER FLUSH 10 ML SYR IVP PRN (11:00)
[2023-03-20] MEDS: ENOXAPARIN 40 MG/0.4 ML (LOVENOX) SYR SC SCH (12:08)
[2023-03-20] MEDS ORDERED: KCL 20 MEQ TAB (K-DUR) PO ONE (12:30)
[2023-03-20] MEDS: ONDANSETRON 4 MG (ZOFRAN) ORAL DISSOLVE TAB PO PRN (12:34)
[2023-03-20] MEDS: CATHETER FLUSH 10 ML SYR IVP SCH ×2 (12:35→22:10)
[2023-03-20 12:49] VITALS: BP 169/87
--- NOTE | 2023-03-20 12:54 | Physical Therapy Daily Note ---
PT Daily Note-Current Subjective pt in room in recliner upon arrival and good for therapy. pt reports no pain and slight nausea after eating breakfast but it has dissipated. Pain Section J - Health Conditions 1. Rarely or not at all 2. Occasionally 3. Frequently 4. Almost constantly 8. Unable to answer Pain Effect on Sleep: 2 Pain Interference with Therapy: 4 Pain Interference w/Day-to-Day: 4 Mental Status Patient Orientation: Person, Place, Time, Situation Transfers SCALE: Activities may be completed with or without assistive devices. 4-Jkbgysyohe-kvetuqd completes the activity by him/herself with no assistance from a helper. 5-Set-up or Clean-up Assistance-helper sets up or cleans up; patient completes activity. [place] assists only prior to or following the activity. 4-Supervision or Touching Assistance-helper provides verbal cues and/or touching/steadying and/or contact guard assistance as patient completes activity. Assistance may be provided throughout the activity or intermittently. 3-Partial/Moderate Assistance-helper does LESS THAN HALF the effort. [place] lifts, holds or supports trunk or limbs, but provides less than half the effort. 2-Substantial/Maximal Assistance-helper does MORE THAN HALF the effort. [place] lifts or holds trunk or limbs and provides more than half the effort. 9-Gaxywzrjm-wblnng does ALL the effort. Patient does none of the effort to complete the activity. Or, the assistance of 2 or more helpers is required for the patient to complete the activity. If activity was not attempted, code reason: 7-Patient Refused. 9-Not Applicable-not attempted and the patient did not perform the activity before the current illness, exacerbation or injury. 10-Not Attempted due to Environmental Limitations-(lack of equipment, weather restraints, etc.). 88-Not Attempted due to Medical Conditions or Safety Concerns. Weight Bearing Right Lower Extremity: Right Full Weight Bearing Left Lower Extremity: Left Full Weight Bearing Exercises Seated Therapy Exercises: Ankle pumps, Long arc quads, Chair press-ups, Hip flexion, Kicking activity, Hamstring Curls, Glut set NuStep Minutes: 15 NuStep Workload: 1 Treatments pt ambulated from room to therapy gym with CGA pt is able to preform sitting ther-ex with BLE in all planes of motion available. pt is able to preform 3 sets of 15 with red thera-band. VC f 15 % for correct mm movement. pt does requires frequent rest breaks secondary to fatigue but with rest is able to continue exercise. pt able to preform Nu-Step at level 1 for 15 min and a break at 12 min and able to continue to 15 showing increased endurance. Assessment Current Status: Good Progress PT Chcf Goals Chcf Goals PT Air Pollution Analyst Goals Time Frame: Mar 28, 2023 Roll Left & Right (QC): 6 (Pt will be Mod I with all aspects of functional mobility to progress towards PLOF and safe d/c home. ) Sit to Lying (QC): 6 (Pt will be Mod I with all aspects of functional mobility to progress towards PLOF and safe d/c home. ) Lying-Sitting on Side/Bed(QC): 6 (Pt will be Mod I with all aspects of functional mobility to progress towards PLOF and safe d/c home. ) Sit to Stand (QC): 6 (Pt will be Mod I with all aspects of functional mobility to progress towards PLOF and safe d/c home. ) Chair/Oiv-ff-Hwdiw Xfer(QC): 6 (Pt will be Mod I with all aspects of functional mobility to progress towards PLOF and safe d/c home. ) Toilet Transfer (QC): 6 (Pt will be Mod I with all aspects of functional mobility to progress towards PLOF and safe d/c home. ) Car Transfer (QC): 6 (Pt will be Mod I with all aspects of functional mobility to progress towards PLOF and safe d/c home. ) Does the Patient Walk: Yes Walk 10 feet (QC): 6 (Pt will be Mod I with all aspects of functional mobility to progress towards PLOF and safe d/c home. ) Walk 50ft with 2 Turns (QC): 6 (Pt will be Mod I with all aspects of functional mobility to progress towards PLOF and safe d/c home. ) Walk 150 ft (QC): 6 (Pt will be Mod I with all aspects of functional mobility to progress towards PLOF and safe d/c home. ) Walking 10ft on Uneven Surface: 6 (Pt will be Mod I with all aspects of functional mobility to progress towards PLOF and safe d/c home. ) 1 Step (curb) (QC): 6 (Pt will be Mod I with all aspects of functional mobility to progress towards PLOF and safe d/c home. ) 4 Steps (QC): 6 (Pt will be Mod I with all aspects of functional mobility to progress towards PLOF and safe d/c home. ) 12 Steps (QC): 6 (Pt will be Mod I with all aspects of functional mobility to progress towards PLOF and safe d/c home. ) Picking up an Object (QC): 6 (Pt will be Mod I with all aspects of functional mobility to progress towards PLOF and safe d/c home. ) Does the Pt use WC or Scooter?: No Wheel 50 feet with 2 turns (QC: 9 Type: N/A Wheel 150 feet: 9 Type: N/A PT Plan Treatment/Plan Treatment Plan: Continue Plan of Care Treatment Plan: Bed Mobility, Concurrent Therapy, Education, Functional Activity Merna, Functional Strength, Group Therapy, Gait, Safety, Therapeutic Exercise, Transfers Treatment Duration: Mar 28, 2023 Frequency: At least 5 of 7 days/Wk (IRF) Estimated Hrs Per Day: 1.5 hours per day Patient and/or Family Agrees t: Yes Time Time In: 0750 Time Out: 0850 DATE: Mar 20, 2023 Total Billed Treatment Time: 60 Total Billed Treatment 1 EX x 3 GT Katia Escobar GEAR MILLING MACHINE SET UP OPERATOR Mar 20, 2023 12:54
--- NOTE | 2023-03-20 14:38 | Speech Therapy Progress Note ---
Therapy Progress Note Speech pathology received a cognitive consultation per IRF order set protocol. Speech pathology has not been contacted regarding specific patient needs at this time. ST to discharge order. Please re-consult speech pathology with concerns. ROGELIO HOLLINGSWORTH Mar 20, 2023 14:38
--- NOTE | 2023-03-20 14:41 | Therapy Group Daily Note ---
Therapy Daily Group Note Patient Education Topic Home Safety Exercises UE Exercise Session Ratio (pt:therapist): 4:1 Goal of Session: Education on ARU Expectations, Energy Conservation Tech., Home Safety Strategies, UE/LE Strengthing, Use of Adaptive Equipment Goal Met for this Session: Yes Pt Benefit of Group: Contributions to Others, F/U Use of Strategies @Home, Increased Functional Safety, Increased Functional Strength, Improved Cognition, Recognition of Peers, Socialization Other/Notes Pt ambulated using FWW to therapy gym for OT group. Group consisted of introductions (name/place living), socialization, B UE strengthening, education on home safety and activity to assess pt's understanding of educational topic. Pt introduced self appropriately and actively listened to peers. Pt able to complete B UE movements without difficulty. Pt was able to verbalized understanding of home safety topic and answer questions correctly. After therapy, pt sitting in recliner with call light/phone. All needs met in room. Start Time: 13:00 Stop Time: 14:00 Total Billed Treatment Time: 60 Total Billed Treatment 1-[facility] MATT FINNEY Mar 20, 2023 14:41
[2023-03-20 20:45] VITALS: BP 166/99
[2023-03-21] MEDS: KCL 20 MEQ TAB (K-DUR) PO SCH (06:30)
[2023-03-21] MEDS: ONDANSETRON 4 MG (ZOFRAN) ORAL DISSOLVE TAB PO PRN ×2 (06:30→20:40)
[2023-03-21] MEDS: CYANOCOBALAMIN 1,000 MCG (VITAMIN B-12) TABLET PO SCH (06:31)
[2023-03-21 07:46] VITALS: BP 208/117
--- NOTE | 2023-03-21 07:53 | Occupational Ther Daily Note ---
OT Current Status-Daily Note Subjective Pt up in recliner, agreeable to OT Tx. ADL-Treatment Therapy Code Descriptions/Definitions Functional [place] Measure: 0=Not Assessed/NA 4=Minimal Assistance 1=Total Assistance 5=Supervision or Setup 2=Maximal Assistance 6=Modified [place] 3=Moderate Assistance 7=Complete IndependenceSCALE: Activities may be completed with or without assistive devices. 9-Kmbinxyptz-zpcbdtw completes the activity by him/herself with no assistance from a helper. 5-Set-up or Clean-up Assistance-helper sets up or cleans up; patient completes activity. [place] assists only prior to or following the activity. 4-Supervision or Touching Assistance-helper provides verbal cues and/or touching/steadying and/or contact guard assistance as patient completes activity. Assistance may be provided throughout the activity or intermittently. 3-Partial/Moderate Assistance-helper does LESS THAN HALF the effort. [place] lifts, holds or supports trunk or limbs, but provides less than half the effort. 2-Substantial/Maximal Assistance-helper does MORE THAN HALF the effort. [place] lifts or holds trunk or limbs and provides more than half the effort. 4-Ifjawxely-ncacyw does ALL the effort. Patient does none of the effort to co mplete the activity. Or, the assistance of 2 or more helpers is required for the patient to complete the activity. If activity was not attempted, code reason: 7-Patient Refused. 9-Not Applicable-not attempted and the patient did not perform the activity before the current illness, exacerbation or injury. 10-Not Attempted due to Environmental Limitations-(lack of equipment, weather restraints, etc.). 88-Not Attempted due to Medical Conditions or Safety Concerns. On/Off Footwear: 5 Other Treatment [facility] agreeable to OT Tx. Pt declines showering at this time, as he would prefer to wait for another day or so. OT informed pt next OT tx will be Friday, but he is able to shower with director of medical staff services this weekend, he verbalized understanding. OT placed SC with back support in pt's shower, so next time he showers he will have back support in hopes to decrease back pain. Pt donned slip on shoes with set up assist. Pt stood from [facility], [facility] using FWW to perform functional mobility to therapy gym. OT tx focused on increasing BUE Strength and activity tolerance. Pt completed arm bike, minimal resistance, x12 mins. Pt education on UE HEP with light resistance (yellow) theraband. Pt completed x10 reps each, 5/5 exercises. Copy of exercises and resistance band placed in pt's room, copy of HEP placed in pt's chart and 1 copy placed in folde r attached to white board in pt's room. Pt completed UE reaching task of nut/bolt block. Pt manipulated nuts/bolts/washers, removing from block and placing back onto block. Pt completed x15, no weights, and x15 with 1lb wrist weights BUEs. Rest breaks as needed. Pt completed fine motor strengthening activity, removing beads from heavy resistance (Green) theraputty. Pt able to locate all beads without cues. Pt returned to his room using FWW, CGA, transferring to recliner. Post tx, pt in recliner, call light in reach and all needs met. Education OT Patient Education: Correct positioning, Energy conservation, Modified ADL techniques, Progress toward Goal/Update tx plan, Purpose of tx/functional activities, Rehab process Teaching Recipient: Patient Teaching Methods: Discussion Response to Teaching: Verbalize Understanding OT Short Term Goals Short Term Goals Time Frame: Mar 26, 2023 Shower/bathe self: 5 Upper body dressin Lower body dressin Putting on/taking off footwear: 5 OT Long-Term Goals Long-Term Goals Time Frame: Apr 04, 2023 Acute change in mental status: 0 Inattention: 0 Disorganized thinkin Altered level of consciousness: 6 Eating (QC): 6 Oral Hygiene (QC): 6 Toileting Hygiene (QC): 6 Shower/Bathe Self (QC): 6 Upper Body Dressing (QC): 6 Lower Body Dressing (QC): 6 On/Off Footwear (QC): 6 Additional Goals: 1-Demonstrate ADL Tasks, 2-Verbalize Understanding, 3- ImproveStrength/Merna 1=Demonstrate adherence to instructed precautions during ADL tasks. 2=Patient will verbalize/demonstrate understanding of assistive devices/modifications for ADL. 3=Patient will improve strength/tolerance for activity to enable patient to perform ADL's. OT Education/Plan Problem List/Assessment Assessment: Decreased Activ Tolerance, Decreased UE Strength, Impaired Funct Balance, Impaired I ADL's, Impaired Self-Care Skills Discharge Recommendations Plan/Recommendations: Continue POC Treatment Plan/Plan of Care Patient would benefit from OT for education, treatment and training to promote independence in ADL's, mobility, safety and/or upper extremity function for ADL's. Plan of Care: ADL Retraining, Functional Mobility, Group Exercise/Act as Ind, UE Funct Exercise/Act Treatment Duration: Apr 04, 2023 Frequency: At least 5 of 7 days/Wk (IRF) Estimated Hrs Per Day: 1.5 hours per day Agreement: Yes Rehab Potential: Good Time Start Time: 07:20 Stop Time: 08:50 DATE: Mar 21, 2023 Total Time Billed (hr/min): 90 Billed Treatment Time 1, EX 2 (30'), FA 4 (60') RADHAMES MARROQUIN OT Mar 21, 2023 07:53
[2023-03-21] MEDS: SENNA W/DOCUSATE (SENOKOT S) TABLET PO SCH ×2 (08:35→20:40)
[2023-03-21] MEDS: DOCUSATE SODIUM 100 MG (COLACE) CAP PO SCH ×2 (08:36→20:40)
[2023-03-21] MEDS: polyethylene glycoL POWDER 17 GM (MIRALAX) PACK PO SCH ×2 (08:36→20:40)
[2023-03-21] MEDS: amLODIPine 2.5MG (NORVASC) TAB PO SCH ×2 (08:36→20:40)
[2023-03-21] MEDS: ACETAMINOPHEN 325 MG TABLET PO SCH ×3 (08:36→20:39)
--- NOTE | 2023-03-21 08:44 | PM&R Progress Note ---
Subjective HPI/CC On Admission Date Seen by Provider: Mar 21, 2023 Time Seen by Provider: 12:00 Subjective/Events-last exam 03/21/2023: Improved status Pain somewhat controlled Bowels are slow will increase laxatives in this regimen is not effective No falls 03/20/2023: Patient doing much better No falls No pain unless he moves Eating a little bit better but not by much Dr. Murphy will talked about options for his cancer treatment Review of Systems General: Fatigue, Malaise Objective Exam Vital Signs Vital Signs Date Time Temp Pulse Resp B/P (MAP) Pulse Ox O2 Delivery O2 Flow Rate FiO2 03/21/23 20:40 98 Room Air 03/21/23 19:25 36.8 69 20 170/98 (122) Capillary Refill : General Appearance: No Apparent Distress, WD/WN, Chronically ill, Cachetic, Thin HEENT: PERRL/EOMI, Normal ENT Inspection, Pharynx Normal Neck: Full Range of Motion, Normal Inspection, Non Tender, Supple, Carotid Br uit Respiratory: Chest Non Tender, Lungs Clear, Normal Breath Sounds, No Accessory Muscle Use, No Respiratory Distress Cardiovascular: Regular Rate, Rhythm, No Edema, No Gallop, No JVD, No Murmur, Normal Peripheral Pulses Gastrointestinal: Normal Bowel Sounds, No Organomegaly, No Pulsatile Mass, Non Tender, Soft Back: Normal Inspection, No CVA Tenderness, No Vertebral Tenderness Extremity: Normal Capillary Refill, Normal Inspection, Normal Range of Motion, Non Tender, No Calf Tenderness, No Pedal Edema Neurologic/Psychiatric: Alert, Oriented x3, No Motor/Sensory Deficits, card feeder II- XII Norm as Tested, Abnormal Gait, Depressed Affect, Motor Weakness (generalized) Skin: Normal Color, Warm/Dry Lymphatic: No Adenopathy Results/Procedures Lab Patient resulted labs reviewed. FIM Transfers Therapy Code Descriptions/Definitions Functional [place] Measure: 0=Not Assessed/NA 4=Minimal Assistance 1=Total Assistance 5=Supervision or Setup 2=Maximal Assistance 6=Modified [place] 3=Moderate Assistance 7=Complete IndependenceSCALE: Activities may be completed with or without assistive devices. 8-Zpepaprzyu-ygbogqe completes the activity by him/herself with no assistance from a helper. 5-Set-up or Clean-up Assistance-helper sets up or cleans up; patient completes activity. [place] assists only prior to or following the activity. 4-Supervision or Touching Assistance-helper provides verbal cues and/or touching/steadying and/or contact guard assistance as patient completes activity. Assistance may be provided throughout the activity or intermittently. 3-Partial/Moderate Assistance-helper does LESS THAN HALF the effort. [place] lifts, holds or supports trunk or limbs, but provides less than half the effort. 2-Substantial/Maximal Assistance-helper does MORE THAN HALF the effort. [place] lifts or holds trunk or limbs and provides more than half the effort. 5-Iogotrjns-aierdx does ALL the effort. Patient does none of the effort to complete the activity. Or, the assistance of 2 or more helpers is required for the patient to complete the activity. If activity was not attempted, code reason: 7-Patient Refused. 9-Not Applicable-not attempted and the patient did not perform the activity befo re the current illness, exacerbation or injury. 10-Not Attempted due to Environmental Limitations-(lack of equipment, weather re straints, etc.). 88-Not Attempted due to Medical Conditions or Safety Concerns. Roll Left to Right (QC): 4 (SBA) Sit to Lying (QC): 4 (SBA) Sit to Stand (QC): 4 (SBA) Chair/Ilm-qv-Avhou Xfer(QC): 4 (SBA) Car Transfer (QC): 4 (SBA) Gait Training Does the Patient Walk?: Yes Walk 10 feet (QC): 4 (CGA ) Walk 50 ft with 2 Turns(QC): 4 (CGA ) Walk 150 ft (QC): 4 (CGA) Walking 10ft/uneven surface-QC: 4 (CGA ) Gait Assistive Device: FWW Wheelchair Training Does the Pt Use a Wheelchair?: No Wheel 50 ft with 2 turns (QC): 9 Wheel 150 ft (QC): 9 Type of Wheelchair: N/A Stair Training #of Steps: 12 1 Step (curb) (QC): 4 (CGA ) 4 Steps (QC): 4 (CGA ) 12 Steps (QC): 4 (CGA ) Balance Picking up an Object (QC): 4 (CGA with patient intake coordinator ) ADL-Treatment Eating (QC): 6 Oral Hygiene (QC): 4 Shower/Bathe Self (QC): 4 (SBA) Upper Body Dressing (QC): 4 (CGA in stand) Lower Body Dressing (QC): 4 (CGA in stand) On/Off Footwear (QC): 5 Toileting Hygiene (QC): 4 (CGA) Assessment/Plan Assessment and Plan Assess & Plan/Chief Complaint Assessment: Severe weakness with falls Dehydration causing acute kidney injury 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
[2023-03-21 09:45] VITALS: BP 146/84
--- NOTE | 2023-03-21 10:27 | Physical Therapy Daily Note ---
PT Daily Note-Current Subjective pt in recliner upon arrival and good for therapy. pt stated no pain at the beginning of therapy after ambulating down to the first floor and outside pt pain level did rise to a 7/10 but with sitting rest pain dissipated to 1/10 after 5 mins of resting. pt was left in room in recliner with call light and all needs met. Pain Section J - Health Conditions 1. Rarely or not at all 2. Occasionally 3. Frequently 4. Almost constantly 8. Unable to answer Pain Effect on Sleep: 2 Pain Interference with Therapy: 4 Pain Interference w/Day-to-Day: 4 Transfers SCALE: Activities may be completed with or without assistive devices. 7-Qrfyjywdjp-kvtakjr completes the activity by him/herself with no assistance from a helper. 5-Set-up or Clean-up Assistance-helper sets up or cleans up; patient completes activity. [place] assists only prior to or following the activity. 4-Supervision or Touching Assistance-helper provides verbal cues and/or touching/steadying and/or contact guard assistance as patient completes activity. Assistance may be provided throughout the activity or intermittently. 3-Partial/Moderate Assistance-helper does LESS THAN HALF the effort. [place] lifts, holds or supports trunk or limbs, but provides less than half the effort. 2-Substantial/Maximal Assistance-helper does MORE THAN HALF the effort. [place] lifts or holds trunk or limbs and provides more than half the effort. 9-Hctfitoqv-xkzgrk does ALL the effort. Patient does none of the effort to complete the activity. Or, the assistance of 2 or more helpers is required for the patient to complete the activity. If activity was not attempted, code reason: 7-Patient Refused. 9-Not Applicable-not attempted and the patient did not perform the activity before the current illness, exacerbation or injury. 10-Not Attempted due to Environmental Limitations-(lack of equipment, weather restraints, etc.). 88-Not Attempted due to Medical Conditions or Safety Concerns. Weight Bearing Right Lower Extremity: Right Full Weight Bearing Left Lower Extremity: Left Full Weight Bearing Exercises NuStep Minutes: 20 NuStep Workload: 1 Treatments pt is able to preform nu-step for 10 mins then rest for 2 and preform 10 more minutes of nu-step showing an increase in stamina and endurance. pt was then able to ambulate ,using the elevator, down to the first floor and outside to the patio area. pt did require a sitting rest break as back pain was increasing. pt is able to ambulate back to the 2nd floor and return to room to rest in recliner secondary to fatigue and back pain. Assessment Current Status: Good Progress PT Fpc Goals Skill Training Program Coordinator Goals PT Skill Training Program Coordinator Goals Time Frame: Mar 28, 2023 Roll Left & Right (QC): 6 (Pt will be Mod I with all aspects of functional mobility to progress towards PLOF and safe d/c home. ) Sit to Lying (QC): 6 (Pt will be Mod I with all aspects of functional mobility to progress towards PLOF and safe d/c home. ) Lying-Sitting on Side/Bed(QC): 6 (Pt will be Mod I with all aspects of functional mobility to progress towards PLOF and safe d/c home. ) Sit to Stand (QC): 6 (Pt will be Mod I with all aspects of functional mobility to progress towards PLOF and safe d/c home. ) Chair/Ddh-hd-Gaaaz Xfer(QC): 6 (Pt will be Mod I with all aspects of functional mobility to progress towards PLOF and safe d/c home. ) Toilet Transfer (QC): 6 (Pt will be Mod I with all aspects of functional mobility to progress towards PLOF and safe d/c home. ) Car Transfer (QC): 6 (Pt will be Mod I with all aspects of functional mobility to progress towards PLOF and safe d/c home. ) Does the Patient Walk: Yes Walk 10 feet (QC): 6 (Pt will be Mod I with all aspects of functional mobility to progress towards PLOF and safe d/c home. ) Walk 50ft with 2 Turns (QC): 6 (Pt will be Mod I with all aspects of functional mobility to progress towards PLOF and safe d/c home. ) Walk 150 ft (QC): 6 (Pt will be Mod I with all aspects of functional mobility to progress towards PLOF and safe d/c home. ) Walking 10ft on Uneven Surface: 6 (Pt will be Mod I with all aspects of functio nal mobility to progress towards PLOF and safe d/c home. ) 1 Step (curb) (QC): 6 (Pt will be Mod I with all aspects of functional mobility to progress towards PLOF and safe d/c home. ) 4 Steps (QC): 6 (Pt will be Mod I with all aspects of functional mobility to progress towards PLOF and safe d/c home. ) 12 Steps (QC): 6 (Pt will be Mod I with all aspects of functional mobility to progress towards PLOF and safe d/c home. ) Picking up an Object (QC): 6 (Pt will be Mod I with all aspects of functional mobility to progress towards PLOF and safe d/c home. ) Does the Pt use WC or Scooter?: No Wheel 50 feet with 2 turns (QC: 9 Type: N/A Wheel 150 feet: 9 Type: N/A PT Plan Treatment/Plan Treatment Plan: Continue Plan of Care Treatment Plan: Bed Mobility, Concurrent Therapy, Education, Functional Activity M[place], Functional Strength, Group Therapy, Gait, Safety, Therapeutic Exercise, Transfers Treatment Duration: Mar 28, 2023 Frequency: At least 5 of 7 days/Wk (IRF) Estimated Hrs Per Day: 1.5 hours per day Patient and/or Family Agrees t: Yes Time Time In: 1030 Time Out: 1200 DATE: Mar 21, 2023 Total Billed Treatment Time: 90 Total Billed Treatment 1 GT x 2 EX x 4 Katia Escobar WOOD MACHINE CARVER Mar 21, 2023 10:27
[2023-03-21] MEDS: ENOXAPARIN 40 MG/0.4 ML (LOVENOX) SYR SC SCH (12:55)
[2023-03-21] MEDS: LACTULOSE SYRUP 10GM/15ML (ENULOSE) 30ML UDC PO PRN (14:43)
[2023-03-21] MEDS: FLUDROCORTISONE 0.1 MG (FLORINEF) TAB PO SCH (14:43)
[2023-03-21 19:25] VITALS: BP 170/98
[2023-03-22] MEDS: HYDROcodone/APAP 7.5 MG/325 MG (LORTAB, LORCET PLUS) TABLET PO PRN (00:25)
--- NOTE | 2023-03-22 06:32 | PM&R Progress Note ---
Subjective HPI/CC On Admission Date Seen by Provider: Mar 22, 2023 Time Seen by Provider: 12:00 Subjective/Events-last exam 03/22/2023: Patient doing well Pain is pretty well controlled Much better day today Eating a little bit more Immunotherapy will be started per Dr. Murphy 03/21/2023: Improved status Pain somewhat controlled Bowels are slow will increase laxatives in this regimen is not effective No falls 03/20/2023: Patient doing much better No falls No pain unless he moves Eating a little bit better but not by much Dr. Murphy will talked about options for his cancer treatment Review of Systems General: Fatigue, Malaise Objective Exam Vital Signs Vital Signs Date Time Temp Pulse Resp B/P (MAP) Pulse Ox O2 Delivery O2 Flow Rate FiO2 03/22/23 09:00 Room Air 03/22/23 07:11 37.0 76 18 120/79 (93) 96 Capillary Refill : General Appearance: No Apparent Distress, WD/WN, Chronically ill, Cachetic, Thin HEENT: PERRL/EOMI, Normal ENT Inspection, Pharynx Normal Neck: Full Range of Motion, Normal Inspection, Non Tender, Supple, Carotid Bruit Respiratory: Chest Non Tender, Lungs Clear, Normal Breath Sounds, No Accessory Muscle Use, No Respiratory Distress Cardiovascular: Regular Rate, Rhythm, No Edema, No Gallop, No JVD, No Murmur, Normal Peripheral Pulses Gastrointestinal: Normal Bowel Sounds, No Organomegaly, No Pulsatile Mass, Non Tender, Soft Back: Normal Inspection, No CVA Tenderness, No Vertebral Tenderness Extremity: Normal Capillary Refill, Normal Inspection, Normal Range of Motion, Non Tender, No Calf Tenderness, No Pedal Edema Neurologic/Psychiatric: Alert, Oriented x3, No Motor/Sensory Deficits, compensation coordinator II- XII Norm as Tested, Abnormal Gait, Depressed Affect, Motor Weakness (generalized) Skin: Normal Color, Warm/Dry Lymphatic: No Adenopathy Results/Procedures Lab Patient resulted labs reviewed. FIM Transfers Therapy Code Descriptions/Definitions Functional [place] Measure: 0=Not Assessed/NA 4=Minimal Assistance 1=Total Assistance 5=Supervision or Setup 2=Maximal Assistance 6=Modified [place] 3=Moderate Assistance 7=Complete IndependenceSCALE: Activities may be completed with or without assistive devices. 4-Bpusmofcvh-owfhcxa completes the activity by him/herself with no assistance from a helper. 5-Set-up or Clean-up Assistance-helper sets up or cleans up; patient completes activity. [place] assists only prior to or following the activity. 4-Supervision or Touching Assistance-helper provides verbal cues and/or touching/steadying and/or contact guard assistance as patient completes activity. Assistance may be provided throughout the activity or intermittently. 3-Partial/Moderate Assistance-helper does LESS THAN HALF the effort. [place] lifts, holds or supports trunk or limbs, but provides less than half the effort. 2-Substantial/Maximal Assistance-helper does MORE THAN HALF the effort. [place] lifts or holds trunk or limbs and provides more than half the effort. 3-Qrkpgwthj-wlseba does ALL the effort. Patient does none of the effort to complete the activity. Or, the assistance of 2 or more helpers is required for the patient to complete the activity. If activity was not attempted, code reason: 7-Patient Refused. 9-Not Applicable-not attempted and the patient did not perform the activity before the current illness, exacerbation or injury. 10-Not Attempted due to Environmental Limitations-(lack of equipment, weather restraints, etc.). 88-Not Attempted due to Medical Conditions or Safety Concerns. Roll Left to Right (QC): 4 (SBA) Sit to Lying (QC): 4 (SBA) Sit to Stand (QC): 4 (SBA) Chair/Mee-gq-Tjhrr Xfer(QC): 4 (SBA) Car Transfer (QC): 4 (SBA) Gait Training Does the Patient Walk?: Yes Walk 10 feet (QC): 4 (CGA ) Walk 50 ft with 2 Turns(QC): 4 (CGA ) Walk 150 ft (QC): 4 (CGA) Walking 10ft/uneven surface-QC: 4 (CGA ) Gait Assistive Device: FWW Wheelchair Training Does the Pt Use a Wheelchair?: No Wheel 50 ft with 2 turns (QC): 9 Wheel 150 ft (QC): 9 Type of Wheelchair: N/A Stair Training #of Steps: 12 1 Step (curb) (QC): 4 (CGA ) 4 Steps (QC): 4 (CGA ) 12 Steps (QC): 4 (CGA ) Balance Picking up an Object (QC): 4 (CGA with packing machine inspector ) ADL-Treatment Eating (QC): 6 Oral Hygiene (QC): 4 Shower/Bathe Self (QC): 4 (SBA) Upper Body Dressing (QC): 4 (CGA in stand) Lower Body Dressing (QC): 4 (CGA in stand) On/Off Footwear (QC): 5 Toileting Hygiene (QC): 4 (CGA) Assessment/Plan Assessment and Plan Assess & Plan/Chief Complaint Assessment: Severe weakness with falls Dehydration causing acute kidney injury 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
[2023-03-22] MEDS: KCL 20 MEQ TAB (K-DUR) PO SCH (06:41)
[2023-03-22] MEDS: CYANOCOBALAMIN 1,000 MCG (VITAMIN B-12) TABLET PO SCH (06:41)
[2023-03-22 07:11] VITALS: BP 120/79
[2023-03-22] MEDS: DOCUSATE SODIUM 100 MG (COLACE) CAP PO SCH ×2 (08:22→20:14)
[2023-03-22] MEDS: ACETAMINOPHEN 325 MG TABLET PO SCH ×3 (08:23→20:13)
[2023-03-22] MEDS: amLODIPine 2.5MG (NORVASC) TAB PO SCH ×2 (08:24→20:13)
[2023-03-22] MEDS: polyethylene glycoL POWDER 17 GM (MIRALAX) PACK PO SCH ×2 (08:25→20:14)
[2023-03-22] MEDS: SENNA W/DOCUSATE (SENOKOT S) TABLET PO SCH ×2 (08:26→20:14)
[2023-03-22] MEDS: ONDANSETRON 4 MG (ZOFRAN) ORAL DISSOLVE TAB PO PRN (12:03)
[2023-03-22] MEDS: BISACODYL 10 MG SUPP (DULCOLAX) PR PRN (12:51)
[2023-03-22] MEDS: ENOXAPARIN INJECTION 30 MG/0.3 ML SYR SC SCH (14:06)
[2023-03-22] MEDS: METOCLOPRAMIDE 5 MG (REGLAN) TAB PO PRN (16:46)
[2023-03-22 19:35] VITALS: BP 142/90
[2023-03-23] MEDS: HYDROcodone/APAP 7.5 MG/325 MG (LORTAB, LORCET PLUS) TABLET PO PRN (04:47)
--- NOTE | 2023-03-23 06:17 | PM&R Progress Note ---
Subjective HPI/CC On Admission Date Seen by Provider: Mar 23, 2023 Time Seen by Provider: 12:00 Subjective/Events-last exam 03/23/2023: Much improved overall Reglan improved No falls Pain improved Eating better 03/22/2023: Patient doing well Pain is pretty well controlled Much better day today Eating a little bit more Immunotherapy will be started per Dr. Murphy 03/21/2023: Improved status Pain somewhat controlled Bowels are slow will increase laxatives in this regimen is not effective No falls 03/20/2023: Patient doing much better No falls No pain unless he moves Eating a little bit better but not by much Dr. Murphy will talked about options for his cancer treatment Review of Systems General: Fatigue, Malaise Objective Exam Vital Signs Vital Signs Date Time Temp Pulse Resp B/P (MAP) Pulse Ox O2 Delivery O2 Flow Rate FiO2 03/23/23 09:28 Room Air 03/23/23 08:00 36.9 72 18 164/86 (112) 98 Capillary Refill : General Appearance: No Apparent Distress, WD/WN, Chronically ill, Cachetic, Thin HEENT: PERRL/EOMI, Normal ENT Inspection, Pharynx Normal Neck: Full Range of Motion, Normal Inspection, Non Tender, Supple, Carotid Bruit Respiratory: Chest Non Tender, Lungs Clear, Normal Breath Sounds, No Accessory Muscle Use, No Respiratory Distress Cardiovascular: Regular Rate, Rhythm, No Edema, No Gallop, No JVD, No Murmur, Normal Peripheral Pulses Gastrointestinal: Normal Bowel Sounds, No Organomegaly, No Pulsatile Mass, Non Tender, Soft Back: Normal Inspection, No CVA Tenderness, No Vertebral Tenderness Extremity: Normal Capillary Refill, Normal Inspection, Normal Range of Motion, Non Tender, No Calf Tenderness, No Pedal Edema Neurologic/Psychiatric: Alert, Oriented x3, No Motor/Sensory Deficits, warehouse and receiving supervisor II- XII Norm as Tested, Abnormal Gait, Depressed Affect, Motor Weakness (generalized) Skin: Normal Color, Warm/Dry Lymphatic: No Adenopathy Results/Procedures Lab Patient resulted labs reviewed. FIM Transfers Therapy Code Descriptions/Definitions Functional [place] Measure: 0=Not Assessed/NA 4=Minimal Assistance 1=Total Assistance 5=Supervision or Setup 2=Maximal Assistance 6=Modified [place] 3=Moderate Assistance 7=Complete IndependenceSCALE: Activities may be completed with or without assistive devices. 5-Emwtobisvf-nmcbhkv completes the activity by him/herself with no assistance from a helper. 5-Set-up or Clean-up Assistance-helper sets up or cleans up; patient completes activity. [place] assists only prior to or following the activity. 4-Supervision or Touching Assistance-helper provides verbal cues and/or touching/steadying and/or contact guard assistance as patient completes activity. Assistance may be provided throughout the activity or intermittently. 3-Partial/Moderate Assistance-helper does LESS THAN HALF the effort. [place] lifts, holds or supports trunk or limbs, but provides less than half the effort. 2-Substantial/Maximal Assistance-helper does MORE THAN HALF the effort. [place] lifts or holds trunk or limbs and provides more than half the effort. 5-Tzhipxsyh-ixugzr does ALL the effort. Patient does none of the effort to complete the activity. Or, the assistance of 2 or more helpers is required for the patient to complete the activity. If activity was not attempted, code reason: 7-Patient Refused. 9-Not Applicable-not attempted and the patient did not perform the activity before the current illness, exacerbation or injury. 10-Not Attempted due to Environmental Limitations-(lack of equipment, weather restraints, etc.). 88-Not Attempted due to Medical Conditions or Safety Concerns. Roll Left to Right (QC): 4 (SBA) Sit to Lying (QC): 4 (SBA) Sit to Stand (QC): 4 (SBA) Chair/Twx-ee-Yjgxo Xfer(QC): 4 (SBA) Car Transfer (QC): 4 (SBA) Gait Training Does the Patient Walk?: Yes Walk 10 feet (QC): 4 (CGA ) Walk 50 ft with 2 Turns(QC): 4 (CGA ) Walk 150 ft (QC): 4 (CGA) Walking 10ft/uneven surface-QC: 4 (CGA ) Gait Assistive Device: FWW Wheelchair Training Does the Pt Use a Wheelchair?: No Wheel 50 ft with 2 turns (QC): 9 Wheel 150 ft (QC): 9 Type of Wheelchair: N/A Stair Training #of Steps: 12 1 Step (curb) (QC): 4 (CGA ) 4 Steps (QC): 4 (CGA ) 12 Steps (QC): 4 (CGA ) Balance Picking up an Object (QC): 4 (CGA with doubler operator ) ADL-Treatment Eating (QC): 6 Oral Hygiene (QC): 4 Shower/Bathe Self (QC): 4 (SBA) Upper Body Dressing (QC): 4 (CGA in stand) Lower Body Dressing (QC): 4 (CGA in stand) On/Off Footwear (QC): 5 Toileting Hygiene (QC): 4 (CGA) Assessment/Plan Assessment and Plan Assess & Plan/Chief Complaint Assessment: Severe weakness with falls Dehydration causing acute kidney injury 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
[2023-03-23] MEDS: METOCLOPRAMIDE 5 MG (REGLAN) TAB PO PRN ×3 (06:33→16:51)
[2023-03-23] MEDS: POTASSIUM BICARB 20 MEQ (EFFER-K) TABLET PO SCH (06:33)
[2023-03-23] MEDS: CYANOCOBALAMIN 1,000 MCG (VITAMIN B-12) TABLET PO SCH (06:33)
[2023-03-23 08:00] VITALS: BP 164/86
[2023-03-23] MEDS: amLODIPine 2.5MG (NORVASC) TAB PO SCH ×2 (08:09→21:28)
[2023-03-23] MEDS: ACETAMINOPHEN 325 MG TABLET PO SCH ×3 (08:09→21:28)
[2023-03-23] MEDS: DOCUSATE SODIUM 100 MG (COLACE) CAP PO SCH ×2 (08:12→21:29)
[2023-03-23] MEDS: polyethylene glycoL POWDER 17 GM (MIRALAX) PACK PO SCH ×2 (08:12→21:29)
[2023-03-23] MEDS: SENNA W/DOCUSATE (SENOKOT S) TABLET PO SCH ×2 (08:12→21:29)
[2023-03-23] MEDS: ENOXAPARIN INJECTION 30 MG/0.3 ML SYR SC SCH (12:34)
[2023-03-23] MEDS: FLUDROCORTISONE 0.1 MG (FLORINEF) TAB PO SCH (14:24)
[2023-03-23 20:00] VITALS: BP 153/94
[2023-03-24] MEDS: HYDROcodone/APAP 7.5 MG/325 MG (LORTAB, LORCET PLUS) TABLET PO PRN ×2 (01:56→15:17)
--- NOTE | 2023-03-24 06:32 | PM&R Progress Note ---
Subjective HPI/CC On Admission Date Seen by Provider: Mar 24, 2023 Time Seen by Provider: 09:00 Subjective/Events-last exam 03/24/2023: Patient much improved Eating a lot better Reglan taken before meals is really helping the nausea and helping his appetite Bowels are moving Pain is controlled 03/23/2023: Much improved overall Reglan improved No falls Pain improved Eating better 03/22/2023: Patient doing well Pain is pretty well controlled Much better day today Eating a little bit more Immunotherapy will be started per Dr. Murphy 03/21/2023: Improved status Pain somewhat controlled Bowels are slow will increase laxatives in this regimen is not effective No falls 03/20/2023: Patient doing much better No falls No pain unless he moves Eating a little bit better but not by much Dr. Murphy will talked about options for his cancer treatment Review of Systems General: Fatigue, Malaise Gastrointestinal: Nausea Musculoskeletal: back pain Objective Exam Vital Signs Vital Signs Date Time Temp Pulse Resp B/P (MAP) Pulse Ox O2 Delivery O2 Flow Rate FiO2 03/24/23 08:31 Room Air 03/24/23 07:30 36.9 80 16 153/95 (114) 95 Capillary Refill : General Appearance: No Apparent Distress, WD/WN, Chronically ill, Cachetic, Thin HEENT: PERRL/EOMI, Normal ENT Inspection, Pharynx Normal Neck: Full Range of Motion, Normal Inspection, Non Tender, Supple, Carotid Bruit Respiratory: Chest Non Tender, Lungs Clear, Normal Breath Sounds, No Accessory Muscle Use, No Respiratory Distress Cardiovascular: Regular Rate, Rhythm, No Edema, No Gallop, No JVD, No Murmur, Normal Peripheral Pulses Gastrointestinal: Normal Bowel Sounds, No Organomegaly, No Pulsatile Mass, Non Tender, Soft Back: Normal Inspection, No CVA Tenderness, No Vertebral Tenderness Extremity: Normal Capillary Refill, Normal Inspection, Normal Range of Motion, Non Tender, No Calf Tenderness, No Pedal Edema Neurologic/Psychiatric: Alert, Oriented x3, No Motor/Sensory Deficits, 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 FIM Transfers Therapy Code Descriptions/Definitions Functional [place] Measure: 0=Not Assessed/NA 4=Minimal Assistance 1=Total Assistance 5=Supervision or Setup 2=Maximal Assistance 6=Modified [place] 3=Moderate Assistance 7=Complete IndependenceSCALE: Activities may be completed with or without assistive devices. 4-Mhajtjszsp-ilkpwiu completes the activity by him/herself with no assistance from a helper. 5-Set-up or Clean-up Assistance-helper sets up or cleans up; patient completes activity. [place] assists only prior to or following the activity. 4-Supervision or Touching Assistance-helper provides verbal cues and/or touching/steadying and/or contact guard assistance as patient completes activity. Assistance may be provided throughout the activity or intermittently. 3-Partial/Moderate Assistance-helper does LESS THAN HALF the effort. [place] lifts, holds or supports trunk or limbs, but provides less than half the effort. 2-Substantial/Maximal Assistance-helper does MORE THAN HALF the effort. [place] lifts or holds trunk or limbs and provides more than half the effort. 2-Wmqgazkrt-ygnxvr does ALL the effort. Patient does none of the effort to comp lete the activity. Or, the assistance of 2 or more helpers is required for the patient to complete the activity. If activity was not attempted, code reason: 7-Patient Refused. 9-Not Applicable-not attempted and the patient did not perform the activity before the current illness, exacerbation or injury. 10-Not Attempted due to Environmental Limitations-(lack of equipment, weather restraints, etc.). 88-Not Attempted due to Medical Conditions or Safety Concerns. Roll Left to Right (QC): 4 (SBA) Sit to Lying (QC): 4 (SBA) Sit to Stand (QC): 4 (SBA) Chair/Mlf-fl-Xlhjo Xfer(QC): 4 (SBA) Car Transfer (QC): 4 (SBA) Gait Training Does the Patient Walk?: Yes Walk 10 feet (QC): 4 (CGA ) Walk 50 ft with 2 Turns(QC): 4 (CGA ) Walk 150 ft (QC): 4 (CGA) Walking 10ft/uneven surface-QC: 4 (CGA ) Gait Assistive Device: FWW Wheelchair Training Does the Pt Use a Wheelchair?: No Wheel 50 ft with 2 turns (QC): 9 Wheel 150 ft (QC): 9 Type of Wheelchair: N/A Stair Training #of Steps: 12 1 Step (curb) (QC): 4 (CGA ) 4 Steps (QC): 4 (CGA ) 12 Steps (QC): 4 (CGA ) Balance Picking up an Object (QC): 4 (CGA with shredder/granulator operator ) ADL-Treatment Eating (QC): 6 Oral Hygiene (QC): 4 Shower/Bathe Self (QC): 4 (SBA) Upper Body Dressing (QC): 4 (CGA in stand) Lower Body Dressing (QC): 4 (CGA in stand) On/Off Footwear (QC): 5 Toileting Hygiene (QC): 4 (CGA) Assessment/Plan Assessment and Plan Assess & Plan/Chief Complaint Assessment: Severe weakness with falls Dehydration causing acute kidney injury 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 Severe constipation Severe pain in the back Plan: Supportive care Pain control Bowel regimen to prevent narcotic bowel Dr Murphy consult for cancer treatment plan 03/20/2023: Pain control Bowel regimen Encourage oral fluids 03/21/2023: Pain control Bowel regimen 03/22/2023: Immunotherapy Supportive care 03/23/2023: Continue Reglan 03/24/2023: Continue Reglan Much improved status (1) Debility (2) Ureteral carcinoma (3) Metastasis to bone (4) Cachexia (5) Orthostatic hypotension Status: Acute (6) Hypokalemia (7) LAUREN (acute kidney injury) Status: Acute (8) S/p nephrectomy Status: Chronic NORRIS ATKINSON DO Mar 24, 2023 06:32
[2023-03-24] MEDS: CYANOCOBALAMIN 1,000 MCG (VITAMIN B-12) TABLET PO SCH (06:40)
[2023-03-24] MEDS: POTASSIUM BICARB 20 MEQ (EFFER-K) TABLET PO SCH ×4 (06:40→17:09)
[2023-03-24 07:11] LABS: BASOPHILS % (AUTO) 0 % (0-10); EOSINOPHILS % (AUTO) 1 % (0-10); HEMATOCRIT 36 % (40-54); HEMOGLOBIN 12.3 g/dL (13.3-17.7); LYMPHOCYTES # (AUTO) 1.1 10^3/uL (1.0-4.0); LYMPHOCYTES % (AUTO) 16 % (12-44); MEAN CORPUSCULAR HEMOGLOBIN 32 pg (25-34); MEAN CORPUSCULAR HGB CONC 35 g/dL (32-36); MEAN CORPUSCULAR VOLUME 93 fL (80-99); MEAN PLATELET VOLUME 9.9 fL (9.0-12.2); MONOCYTES # (AUTO) 0.3 10^3/uL (0.0-1.0); MONOCYTES % (AUTO) 5 % (0-12); NEUTROPHILS # (AUTO) 5.1 10^3/uL (1.8-7.8); NEUTROPHILS % (AUTO) 78 % (42-75); PLATELET COUNT 240 10^3/uL (130-400); WHITE BLOOD COUNT 6.6 10^3/uL (4.3-11.0)
[2023-03-24 07:30] VITALS: BP 153/95
[2023-03-24 07:30] LABS: ALBUMIN 3.7 GM/DL (3.2-4.5); BILIRUBIN,TOTAL 1.4 MG/DL (0.1-1.0); CALCIUM 8.9 MG/DL (8.5-10.1); CREATININE SERUM 1.1 MG/DL (0.60-1.30); POTASSIUM 2.7 MMOL/L (3.6-5.0); TOTAL PROTEIN 6.7 GM/DL (6.4-8.2)
[2023-03-24] MEDS: DOCUSATE SODIUM 100 MG (COLACE) CAP PO SCH ×2 (07:37→20:47)
[2023-03-24] MEDS: SENNA W/DOCUSATE (SENOKOT S) TABLET PO SCH ×2 (07:37→20:47)
[2023-03-24] MEDS: amLODIPine 2.5MG (NORVASC) TAB PO SCH ×2 (07:37→20:43)
[2023-03-24] MEDS: METOCLOPRAMIDE 5 MG (REGLAN) TAB PO PRN (07:37)
[2023-03-24] MEDS: polyethylene glycoL POWDER 17 GM (MIRALAX) PACK PO SCH ×2 (07:40→20:47)
[2023-03-24] MEDS: ACETAMINOPHEN 325 MG TABLET PO SCH ×3 (07:40→20:44)
[2023-03-24] MEDS: METOCLOPRAMIDE 5 MG (REGLAN) TAB PO SCH ×3 (10:07→17:10)
[2023-03-24] MEDS: ENOXAPARIN INJECTION 30 MG/0.3 ML SYR SC SCH (12:33)
--- NOTE | 2023-03-24 12:41 | Physical Therapy Daily Note ---
PT Daily Note-Current Subjective pt in room in recliner and good for therapy. pt reports no pain at this time. after therapy pt was left in room in recliner with call light and all needs met. Pain Section J - Health Conditions 1. Rarely or not at all 2. Occasionally 3. Frequently 4. Almost constantly 8. Unable to answer Pain Effect on Sleep: 2 Pain Interference with Therapy: 4 Pain Interference w/Day-to-Day: 4 Mental Status Patient Orientation: Person, Place, Time, Situation Transfers SCALE: Activities may be completed with or without assistive devices. 0-Dvsqavnhem-zdykapk completes the activity by him/herself with no assistance from a helper. 5-Set-up or Clean-up Assistance-helper sets up or cleans up; patient completes activity. [place] assists only prior to or following the activity. 4-Supervision or Touching Assistance-helper provides verbal cues and/or touching/steadying and/or contact guard assistance as patient completes activity. Assistance may be provided throughout the activity or intermittently. 3-Partial/Moderate Assistance-helper does LESS THAN HALF the effort. [place] lifts, holds or supports trunk or limbs, but provides less than half the effort. 2-Substantial/Maximal Assistance-helper does MORE THAN HALF the effort. [place] lifts or holds trunk or limbs and provides more than half the effort. 7-Droyabuun-wwnwfp does ALL the effort. Patient does none of the effort to complete the activity. Or, the assistance of 2 or more helpers is required for the patient to complete the activity. If activity was not attempted, code reason: 7-Patient Refused. 9-Not Applicable-not attempted and the patient did not perform the activity before the current illness, exacerbation or injury. 10-Not Attempted due to Environmental Limitations-(lack of equipment, weather restraints, etc.). 88-Not Attempted due to Medical Conditions or Safety Concerns. Weight Bearing Right Lower Extremity: Right Full Weight Bearing Left Lower Extremity: Left Full Weight Bearing Exercises Seated Therapy Exercises: Sit to stand Standing: Hip Abduction, Heel/toe raises, Marching, Mini squats, Sit to Stand, Side steps, Step-ups NuStep Minutes: 20 NuStep Workload: 4 Treatments Pt preformed Nu-Step for 20 min at level 4. pt did require rest at 14 min rissa but was able to resume after resting. pt work load is increasing than past days. pt is able to preform standing there-ex at 11 bars with rest in between each exercise as to not cause standing back pain. Assessment Current Status: Good Progress PT Longterm Goals Longterm Goals PT Door Liner Helper Goals Time Frame: Mar 28, 2023 Roll Left & Right (QC): 6 (Pt will be Mod I with all aspects of functional mobility to progress towards PLOF and safe d/c home. ) Sit to Lying (QC): 6 (Pt will be Mod I with all aspects of functional mobility to progress towards PLOF and safe d/c home. ) Lying-Sitting on Side/Bed(QC): 6 (Pt will be Mod I with all aspects of functional mobility to progress towards PLOF and safe d/c home. ) Sit to Stand (QC): 6 (Pt will be Mod I with all aspects of functional mobility to progress towards PLOF and safe d/c home. ) Chair/Pyr-rr-Eeiix Xfer(QC): 6 (Pt will be Mod I with all aspects of functional mobility to progress towards PLOF and safe d/c home. ) Toilet Transfer (QC): 6 (Pt will be Mod I with all aspects of functional mobility to progress towards PLOF and safe d/c home. ) Car Transfer (QC): 6 (Pt will be Mod I with all aspects of functional mobility to progress towards PLOF and safe d/c home. ) Does the Patient Walk: Yes Walk 10 feet (QC): 6 (Pt will be Mod I with all aspects of functional mobility to progress towards PLOF and safe d/c home. ) Walk 50ft with 2 Turns (QC): 6 (Pt will be Mod I with all aspects of functional mobility to progress towards PLOF and safe d/c home. ) Walk 150 ft (QC): 6 (Pt will be Mod I with all aspects of functional mobility to progress towards PLOF and safe d/c home. ) Walking 10ft on Uneven Surface: 6 (Pt will be Mod I with all aspects of functional mobility to progress towards PLOF and safe d/c home. ) 1 Step (curb) (QC): 6 (Pt will be Mod I with all aspects of functional mobility to progress towards PLOF and safe d/c home. ) 4 Steps (QC): 6 (Pt will be Mod I with all aspects of functional mobility to progress towards PLOF and safe d/c home. ) 12 Steps (QC): 6 (Pt will be Mod I with all aspects of functional mobility to progress towards PLOF and safe d/c home. ) Picking up an Object (QC): 6 (Pt will be Mod I with all aspects of functional mobility to progress towards PLOF and safe d/c home. ) Does the Pt use WC or Scooter?: No Wheel 50 feet with 2 turns (QC: 9 Type: N/A Wheel 150 feet: 9 Type: N/A PT Plan Treatment/Plan Treatment Plan: Continue Plan of Care Treatment Plan: Bed Mobility, Concurrent Therapy, Education, Functional Activity Merna, Functional Strength, Group Therapy, Gait, Safety, Therapeutic Exercise, Transfers Treatment Duration: Mar 28, 2023 Frequency: At least 5 of 7 days/Wk (IRF) Estimated Hrs Per Day: 1.5 hours per day Patient and/or Family Agrees t: Yes Time Time In: 1100 Time Out: 1200 DATE: Mar 24, 2023 Total Billed Treatment Time: 60 Total Billed Treatment 1 EX x 3 Gt Katia Escobar MANAGER PIPELINE Mar 24, 2023 12:41
--- NOTE | 2023-03-24 12:51 | Occupational Ther Daily Note ---
OT Current Status-Daily Note Subjective Pt alert, sitting in recliner. Pt agrees to therapy. No c/o pain. Mental Status/Objective Patient Orientation: Person, Place, Time, Situation ADL-Treatment Pt agrees to shower. Using shower chair with back, pt completed shower using hand held shower and grabbars independently. Pt gathered clothing using FWW and transported clothing into bathroom for dressing. Pt independent with UBD, LBD and footwear. Independent with toileting and toilet transfer. Independent standing at sink for oral care. Independent with eating. Discussed then demonstrated tub transfer bench for pt's tub/shower at home. Pt does have shower doors, ELLISON recommended taking shower doors off and placing curtain to allow safe transfer in/out of tub. Pt states that there is Meals on Wheels in his town. Cousin is coming into hospital today to talk to SW. Therapy Code Descriptions/Definitions Functional [place] Measure: 0=Not Assessed/NA 4=Minimal Assistance 1=Total Assistance 5=Supervision or Setup 2=Maximal Assistance 6=Modified [place] 3=Moderate Assistance 7=Complete IndependenceSCALE: Activities may be completed with or without assistive devices. 3-Qhxlbrvkbu-oxalvgt completes the activity by him/herself with no assistance from a helper. 5-Set-up or Clean-up Assistance-helper sets up or cleans up; patient completes activity. [place] assists only prior to or following the activity. 4-Supervision or Touching Assistance-helper provides verbal cues and/or touching/steadying and/or contact guard assistance as patient completes activity. Assistance may be provided throughout the activity or intermittently. 3-Partial/Moderate Assistance-helper does LESS THAN HALF the effort. [place] lifts, holds or supports trunk or limbs, but provides less than half the effort. 2-Substantial/Maximal Assistance-helper does MORE THAN HALF the effort. [place] lifts or holds trunk or limbs and provides more than half the effort. 7-Uoeojpdjx-evosem does ALL the effort. Patient does none of the effort to complete the activity. Or, the assistance of 2 or more helpers is required for the patient to complete the activity. If activity was not attempted, code reason: 7-Patient Refused. 9-Not Applicable-not attempted and the patient did not perform the activity before the current illness, exacerbation or injury. 10-Not Attempted due to Environmental Limitations-(lack of equipment, weather restraints, etc.). 88-Not Attempted due to Medical Conditions or Safety Concerns. Eating (QC): 6 Oral Hygiene (QC): 6 Shower/Bathe Self (QC): 6 Upper Body Dressing (QC): 6 Lower Body Dressing (QC): 6 On/Off Footwear: 6 Toileting Hygiene (QC): 6 Toilet Transfer (QC): 6 Other Treatment Pt ambulated to therapy gym using FWW, SBA. Pt completed arm bike for 10 min at 15 rivera resistance without recovery break. Pt then completed wrist flex/ext/uln dev/ext dev with 2# wt, 3 sets 10 reps. Skilled instruction for correct technique and modifications when necessary. After therapy, pt sitting in recliner with call light/phone in reach. All needs met in room. BIMS CAM BIMS Expression of Ideas and Wants: Without Difficulty Understanding Verbal Content: Understands Brief Interview/Mental Status: Yes IRF NIEVES BIMS: IRF NIEVES BIMS Response (Comments) Value Repitition of Three Words Three 3 Recalls Socks Yes, No Cue Required 2 Recalls Blue Yes, No Cue Required 2 Recalls Bed Yes, No Cue Required 2 Year Correct 3 Month Accurate Within 5 Days 2 Day Correct 1 Total 15 Patient Normally Able to Recal: Current Session, Location of own room, Staff Names and faces, That he/she in a [facility] Should Staff Asses. Mental St.: No CAM Mental Status Change/Baseline: 0 Inattention: 0 Disorganized thinkin Altered level of consciousness: 0 OT Short Term Goals Short Term Goals Time Frame: Mar 26, 2023 Shower/bathe self: 5 Upper body dressin Lower body dressin Putting on/taking off footwear: 5 OT [place] Maker Goals [place] Maker Goals Time Frame: Apr 04, 2023 Acute change in mental status: 0 Inattention: 0 Disorganized thinkin Altered level of consciousness: 6 (met) Eating (QC): 6 (met) Oral Hygiene (QC): 6 (met) Toileting Hygiene (QC): 6 (met) Shower/Bathe Self (QC): 6 (met) Upper Body Dressing (QC): 6 (met) Lower Body Dressing (QC): 6 (met) On/Off Footwear (QC): 6 (met) Additional Goals: 1-Demonstrate ADL Tasks, 2-Verbalize Understanding, 3- ImproveStrength/Merna 1=Demonstrate adherence to instructed precautions during ADL tasks. 2=Patient will verbalize/demonstrate understanding of assistive devices/modifications for ADL. 3=Patient will improve strength/tolerance for activity to enable patient to perform ADL's. OT Education/Plan Problem List/Assessment Assessment: Decreased Activ Tolerance, Decreased UE Strength, Impaired Self- Care Skills Discharge Recommendations Plan/Recommendations: Continue POC Treatment Plan/Plan of Care Patient would benefit from OT for education, treatment and training to promote independence in ADL's, mobility, safety and/or upper extremity function for ADL' s. Plan of Care: ADL Retraining, Functional Mobility, Group Exercise/Act as Ind, UE Funct Exercise/Act Treatment Duration: Apr 04, 2023 Frequency: At least 5 of 7 days/Wk (IRF) Estimated Hrs Per Day: 1.5 hours per day Agreement: Yes Rehab Potential: Good Time Start Time: 09:00 Stop Time: 10:30 DATE: Mar 24, 2023 Total Time Billed (hr/min): 90 Billed Treatment Time 1 visit-ADL 3 (45 min) EX 3 (45 min) MATT FINNEY Mar 24, 2023 12:51
--- NOTE | 2023-03-24 13:59 | Physical Therapy Daily Note ---
PT Daily Note-Current Subjective Pt in room in reciner and willing for therapy. pt reports no pain. pt asked about using a cane VC a RW and spoke with PT and he was perceptive to it. pt educated on it and used it appropriately however pt stated he did not feel safe with it and wanted to remain using his walker. after therapy pt was left in room in recliner with call light and all needs met. Pain Section J - Health Conditions 1. Rarely or not at all 2. Occasionally 3. Frequently 4. Almost constantly 8. Unable to answer Pain Effect on Sleep: 2 Pain Interference with Therapy: 4 Pain Interference w/Day-to-Day: 4 Mental Status Patient Orientation: Person, Place, Time, Situation Transfers SCALE: Activities may be completed with or without assistive devices. 9-Ngulpvpoej-ealbnzr completes the activity by him/herself with no assistance from a helper. 5-Set-up or Clean-up Assistance-helper sets up or cleans up; patient completes activity. [place] assists only prior to or following the activity. 4-Supervision or Touching Assistance-helper provides verbal cues and/or touching/steadying and/or contact guard assistance as patient completes activity. Assistance may be provided throughout the activity or intermittently. 3-Partial/Moderate Assistance-helper does LESS THAN HALF the effort. [place] lifts, holds or supports trunk or limbs, but provides less than half the effort. 2-Substantial/Maximal Assistance-helper does MORE THAN HALF the effort. [place] lifts or holds trunk or limbs and provides more than half the effort. 9-Wazhfmafa-aoiqha does ALL the effort. Patient does none of the effort to complete the activity. Or, the assistance of 2 or more helpers is required for the patient to complete the activity. If activity was not attempted, code reason: 7-Patient Refused. 9-Not Applicable-not attempted and the patient did not perform the activity before the current illness, exacerbation or injury. 10-Not Attempted due to Environmental Limitations-(lack of equipment, weather restraints, etc.). 88-Not Attempted due to Medical Conditions or Safety Concerns. Weight Bearing Right Lower Extremity: Right Full Weight Bearing Left Lower Extremity: Left Full Weight Bearing Treatments Pt preformed AD downgrading edu however pt stated he would like to stay with RW as he felt safer. pt ambulated 200ft with RW and independence. with a rest break after secondary to slight increase in back pain. pt was able to preform 12 stairs with B HR. no loss of balance noted. Assessment Current Status: Good Progress PT Honing Machine Operator Tool Goals [facility] Goals PT Honing Machine Operator Tool Goals Time Frame: Mar 28, 2023 Roll Left & Right (QC): 6 (Pt will be Mod I with all aspects of functional mobility to progress towards PLOF and safe d/c home. ) Sit to Lying (QC): 6 (Pt will be Mod I with all aspects of functional mobility to progress towards PLOF and safe d/c home. ) Lying-Sitting on Side/Bed(QC): 6 (Pt will be Mod I with all aspects of functional mobility to progress towards PLOF and safe d/c home. ) Sit to Stand (QC): 6 (Pt will be Mod I with all aspects of functional mobility to progress towards PLOF and safe d/c home. ) Chair/Mzr-js-Boieq Xfer(QC): 6 (Pt will be Mod I with all aspects of functional mobility to progress towards PLOF and safe d/c home. ) Toilet Transfer (QC): 6 (Pt will be Mod I with all aspects of functional mobility to progress towards PLOF and safe d/c home. ) Car Transfer (QC): 6 (Pt will be Mod I with all aspects of functional mobility to progress towards PLOF and safe d/c home. ) Does the Patient Walk: Yes Walk 10 feet (QC): 6 (Pt will be Mod I with all aspects of functional mobility to progress towards PLOF and safe d/c home. ) Walk 50ft with 2 Turns (QC): 6 (Pt will be Mod I with all aspects of functional mobility to progress towards PLOF and safe d/c home. ) Walk 150 ft (QC): 6 (Pt will be Mod I with all aspects of functional mobility to progress towards PLOF and safe d/c home. ) Walking 10ft on Uneven Surface: 6 (Pt will be Mod I with all aspects of functional mobility to progress towards PLOF and safe d/c home. ) 1 Step (curb) (QC): 6 (Pt will be Mod I with all aspects of functional mobility to progress towards PLOF and safe d/c home. ) 4 Steps (QC): 6 (Pt will be Mod I with all aspects of functional mobility to progress towards PLOF and safe d/c home. ) 12 Steps (QC): 6 (Pt will be Mod I with all aspects of functional mobility to progress towards PLOF and safe d/c home. ) Picking up an Object (QC): 6 (Pt will be Mod I with all aspects of functional mobility to progress towards PLOF and safe d/c home. ) Does the Pt use WC or Scooter?: No Wheel 50 feet with 2 turns (QC: 9 Type: N/A Wheel 150 feet: 9 Type: N/A PT Plan Treatment/Plan Treatment Plan: Continue Plan of Care Treatment Plan: Bed Mobility, Concurrent Therapy, Education, Functional Activity Merna, Functional Strength, Group Therapy, Gait, Safety, Therapeutic Exercise, Transfers Treatment Duration: Mar 28, 2023 Frequency: At least 5 of 7 days/Wk (IRF) Estimated Hrs Per Day: 1.5 hours per day Patient and/or Family Agrees t: Yes Time Time In: 1245 Time Out: 1315 DATE: Mar 24, 2023 Total Billed Treatment Time: 30 Total Billed Treatment 1 EX GT Katia Escobar INSPECTOR RUBBER STAMP DIE Mar 24, 2023 13:59
[2023-03-24 20:40] VITALS: BP 184/100
--- NOTE | 2023-03-25 05:47 | PM&R Progress Note ---
Subjective HPI/CC On Admission Date Seen by Provider: Mar 25, 2023 Time Seen by Provider: 09:30 Subjective/Events-last exam 03/25/2023: Patient much improved Pain is controlled Bowels are moving Overall dramatically improved 03/24/2023: Patient much improved Eating a lot better Reglan taken before meals is really helping the nausea and helping his appetite Bowels are moving Pain is controlled 03/23/2023: Much improved overall Reglan improved No falls Pain improved Eating better 03/22/2023: Patient doing well Pain is pretty well controlled Much better day today Eating a little bit more Immunotherapy will be started per Dr. Murphy 03/21/2023: Improved status Pain somewhat controlled Bowels are slow will increase laxatives in this regimen is not effective No falls 03/20/2023: Patient doing much better No falls No pain unless he moves Eating a little bit better but not by much Dr. Murphy will talked about options for his cancer treatment Review of Systems General: Fatigue, Malaise Objective Exam Vital Signs Vital Signs Date Time Temp Pulse Resp B/P (MAP) Pulse Ox O2 Delivery O2 Flow Rate FiO2 03/25/23 20:15 36.8 72 18 165/89 (114) 92 Room Air Capillary Refill : General Appearance: No Apparent Distress, WD/WN, Chronically ill, Cachetic, Thin HEENT: PERRL/EOMI, Normal ENT Inspection, Pharynx Normal Neck: Full Range of Motion, Normal Inspection, Non Tender, Supple, Carotid Bruit Respiratory: Chest Non Tender, Lungs Clear, Normal Breath Sounds, No Accessory Muscle Use, No Respiratory Distress Cardiovascular: Regular Rate, Rhythm, No Edema, No Gallop, No JVD, No Murmur, Normal Peripheral Pulses Gastrointestinal: Normal Bowel Sounds, No Organomegaly, No Pulsatile Mass, Non Tender, Soft Back: Normal Inspection, No CVA Tenderness, No Vertebral Tenderness Extremity: Normal Capillary Refill, Normal Inspection, Normal Range of Motion, Non Tender, No Calf Tenderness, No Pedal Edema Neurologic/Psychiatric: Alert, Oriented x3, No Motor/Sensory Deficits, director of estate II- XII Norm as Tested, Abnormal Gait, Depressed Affect, Motor Weakness (gen eralized) Skin: Normal Color, Warm/Dry Lymphatic: No Adenopathy Results/Procedures Lab Patient resulted labs reviewed. FIM Transfers Therapy Code Descriptions/Definitions Functional [place] Measure: 0=Not Assessed/NA 4=Minimal Assistance 1=Total Assistance 5=Supervision or Setup 2=Maximal Assistance 6=Modified [place] 3=Moderate Assistance 7=Complete IndependenceSCALE: Activities may be completed with or without assistive devices. 8-Zcsvflhoai-igsqkiz completes the activity by him/herself with no assistance from a helper. 5-Set-up or Clean-up Assistance-helper sets up or cleans up; patient completes activity. [place] assists only prior to or following the activity. 4-Supervision or Touching Assistance-helper provides verbal cues and/or touching/steadying and/or contact guard assistance as patient completes activity. Assistance may be provided throughout the activity or intermittently. 3-Partial/Moderate Assistance-helper does LESS THAN HALF the effort. [place] lifts, holds or supports trunk or limbs, but provides less than half the effort. 2-Substantial/Maximal Assistance-helper does MORE THAN HALF the effort. [place] lifts or holds trunk or limbs and provides more than half the effort. 1-Gwyjqyebt-qdkkfo does ALL the effort. Patient does none of the effort to complete the activity. Or, the assistance of 2 or more helpers is required for the patient to complete the activity. If activity was not attempted, code reason: 7-Patient Refused. 9-Not Applicable-not attempted and the patient did not perform the activity before the current illness, exacerbation or injury. 10-Not Attempted due to Environmental Limitations-(lack of equipment, weather restraints, etc.). 88-Not Attempted due to Medical Conditions or Safety Concerns. Roll Left to Right (QC): 4 (SBA) Sit to Lying (QC): 4 (SBA) Sit to Stand (QC): 4 (SBA) Chair/Tbe-ed-Kovan Xfer(QC): 4 (SBA) Car Transfer (QC): 4 (SBA) Gait Training Does the Patient Walk?: Yes Walk 10 feet (QC): 4 (CGA ) Walk 50 ft with 2 Turns(QC): 4 (CGA ) Walk 150 ft (QC): 4 (CGA) Walking 10ft/uneven surface-QC: 4 (CGA ) Gait Assistive Device: FWW Wheelchair Training Does the Pt Use a Wheelchair?: No Wheel 50 ft with 2 turns (QC): 9 Wheel 150 ft (QC): 9 Type of Wheelchair: N/A Stair Training #of Steps: 12 1 Step (curb) (QC): 4 (CGA ) 4 Steps (QC): 4 (CGA ) 12 Steps (QC): 4 (CGA ) Balance Picking up an Object (QC): 4 (CGA with puppet master ) ADL-Treatment Eating (QC): 6 Oral Hygiene (QC): 6 Shower/Bathe Self (QC): 6 Upper Body Dressing (QC): 6 Lower Body Dressing (QC): 6 On/Off Footwear (QC): 6 Toileting Hygiene (QC): 6 Toilet Transfer (QC): 6 Assessment/Plan Assessment and Plan Assess & Plan/Chief Complaint Assessment: Severe weakness with falls Dehydration causing acute kidney injury 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 Severe constipation Severe pain in the back Plan: Supportive care Pain control Bowel regimen to prevent narcotic bowel Dr Murphy consult for cancer treatment plan 03/20/2023: Pain control Bowel regimen Encourage oral fluids 03/21/2023: Pain control Bowel regimen 03/22/2023: Immunotherapy Supportive care 03/23/2023: Continue Reglan 03/24/2023: Continue Reglan Much improved status 03/25/2023: Discharge planning soon Immunotherapy to start for ureteral carcinoma (1) Debility (2) Ureteral carcinoma (3) Metastasis to bone (4) Cachexia (5) Orthostatic hypotension Status: Acute (6) Hypokalemia (7) LAUREN (acute kidney injury) Status: Acute (8) S/p nephrectomy Status: Chronic NORRIS ATKINSON DO Mar 25, 2023 05:47
[2023-03-25] MEDS: HYDROcodone/APAP 7.5 MG/325 MG (LORTAB, LORCET PLUS) TABLET PO PRN (05:54)
[2023-03-25] MEDS: METOCLOPRAMIDE 5 MG (REGLAN) TAB PO SCH ×3 (06:42→17:25)
[2023-03-25] MEDS: CYANOCOBALAMIN 1,000 MCG (VITAMIN B-12) TABLET PO SCH (06:42)
[2023-03-25] MEDS: ACETAMINOPHEN 325 MG TABLET PO SCH ×3 (07:52→21:49)
[2023-03-25] MEDS: amLODIPine 2.5MG (NORVASC) TAB PO SCH ×2 (07:53→21:49)
[2023-03-25] MEDS: POTASSIUM BICARB 20 MEQ (EFFER-K) TABLET PO SCH ×3 (07:53→17:25)
[2023-03-25] MEDS: DOCUSATE SODIUM 100 MG (COLACE) CAP PO SCH ×2 (07:56→21:48)
[2023-03-25] MEDS: polyethylene glycoL POWDER 17 GM (MIRALAX) PACK PO SCH ×2 (07:57→21:45)
[2023-03-25] MEDS: SENNA W/DOCUSATE (SENOKOT S) TABLET PO SCH ×2 (07:57→21:48)
[2023-03-25 09:00] VITALS: BP 162/82
--- NOTE | 2023-03-25 13:13 | Occupational Ther Daily Note ---
OT Current Status-Daily Note Subjective Pt alert, sitting in recliner. Pt agrees to therapy. No c/o pain initially, recovery breaks throughout session due to episodes of pain/fatigue. Mental Status/Objective Patient Orientation: Person, Place, Time, Situation ADL-Treatment Independent with LBD, toileting and standing at sink to complete oral care. Pt completed step in tub transfer with supervision, no LOB noted. Therapy Code Descriptions/Definitions Functional [place] Measure: 0=Not Assessed/NA 4=Minimal Assistance 1=Total Assistance 5=Supervision or Setup 2=Maximal Assistance 6=Modified [place] 3=Moderate Assistance 7=Complete IndependenceSCALE: Activities may be completed with or without assistive devices. 4-Ibycgjhjby-ccmehef completes the activity by him/herself with no assistance from a helper. 5-Set-up or Clean-up Assistance-helper sets up or cleans up; patient completes activity. [place] assists only prior to or following the activity. 4-Supervision or Touching Assistance-helper provides verbal cues and/or touching/steadying and/or contact guard assistance as patient completes activity. Assistance may be provided throughout the activity or intermittently. 3-Partial/Moderate Assistance-helper does LESS THAN HALF the effort. [place] lifts, holds or supports trunk or limbs, but provides less than half the effort. 2-Substantial/Maximal Assistance-helper does MORE THAN HALF the effort. [place] lifts or holds trunk or limbs and provides more than half the effort. 9-Fcnvyhhon-qktnlw does ALL the effort. Patient does none of the effort to complete the activity. Or, the assistance of 2 or more helpers is required for the patient to complete the activity. If activity was not attempted, code reason: 7-Patient Refused. 9-Not Applicable-not attempted and the patient did not perform the activity before the current illness, exacerbation or injury. 10-Not Attempted due to Environmental Limitations-(lack of equipment, weather restraints, etc.). 88-Not Attempted due to Medical Conditions or Safety Concerns. Oral Hygiene (QC): 6 Lower Body Dressing (QC): 6 On/Off Footwear: 6 Toileting Hygiene (QC): 6 Toilet Transfer (QC): 6 Other Treatment Pt ambulates using FWW to therapy gym to complete B UE tasks to increase strength and stamina for daily functional tasks. Pt able to tolerate 3 min of arm manoj for stretch and strength. Pt complete B UE activity against gravity for 30 min with minimal recovery breaks. Skilled instruction for all exercises/activities for correct technique and modifications when necessary. After session, pt sitting in recliner with call light/phone in reach. All needs met in room. OT Short Term Goals Short Term Goals Time Frame: Mar 26, 2023 Shower/bathe self: 5 Upper body dressin Lower body dressin Putting on/taking off footwear: 5 OT Director [place] Goals Halfway Goals Time Frame: Apr 04, 2023 Acute change in mental status: 0 Inattention: 0 Disorganized thinkin Altered level of consciousness: 6 (met) Eating (QC): 6 (met) Oral Hygiene (QC): 6 (met) Toileting Hygiene (QC): 6 (met) Shower/Bathe Self (QC): 6 (met) Upper Body Dressing (QC): 6 (met) Lower Body Dressing (QC): 6 (met) On/Off Footwear (QC): 6 (met) Additional Goals: 1-Demonstrate ADL Tasks, 2-Verbalize Understanding, 3- ImproveStrength/Merna 1=Demonstrate adherence to instructed precautions during ADL tasks. 2=Patient will verbalize/demonstrate understanding of assistive devices/modifications for ADL. 3=Patient will improve strength/tolerance for activity to enable patient to perform ADL's. OT Education/Plan Problem List/Assessment Assessment: Decreased Activ Tolerance, Decreased UE Strength, Impaired Self- Care Skills Discharge Recommendations Plan/Recommendations: Continue POC Treatment Plan/Plan of Care Patient would benefit from OT for education, treatment and training to promote independence in ADL's, mobility, safety and/or upper extremity function for ADL's. Plan of Care: ADL Retraining, Functional Mobility, Group Exercise/Act as Ind, UE Funct Exercise/Act Treatment Duration: Apr 04, 2023 Frequency: At least 5 of 7 days/Wk (IRF) Estimated Hrs Per Day: 1.5 hours per day Agreement: Yes Rehab Potential: Good Time Start Time: 09:00 Stop Time: 10:30 DATE: Mar 25, 2023 Total Time Billed (hr/min): 90 Billed Treatment Time 1 visit-ADL 4 (60 min) EX 2 (30 min) MATT FINNEY Mar 25, 2023 13:13
--- NOTE | 2023-03-25 13:38 | Physical Therapy Daily Note ---
PT Daily Note-Current Subjective Pt lying in bed upon arrival. Pt denies any pain, but reports he is just not feeling well and is having some nausea. Pt was agreeable to PT thought. Pt denies want to let nursing know, saying 'it will pass.' Pain Numeric Pain Scale: 0-No Pain Location: No Pain Reported Section J - Health Conditions 1. Rarely or not at all 2. Occasionally 3. Frequently 4. Almost constantly 8. Unable to answer Pain Effect on Sleep: 2 Pain Interference with Therapy: 2 Pain Interference w/Day-to-Day: 2 Transfers SCALE: Activities may be completed with or without assistive devices. 9-Hvviygnwbo-ffzjaqx completes the activity by him/herself with no assistance from a helper. 5-Set-up or Clean-up Assistance-helper sets up or cleans up; patient completes activity. [place] assists only prior to or following the activity. 4-Supervision or Touching Assistance-helper provides verbal cues and/or touching/steadying and/or contact guard assistance as patient completes activity. Assistance may be provided throughout the activity or intermittently. 3-Partial/Moderate Assistance-helper does LESS THAN HALF the effort. [place] lifts, holds or supports trunk or limbs, but provides less than half the effort. 2-Substantial/Maximal Assistance-helper does MORE THAN HALF the effort. [place] lifts or holds trunk or limbs and provides more than half the effort. 7-Wgjmkxprd-sbaftz does ALL the effort. Patient does none of the effort to co mplete the activity. Or, the assistance of 2 or more helpers is required for the patient to complete the activity. If activity was not attempted, code reason: 7-Patient Refused. 9-Not Applicable-not attempted and the patient did not perform the activity before the current illness, exacerbation or injury. 10-Not Attempted due to Environmental Limitations-(lack of equipment, weather restraints, etc.). 88-Not Attempted due to Medical Conditions or Safety Concerns. Roll Left & Right (QC): 6 Sit to Lying (QC): 6 Lying to Sitting/Side of Bed(Q: 6 Sit to Stand (QC): 6 Chair/Ozl-px-Fgtkk Xfer(QC): 6 Toilet Transfer (QC): 6 Car Transfer (QC): 6 Weight Bearing Right Lower Extremity: Right Full Weight Bearing Left Lower Extremity: Left Full Weight Bearing Gait Training Does the Patient Walk?: Yes Walk 10 feet (QC): 6 Walk 50 ft with 2 Turns(QC): 6 Walk 150 ft (QC): 6 Walking 10ft/uneven surface-QC: 6 Gait Assistive Device: FWW Wheelchair Training Does the Pt Use a Wheelchair?: No Wheel 50 ft with 2 turns (QC): 88 Wheel 150 ft (QC): 88 Type of Wheelchair: N/A Stair Training Stair Training: Handrails/: 2 handrails #of Steps: 12 1 Step (curb) (QC): 6 4 Steps (QC): 6 12 Steps (QC): 6 Stairs: Pattern: Reciprocal Balance Picking up an Object (QC): 6 Special Test Comments [facility] standing balance scale = 5/5 Treatments QC codes completed on this date. Pt is Mod I with all aspects of functional mobility. Pt plans to d/c home with HH on (03/27/2023). Assessment Current Status: Good Progress Pt tolerated well, even though he was not feeling well. Pt has progressed well with PT. PT Table Lever Operator Goals Table Lever Operator Goals PT [facility] Goals Time Frame: Mar 28, 2023 Roll Left & Right (QC): 6 (Pt will be Mod I with all aspects of functional mobility to progress towards PLOF and safe d/c home. ) Sit to Lying (QC): 6 (Pt will be Mod I with all aspects of functional mobility to progress towards PLOF and safe d/c home. ) Lying-Sitting on Side/Bed(QC): 6 (Pt will be Mod I with all aspects of functional mobility to progress towards PLOF and safe d/c home. ) Sit to Stand (QC): 6 (Pt will be Mod I with all aspects of functional mobility to progress towards PLOF and safe d/c home. ) Chair/Tjf-nq-Jpazq Xfer(QC): 6 (Pt will be Mod I with all aspects of functional mobility to progress towards PLOF and safe d/c home. ) Toilet Transfer (QC): 6 (Pt will be Mod I with all aspects of functional mobility to progress towards PLOF and safe d/c home. ) Car Transfer (QC): 6 (Pt will be Mod I with all aspects of functional mobility to progress towards PLOF and safe d/c home. ) Does the Patient Walk: Yes Walk 10 feet (QC): 6 (Pt will be Mod I with all aspects of functional mobility to progress towards PLOF and safe d/c home. ) Walk 50ft with 2 Turns (QC): 6 (Pt will be Mod I with all aspects of functional mobility to progress towards PLOF and safe d/c home. ) Walk 150 ft (QC): 6 (Pt will be Mod I with all aspects of functional mobility to progress towards PLOF and safe d/c home. ) Walking 10ft on Uneven Surface: 6 (Pt will be Mod I with all aspects of functional mobility to progress towards PLOF and safe d/c home. ) 1 Step (curb) (QC): 6 (Pt will be Mod I with all aspects of functional mobility to progress towards PLOF and safe d/c home. ) 4 Steps (QC): 6 (Pt will be Mod I with all aspects of functional mobility to progress towards PLOF and safe d/c home. ) 12 Steps (QC): 6 (Pt will be Mod I with all aspects of functional mobility to progress towards PLOF and safe d/c home. ) Picking up an Object (QC): 6 (Pt will be Mod I with all aspects of functional mobility to progress towards PLOF and safe d/c home. ) Does the Pt use WC or Scooter?: No Wheel 50 feet with 2 turns (QC: 9 Type: N/A Wheel 150 feet: 9 Type: N/A PT Plan Problem List Problem List: Activity Tolerance, Functional Strength, Safety, Balance, Gait, Transfer, Bed Mobility Treatment/Plan Treatment Plan: Continue Plan of Care Treatment Plan: Bed Mobility, Concurrent Therapy, Education, Functional Activity Merna, Functional Strength, Group Therapy, Gait, Safety, Therapeutic Exercise, Transfers Treatment Duration: Mar 28, 2023 Frequency: At least 5 of 7 days/Wk (IRF) Estimated Hrs Per Day: 1.5 hours per day Patient and/or Family Agrees t: Yes Safety Risks/Education Patient Education: Gait Training, Transfer Techniques, Steps, Safety Issues Teaching Recipient: Patient Teaching Methods: Demonstration, Discussion Response to Teaching: Verbalize Understanding, Return Demonstration Discharge Recommendations Therapy Discharge Recommendati: Home & Family Discharge Status/Home Program Cont per POC; plan to d/c on (03/27/2023) with family and HH services Barriers to Progress weakness Target Placement home with family and HH services Time Time In: 1315 Time Out: 1345 DATE: Mar 25, 2023 Total Billed Treatment Time: 30 Total Billed Treatment 30 min 1 visit GT x 1 FA x 1 PRABHA VEE PT Mar 25, 2023 13:38
[2023-03-25] MEDS: ENOXAPARIN INJECTION 30 MG/0.3 ML SYR SC SCH (13:58)
[2023-03-25] MEDS: FLUDROCORTISONE 0.1 MG (FLORINEF) TAB PO SCH (14:03)
[2023-03-25 20:15] VITALS: BP 165/89
[2023-03-26] MEDS: CYANOCOBALAMIN 1,000 MCG (VITAMIN B-12) TABLET PO SCH (05:22)
[2023-03-26] MEDS: METOCLOPRAMIDE 5 MG (REGLAN) TAB PO SCH ×3 (05:22→17:36)
--- NOTE | 2023-03-26 05:35 | PM&R Progress Note ---
Subjective HPI/CC On Admission Date Seen by Provider: Mar 26, 2023 Time Seen by Provider: 12:00 Subjective/Events-last exam 03/26/2023: Improved overall Dr Murphy appt will be scheduled to start immunotherapy [facility] is his pharmacy for DC tomorrow 03/25/2023: Patient much improved Pain is controlled Bowels are moving Overall dramatically improved 03/24/2023: Patient much improved Eating a lot better Reglan taken before meals is really helping the nausea and helping his appetite Bowels are moving Pain is controlled 03/23/2023: Much improved overall Reglan improved No falls Pain improved Eating better 03/22/2023: Patient doing well Pain is pretty well controlled Much better day today Eating a little bit more Immunotherapy will be started per Dr. Murphy 03/21/2023: Improved status Pain somewhat controlled Bowels are slow will increase laxatives in this regimen is not effective No falls 03/20/2023: Patient doing much better No falls No pain unless he moves Eating a little bit better but not by much Dr. Murphy will talked about options for his cancer treatment Review of Systems General: Fatigue, Malaise Musculoskeletal: back pain Objective Exam Vital Signs Vital Signs Date Time Temp Pulse Resp B/P (MAP) Pulse Ox O2 Delivery O2 Flow Rate FiO2 03/26/23 20:10 Room Air 03/26/23 19:12 36.3 65 16 130/76 (94) 100 Capillary Refill : General Appearance: No Apparent Distress, WD/WN, Chronically ill, Cachetic, Thin HEENT: PERRL/EOMI, Normal ENT Inspection, Pharynx Normal Neck: Full Range of Motion, Normal Inspection, Non Tender, Supple, Carotid Bruit Respiratory: Chest Non Tender, Lungs Clear, Normal Breath Sounds, No Accessory Muscle Use, No Respiratory Distress Cardiovascular: Regular Rate, Rhythm, No Edema, No Gallop, No JVD, No Murmur, Normal Peripheral Pulses Gastrointestinal: Normal Bowel Sounds, No Organomegaly, No Pulsatile Mass, Non Tender, Soft Back: Normal Inspection, No CVA Tenderness, No Vertebral Tenderness Extremity: Normal Capillary Refill, Normal Inspection, Normal Range of Motion, Non Tender, No Calf Tenderness, No Pedal Edema Neurologic/Psychiatric: Alert, Oriented x3, No Motor/Sensory Deficits, parking manager II- XII Norm as Tested, Abnormal Gait, Depressed Affect, Motor Weakness (generalized) Skin: Normal Color, Warm/Dry Lymphatic: No Adenopathy Results/Procedures Lab Patient resulted labs reviewed. FIM Transfers Therapy Code Descriptions/Definitions Functional [place] Measure: 0=Not Assessed/NA 4=Minimal Assistance 1=Total Assistance 5=Supervision or Setup 2=Maximal Assistance 6=Modified [place] 3=Moderate Assistance 7=Complete IndependenceSCALE: Activities may be completed with or without assistive devices. 8-Fqfsonodqr-ezqlxxv completes the activity by him/herself with no assistance from a helper. 5-Set-up or Clean-up Assistance-helper sets up or cleans up; patient completes activity. [place] assists only prior to or following the activity. 4-Supervision or Touching Assistance-helper provides verbal cues and/or touching/steadying and/or contact guard assistance as patient completes activity. Assistance may be provided throughout the activity or intermittently. 3-Partial/Moderate Assistance-helper does LESS THAN HALF the effort. [place] lifts, holds or supports trunk or limbs, but provides less than half the effort. 2-Substantial/Maximal Assistance-helper does MORE THAN HALF the effort. [place] lifts or holds trunk or limbs and provides more than half the effort. 3-Safnvpdrq-mbyxit does ALL the effort. Patient does none of the effort to complete the activity. Or, the assistance of 2 or more helpers is required for the patient to complete the activity. If activity was not attempted, code reason: 7-Patient Refused. 9-Not Applicable-not attempted and the patient did not perform the activity before the current illness, exacerbation or injury. 10-Not Attempted due to Environmental Limitations-(lack of equipment, weather restraints, etc.). 88-Not Attempted due to Medical Conditions or Safety Concerns. Roll Left to Right (QC): 6 Sit to Lying (QC): 6 Sit to Stand (QC): 6 Chair/Rea-vg-Wewyv Xfer(QC): 6 Car Transfer (QC): 6 Gait Training Does the Patient Walk?: Yes Walk 10 feet (QC): 6 Walk 50 ft with 2 Turns(QC): 6 Walk 150 ft (QC): 6 Walking 10ft/uneven surface-QC: 6 Gait Assistive Device: FWW Wheelchair Training Does the Pt Use a Wheelchair?: No Wheel 50 ft with 2 turns (QC): 88 Wheel 150 ft (QC): 88 Type of Wheelchair: N/A Stair Training Stair Training: Handrails/: 2 handrails #of Steps: 12 1 Step (curb) (QC): 6 4 Steps (QC): 6 12 Steps (QC): 6 Stairs: Pattern: Reciprocal Balance Picking up an Object (QC): 6 ADL-Treatment Eating (QC): 6 Oral Hygiene (QC): 6 Shower/Bathe Self (QC): 6 Upper Body Dressing (QC): 6 Lower Body Dressing (QC): 6 On/Off Footwear (QC): 6 Toileting Hygiene (QC): 6 Toilet Transfer (QC): 6 Assessment/Plan Assessment and Plan Assess & Plan/Chief Complaint Assessment: Severe weakness with falls Dehydration causing acute kidney injury 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 Severe constipation Severe pain in the back Plan: Supportive care Pain control Bowel regimen to prevent narcotic bowel Dr Murphy consult for cancer treatment plan 03/20/2023: Pain control Bowel regimen Encourage oral fluids 03/21/2023: Pain control Bowel regimen 03/22/2023: Immunotherapy Supportive care 03/23/2023: Continue Reglan 03/24/2023: Continue Reglan Much improved status 03/25/2023: Discharge planning soon Immunotherapy to start for ureteral carcinoma 03/26/2023: DC home (1) Debility (2) Ureteral carcinoma (3) Metastasis to bone (4) Cachexia (5) Orthostatic hypotension Status: Acute (6) Hypokalemia (7) LAUREN (acute kidney injury) Status: Acute (8) S/p nephrectomy Status: Chronic NORRIS ATKINSON DO Mar 26, 2023 05:35
[2023-03-26 07:45] VITALS: BP 169/103
[2023-03-26] MEDS: DOCUSATE SODIUM 100 MG (COLACE) CAP PO SCH ×2 (07:46→21:24)
[2023-03-26] MEDS: POTASSIUM BICARB 20 MEQ (EFFER-K) TABLET PO SCH ×3 (07:46→17:36)
[2023-03-26] MEDS: SENNA W/DOCUSATE (SENOKOT S) TABLET PO SCH ×2 (07:46→21:24)
[2023-03-26] MEDS: amLODIPine 2.5MG (NORVASC) TAB PO SCH ×2 (07:47→21:05)
[2023-03-26] MEDS: ACETAMINOPHEN 325 MG TABLET PO SCH ×3 (07:47→21:05)
[2023-03-26] MEDS: polyethylene glycoL POWDER 17 GM (MIRALAX) PACK PO SCH ×2 (07:49→19:56)
--- NOTE | 2023-03-26 08:01 | Physical Therapy Daily Note ---
PT Daily Note-Current Subjective pt in room in recliner upon arrival and willing for therapy. pt reports only pain when standing for "too long" longer than 10 mins. pt was left in room with call light and all needs met after therapy session Pain Section J - Health Conditions 1. Rarely or not at all 2. Occasionally 3. Frequently 4. Almost constantly 8. Unable to answer Pain Effect on Sleep: 2 Pain Interference with Therapy: 2 Pain Interference w/Day-to-Day: 2 Transfers SCALE: Activities may be completed with or without assistive devices. 0-Dfuggpcbwr-adjlbbu completes the activity by him/herself with no assistance from a helper. 5-Set-up or Clean-up Assistance-helper sets up or cleans up; patient completes activity. [place] assists only prior to or following the activity. 4-Supervision or Touching Assistance-helper provides verbal cues and/or touching/steadying and/or contact guard assistance as patient completes activity. Assistance may be provided throughout the activity or intermittently. 3-Partial/Moderate Assistance-helper does LESS THAN HALF the effort. [place] lifts, holds or supports trunk or limbs, but provides less than half the effort. 2-Substantial/Maximal Assistance-helper does MORE THAN HALF the effort. [place] lifts or holds trunk or limbs and provides more than half the effort. 5-Azyvrdlin-wdmjuw does ALL the effort. Patient does none of the effort to complete the activity. Or, the assistance of 2 or more helpers is required for the patient to complete the activity. If activity was not attempted, code reason: 7-Patient Refused. 9-Not Applicable-not attempted and the patient did not perform the activity before the current illness, exacerbation or injury. 10-Not Attempted due to Environmental Limitations-(lack of equipment, weather restraints, etc.). 88-Not Attempted due to Medical Conditions or Safety Concerns. Weight Bearing Right Lower Extremity: Right Full Weight Bearing Left Lower Extremity: Left Full Weight Bearing Treatments pt is able to ambulate 150 ft with rw and no further assist. pt is able to p reform Nu-Step for 20 mins at level 3 with no rest breaks indicating his endurance has incased. pt is able to preform standing dynamic balance activity with no ASSOCIATE PRODUCT MANAGER on rail with no LOB this day but does require rest breaks secondary to increasing back pain when standing for too long. Assessment Current Status: Good Progress PT Retirement Goals Retirement Goals PT Retirement Goals Time Frame: Mar 28, 2023 Roll Left & Right (QC): 6 (Pt will be Mod I with all aspects of functional mobility to progress towards PLOF and safe d/c home. ) Sit to Lying (QC): 6 (Pt will be Mod I with all aspects of functional mobility to progress towards PLOF and safe d/c home. ) Lying-Sitting on Side/Bed(QC): 6 (Pt will be Mod I with all aspects of functional mobility to progress towards PLOF and safe d/c home. ) Sit to Stand (QC): 6 (Pt will be Mod I with all aspects of functional mobility to progress towards PLOF and safe d/c home. ) Chair/Zhg-bt-Qmhpk Xfer(QC): 6 (Pt will be Mod I with all aspects of functional mobility to progress towards PLOF and safe d/c home. ) Toilet Transfer (QC): 6 (Pt will be Mod I with all aspects of functional mobility to progress towards PLOF and safe d/c home. ) Car Transfer (QC): 6 (Pt will be Mod I with all aspects of functional mobility to progress towards PLOF and safe d/c home. ) Does the Patient Walk: Yes Walk 10 feet (QC): 6 (Pt will be Mod I with all aspects of functional mobility to progress towards PLOF and safe d/c home. ) Walk 50ft with 2 Turns (QC): 6 (Pt will be Mod I with all aspects of functional mobility to progress towards PLOF and safe d/c home. ) Walk 150 ft (QC): 6 (Pt will be Mod I with all aspects of functional mobility to progress towards PLOF and safe d/c home. ) Walking 10ft on Uneven Surface: 6 (Pt will be Mod I with all aspects of functional mobility to progress towards PLOF and safe d/c home. ) 1 Step (curb) (QC): 6 (Pt will be Mod I with all aspects of functional mobility to progress towards PLOF and safe d/c home. ) 4 Steps (QC): 6 (Pt will be Mod I with all aspects of functional mobility to progress towards PLOF and safe d/c home. ) 12 Steps (QC): 6 (Pt will be Mod I with all aspects of functional mobility to progress towards PLOF and safe d/c home. ) Picking up an Object (QC): 6 (Pt will be Mod I with all aspects of functional mobility to progress towards PLOF and safe d/c home. ) Does the Pt use WC or Scooter?: No Wheel 50 feet with 2 turns (QC: 9 Type: N/A Wheel 150 feet: 9 Type: N/A PT Plan Treatment/Plan Treatment Plan: Continue Plan of Care Treatment Plan: Bed Mobility, Concurrent Therapy, Education, Functional Activity Merna, Functional Strength, Group Therapy, Gait, Safety, Therapeutic Exercise, Transfers Treatment Duration: Mar 28, 2023 Frequency: At least 5 of 7 days/Wk (IRF) Estimated Hrs Per Day: 1.5 hours per day Patient and/or Family Agrees t: Yes Time Time In: 1100 Time Out: 1200 DATE: Mar 25, 2023 Total Billed Treatment Time: 60 Total Billed Treatment 1 Gt EX FA x 2 Katia Escobar RECEIVER Mar 26, 2023 08:01
[2023-03-26 09:45] VITALS: BP 133/77
--- NOTE | 2023-03-26 10:31 | Occupational Ther Daily Note ---
OT Current Status-Daily Note Subjective Pt alert, sitting in recliner. Pt agrees to therapy. Pt does not c/o pain at this time. Mental Status/Objective Patient Orientation: Person, Place, Time, Situation ADL-Treatment Pt agrees to shower. Using FWW, pt able to gather supplies though requires increased time for recovery breaks. Standing at sink, pt completes oral care independently. Pt requires frequent recovery lengthy recovery breaks throughout session. Using shower chair with back, pt complete shower using grabbars and hand held shower. Pt independently completes UBD, LBD and footwear. Pt has demonstrated independents with eating. Therapy Code Descriptions/Definitions Functional [place] Measure: 0=Not Assessed/NA 4=Minimal Assistance 1=Total Assistance 5=Supervision or Setup 2=Maximal Assistance 6=Modified [place] 3=Moderate Assistance 7=Complete IndependenceSCALE: Activities may be completed with or without assistive devices. 4-Pdplaqtecw-sdkelzk completes the activity by him/herself with no assistance from a helper. 5-Set-up or Clean-up Assistance-helper sets up or cleans up; patient completes activity. [place] assists only prior to or following the activity. 4-Supervision or Touching Assistance-helper provides verbal cues and/or touching/steadying and/or contact guard assistance as patient completes activity. Assistance may be provided throughout the activity or intermittently. 3-Partial/Moderate Assistance-helper does LESS THAN HALF the effort. [place] lifts, holds or supports trunk or limbs, but provides less than half the effort. 2-Substantial/Maximal Assistance-helper does MORE THAN HALF the effort. [place] lifts or holds trunk or limbs and provides more than half the effort. 7-Fceasrcrd-orylrv does ALL the effort. Patient does none of the effort to complete the activity. Or, the assistance of 2 or more helpers is required for the patient to complete the activity. If activity was not attempted, code reason: 7-Patient Refused. 9-Not Applicable-not attempted and the patient did not perform the activity before the current illness, exacerbation or injury. 10-Not Attempted due to Environmental Limitations-(lack of equipment, weather restraints, etc.). 88-Not Attempted due to Medical Conditions or Safety Concerns. Eating (QC): 6 Oral Hygiene (QC): 6 Shower/Bathe Self (QC): 6 Upper Body Dressing (QC): 6 Lower Body Dressing (QC): 6 On/Off Footwear: 6 Toileting Hygiene (QC): 6 Toilet Transfer (QC): 6 Other Treatment Pt completed dynamic standing task, B UE strengthening and stretching exercises to improve overall function for daily tasks. Arm bike 15 rivera resistance 3 min forward rotation 1 min backward rotation, arm pulleys for 3 minutes without breaks. Standing without support to toss items to a designated area without LOB. After session, pt sitting in recliner with call light/phone in reach. All needs met in room. BIMS CAM BIMS Expression of Ideas and Wants: Without Difficulty Understanding Verbal Content: Understands Brief Interview/Mental Status: Yes IRF NIEVES BIMS: IRF NIEVES BIMS Response (Comments) Value Repitition of Three Words Three 3 Recalls Socks Yes, No Cue Required 2 Recalls Blue Yes, No Cue Required 2 Recalls Bed Yes, No Cue Required 2 Year Correct 3 Month Accurate Within 5 Days 2 Day Correct 1 Total 15 Patient Normally Able to Recal: Current Session, Location of own room, Staff Names and faces, That he[facility]she in a [facility] Should Staff Asses. Mental St.: No CAM Mental Status Change/Baseline: 0 Inattention: 0 Disorganized thinkin Altered level of consciousness: 0 OT Short Term Goals Short Term Goals Time Frame: Mar 26, 2023 Shower/bathe self: 5 Upper body dressin Lower body dressin Putting on/taking off footwear: 5 OT Assistant Production Manager Goals Assistant Production Manager Goals Time Frame: Apr 04, 2023 Acute change in mental status: 0 Inattention: 0 Disorganized thinkin Altered level of consciousness: 6 (met) Eating (QC): 6 (met) Oral Hygiene (QC): 6 (met) Toileting Hygiene (QC): 6 (met) Shower/Bathe Self (QC): 6 (met) Upper Body Dressing (QC): 6 (met) Lower Body Dressing (QC): 6 (met) On/Off Footwear (QC): 6 (met) Additional Goals: 1-Demonstrate ADL Tasks, 2-Verbalize Understanding, 3- ImproveStrength/Merna 1=Demonstrate adherence to instructed precautions during ADL tasks. 2=Patient will verbalize/demonstrate understanding of assistive devices/modifications for ADL. 3=Patient will improve strength/tolerance for activity to enable patient to perform ADL's. OT Education/Plan Problem List/Assessment Assessment: Decreased Activ Tolerance, Decreased UE Strength, Impaired Self- Care Skills Discharge Recommendations Plan/Recommendations: Continue POC Treatment Plan/Plan of Care Patient would benefit from OT for education, treatment and training to promote independence in ADL's, mobility, safety and/or upper extremity function for ADL's. Plan of Care: ADL Retraining, Functional Mobility, Group Exercise/Act as Ind, UE Funct Exercise/Act Treatment Duration: Apr 04, 2023 Frequency: At least 5 of 7 days/Wk (IRF) Estimated Hrs Per Day: 1.5 hours per day Agreement: Yes Rehab Potential: Good Time Start Time: 10:00 Stop Time: 11:30 DATE: Mar 26, 2023 Total Time Billed (hr/min): 90 Billed Treatment Time 1 visit-ADL 3 (45 min) EX 3 (45 min) MATT FINNEY Mar 26, 2023 10:31
--- NOTE | 2023-03-26 10:32 | Physical Therapy Daily Note ---
PT Daily Note-Current Subjective pt in bed this day and willing for therapy. pt states he has some pain in his stomach area "but it comes and goes' nursing was notified. pt stated he is nervous about going home. pt was left in recliner at the end of therapy session with call light and all needs met Pain Section J - Health Conditions 1. Rarely or not at all 2. Occasionally 3. Frequently 4. Almost constantly 8. Unable to answer Pain Effect on Sleep: 2 Pain Interference with Therapy: 2 Pain Interference w/Day-to-Day: 2 Mental Status Patient Orientation: Person, Place, Time, Situation Transfers SCALE: Activities may be completed with or without assistive devices. 0-Csyortlpwh-rryhzxu completes the activity by him/herself with no assistance from a helper. 5-Set-up or Clean-up Assistance-helper sets up or cleans up; patient completes activity. [place] assists only prior to or following the activity. 4-Supervision or Touching Assistance-helper provides verbal cues and/or touching/steadying and/or contact guard assistance as patient completes activity. Assistance may be provided throughout the activity or intermittently. 3-Partial/Moderate Assistance-helper does LESS THAN HALF the effort. [place] lifts, holds or supports trunk or limbs, but provides less than half the effort. 2-Substantial/Maximal Assistance-helper does MORE THAN HALF the effort. [place] lifts or holds trunk or limbs and provides more than half the effort. 4-Iumbbizkc-khonft does ALL the effort. Patient does none of the effort to complete the activity. Or, the assistance of 2 or more helpers is required for the patient to complete the activity. If activity was not attempted, code reason: 7-Patient Refused. 9-Not Applicable-not attempted and the patient did not perform the activity before the current illness, exacerbation or injury. 10-Not Attempted due to Environmental Limitations-(lack of equipment, weather restraints, etc.). 88-Not Attempted due to Medical Conditions or Safety Concerns. Weight Bearing Right Lower Extremity: Right Full Weight Bearing Left Lower Extremity: Left Full Weight Bearing Exercises NuStep Minutes: 20 NuStep Workload: 3 Treatments pt is able to preform nustep for 20 mins with level 4 this day with no rest breaks. pt is able to execute obstacle course with ambulation with RW and no LOB this day. pt is able to incorporate side stepping, reaching outside COG, as well as problem solving for safety. Assessment Current Status: Good Progress PT Detention Goals Detention Goals PT Marine Pipefitter Goals Time Frame: Mar 28, 2023 Roll Left & Right (QC): 6 (Pt will be Mod I with all aspects of functional mobility to progress towards PLOF and safe d/c home. ) Sit to Lying (QC): 6 (Pt will be Mod I with all aspects of functional mobility to progress towards PLOF and safe d/c home. ) Lying-Sitting on Side/Bed(QC): 6 (Pt will be Mod I with all aspects of functional mobility to progress towards PLOF and safe d/c home. ) Sit to Stand (QC): 6 (Pt will be Mod I with all aspects of functional mobility to progress towards PLOF and safe d/c home. ) Chair/Eos-mk-Dscvy Xfer(QC): 6 (Pt will be Mod I with all aspects of functional mobility to progress towards PLOF and safe d/c home. ) Toilet Transfer (QC): 6 (Pt will be Mod I with all aspects of functional mobility to progress towards PLOF and safe d/c home. ) Car Transfer (QC): 6 (Pt will be Mod I with all aspects of functional mobility to progress towards PLOF and safe d/c home. ) Does the Patient Walk: Yes Walk 10 feet (QC): 6 (Pt will be Mod I with all aspects of functional mobility to progress towards PLOF and safe d/c home. ) Walk 50ft with 2 Turns (QC): 6 (Pt will be Mod I with all aspects of functional mobility to progress towards PLOF and safe d/c home. ) Walk 150 ft (QC): 6 (Pt will be Mod I with all aspects of functional mobility to progress towards PLOF and safe d/c home. ) Walking 10ft on Uneven Surface: 6 (Pt will be Mod I with all aspects of functional mobility to progress towards PLOF and safe d/c home. ) 1 Step (curb) (QC): 6 (Pt will be Mod I with all aspects of functional mobility to progress towards PLOF and safe d/c home. ) 4 Steps (QC): 6 (Pt will be Mod I with all aspects of functional mobility to progress towards PLOF and safe d/c home. ) 12 Steps (QC): 6 (Pt will be Mod I with all aspects of functional mobility to progress towards PLOF and safe d/c home. ) Picking up an Object (QC): 6 (Pt will be Mod I with all aspects of functional mobility to progress towards PLOF and safe d/c home. ) Does the Pt use WC or Scooter?: No Wheel 50 feet with 2 turns (QC: 9 Type: N/A Wheel 150 feet: 9 Type: N/A PT Plan Treatment/Plan Treatment Plan: Discontinue PT Treatment Plan: Bed Mobility, Concurrent Therapy, Education, Functional Activity Merna, Functional Strength, Group Therapy, Gait, Safety, Therapeutic Exercise, Transfers Treatment Duration: Mar 28, 2023 Frequency: At least 5 of 7 days/Wk (IRF) Estimated Hrs Per Day: 1.5 hours per day Patient and/or Family Agrees t: Yes Time Time In: 0800 Time Out: 0900 DATE: Mar 26, 2023 Total Billed Treatment Time: 60 Total Billed Treatment 1 GT x [address] CONSULTANT Mar 26, 2023 10:32
--- NOTE | 2023-03-26 13:41 | Physical Therapy Daily Note ---
PT Daily Note-Current Subjective Pt in recliner upon arrival and willing for therapy. pt reports back pain after ambulating more than 10mins at a time but with sitting rest pain dissipates and is able to resume therapy. pt left in room in recliner after therapy session and all needs are met with call light in hand. Pain Section J - Health Conditions 1. Rarely or not at all 2. Occasionally 3. Frequently 4. Almost constantly 8. Unable to answer Pain Effect on Sleep: 2 Pain Interference with Therapy: 2 Pain Interference w/Day-to-Day: 2 Mental Status Patient Orientation: Person, Place, Time, Situation Transfers SCALE: Activities may be completed with or without assistive devices. 2-Eberlvwgjz-khpzbrn completes the activity by him/herself with no assistance from a helper. 5-Set-up or Clean-up Assistance-helper sets up or cleans up; patient completes activity. [place] assists only prior to or following the activity. 4-Supervision or Touching Assistance-helper provides verbal cues and/or touching/steadying and/or contact guard assistance as patient completes activity. Assistance may be provided throughout the activity or intermittently. 3-Partial/Moderate Assistance-helper does LESS THAN HALF the effort. [place] lifts, holds or supports trunk or limbs, but provides less than half the effort. 2-Substantial/Maximal Assistance-helper does MORE THAN HALF the effort. [place] lifts or holds trunk or limbs and provides more than half the effort. 2-Nclnfpxca-svkqsn does ALL the effort. Patient does none of the effort to complete the activity. Or, the assistance of 2 or more helpers is required for the patient to complete the activity. If activity was not attempted, code reason: 7-Patient Refused. 9-Not Applicable-not attempted and the patient did not perform the activity before the current illness, exacerbation or injury. 10-Not Attempted due to Environmental Limitations-(lack of equipment, weather restraints, etc.). 88-Not Attempted due to Medical Conditions or Safety Concerns. Weight Bearing Right Lower Extremity: Right Full Weight Bearing Left Lower Extremity: Left Full Weight Bearing Treatments pt is able to ambulate to first floor via elevator and ambulate outside with no rest breaks. pt has a sitting rest break and is able to resume back to the 2nd floor again. pt showed no LOB or SOB and required no safety VC. Assessment Current Status: Good Progress PT Custodial Goals Luncheonette Operator Goals PT Custodial Goals Time Frame: Mar 28, 2023 Roll Left & Right (QC): 6 (Pt will be Mod I with all aspects of functional mobility to progress towards PLOF and safe d/c home. ) Sit to Lying (QC): 6 (Pt will be Mod I with all aspects of functional mobility to progress towards PLOF and safe d/c home. ) Lying-Sitting on Side/Bed(QC): 6 (Pt will be Mod I with all aspects of functional mobility to progress towards PLOF and safe d/c home. ) Sit to Stand (QC): 6 (Pt will be Mod I with all aspects of functional mobility to progress towards PLOF and safe d/c home. ) Chair/Kqe-qt-Ymrcw Xfer(QC): 6 (Pt will be Mod I with all aspects of functional mobility to progress towards PLOF and safe d/c home. ) Toilet Transfer (QC): 6 (Pt will be Mod I with all aspects of functional mobility to progress towards PLOF and safe d/c home. ) Car Transfer (QC): 6 (Pt will be Mod I with all aspects of functional mobility to progress towards PLOF and safe d/c home. ) Does the Patient Walk: Yes Walk 10 feet (QC): 6 (Pt will be Mod I with all aspects of functional mobility to progress towards PLOF and safe d/c home. ) Walk 50ft with 2 Turns (QC): 6 (Pt will be Mod I with all aspects of functional mobility to progress towards PLOF and safe d/c home. ) Walk 150 ft (QC): 6 (Pt will be Mod I with all aspects of functional mobility to progress towards PLOF and safe d/c home. ) Walking 10ft on Uneven Surface: 6 (Pt will be Mod I with all aspects of fu nctional mobility to progress towards PLOF and safe d/c home. ) 1 Step (curb) (QC): 6 (Pt will be Mod I with all aspects of functional mobility to progress towards PLOF and safe d/c home. ) 4 Steps (QC): 6 (Pt will be Mod I with all aspects of functional mobility to progress towards PLOF and safe d/c home. ) 12 Steps (QC): 6 (Pt will be Mod I with all aspects of functional mobility to progress towards PLOF and safe d/c home. ) Picking up an Object (QC): 6 (Pt will be Mod I with all aspects of functional mobility to progress towards PLOF and safe d/c home. ) Does the Pt use WC or Scooter?: No Wheel 50 feet with 2 turns (QC: 9 Type: N/A Wheel 150 feet: 9 Type: N/A PT Plan Treatment/Plan Treatment Plan: Discontinue PT Treatment Plan: Bed Mobility, Concurrent Therapy, Education, Functional Activity M[place], Functional Strength, Group Therapy, Gait, Safety, Therapeutic Exercise, Transfers Treatment Duration: Mar 28, 2023 Frequency: At least 5 of 7 days/Wk (IRF) Estimated Hrs Per Day: 1.5 hours per day Patient and/or Family Agrees t: Yes Time Time In: 1300 Time Out: 1330 DATE: Mar 26, 2023 Total Billed Treatment Time: 30 Total Billed Treatment 1 gt x 2 Katia Escobar STOVE FITTER Mar 26, 2023 13:41
[2023-03-26] MEDS: ENOXAPARIN INJECTION 30 MG/0.3 ML SYR SC SCH (13:52)
[2023-03-26] MEDS: BISACODYL 10 MG SUPP (DULCOLAX) PR PRN (13:55)
[2023-03-26] MEDS: LACTULOSE SYRUP 10GM/15ML (ENULOSE) 30ML UDC PO PRN (15:26)
[2023-03-26 19:12] VITALS: BP 130/76
[2023-03-27] MEDS: HYDROcodone/APAP 7.5 MG/325 MG (LORTAB, LORCET PLUS) TABLET PO PRN (00:01)
[2023-03-27] MEDS ORDERED: ONDA4TAB11 PO ×2 (05:12)
[2023-03-27] MEDS ORDERED: OXC5T PO ×2 (05:12)
[2023-03-27] MEDS ORDERED: TRAM50TA3 PO ×2 (05:12)
[2023-03-27] MEDS ORDERED: SENN-271 PO ×2 (05:12)
[2023-03-27] MEDS ORDERED: LACT20SO2 PO ×2 (05:12)
[2023-03-27] MEDS ORDERED: METO5TAB2 PO ×2 (05:12)
[2023-03-27] MEDS ORDERED: HYDR-3922 PO ×2 (05:12)
[2023-03-27] MEDS ORDERED: POTA20TA28 PO ×2 (05:12)
--- NOTE | 2023-03-27 05:14 | D/C HH Face to Face Order ---
D/C Face to Face Orders Reconcile Patient Problems Problems Reviewed?: Yes Instructions for Patient [place] Patient Instructions/FollowUp: PCP 1 week Physician to follow Patient: Steffanie Discharge Diet for Home: No Restrictions Patient Problems: Ureteral carcinoma with mets Patient Data-Allergies,Ht & Wt Patient Allergies: Coded Allergies: No Known Drug Allergies (Unverified , 02/05/23) Height (Feet): 5 Height (Inches): 9 Weight (Pounds): 170 Home Health Need/Face to Face Date of Face to Face: Mar 27, 2023 Clinical Findings: Generalized weakness and fatigue, Pain with ambulation I have seen Pt [id number]: Yes Discharged To: Home Diagnosis/Conditions: Debility Patient is Homebound due to: Matt fall risk due to instabilty, Muscle weakness Homebound Status Due to the above stated illness, injury or surgical procedure (medical condition or diagnosis) and associated clinical findings, the patient is homebound because of his/her inability to leave home except with aid of a supportive device and/or person AND leaving the home requires a considerable and taxing effort or is medically contraindicated. Pt req the following assistanc: Walker Home Health Nursing Orders Home Health Services Order: Nursing Services, Lottery Clerk-Evaluate & Treat, Physical Therapy-Evaluate & Treat Certify Stmt I certify that this patient is under my care and that I, a nurse practitioner or a physician; a dairy and food laboratory assistant working with me, had a face to face encounter that - meets the physician face to face encounter requirements with this patient as dated. NORRIS ATKINSON DO Mar 27, 2023 05:14
--- NOTE | 2023-03-27 05:15 | Discharge Summary ---
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 Severe constipation Severe pain in the back Plan: Supportive care Pain control Bowel regimen to prevent narcotic bowel Dr Murphy consult for cancer treatment plan 03/20/2023: Pain control Bowel regimen Encourage oral fluids 03/21/2023: Pain control Bowel regimen 03/22/2023: Immunotherapy Supportive care 03/23/2023: Continue Reglan 03/24/2023: Continue Reglan Much improved status 03/25/2023: Discharge planning soon Immunotherapy to start for ureteral carcinoma 03/26/2023: DC home (1) Debility (2) Ureteral carcinoma (3) Metastasis to bone (4) Cachexia (5) Orthostatic hypotension Status: Acute (6) Hypokalemia (7) LAUREN (acute kidney injury) Status: Acute (8) S/p nephrectomy Status: Chronic Discharge Summary Discharge Physical Examination Allergies: Coded Allergies: No Known Drug Allergies (Unverified , 02/05/23) Vitals & I&Os Vital Signs Date Time Temp Pulse Resp B/P (MAP) Pulse Ox O2 Delivery O2 Flow Rate FiO2 03/27/23 12:00 37.0 82 18 134/87 94 Room Air General Appearance: Alert, Oriented X3, Cooperative Respiratory: Clear to Auscultation Cardiovascular: Regular Rate Psych/Mental Status: Mental Status NL Hospital Course Was the Problem List Reviewed?: Yes Hospital course: Patient had an uneventful hospital course and rehab. Patient was able to regain function with therapy. Patient's pain was controlled with narcotics. Reglan was used with good results for nausea. Labs remained stable. Home health will see him and I will see him in close follow-up see Dr. Murphy for immunotherapy. Labs (last 24 hrs) Laboratory Tests 03/20/23 06:12: White Blood Count 7.5, Red Blood Count 3.95L, Hemoglobin 12.9L, Hematocrit 37L, Mean Corpuscular Volume 93, Mean Corpuscular Hemoglobin 33, Mean Corpuscular Hemoglobin Concent 35, Red Cell Distribution Width 13.3, Platelet Count 227, Mean Platelet Volume 9.8, Immature Granulocyte % (Auto) 0, Neutrophils (%) (Auto) 78H, Lymphocytes (%) (Auto) 15, Monocytes (%) (Auto) 6, Eosinophils (%) (Auto) 0, Basophils (%) (Auto) 0, Neutrophils # (Auto) 5.8, Lymphocytes # (Auto) 1.2, Monocytes # (Auto) 0.5, Eosinophils # (Auto) 0.0, Basophils # (Auto) 0.0, Immature Granulocyte # (Auto) 0.0, Sodium Level 133L, Potassium Level 2.8L, Chloride Level 93L, Carbon Dioxide Level 28, Anion Gap 12, Blood Urea Nitrogen 12, Creatinine 0.89, Estimat Glomerular Filtration Rate 90, BUN/Creatinine Ratio 13, Glucose Level 83, Calcium Level 9.1, Corrected Calcium 9.3, Total Bilirubin 1.7H, Aspartate Amino Transf (AST/SGOT) 16, Alanine Aminotransferase (ALT/SGPT) 10, Alkaline Phosphatase 106, Total Protein 6.7, Albumin 3.7 03/24/23 06:38: White Blood Count 6.6, Red Blood Count 3.81L, Hemoglobin 12.3L, Hematocrit 36L, Mean Corpuscular Volume 93, Mean Corpuscular Hemoglobin 32, Mean Corpuscular Hemoglobin Concent 35, Red Cell Distribution Width 13.2, Platelet Count 240, Mean Platelet Volume 9.9, Immature Granulocyte % (Auto) 0, Neutrophils (%) (Auto) 78H, Lymphocytes (%) (Auto) 16, Monocytes (%) (Auto) 5, Eosinophils (%) (Auto) 1, Basophils (%) (Auto) 0, Neutrophils # (Auto) 5.1, Lymphocytes # (Auto) 1.1, Monocytes # (Auto) 0.3, Eosinophils # (Auto) 0.0, Basophils # (Auto) 0.0, Immature Granulocyte # (Auto) 0.0, Sodium Level 135, Potassium Level 2.7L, Chloride Level 92L, Carbon Dioxide Level 33H, Anion Gap 10, Blood Urea Nitrogen 15, Creatinine 1.10, Estimat Glomerular Filtration Rate 70, BUN/Creatinine Ratio 14, Glucose Level 101, Calcium Level 8.9, Corrected Calcium 9.1, Total Bilirubin 1.4H, Aspartate Amino Transf (AST/SGOT) 15, Alanine Aminotransferase (ALT/SGPT) 11, Alkaline Phosphatase 120, Total Protein 6.7, Albumin 3.7 Pending Labs Laboratory Tests 03/20/23 06:12: White Blood Count 7.5, Red Blood Count 3.95, Hemoglobin 12.9, Hematocrit 37, Mean Corpuscular Volume 93, Mean Corpuscular Hemoglobin 33, Mean Corpuscular Hemoglobin Concent 35, Red Cell Distribution Width 13.3, Platelet Count 227, Mean Platelet Volume 9.8, Immature Granulocyte % (Auto) 0, Neutrophils (%) (Auto) 78, Lymphocytes (%) (Auto) 15, Monocytes (%) (Auto) 6, Eosinophils (%) (Auto) 0, Basophils (%) (Auto) 0, Neutrophils # (Auto) 5.8, Lymphocytes # (Auto) 1.2, Monocytes # (Auto) 0.5, Eosinophils # (Auto) 0.0, Basophils # (Auto) 0.0, Immature Granulocyte # (Auto) 0.0, Sodium Level 133, Potassium Level 2.8, Chloride Level 93, Carbon Dioxide Level 28, Anion Gap 12, Blood Urea Nitrogen 12, Creatinine 0.89, Estimat Glomerular Filtration Rate 90, BUN/Creatinine Ratio 13, Glucose Level 83, Calcium Level 9.1, Corrected Calcium 9.3, Total Bilirubin 1.7, Aspartate Amino Transf (AST/SGOT) 16, Alanine Aminotransferase (ALT/SGPT) 10, Alkaline Phosphatase 106, Total Protein 6.7, Albumin 3.7 03/24/23 06:38: White Blood Count 6.6, Red Blood Count 3.81, Hemoglobin 12.3, Hematocrit 36, M ludmila Corpuscular Volume 93, Mean Corpuscular Hemoglobin 32, Mean Corpuscular Hemoglobin Concent 35, Red Cell Distribution Width 13.2, Platelet Count 240, Mean Platelet Volume 9.9, Immature Granulocyte % (Auto) 0, Neutrophils (%) (Auto) 78, Lymphocytes (%) (Auto) 16, Monocytes (%) (Auto) 5, Eosinophils (%) (Auto) 1, Basophils (%) (Auto) 0, Neutrophils # (Auto) 5.1, Lymphocytes # (Auto) 1.1, Monocytes # (Auto) 0.3, Eosinophils # (Auto) 0.0, Basophils # (Auto) 0.0, Immature Granulocyte # (Auto) 0.0, Sodium Level 135, Potassium Level 2.7, Chloride Level 92, Carbon Dioxide Level 33, Anion Gap 10, Blood Urea Nitrogen 15, Creatinine 1.10, Estimat Glomerular Filtration Rate 70, BUN/Creatinine Ratio 14, Glucose Level 101, Calcium Level 8.9, Corrected Calcium 9.1, Total Bilirubin 1.4, Aspartate Amino Transf (AST/SGOT) 15, Alanine Aminotransferase (ALT/SGPT) 11, Alkaline Phosphatase 120, Total Protein 6.7, Albumin 3.7 Discharge Home Medications: Active Scripts Active Ondansetron Odt (Ondansetron) 4 Mg Tab.rapdis 4 Mg PO Q6H PRN Metoclopramide HCl 5 Mg Tablet 5 Mg PO TIDAC Stool Softener-Laxative Tablet (Sennosides/Docusate Sodium) 8.6 Mg-50 Mg Tablet 1 Ea PO BID Effer-K 20 Meq Tablet Eff (Potassium Bicarbonate/Cit AC) 20 Meq Tablet.eff 20 Meq PO BID Lactulose 20 Gram/30 Ml Solution 10 Gm PO BID Oxyir Tablet (Oxycodone HCl) 5 Mg Tab 5 Mg PO Q6H PRN Hydralazine HCl 10 Mg Tablet 10 Mg PO Q4HR PRN Tramadol HCl 50 Mg Tablet 50 Mg PO BID PRN Reported Fludrocortisone Acetate 0.1 Mg Tab 0.05 Mg PO Q48H ALTERNATES 0.1MG AND 0.05MG DAILY Amlodipine Besylate 2.5 Mg Tablet 2.5 Mg PO HS Tylenol (Acetaminophen) 325 Mg Tablet 650 Mg PO TID Vitamin B-12 (Cyanocobalamin (Vitamin B-12)) 500 Mcg Tablet 500 Mcg PO DAILY Instructions to patient/family Please see electronic discharge instructions given to patient. Diagnosis/Problems Diagnosis/Problems (1) Debility (2) Ureteral carcinoma (3) Metastasis to bone (4) Cachexia (5) Orthostatic hypotension Status: Acute (6) Hypokalemia (7) LAUERN (acute kidney injury) Status: Acute (8) S/p nephrectomy Status: Chronic NORRIS ATKINSON DO Mar 27, 2023 05:15
[2023-03-27] MEDS: CYANOCOBALAMIN 1,000 MCG (VITAMIN B-12) TABLET PO SCH (06:27)
[2023-03-27] MEDS: METOCLOPRAMIDE 5 MG (REGLAN) TAB PO SCH (06:27)
[2023-03-27 07:34] VITALS: BP 134/87
[2023-03-27] MEDS: POTASSIUM BICARB 20 MEQ (EFFER-K) TABLET PO SCH (08:20)
[2023-03-27] MEDS: ACETAMINOPHEN 325 MG TABLET PO SCH (08:21)
[2023-03-27] MEDS: DOCUSATE SODIUM 100 MG (COLACE) CAP PO SCH (08:21)
[2023-03-27] MEDS: amLODIPine 2.5MG (NORVASC) TAB PO SCH (08:21)
[2023-03-27] MEDS: polyethylene glycoL POWDER 17 GM (MIRALAX) PACK PO SCH (08:22)
[2023-03-27] MEDS: SENNA W/DOCUSATE (SENOKOT S) TABLET PO SCH (08:22)
[2023-03-27 12:00] VITALS: BP 134/87
--- NOTE | 2023-03-27 14:14 | Therapy Team Discharge Summary ---
Therapy Discharge Summary Discharge Recommendations Date of Discharge Mar 27, 2023 at 10:40 Therapy D/C Recommendations: Home w/ Family Support, Physical Therapy Home Care Physical Therapy Pt admitted to ARU on 03/19/2023 for debility. At PLOF, pt was Ind with no AD. Upon PT eval, pt was SBA/CGA for all aspects of functional mobility. PT focused on B LE strengthening, balance, endurance, walking, and Ind. Pt progressed well with PT and met all set goals. Pt d/c home with sister and HH on 03/27/2023; d/c from PT. Roll Left to Right (QC): 6 Sit to Lying (QC): 6 Lying to Sitting/Side of Bed(Q: 6 Sit to Stand (QC): 6 Chair/Xwp-cm-Bialw Xfer(QC): 6 Toilet Transfer (QC): 5 Car Transfer (QC): 6 Does the Patient Walk: Yes Mode of Locomotion: Walk Anticipated Mode of Locomotion: Walk Walk 10 feet (QC): 6 Walk 50 ft with 2 Turns(QC): 6 Walk 150 ft (QC): 6 Walking 10ft on uneven surface: 6 Distance: 150ft Gait Assistive Device: FWW Does the Pt Use a Wheelchair: No Wheel 50 ft with 2 turns (QC): 88 Wheel 150 ft (QC): 88 Type of Wheelchair: N/A #of Steps: 12 1 Step (curb) (QC): 6 4 Steps (QC): 6 12 Steps (QC): 6 Balance Sitting Static: Normal Balance Sitting Dynamic: Normal Balance-Standing Static: Good Picking up an Object (QC): 6 Occupational Therapy Decreased Activ Tolerance, Decreased UE Strength, Impaired Self-Care Skills Eating (QC): 6 Oral Hygiene (QC): 6 Shower/Bathe Self (QC): 6 Upper Body Dressing (QC): 6 Lower Body Dressing (QC): 6 On/Off Footwear (QC): 6 Toileting Hygiene (QC): 6 PT [employer]cre[employer] Goals Alf Goals PT [employer] Goals Time Frame: Mar 28, 2023 Roll Left to Right (QC): 6 (Pt will be Mod I with all aspects of functional mobility to progress towards PLOF and safe d/c home. ) Sit to Lying (QC): 6 (Pt will be Mod I with all aspects of functional mobility to progress towards PLOF and safe d/c home. ) Lying-Sitting on Side/Bed(QC): 6 (Pt will be Mod I with all aspects of functional mobility to progress towards PLOF and safe d/c home. ) Sit to Stand (QC): 6 (Pt will be Mod I with all aspects of functional mobility to progress towards PLOF and safe d/c home. ) Chair/Dwd-ku-Hwuvp Xfer(QC): 6 (Pt will be Mod I with all aspects of functional mobility to progress towards PLOF and safe d/c home. ) Toilet/Commode Transfer (QC): 6 (Pt will be Mod I with all aspects of functional mobility to progress towards PLOF and safe d/c home. ) Car Transfer (QC): 6 (Pt will be Mod I with all aspects of functional mobility to progress towards PLOF and safe d/c home. ) Does the Patient Walk: Yes Walk 10 feet (QC): 6 (Pt will be Mod I with all aspects of functional mobility to progress towards PLOF and safe d/c home. ) Walk 10ft-Uneven Surface(QC): 6 (Pt will be Mod I with all aspects of functional mobility to progress towards PLOF and safe d/c home. ) Walk 50ft with 2 Turns (QC): 6 (Pt will be Mod I with all aspects of functional mobility to progress towards PLOF and safe d/c home. ) Walk 150 ft (QC): 6 (Pt will be Mod I with all aspects of functional mobility to progress towards PLOF and safe d/c home. ) Does the Pt use WC or Scooter?: No Wheel 50 feet with 2 turns (QC: 9 Type: N/A Wheel 150 feet: 9 Type: N/A 1 Step (curb) (QC): 6 (Pt will be Mod I with all aspects of functional mobility to progress towards PLOF and safe d/c home. ) 4 Steps (QC): 6 (Pt will be Mod I with all aspects of functional mobility to progress towards PLOF and safe d/c home. ) 12 Steps (QC): 6 (Pt will be Mod I with all aspects of functional mobility to progress towards PLOF and safe d/c home. ) Picking up an Object (QC): 6 (Pt will be Mod I with all aspects of functional mobility to progress towards PLOF and safe d/c home. ) OT [employer] Goals Alf Goals Time Frame: Apr 04, 2023 Acute change in mental status: 0 Inattention: 0 Disorganized thinkin Altered level of consciousness: 0 Eating (QC): 6 (met) Oral Hygiene (QC): 6 (met) Toileting Hygiene (QC): 6 (met) Shower/Bathe Self (QC): 6 (met) Upper Body Dressing (QC): 6 (met) Lower Body Dressing (QC): 6 (met) On/Off Footwear (QC): 6 (met) Additional Goals: 1-Demonstrate ADL Tasks, 2-Verbalize Understanding, 3- ImproveStrength/Merna 1=Demonstrate adherence to instructed precautions during ADL tasks. 2=Patient will verbalize/demonstrate understanding of assistive devices/modifications for ADL. 3=Patient will improve strength/tolerance for activity to enable patient to perform ADL's. PRABHA VEE PT Mar 27, 2023 14:14
--- NOTE | 2023-03-28 10:48 | Therapy Team Discharge Summary ---
Therapy Discharge Summary Discharge Recommendations Date of Discharge Mar 27, 2023 at 10:40 Therapy D/C Recommendations: Home w/ Family Support, Physical Therapy Home Care Physical Therapy Roll Left to Right (QC): 6 Sit to Lying (QC): 6 Lying to Sitting/Side of Bed(Q: 6 Sit to Stand (QC): 6 Chair/Cyk-zq-Svcxx Xfer(QC): 6 Toilet Transfer (QC): 5 Car Transfer (QC): 6 Does the Patient Walk: Yes Mode of Locomotion: Walk Anticipated Mode of Locomotion: Walk Walk 10 feet (QC): 6 Walk 50 ft with 2 Turns(QC): 6 Walk 150 ft (QC): 6 Walking 10ft on uneven surface: 6 Distance: 150ft Gait Assistive Device: FWW Does the Pt Use a Wheelchair: No Wheel 50 ft with 2 turns (QC): 88 Wheel 150 ft (QC): 88 Type of Wheelchair: N/A #of Steps: 12 1 Step (curb) (QC): 6 4 Steps (QC): 6 12 Steps (QC): 6 Balance Sitting Static: Normal Balance Sitting Dynamic: Normal Balance-Standing Static: Good Picking up an Object (QC): 6 Occupational Therapy Pt admitted to ARU with debility. At OF, pt was independent with ADLS and functional mobility, no AD. Upon initial evaluation, pt was independent with eating, required set up with oral care, SBA showering and footwear, and CGA UE dressing, LE dressing and toileting. OT tx focused on increasing BUE Strength and activity tolerance, and increasing safety and independence with ADLs and functional mobility. Pt made good progress towards goals, attaining IND level with all LTGs. Pt discharged home, d/c from OT. Decreased Activ Tolerance, Decreased UE Strength, Impaired Self-Care Skills Eating (QC): 6 Oral Hygiene (QC): 6 Shower/Bathe Self (QC): 6 Upper Body Dressing (QC): 6 Lower Body Dressing (QC): 6 On/Off Footwear (QC): 6 Toileting Hygiene (QC): 6 PT [facility] Goals Paper Tube Grader Goals PT Paper Tube Grader Goals Time Frame: Mar 28, 2023 Roll Left to Right (QC): 6 (Pt will be Mod I with all aspects of functional mobility to progress towards PLOF and safe d/c home. ) Sit to Lying (QC): 6 (Pt will be Mod I with all aspects of functional mobility to progress towards PLOF and safe d/c home. ) Lying-Sitting on Side/Bed(QC): 6 (Pt will be Mod I with all aspects of functional mobility to progress towards PLOF and safe d/c home. ) Sit to Stand (QC): 6 (Pt will be Mod I with all aspects of functional mobility to progress towards PLOF and safe d/c home. ) Chair/Aks-hl-Vswev Xfer(QC): 6 (Pt will be Mod I with all aspects of functional mobility to progress towards PLOF and safe d/c home. ) Toilet/Commode Transfer (QC): 6 (Pt will be Mod I with all aspects of functional mobility to progress towards PLOF and safe d/c home. ) Car Transfer (QC): 6 (Pt will be Mod I with all aspects of functional mobility to progress towards PLOF and safe d/c home. ) Does the Patient Walk: Yes Walk 10 feet (QC): 6 (Pt will be Mod I with all aspects of functional mobility to progress towards PLOF and safe d/c home. ) Walk 10ft-Uneven Surface(QC): 6 (Pt will be Mod I with all aspects of functional mobility to progress towards PLOF and safe d/c home. ) Walk 50ft with 2 Turns (QC): 6 (Pt will be Mod I with all aspects of functional mobility to progress towards PLOF and safe d/c home. ) Walk 150 ft (QC): 6 (Pt will be Mod I with all aspects of functional mobility to progress towards PLOF and safe d/c home. ) Does the Pt use WC or Scooter?: No Wheel 50 feet with 2 turns (QC: 9 Type: N/A Wheel 150 feet: 9 Type: N/A 1 Step (curb) (QC): 6 (Pt will be Mod I with all aspects of functional mobility to progress towards PLOF and safe d/c home. ) 4 Steps (QC): 6 (Pt will be Mod I with all aspects of functional mobility to progress towards PLOF and safe d/c home. ) 12 Steps (QC): 6 (Pt will be Mod I with all aspects of functional mobility to progress towards PLOF and safe d/c home. ) Picking up an Object (QC): 6 (Pt will be Mod I with all aspects of functional mobility to progress towards PLOF and safe d/c home. ) OT [facility] Goals F[facility] Goals Time Frame: Apr 04, 2023 Acute change in mental status: 0 Inattention: 0 Disorganized thinkin Altered level of consciousness: 0 Eating (QC): 6 (met) Oral Hygiene (QC): 6 (met) Toileting Hygiene (QC): 6 (met) Shower/Bathe Self (QC): 6 (met) Upper Body Dressing (QC): 6 (met) Lower Body Dressing (QC): 6 (met) On/Off Footwear (QC): 6 (met) Additional Goals: 1-Demonstrate ADL Tasks, 2-Verbalize Understanding, 3- ImproveStrength/Merna 1=Demonstrate adherence to instructed precautions during ADL tasks. 2=Patient will verbalize/demonstrate understanding of assistive devices/modifications for ADL. 3=Patient will improve strength/tolerance for activity to enable patient to perform ADL's. RADHAMES MARROQUIN OT Mar 28, 2023 10:48
== END 2023-03-27 10:40 | disposition home health service (06) | DRG 948 ==
PROVIDERS: ADMIT Internal Medicine; ATTEND Internal Medicine
DX: R53.81 Other malaise (principal); C79.51 Secondary malignant neoplasm of bone; R64 Cachexia; Z68.1 Body mass index [BMI] 19.9 or less, adult; I10 Essential (primary) hypertension; E87.6 Hypokalemia; K59.00 Constipation, unspecified; Z66 Do not resuscitate; Z87.891 Personal history of nicotine dependence; Z85.54 Personal history of malignant neoplasm of ureter; Z90.5 Acquired absence of kidney
CPT/HCPCS: 36415; 80053; 85025

== ENCOUNTER 2023-03-31 16:04 | Observation (INO) | payer MEDICARE, OTHER ==
[~2023-03-31] VITALS: Ht 175 cm; Wt 44.2 kg
[~2023-03-31 16:04] MED LIST changes: +HYDR-3922 PO; +LACT20SO2 PO; +METO5TAB2 PO; +ONDA4TAB11 PO; +OXC5T PO; +POTA20TA28 PO; +SENN-271 PO
[2023-03-31 16:45] VITALS: BP 113/73
[2023-03-31] MEDS ORDERED: HYDROmorphone 2 MG/ML VIAL (DILAUDID) IV PRN (16:45)
[2023-03-31] MEDS ORDERED: diphenhydrAMINE 50 MG/ML INJ (BENADRYL) IVP PRN (16:45)
[2023-03-31] MEDS ORDERED: ONDANSETRON 4 MG (ZOFRAN) ORAL DISSOLVE TAB PO PRN ×2 (16:45→20:45)
[2023-03-31] MEDS ORDERED: MILK OF MAGNESIA 400 MG/5 ML 30 ML UDC PO PRN (16:45)
[2023-03-31] MEDS ORDERED: ACETAMINOPHEN 325 MG TABLET PO PRN (16:45)
[2023-03-31] MEDS ORDERED: diphenhydrAMINE 25 MG TAB (BENADRYL) PO PRN (16:45)
[2023-03-31] MEDS ORDERED: BISACODYL 10 MG SUPP (DULCOLAX) PR PRN (16:45)
[2023-03-31] MEDS ORDERED: CALCIUM CARBONATE 500 MG (TUMS) TAB.CHEW PO PRN (16:45)
[2023-03-31] MEDS ORDERED: ANTACID SUSP 30 ML UDC (MYLANTA) PO PRN (16:45)
[2023-03-31] MEDS ORDERED: MELATONIN 3 MG TABLET PO PRN (16:45)
[2023-03-31] MEDS ORDERED: ONDANSETRON 4 MG/2 ML (SDV) Z0FRAN IV PRN (16:45)
[2023-03-31] MEDS ORDERED: polyethylene glycoL POWDER 17 GM (MIRALAX) PACK PO PRN (16:45)
[2023-03-31] MEDS ORDERED: LACTULOSE SYRUP 10GM/15ML (ENULOSE) 30ML UDC PO PRN (16:45)
[2023-03-31] MEDS: NS IV 1000 ML 1,000 ML IV SCH (17:32)
[2023-03-31 19:54] VITALS: BP 173/91
[2023-03-31] MEDS ORDERED: SENNA W/DOCUSATE (SENOKOT S) TABLET PO SCH ×2 (21:00)
[2023-03-31] MEDS ORDERED: LACTULOSE SYRUP 10GM/15ML (ENULOSE) 30ML UDC PO SCH (21:00)
[2023-03-31] MEDS ORDERED: amLODIPine 2.5MG (NORVASC) TAB PO SCH (21:00)
[2023-03-31] MEDS: POTASSIUM BICARB 20 MEQ (EFFER-K) TABLET PO SCH (21:42)
[2023-03-31] MEDS: SENNOSIDES 8.6 MG (SENOKOT) TAB PO SCH (21:43)
[2023-03-31] MEDS: ACETAMINOPHEN 325 MG TABLET PO SCH (21:43)
[2023-03-31] MEDS: LACTULOSE SYRUP 10GM/15ML (ENULOSE) 30ML UDC PO SCH (21:43)
[2023-03-31] MEDS: DOCUSATE SODIUM 100 MG (COLACE) CAP PO SCH (21:43)
[2023-03-31] MEDS: METOCLOPRAMIDE 5 MG (REGLAN) TAB PO SCH (21:43)
[2023-03-31 23:21] VITALS: BP 178/98
[2023-04-01 03:13] VITALS: BP 176/92
[2023-04-01 05:41] VITALS: BP 157/92
[2023-04-01] MEDS: NS IV 1000 ML 1,000 ML IV SCH (05:41)
[2023-04-01] MEDS: METOCLOPRAMIDE 5 MG (REGLAN) TAB PO SCH ×2 (05:41→11:30)
[2023-04-01 05:51] LABS: BASOPHILS % (AUTO) 0 % (0-10); EOSINOPHILS % (AUTO) 0 % (0-10); HEMATOCRIT 38 % (40-54); HEMOGLOBIN 13.2 g/dL (13.3-17.7); LYMPHOCYTES # (AUTO) 1.2 10^3/uL (1.0-4.0); LYMPHOCYTES % (AUTO) 15 % (12-44); MEAN CORPUSCULAR HEMOGLOBIN 32 pg (25-34); MEAN CORPUSCULAR HGB CONC 35 g/dL (32-36); MEAN CORPUSCULAR VOLUME 94 fL (80-99); MEAN PLATELET VOLUME 10.2 fL (9.0-12.2); MONOCYTES # (AUTO) 0.5 10^3/uL (0.0-1.0); MONOCYTES % (AUTO) 6 % (0-12); NEUTROPHILS # (AUTO) 6.2 10^3/uL (1.8-7.8); NEUTROPHILS % (AUTO) 78 % (42-75); PLATELET COUNT 267 10^3/uL (130-400); WHITE BLOOD COUNT 7.9 10^3/uL (4.3-11.0)
--- NOTE | 2023-04-01 06:08 | Short Stay Summary ---
History of Present Illness History of Present Illness Reason for visit/HPI Chief complaint: Weakness unable to manage self at home HPI: This is a 72-year-old male clinic patient of mine who I admitted observat ion status directly from my clinic due to inability to manage himself at home with his family. He had a short course in inpatient rehab and did very well but when he returned home he started having 4 falls per day without any significant injury but due to his frail status and 80 pounds status due to ureteral carcinoma with mets he was admitted observation and will emergently be admitted to [facility] until he has recovered. He does have an appointment with oncology Dr. Murphy on Friday to discuss immunotherapy treatment. Date of Admission Mar 31, 2023 at 16:10 Date of Discharge 04/01/2023 Time Seen by Provider: 11:00 Attending Physician Amber Valiente DO Admitting Physician Admitting Physician: Amber Valiente DO Attending Physician: Amber Valiente DO Consult Allergies and Home Medications Allergies Coded Allergies: No Known Drug Allergies (Unverified , 02/05/23) Patient Home Medication List Home Medication List Reviewed: Yes Acetaminophen (Tylenol) 325 Mg Tablet, 650 MG PO TID Prescribed by: AMBER VALIENTE on 04/01/23 1236 Amlodipine Besylate (Amlodipine Besylate) 2.5 Mg Tablet, 2.5 MG PO BID Prescribed by: AMBER VALIENTE on 04/01/23 1236 Cyanocobalamin (Vitamin B-12) (Vitamin B-12) 500 Mcg Tablet, 500 MCG PO DAILY Prescribed by: AMBER VALIENTE on 04/01/23 1236 Docusate Sodium (Docusate Sodium) 100 Mg Capsule, 100 MG PO BID Prescribed by: AMBER VALIENTE on 04/01/23 1236 Fludrocortisone Acetate (Fludrocortisone Acetate) 0.1 Mg Tab, 0.05 MG PO Q48H Prescribed by: AMBER VALIENTE on 04/01/23 1236 Hydralazine HCl (Hydralazine HCl) 10 Mg Tablet, 10 MG PO Q4HR PRN for SBP>170 Prescribed by: AMBER VALIENTE on 04/01/23 1236 Lactulose (Lactulose) 20 Gram/30 Ml Solution, 10 GM PO BID Prescribed by: AMBER VALIENTE on 04/01/23 1236 Metoclopramide HCl (Metoclopramide HCl) 5 Mg Tablet, 5 MG PO TIDAC Prescribed by: AMBER VALIENTE on 04/01/23 1236 Ondansetron (Ondansetron Odt) 4 Mg Tab.rapdis, 4 MG PO Q6H PRN for NAUSEA/VOMITING-1ST LINE Prescribed by: AMBER VALIENTE on 04/01/23 1236 Oxycodone Hcl (Oxyir Tablet) 5 Mg Tab, 5 MG PO Q6H PRN for PAIN-SEVERE (8-10) Prescribed by: AMBER VALIENTE on 04/01/23 1237 Potassium Bicarbonate/Cit AC (Effer-K 20 Meq Tablet Eff) 20 Meq Tablet.eff, 20 MEQ PO BID Prescribed by: AMBER VALIENTE on 04/01/23 1236 Sennosides/Docusate Sodium (Stool Softener-Laxative Tablet) 8.6 Mg-50 Mg Tablet, 1 EA PO BID Prescribed by: AMBER VALIENTE on 04/01/23 1236 Tramadol HCl (Tramadol HCl) 50 Mg Tablet, 50 MG PO BID PRN for PAIN-MODERATE (5- 7) Prescribed by: AMBER VALIENTE on 04/01/23 1237 Discontinued Medications Fludrocortisone Acetate (Fludrocortisone Acetate) 0.1 Mg Tab, 0.1 MG PO Q48H, (Reported) Entered as Reported by: ORACIO MORGAN on 02/06/23 1028 Potassium Chloride (Potassium Chloride) 10 Meq Tab.er.prt, 10 MEQ PO DAILY, (Reported) Entered as Reported by: ORACIO MORGAN on 02/06/23 1028 Tramadol HCl (Tramadol HCl) 50 Mg Tablet, 50 MG PO BID PRN for PAIN-MODERATE (5- 7), (Reported) Discontinued Reason: Prescription changed Entered as Reported by: ORACIO MORGAN on 02/06/23 1028 Past Pkehbuq-Ptdyai-Nbcaxz Hx Patient Social History Marrital Status: single Employed/Student: retired Smoking Status: Former Smoker Former Smoker, Quit: Oct 20, 2008 2nd Hand Smoke Exposure: No Recent Hopitalizations: No Alcohol Use?: No Pt feels they are or have been: No Immunizations Up To Date Date of Influenza Vaccine: Sep 12, 2022 Seasonal Allergies Seasonal Allergies: No Surgeries Yes Eye Surgery, Nephrectomy, Orthopedic, Renal Respiratory No Currently Using CPAP: No Currently Using BIPAP: No Cardiovascular Yes Hypertension Neurological No Genitourinary Yes (RENAL CANCER, S/P RIGHT NEPHRECTOMY) Gastrointestinal No Musculoskeletal Yes (BACK SURGERY) Chronic Back Pain Endocrine History of Endocrine Disorders: No HEENT History of HEENT Disorders: No Cancer Yes Kidney Did You Recieve Any Treatments: Yes Type of Treatment: Surgical Intervention Psychosocial History of Psychiatric Problem: No Integumentary History of Skin or Integumenta: No Blood Transfusions History of Blood Disorders: No Family Medical History Significant Family History: No Pertinent Family Hx Other Significan Family Hx: SOCIAL HISTORY: -SMOKED 1 PPD, QUIT 2008 -ETOH --HISTORY OF ABUSE/HEAVY USE--OVER A 6 PACK/DAY--WILL NOT ELABORATE ON HOW MUCH HE USED TO DRINK. STATES HE NO LONGER DRINKS, PER PT ON 01/04/23 -DRUGS--THC IN PAST PAST SURGICAL HISTORY: -RIGHT NEPHRECTOMY 2000 FOR RENAL CANCER -CYSTOSCOPIES -BACK SURGERY -BILATERAL CATARACTS 02/2022 Review of Systems Constitutional: see HPI, malaise, weakness EENTM: no symptoms reported Respiratory: no symptoms reported Cardiovascular: no symptoms reported Gastrointestinal: no symptoms reported Genitourinary: no symptoms reported Musculoskeletal: back pain, joint pain, muscle pain, muscle stiffness, muscle cramps Skin: no symptoms reported Psychiatric/Neurological: Depressed All Other Systems Reviewed Negative Unless Noted: Yes Physical Exam Vital Signs Vital Signs - First Documented 03/31/23 03/31/23 16:45 19:54 Temp 35.9 Pulse 86 Resp 17 B/P (MAP) 113/73 (86) Pulse Ox 99 O2 Delivery Room Air O2 Flow Rate 98.00 Capillary Refill : Height, Weight, BMI Height: 5'9" Weight: 170lbs. oz. [id number]; 14.43 BMI Method: General Appearance: No Apparent Distress, Anxious, Chronically ill, Cachetic, Thin Eyes: Bilateral Eye Normal Inspection, Bilateral Eye PERRL, Bilateral Eye EOMI HEENT: PERRL/EOMI, Normal ENT Inspection, Pharynx Normal Neck: Full Range of Motion, Normal Inspection, Non Tender, Supple, Carotid Bruit Respiratory: Chest Non Tender, Lungs Clear, Normal Breath Sounds, No Accessory Muscle Use, No Respiratory Distress Cardiovascular: Regular Rate, Rhythm, No Edema, No Gallop, No JVD, No Murmur, Normal Peripheral Pulses Gastrointestinal: Normal Bowel Sounds, No Organomegaly, No Pulsatile Mass, Non Tender, Soft Back: Normal Inspection, No CVA Tenderness, No Vertebral Tenderness Extremity: Normal Capillary Refill, Normal Inspection, Normal Range of Motion, Non Tender, No Calf Tenderness, No Pedal Edema Neurologic/Psychiatric: Alert, Oriented x3, No Motor/Sensory Deficits, Normal Mood/Affect Skin: Normal Color, Warm/Dry Lymphatic: No Adenopathy Short Stay Diagnosis Discharge Diagnosis-Short Stay Admission Diagnosis: Multiple falls Cachexia Ureteral carcinoma with mets Final Discharge Diagnosis: Multiple falls Cachexia Ureteral carcinoma with mets Conclusion Labs Laboratory Tests 04/01/23 05:20: Conclusion/Plan Discharged to [facility] AMBER VALIENTE DO Apr 01, 2023 06:08
[2023-04-01 06:11] LABS: BILIRUBIN,TOTAL 2.2 MG/DL (0.1-1.0); CALCIUM 9.3 MG/DL (8.5-10.1); CREATININE SERUM 1.08 MG/DL (0.60-1.30); POTASSIUM 3.1 MMOL/L (3.6-5.0); TOTAL PROTEIN 7.3 GM/DL (6.4-8.2)
[2023-04-01] MEDS ORDERED: CYANOCOBALAMIN 1,000 MCG (VITAMIN B-12) TABLET PO SCH (07:00)
[2023-04-01] MEDS ORDERED: METOCLOPRAMIDE 5 MG (REGLAN) TAB PO SCH (07:00)
[2023-04-01 07:59] VITALS: BP 134/79
[2023-04-01] MEDS ORDERED: FLUDROCORTISONE 0.1 MG (FLORINEF) TAB PO SCH (08:00)
[2023-04-01] MEDS: SENNOSIDES 8.6 MG (SENOKOT) TAB PO SCH (08:21)
[2023-04-01] MEDS: LACTULOSE SYRUP 10GM/15ML (ENULOSE) 30ML UDC PO SCH (08:21)
[2023-04-01] MEDS: POTASSIUM BICARB 20 MEQ (EFFER-K) TABLET PO SCH (08:21)
[2023-04-01] MEDS: DOCUSATE SODIUM 100 MG (COLACE) CAP PO SCH (08:21)
[2023-04-01] MEDS: ACETAMINOPHEN 325 MG TABLET PO SCH (08:22)
[2023-04-01 11:55] VITALS: BP 183/94
[2023-04-01] MEDS ORDERED: OXC5T PO (12:36)
[2023-04-01] MEDS ORDERED: METO5TAB2 PO (12:36)
[2023-04-01] MEDS ORDERED: AMLO2.5T4 PO (12:36)
[2023-04-01] MEDS ORDERED: POTA20TA28 PO (12:36)
[2023-04-01] MEDS ORDERED: FLDR.1T PO (12:36)
[2023-04-01] MEDS ORDERED: LACT20SO2 PO (12:36)
[2023-04-01] MEDS ORDERED: TRAM50TA3 PO (12:36)
[2023-04-01] MEDS ORDERED: ONDA4TAB11 PO (12:36)
[2023-04-01] MEDS ORDERED: ACET325T38 PO (12:36)
[2023-04-01] MEDS ORDERED: CYAN500T8 PO (12:36)
[2023-04-01] MEDS ORDERED: DOCU100C37 PO (12:36)
[2023-04-01] MEDS ORDERED: HYDR-3922 PO (12:36)
[2023-04-01] MEDS ORDERED: SENN-271 PO (12:36)
--- NOTE | 2023-04-01 13:52 | Physical Therapy Evaluation ---
PT Evaluation-General Medical Diagnosis Admission Date Mar 31, 2023 at 16:10 Medical Diagnosis: dehydration Onset Date: Mar 31, 2023 Therapy Diagnosis Therapy Diagnosis: debility Height/Weight Height (Feet): 5 Height (Inches): 9 Weight (Pounds): 170 Precautions Precautions/Isolations: Fall Prevention, Standard Precautions Referral Physician: Steffanie Reason for Referral: Evaluation/Treatment Medical History Pertinent Medical History: HTN Additional Medical History renal cancer with mets Current History failed ARU/multiple falls at home Reviewed History: Yes Social History Home: Single Level Prior Prior Level of Function SCALE: Activities may be completed with or without assistive devices. 6-Tgdovpcuyo-jsjhzlx completes the activity by him/herself with no assistance from a helper. 5-Set-up or Clean-up Assistance-helper sets up or cleans up; patient completes activity. [place] assists only prior to or following the activity. 4-Supervision or Touching Assistance-helper provides verbal cues and/or touching/steadying and/or contact guard assistance as patient completes activity. Assistance may be provided throughout the activity or intermittently. 3-Partial/Moderate Assistance-helper does LESS THAN HALF the effort. [place] lifts, holds or supports trunk or limbs, but provides less than half the effort. 2-Substantial/Maximal Assistance-helper does MORE THAN HALF the effort. [place] lifts or holds trunk or limbs and provides more than half the effort. 0-Ajstxxtnw-acubve does ALL the effort. Patient does none of the effort to complete the activity. Or, the assistance of 2 or more helpers is required for the patient to complete the activity. If activity was not attempted, code reason: 7-Patient Refused. 9-Not Applicable-not attempted and the patient did not perform the activity before the current illness, exacerbation or injury. 10-Not Attempted due to Environmental Limitations-(lack of equipment, weather restraints, etc.). 88-Not Attempted due to Medical Conditions or Safety Concerns. Bed Mobility: 6 Transfers (B,C,W/C): 6 Gait: 6 Indoor Mobility (Ambulation): Independent Prior Devices Use: Walker PT Evaluation-Current Subjective Patient agrees to PT. Objective Patient Orientation: Normal For Age Attachments: IV ROM/Strength ROM Lower Extremities bilateral LE WFL Strength Lower Extremities 3/5 grossly bilateral LE all planes Integumentary/Posture Bowel Incontinence: No Bladder Incontinence: No Posture kyphotic Neuromuscular (Tone, Coordination, Reflexes) grossly intact Sensory Vision: Wears Glasses Hearing: Functional Transfers Lying to Sitting/Side of Bed(Q: 4 Sit to Stand (QC): 4 Chair/Kgv-af-Edbhe Xfer(QC): 4 Gait Mode of Locomotion: Walk Anticipated Mode of Locomotion: Walk Walk 10 feet (QC): 4 Walk 50 ft with 2 Turns(QC): 4 Walk 150 ft (QC): 4 Distance: 250' Gait Assistive Device: FWW Comments/Gait Description CGA for safety Balance Sitting Static: Normal Sitting Dynamic: Normal Standing Static: Fair Standing Dynamic: Fair Assessment/Needs Patient will benefit from skilled PT to address functional strength and mobility. Patient, per report, will dismiss to [place] on this date. Rehab Potential: Fair PT Plan Treatment/Plan Treatment Plan: Discontinue PT Treatment Duration: Apr 01, 2023 Frequency: 1 time per week Estimated Hrs Per Day: .25 hour per day Time Time In: 1315 Time Out: 1330 DATE: Apr 01, 2023 Total Billed Treatment Time: 15 Total Billed Treatment [address] [facility] 15 min DARA MOHAMUD PT Apr 01, 2023 13:52
[2023-04-01 14:13] VITALS: BP 183/94
[2023-04-02] MEDS ORDERED: FLUDROCORTISONE 0.1 MG (FLORINEF) TAB PO SCH (08:00)
== END 2023-04-01 12:34 ==
LOC: 4TH 16:10 → UNDOADMOB 16:10 → 4TH 16:42 → UNDODISOB 04-01 12:34
PROVIDERS: ADMIT Internal Medicine; ATTEND Internal Medicine
DX: R64 Cachexia (principal); C66.9 Malignant neoplasm of unspecified ureter; Z87.891 Personal history of nicotine dependence; Z68.1 Body mass index [BMI] 19.9 or less, adult
CPT/HCPCS: 80053; 85025; 96360; 96361 ×2; 97162; G0378; G0379; 36415

== ENCOUNTER → 2023-04-06 | Outpatient (CLI) | payer MEDICARE, OTHER ==
[~2023-04-06] MED LIST changes: +DOCU100C37 PO
[2023-04-06 10:39] LABS: HEMATOCRIT 38 % (40-54); HEMOGLOBIN 13.9 g/dL (13.3-17.7); MEAN CORPUSCULAR HEMOGLOBIN 33 pg (25-34); MEAN CORPUSCULAR HGB CONC 36 g/dL (32-36); MEAN CORPUSCULAR VOLUME 92 fL (80-99); MEAN PLATELET VOLUME 9.7 fL (9.0-12.2); PLATELET COUNT 320 10^3/uL (130-400); WHITE BLOOD COUNT 9.2 10^3/uL (4.3-11.0)
[2023-04-06 10:49] LABS: ALBUMIN 3.9 GM/DL (3.2-4.5)
[2023-04-06 10:50] LABS: POTASSIUM 2.9 MMOL/L (3.6-5.0)
[2023-04-06 10:51] LABS: CALCIUM 9.9 MG/DL (8.5-10.1)
[2023-04-06 10:56] LABS: CREATININE SERUM 1.47 MG/DL (0.60-1.30)
== END ==
LOC: LABNPT 10:34
PROVIDERS: ATTEND Internal Medicine
DX: C67.9 Malignant neoplasm of bladder, unspecified (principal); C79.51 Secondary malignant neoplasm of bone; I95.1 Orthostatic hypotension; R29.6 Repeated falls; R64 Cachexia
CPT/HCPCS: 80053; 85027

== ENCOUNTER 2023-04-09 13:24 | Outpatient (RCR) | payer MEDICARE, OTHER | END 2023-04-18 | disposition home or self-care (01) | LOC: ONC 13:24 | PROVIDERS: ATTEND Internal Medicine Hematology & Oncology | DX: C68.0 Malignant neoplasm of urethra (principal); C79.51 Secondary malignant neoplasm of bone; I10 Essential (primary) hypertension; Z90.5 Acquired absence of kidney ==